=== PATIENT | female | born 1950 | race Caucasian/White ===

== ENCOUNTER → 2017-10-02 12:19 | Outpatient (CLI) | payer OTHER, SELFPAY ==
--- NOTE | 2017-10-02 | DI.RAD.S_ITS ---
PROCEDURE: XR LUMBAR SPINE MIN 4V INDICATIONS: RHEUMATOID ARTHRITIS TECHNIQUE: 5 views of the lumbar spine acquired. COMPARISON: None. FINDINGS: Bones: 5 nonrib-bearing vertebrae are present. There is slight levoconvex curvature with normal bony alignment. No vertebral body compression fractures. No suspicious bony lesions. Disc spaces appear maintained. Mild narrowing and sclerosis of the facet joints at L4-5 and L5-S1. Soft tissues: Overlying bowel gas pattern is normal. Vascular calcifications. Oblique views: No pars defects. IMPRESSION: Mild facet arthropathy L4-5 and L5-S1, otherwise normal lumbar spine Dictated by: Geoff Mnan M.D. on 10/02/2017 at 13:16 Approved by: Geoff Mann M.D. on 10/02/2017 at 13:18
--- NOTE | 2017-10-02 | DI.RAD.S_ITS ---
PROCEDURE: XR CERVICAL SPINE 4V OR 5V INDICATIONS: RHEUMATOID ARTHRITIS TECHNIQUE: 5 views of the cervical spine were acquired. COMPARISON: None. FINDINGS: Bones: No fractures or dislocations to the C7 level. No suspicious bony lesions. Anterolisthesis is present at the C4-5 level with approximately 3 mm of displacement. There is a mild degree of posterior disc narrowing and facet arthropathy C3-4 and C4-5. No cervical ribs. Oblique views show bony encroachment on the nerve root canals at C4-5, right greater than left. Soft tissues: Prevertebral soft tissues are normal in thickness. Minimal calcification in the left carotid artery. IMPRESSION: 1. Grade 1 anterolisthesis at C4-5, likely related to degenerative facet arthropathy. This could be further assessed by flexion and extension lateral views if clinically indicated. 2. No fracture deformities or suspicious bony lesions. Dictated by: Geoff Mann M.D. on 10/02/2017 at 13:12 Approved by: Geoff Mann M.D. on 10/02/2017 at 13:15
== END ==
PROVIDERS: Family Provider Family Medicine; PCP Nurse Practitioner Family; Visit Provider Internal Medicine Rheumatology
DX: M06.9 Rheumatoid arthritis, unspecified (principal); M43.12 Spondylolisthesis, cervical region; M43.16 Spondylolisthesis, lumbar region; M43.17 Spondylolisthesis, lumbosacral region
CPT/HCPCS: 72050; 72110

== ENCOUNTER 2017-12-12 13:14 | Emergency (ER) | payer OTHER, SELFPAY ==
[2017-12-12 13:19] VITALS: BP 126/78; PULSE 63; RESP 14; O2SAT 95; BMI 18.4
[2017-12-12 13:35] VITALS: BP 124/59; PULSE 84; RESP 13; TEMP 36.7; O2SAT 100
--- NOTE | 2017-12-12 13:40 | DI.RAD.S_ITS ---
PROCEDURE: XR CHEST 1V INDICATIONS: chest pain TECHNIQUE: One view of the chest was acquired. COMPARISON: None. FINDINGS: Surgical changes and devices: None. Lungs and pleura: No pleural effusions or pneumothorax. Lungs are clear. Mediastinum: Mediastinal contours appear normal. Heart size is normal. Bones and chest wall: No suspicious bony lesions. Overlying soft tissues appear unremarkable. IMPRESSION: No acute cardiopulmonary disease. Dictated by: Ben Seymour M.D. on 12/12/2017 at 14:09 Approved by: Ben Seymour M.D. on 12/12/2017 at 14:10
[2017-12-12 13:51] LABS: INR 1.1 (0.9-1.3); Prothrombin Time 12.4 SECONDS (10.1-12.7)
[2017-12-12 13:54] LABS: Add Manual Diff / Slide Review NO; Alanine Aminotransferase 23 IU/L (9-52); Albumin 4.7 g/dL (3.5-5.0); Albumin Globulin Ratio 1.3 (1.0-2.8); Alkaline Phosphatase 78 U/L (38-126); Aspartate Aminotransferase 33 IU/L (14-36); BUN Creatinine Ratio 8.9 (6-22); Basophils Percent Auto 0.6 % (0-2); Bilirubin Total 0.4 mg/dL (0.2-1.3); Blood Urea Nitrogen 16 mg/dL (7-17); Calcium 9.7 mg/dL (8.4-10.2); Carbon Dioxide 31 mmol/L (22-32); Chloride 95 mmol/L (98-107); Creatine Kinase 49 U/L (30-135); Eosinophils Percent Auto 0.2 % (2-4); Estimated Glomerular Filt Rate 28.2 mL/min (>60); Globulin 3.5 g/dL (1.7-4.1); Glucose 110 mg/dL (80-110); HEMOLYSIS < 15 (0-50); Hematocrit 35.2 % (36-46); Lipase 75 U/L (23-300); Lymphocytes Percent Auto 8.3 % (25-40); Mean Corpuscular HGB Conc 31.3 % (30-36); Mean Corpuscular Hemoglobin 21.7 PG (26-34); Mean Corpuscular Volume 69.3 fL (80-100); Monocytes Percent Auto 6.4 % (3-14); Neutrophils Absolute Auto 18200 /uL (3000-5900); Neutrophils Percent Auto 84.5 % (50-75); PTT Partial Thromboplastin Tim 26 SECONDS (26.4-36.2); Platelet Count 435 X10^3/uL (150-400); Potassium 3.4 mmol/L (3.4-5.1); Red Blood Cell Count 5.08 X10^6/uL (4.0-5.2); Red Cell Distribution Width 18.5 % (11.6-14.8); Sodium 139 mmol/L (137-145); Total Protein 8.2 g/dL (6.3-8.2); White Blood Cell Count 21.6 X10^3/uL (4.5-11.0)
[2017-12-12 14:07] VITALS: BP 119/60; PULSE 91; RESP 11; O2SAT 100
[2017-12-12 14:07] LABS: Troponin I < 0.012 ng/mL (0.01-0.034)
[2017-12-12 14:48] LABS: Microcytosis 1+
[2017-12-12 14:49] LABS: Platelet Estimate Increased on smear
[2017-12-12 14:53] VITALS: BP 119/61; PULSE 85; RESP 29; O2SAT 100
[2017-12-12 15:36] LABS: RBC Urine None Seen (0-5/HPF)
--- NOTE | 2017-12-12 15:36 | ED.CHESTPAIN ---
HPI - Chest Pain General Chief Complaint: Chest Pain Stated Complaint: CHEST PAIN Time Seen by Provider: 12/12/17 13:49 Source: patient Mode of arrival: ambulatory Limitations: no limitations History of Present Illness HPI narrative: Patient is a 67-year-old female who presents with chest discomfort. She says it started while at work today seems to be constant in nature on the left side nonradiating. It has now resolved since she has been in the ED. She has never had pain like this in the past. No shortness of breath cough or fever. She is currently on her 2nd or 3rd round of antibiotics for UTI that she says 1 go away. She complains of discomfort with urination. Currently on Augmentin. She denies any abdominal pain. MD complaint: chest pain Related Data Home Medications Medication Instructions Recorded Confirmed prednisone 5 mg PO QDAY #0 01/10/12 12/12/17 tramadol 50 mg PO 5XD #0 03/29/17 12/12/17 amoxicillin-pot clavulanate 1 tab PO BID 12/12/17 12/12/17 [Augmentin] estradiol 0.5 mg PO DAILY 12/12/17 12/12/17 flurbiprofen 100 mg PO BID 12/12/17 12/12/17 hydrochlorothiazide 25 mg PO DAILY 12/12/17 12/12/17 lisinopril 10 mg PO DAILY 12/12/17 12/12/17 medroxyprogesterone 2.5 mg PO DAILY 12/12/17 12/12/17 potassium chloride 20 meq PO DAILY 12/12/17 12/12/17 Allergies Allergy/AdvReac Type Severity Reaction Status Date / Time Sulfa (Sulfonamide AdvReac Severe VOMITING Verified 12/12/17 13:19 Antibiotics) AND FEVER [SULFA (SULFONAMIDE ANTIBIOTICS)] Review of Systems Review of Systems GENERAL: Denies chills, fatigue, malaise, fever, sweats, travel HEENT: Denies sinus pain, ear pain, sore throat, difficulty swallowing, neck pain RESPIRATORY: Denies dyspnea, cough, wheezing, hemoptysis, sputum. CARDIOVASCULAR: See HPI GASTROINTESTINAL: Denies nausea, vomiting, abdominal pain, diarrhea, constipation, melena. : UTI current MUSCULOSKELETAL: Denies weakness, joint pain, or bony pain SKIN: No rash, no erythema, no pruritus NEUROLOGIC: Denies weakness, dizziness, headache, numbness, change in speech, confusion PSYCHIATRIC: No concerning psychosocial issues. 12 point review of systems is negative except for those stated above and HPI [facility] Medical History Hyperlipidemia (Acute) Hypertension (Acute) Social History Smoking Status: Current every day smoker Exam Initial Vital Signs Initial Vital Signs: Vital Signs Pulse Rate 63 12/12/17 13:19 Respiratory Rate 14 12/12/17 13:19 Blood Pressure 126/78 12/12/17 13:19 Pulse Oximetry 95 12/12/17 13:19 GENERAL: alert female no acute distress HEENT: Head atraumatic,EOMI, pupils reactive, face symmetric, no JVD CARDIOVASCULAR: Regular rate and rhythm without murmurs, rubs or gallops. pain is not reproducible with palpation or movement RESPIRATORY: Breath sounds equal bilaterally, no wheezes rales or rhonchi. ABDOMEN: Soft, nontender. Normoactive bowel sounds all 4 quadrants. No guarding or rebound. : No CVA tenderness no suprapubic pain EXTREMITIES: Normal range of motion, no clubbing or edema. Neurovascularly intact NEUROLOGICAL: Alert and oriented x4.Normal gait and speech. Cranial nerves II through XII grossly intact. SKIN: Warm, dry, no laceration, no petechiae, no rashes or lesions. Course Orders Ordered: Discontinued Medications Ceftriaxone Sodium/Dextrose (Rocephin) 1 gm in 50 mls @ 100 mls/hr IV NOW ONE Stop: 12/12/17 17:06 Last Infusion: 12/12/17 17:38 Dose: 0 mls/hr Admin: 12/12/17 17:10 Dose: 100 mls/hr Vital Signs - 8 hr 12/12/17 13:19 12/12/17 13:35 12/12/17 14:07 Temperature 98.0 F Pulse Rate 63 84 91 H Respiratory Rate 14 13 11 L Blood Pressure 126/78 Blood Pressure [Left Arm] 124/59 L 119/60 Pulse Oximetry 95 100 100 12/12/17 14:53 Temperature Pulse Rate 85 Respiratory Rate 29 H Blood Pressure Blood Pressure [Left Arm] 119/61 Pulse Oximetry 100 MDM - Chest Pain Lab Data Attestation: I reviewed the patient's lab results. Result diagrams: 12/12/17 13:34 12/12/17 13:34 Lab Results 12/12/17 12/12/17 12/12/17 Range/Units 13:34 13:34 13:34 WBC 21.6 H (4.5-11.0) X10^3/uL RBC 5.08 (4.0-5.2) X10^6/uL Hgb 11.0 L (12.0-16.0) g/dL Hct 35.2 L (36-46) % MCV 69.3 L (80-100) fL MCH 21.7 L (26-34) PG MCHC 31.3 (30-36) % RDW 18.5 H (11.6-14.8) % Plt Count 435 H (150-400) X10^3/uL Neut % (Auto) 84.5 H (50-75) % Lymph % (Auto) 8.3 L (25-40) % Ulster % (Auto) 6.4 (3-14) % Eos % (Auto) 0.2 L (2-4) % Baso % (Auto) 0.6 (0-2) % Neut # (Auto) 20285 H (9446-1386) /uL Platelet Estimate Increased on smear RBC Morphology Not Reportable Microcytosis 1+ H PT 12.4 (10.1-12.7) SECONDS INR 1.1 (0.9-1.3) APTT 26 L (26.4-36.2) SECONDS Sodium 139 (137-145) mmol/L Potassium 3.4 (3.4-5.1) mmol/L Chloride 95 L (98-107) mmol/L Carbon Dioxide 31 (22-32) mmol/L BUN 16 (7-17) mg/dL Creatinine 1.80 H (0.52-1.04) mg/dL Estimated GFR 28.2 L (>60) mL/min BUN/Creatinine Ratio 8.9 (6-22) Glucose 110 (80-110) mg/dL Calcium 9.7 (8.4-10.2) mg/dL Total Bilirubin 0.4 (0.2-1.3) mg/dL AST 33 (14-36) IU/L ALT 23 (9-52) IU/L Alkaline Phosphatase 78 (38-126) U/L Total Creatine Kinase 49 (30-135) U/L Troponin I < 0.012 (0.01-0.034) ng/mL Total Protein 8.2 (6.3-8.2) g/dL Albumin 4.7 (3.5-5.0) g/dL Globulin 3.5 (1.7-4.1) g/dL Albumin/Globulin Ratio 1.3 (1.0-2.8) Lipase 75 (23-300) U/L Urine Color Urine Appearance Urine pH (4.5-8.0) Ur Specific Holland (1.000-1.035) Urine Protein (Negative) Urine Glucose (UA) (Normal) g/dL Urine Ketones (NEGATIVE) Urine Occult Blood (Negative) Urine Nitrate (Negative) Urine Bilirubin (NEGATIVE) Urine Ictotest (Negative) Urine Urobilinogen (0.2) E.U./dL Ur Leukocyte Esterase (NEGATIVE) Urine RBC (0-5/HPF) Urine WBC (0-5/HPF) Ur Squamous Epith Cells Amorphous Sediment Urine Bacteria (None) Urine Mucus (Negative) Ur Culture Indicated? Micro UA Comment 12/12/17 12/12/17 Range/Units 14:15 15:50 WBC (4.5-11.0) X10^3/uL RBC (4.0-5.2) X10^6/uL Hgb (12.0-16.0) g/dL Hct (36-46) % MCV (80-100) fL MCH (26-34) PG MCHC (30-36) % RDW (11.6-14.8) % Plt Count (150-400) X10^3/uL Neut % (Auto) (50-75) % Lymph % (Auto) (25-40) % Ulster % (Auto) (3-14) % Eos % (Auto) (2-4) % Baso % (Auto) (0-2) % Neut # (Auto) (7349-5134) /uL Platelet Estimate RBC Morphology Microcytosis PT (10.1-12.7) SECONDS INR (0.9-1.3) APTT (26.4-36.2) SECONDS Sodium (137-145) mmol/L Potassium (3.4-5.1) mmol/L Chloride (98-107) mmol/L Carbon Dioxide (22-32) mmol/L BUN (7-17) mg/dL Creatinine (0.52-1.04) mg/dL Estimated GFR (>60) mL/min BUN/Creatinine Ratio (6-22) Glucose (80-110) mg/dL Calcium (8.4-10.2) mg/dL Total Bilirubin (0.2-1.3) mg/dL AST (14-36) IU/L ALT (9-52) IU/L Alkaline Phosphatase (38-126) U/L Total Creatine Kinase (30-135) U/L Troponin I < 0.012 (0.01-0.034) ng/mL Total Protein (6.3-8.2) g/dL Albumin (3.5-5.0) g/dL Globulin (1.7-4.1) g/dL Albumin/Globulin Ratio (1.0-2.8) Lipase (23-300) U/L Urine Color Yellow Urine Appearance Slightly cloudy Urine pH 5.0 (4.5-8.0) Ur Specific Holland 1.015 (1.000-1.035) Urine Protein 2+ H (Negative) Urine Glucose (UA) Negative (Normal) g/dL Urine Ketones Trace H (NEGATIVE) Urine Occult Blood Negative (Negative) Urine Nitrate Negative (Negative) Urine Bilirubin 1+ H (NEGATIVE) Urine Ictotest Negative (Negative) Urine Urobilinogen 0.2 (0.2) E.U./dL Ur Leukocyte Esterase Trace H (NEGATIVE) Urine RBC None seen (0-5/HPF) Urine WBC 5-10/hpf H (0-5/HPF) Ur Squamous Epith Cells 1-5 /hpf Amorphous Sediment 1+ Urine Bacteria Moderate (10-30) H (None) Urine Mucus 1+ H (Negative) Ur Culture Indicated? Specimen cultured Micro UA Comment Not Reportable Imaging Data Chest x-ray: Radiologist's impression: PROCEDURE: XR CHEST 1V INDICATIONS: chest pain TECHNIQUE: One view of the chest was acquired. COMPARISON: None. FINDINGS: Surgical changes and devices: None. Lungs and pleura: No pleural effusions or pneumothorax. Lungs are clear. Mediastinum: Mediastinal contours appear normal. Heart size is normal. Bones and chest wall: No suspicious bony lesions. Overlying soft tissues appear unremarkable. IMPRESSION: No acute cardiopulmonary disease. Dictated by: Ben Seymour M.D. on 12/12/2017 at 14:09 ECG Data Attestation: I personally reviewed and interpreted this ECG as follows: Prior ECG tracings: not available for review Interpretation: normal sinus rhythm rate 90 no Q-waves no ST changes no T-wave inversions all p.r. rate 135 QRS ED for QTC 399 MDM Narrative Medical decision making narrative: Patient is requesting to go home. She has significant leukocytosis though she is on 5 mg of prednisone I think there is potential this is infectious. She has been treated on multiple antibiotics for UTI and is still symptomatic. She understands that she may likely need stress test and IV antibiotics. patient does not have signs or symptoms consistent with PE. No risk factors. It was considered. I have discussed case with Dr. Payton who will see her in the office tomorrow. Request that we give 1 dose of IV Rocephin in the ED. The patient is clinically sober, free from distracting injury, appears to have intact insight, judgment and reason. Does not meet criteria for involuntary hospitalization. Patient has the capacity to make decisions. Discharge Plan Departure Patient Disposition: Left Against Medical Advice Clinical Impression: Atypical chest pain, UTI (urinary tract infection) Discharge Date/Time: 12/12/17 17:56 Interventions: ED Discharge Assessment Last Done: 12/12/17 17:56 Instructions: DI for Urinary Tract Infection (UTI), DI for Atypical Chest Pain Activity Restrictions/Additional Instructions: It is recommended that you stay in the hospital for IV antibiotics and further cardiac workup Follow up of with primary care provider tomorrow for another dose of antibiotics Continue Augmentin as previously prescribed Return to the ER at any time if you should have any worsening chest pain fevers abdominal discomfort inability keep fluids down Prescriptions: No Action prednisone 5 MG tablet 5 mg PO QDAY Qty: 0 RF: 0 tramadol 50 MG tablet 50 mg PO 5XD Qty: 0 RF: 0 medroxyprogesterone 2.5 mg Tablet 2.5 mg PO DAILY RF: 0 flurbiprofen 100 mg Tablet 100 mg PO BID RF: 0 hydrochlorothiazide 25 mg Tablet 25 mg PO DAILY RF: 0 estradiol 0.5 mg Tablet 0.5 mg PO DAILY RF: 0 amoxicillin-pot clavulanate [Augmentin] 875-125 mg Tablet 1 tab PO BID RF: 0 potassium chloride 20 mEq Tablet Extended Release 20 meq PO DAILY RF: 0 lisinopril 10 mg Tablet 10 mg PO DAILY RF: 0 Referrals: Anson Marie MD [Family Provider] - Anuradha Villalobos ARNP [Primary Care Provider] - Stand Alone Forms: Against Medical Advice
[2017-12-12 15:41] LABS: Bilirubin Urine UA 1+ (NEGATIVE); Color Urine UA YELLOW; Glucose Urine UA NEGATIVE (Normal); Ketones Urine UA TRACE (NEGATIVE); Leukocyte Esterase Urine UA TRACE (NEGATIVE); Nitrite Urine UA Negative (Negative); Occult Blood Urine UA NEGATIVE (Negative); Protein Urine UA 2+ (Negative); Specific Gravity Urine UA 1.015 (1.000-1.035); Urobilinogen Urine UA 0.2 E.U./dL (0.2)
[2017-12-12 15:47] LABS: Appearance Urine UA Slightly Cloudy
[2017-12-12 15:54] LABS: Amorphous Sediment Urine 1+; Bacteria Urine Moderate (10-30); Culture Indicated Urine Specimen Cultured; Mucus Urine 1+ (Negative); Squamous Epithelial Cell Urine 1-5 /HPF; WBC Urine 5-10/HPF (0-5/HPF)
[2017-12-12 15:59] LABS: Ictotest Urine Negative (Negative)
[2017-12-12 16:20] LABS: Troponin I < 0.012 ng/mL (0.01-0.034)
[2017-12-12] MEDS: CEFTRIAXONE 1 GM/50 ML FROZ.PIGGY IV (17:10)
[2017-12-12 17:51] VITALS: BP 141/67; PULSE 80; TEMP 36.4; O2SAT 96
== END 2017-12-12 17:56 | disposition left against medical advice (07) ==
PROVIDERS: Emergency Provider Emergency Medicine; Family Provider Family Medicine; PCP Nurse Practitioner Family
DX: N39.0 Urinary tract infection, site not specified (principal); R07.89 Other chest pain
CPT/HCPCS: 36415; 36591; 71045; 80053; 81001; 82550; 82553; 83690; 84484; 85025; 85610; 85730; 87086; 93005; 93010; 96365; 99283; 99285

== ENCOUNTER → 2017-12-18 13:13 | Outpatient (CLI) | payer OTHER, SELFPAY ==
--- NOTE | 2017-12-18 13:50 | DI.CT.S_ITS ---
PROCEDURE: CT ABDOMEN WO CON INDICATIONS: ASYMPTOMATIC HEMATURIA TECHNIQUE: After the administration of oral contrast, 5 mm thick sections acquired from the diaphragms to the iliac crests. 5 mm coronal and sagittal reformats were then performed. For radiation dose reduction, the following was used: automated exposure control, adjustment of mA and/or kV according to patient size. COMPARISON: None. FINDINGS: Image quality: Excellent. Lung bases: Lung bases are clear. Heart size is normal. Solid organs: Liver is normal in size. Gallbladder is within normal limits. Pancreas is normal in contours. Spleen is normal in size. No adrenal nodules. Kidneys: There is no hydronephrosis. No perinephric fat stranding or fluid. Bilateral kidneys are normal in size. Numerous bilateral nonobstructing renal calculi are seen measures up to 4 mm in size in midpole of right kidney and up to 7 mm in size in mid to lower pole of left kidney. Lobulated 3.5 x 4.1 cm hypodense structure is seen in midpole of right kidney and measures 15 Hounsfield unit density consistent with simple cysts. Additional smaller cysts are also seen in upper pole of right kidney. Peritoneum and bowel: Bowel loops demonstrate normal wall thickness and caliber. No free fluid or air. Nodes and vessels: No retroperitoneal or mesenteric adenopathy by size criteria. Aorta and inferior vena cava are normal in size. Moderate amount of atherosclerotic ossifications throughout the aorta is seen. Bones: No suspicious bony lesions. No vertebral body compression fractures. Miscellaneous: No ventral hernias. IMPRESSION: 1. Bilateral nonobstructing subcentimeter renal calculi. Right renal cysts as above. No obstructing renal stone hydronephrosis. No perinephric fat stranding or fluid. 2. No acute inflammatory process within the abdomen. No free fluid or free air. Dictated by: Quintin Roper M.D. on 12/18/2017 at 14:10 Approved by: Quintin Roper M.D. on 12/18/2017 at 14:13
== END ==
PROVIDERS: Family Provider Family Medicine; PCP Nurse Practitioner Family; Visit Provider Family Medicine
DX: R31.9 Hematuria, unspecified (principal); N20.0 Calculus of kidney; N28.1 Cyst of kidney, acquired
CPT/HCPCS: 74150

== ENCOUNTER → 2018-01-29 13:56 | Outpatient (CLI) | payer OTHER, SELFPAY ==
[2018-01-29 14:09] LABS: Bacteria Urine None Seen
[2018-01-29 17:38] LABS: Appearance Urine UA CLEAR; Bilirubin Urine UA NEGATIVE (NEGATIVE); Color Urine UA YELLOW; Glucose Urine UA NEGATIVE (Normal); Ketones Urine UA NEGATIVE (NEGATIVE); Leukocyte Esterase Urine UA NEGATIVE (NEGATIVE); Nitrite Urine UA NEGATIVE (Negative); Occult Blood Urine UA TRACE-INTACT (Negative); Protein Urine UA NEGATIVE (Negative); Urobilinogen Urine UA 0.2 E.U./dL (0.2)
[2018-01-29 17:50] LABS: RBC Urine 0-1/HPF (0-5/HPF); Squamous Epithelial Cell Urine 0-1 /HPF; WBC Urine 0-1/HPF (0-5/HPF)
== END ==
PROVIDERS: Family Provider Family Medicine; PCP Family Medicine; Visit Provider Specialist
DX: R30.0 Dysuria (principal); R10.9 Unspecified abdominal pain
CPT/HCPCS: 81001; 87086

== ENCOUNTER → 2018-01-31 13:55 | Outpatient (CLI) | payer OTHER, SELFPAY ==
--- NOTE | 2018-01-31 | DI.RAD.S_ITS ---
PROCEDURE: XR KUB INDICATIONS: KIDNEY STONES/LAB TECHNIQUE: One view of the abdomen acquired. COMPARISON: [facility], CT, CT ABDOMEN WO CON, 12/18/2017, 13:41. FINDINGS: Surgical changes and devices: None. Bowel: Bowel gas pattern is normal. Soft tissues: No new suspicious abdominal calcifications. Punctate renal collecting system calculi greater on the left than the right are more easily visualized due to the lesser degree of stool covering the area of the kidney on the left. The larger of the calculi on the left is again noted to be unchanged from prior CT scan of 12/18/17 and to measure up to 7 mm in dimension Visualized solid organ contours appear normal in size. Bones: No suspicious bony lesions. IMPRESSION: Stable appearing calculi over the kidneys bilaterally better seen on the left than the right with the largest calculus on the left measuring up to 7 mm. Dictated by: Chito Kerr M.D. on 01/31/2018 at 14:40 Approved by: Chito Kerr M.D. on 01/31/2018 at 14:42
[2018-01-31 15:13] LABS: Uric Acid 6.3 mg/dL (2.5-6.2)
[2018-02-03 16:41] LABS: Parathyroid Hormone Int 91 pg/mL (14-64)
== END ==
PROVIDERS: PCP Family Medicine; Visit Provider Specialist
DX: N20.0 Calculus of kidney (principal)
CPT/HCPCS: 36415; 74018; 83970; 84550; 86304

== ENCOUNTER → 2018-02-10 12:26 | Outpatient (CLI) | payer OTHER, SELFPAY | PROVIDERS: Family Provider Family Medicine; PCP Family Medicine; Visit Provider Specialist | DX: N20.0 Calculus of kidney (principal) ==

== ENCOUNTER → 2018-02-13 13:15 | Outpatient (CLI) | payer OTHER, SELFPAY ==
[2018-02-13 14:40] LABS: Calcium 9.6 mg/dL (8.4-10.2)
== END ==
PROVIDERS: Family Provider Family Medicine; PCP Family Medicine; Visit Provider Specialist
DX: N20.0 Calculus of kidney (principal)
CPT/HCPCS: 36415; 82310

== ENCOUNTER → 2018-03-30 13:33 | Outpatient (CLI) | payer OTHER, SELFPAY ==
[2018-03-30 15:07] LABS: Hematocrit 30.6 % (36-46); Hemoglobin 9.8 g/dL (12.0-16.0); Mean Corpuscular Hemoglobin 26.2 PG (26-34); Mean Corpuscular Volume 81.8 fL (80-100); Platelet Count 460 X10^3/uL (150-400); Red Blood Cell Count 3.74 X10^6/uL (4.0-5.2); Red Cell Distribution Width 16.7 % (11.6-14.8); White Blood Cell Count 9.1 X10^3/uL (4.5-11.0)
[2018-03-30 15:40] LABS: Creatinine Urine Random 104.7 mg/dL
[2018-03-30 15:43] LABS: Blood Urea Nitrogen 12 mg/dL (7-17); Calcium 9.1 mg/dL (8.4-10.2); Carbon Dioxide 27 mmol/L (22-32); Chloride 99 mmol/L (98-107); Estimated Glomerular Filt Rate > 60.0 mL/min (>60); Glucose 125 mg/dL (80-110); HEMOLYSIS < 15 (0-50); Sodium 140 mmol/L (137-145)
[2018-03-30 15:46] LABS: Protein (Total) Urine Random < 5 mg/dL (0-12); Protein Creatinine Ratio Urine 0.04 GRAM/24H
== END ==
PROVIDERS: Family Provider Family Medicine; PCP Family Medicine; Visit Provider Student in an Organized Health Care Education/Training Program
DX: D70.9 Neutropenia, unspecified (principal); D63.1 Anemia in chronic kidney disease; N05.9 Unspecified nephritic syndrome with unspecified morphologic changes; R80.9 Proteinuria, unspecified
CPT/HCPCS: 36415; 80048; 82570; 84156; 85027

== ENCOUNTER → 2018-06-01 12:55 | Outpatient (CLI) | payer OTHER, SELFPAY ==
[2018-06-01 13:02] LABS: Bacteria Urine None Seen
[2018-06-01 13:34] LABS: Hematocrit 39.9 % (36-46); Hemoglobin 12.7 g/dL (12.0-16.0)
[2018-06-01 13:39] LABS: Blood Urea Nitrogen 8 mg/dL (7-17); Calcium 9.4 mg/dL (8.4-10.2); Carbon Dioxide 30 mmol/L (22-32); Chloride 96 mmol/L (98-107); Estimated Glomerular Filt Rate > 60.0 mL/min (>60); Glucose 162 mg/dL (80-110); HEMOLYSIS < 15 (0-50); Potassium 3.8 mmol/L (3.4-5.1); Sodium 137 mmol/L (137-145)
[2018-06-01 14:11] LABS: Ferritin 11.4 ng/mL (11.1-264)
[2018-06-01 14:15] LABS: Appearance Urine UA CLEAR; Bilirubin Urine UA NEGATIVE (NEGATIVE); Color Urine UA ORANGE; Glucose Urine UA NEGATIVE (Negative); Ketones Urine UA NEGATIVE (NEGATIVE); Leukocyte Esterase Urine UA TRACE (NEGATIVE); Nitrite Urine UA NEGATIVE (Negative); Occult Blood Urine UA 1+ (Negative); Protein Urine UA NEGATIVE (Negative); Urobilinogen Urine UA 0.2 E.U./dL (0.2); pH Urine UA 6.5 (4.5-8.0)
[2018-06-01 14:25] LABS: RBC Urine 5-10/HPF (0-5/HPF); WBC Urine 5-10/HPF (0-5/HPF)
[2018-06-01 14:26] LABS: Culture Indicated Urine Cult Not Indicated; Squamous Epithelial Cell Urine 5-10 /HPF
[2018-06-01 14:39] LABS: HEMOLYSIS < 15 (0-50); Iron 149 ug/dL (37-170)
[2018-06-01 14:50] LABS: Percent Iron Saturation 36 % (15-50); Total Iron Binding Capacity 411 ug/dL (265-497); Transferrin 322 mg/dL (206-381)
[2018-06-05 14:09] LABS: Parathyroid Hormone Int 85 pg/mL (14-64)
== END ==
PROVIDERS: PCP Family Medicine; Visit Provider Student in an Organized Health Care Education/Training Program
DX: N30.00 Acute cystitis without hematuria (principal); D50.0 Iron deficiency anemia secondary to blood loss (chronic); N05.9 Unspecified nephritic syndrome with unspecified morphologic changes; D64.9 Anemia, unspecified; N25.81 Secondary hyperparathyroidism of renal origin
CPT/HCPCS: 36415; 80048; 81001; 82728; 83540; 83550; 83970; 85014; 85018

== ENCOUNTER → 2018-06-30 11:15 | Outpatient (CLI) | payer OTHER, SELFPAY ==
[2018-06-30 12:23] LABS: Appearance Urine UA CLEAR; Bilirubin Urine UA NEGATIVE (NEGATIVE); Color Urine UA YELLOW; Glucose Urine UA NEGATIVE (Negative); Ketones Urine UA NEGATIVE (NEGATIVE); Leukocyte Esterase Urine UA NEGATIVE (NEGATIVE); Nitrite Urine UA NEGATIVE (Negative); Occult Blood Urine UA 2+ (Negative); Protein Urine UA NEGATIVE (Negative); Urobilinogen Urine UA 0.2 E.U./dL (0.2); pH Urine UA 5.5 (4.5-8.0)
[2018-06-30 12:53] LABS: Bacteria Urine None Seen
[2018-06-30 12:54] LABS: RBC Urine 1-5/HPF (0-5/HPF); Squamous Epithelial Cell Urine 0-1 /HPF; WBC Urine 0-1/HPF (0-5/HPF)
== END ==
PROVIDERS: PCP Family Medicine; Visit Provider Student in an Organized Health Care Education/Training Program
DX: N05.9 Unspecified nephritic syndrome with unspecified morphologic changes (principal); N30.00 Acute cystitis without hematuria; D50.0 Iron deficiency anemia secondary to blood loss (chronic); D64.9 Anemia, unspecified
CPT/HCPCS: 81003; 81015

== ENCOUNTER → 2018-09-09 11:09 | Outpatient (CLI) | payer OTHER, SELFPAY ==
[2018-09-09 11:37] LABS: Hematocrit 37.9 % (36-46); Hemoglobin 12.8 g/dL (12.0-16.0)
[2018-09-09 11:49] LABS: HEMOLYSIS < 15 (0-50)
[2018-09-09 11:55] LABS: Blood Urea Nitrogen 12 mg/dL (7-17); Calcium 9.5 mg/dL (8.4-10.2); Carbon Dioxide 32 mmol/L (22-32); Chloride 96 mmol/L (98-107); Estimated Glomerular Filt Rate > 60.0 mL/min (>60); Glucose 116 mg/dL (80-110); Potassium 3.6 mmol/L (3.4-5.1); Sodium 137 mmol/L (137-145)
[2018-09-09 12:06] LABS: HEMOLYSIS < 15 (0-50); Iron 52 ug/dL (37-170)
[2018-09-09 12:16] LABS: Percent Iron Saturation 13 % (15-50); Total Iron Binding Capacity 386 ug/dL (265-497); Transferrin 300 mg/dL (206-381)
[2018-09-09 12:31] LABS: Ferritin 15.1 ng/mL (11.1-264)
[2018-09-09 12:54] LABS: Appearance Urine UA CLEAR; Bilirubin Urine UA NEGATIVE (NEGATIVE); Color Urine UA YELLOW; Glucose Urine UA NEGATIVE (Negative); Ketones Urine UA NEGATIVE (NEGATIVE); Leukocyte Esterase Urine UA 1+ (NEGATIVE); Nitrite Urine UA NEGATIVE (Negative); Occult Blood Urine UA 1+ (Negative); Protein Urine UA NEGATIVE (Negative); Urobilinogen Urine UA 0.2 E.U./dL (0.2); pH Urine UA 6.5 (4.5-8.0)
[2018-09-09 12:59] LABS: Bacteria Urine Few (2-10); RBC Urine 1-5/HPF (0-5/HPF); Squamous Epithelial Cell Urine 1-5 /HPF (0-5/HPF); Transitional Epi Cells Urine 1-5/HPF (0-5/HPF); WBC Urine 10-30/HPF (0-5/HPF)
[2018-09-13 14:45] LABS: Parathyroid Hormone Int 43 pg/mL (14-64)
== END ==
PROVIDERS: Family Provider Student in an Organized Health Care Education/Training Program; PCP Family Medicine; Visit Provider Student in an Organized Health Care Education/Training Program
DX: N05.9 Unspecified nephritic syndrome with unspecified morphologic changes (principal); D50.0 Iron deficiency anemia secondary to blood loss (chronic); N25.81 Secondary hyperparathyroidism of renal origin; N30.00 Acute cystitis without hematuria; D64.9 Anemia, unspecified
CPT/HCPCS: 36415; 80048; 81001; 82728; 83540; 83550; 83970; 85014; 85018; 87077; 87086; 87186

== ENCOUNTER → 2018-10-03 19:03 | Outpatient (CLI) | payer OTHER, SELFPAY ==
--- NOTE | 2018-10-03 19:06 | DI.MRI.S_ITS ---
PROCEDURE: MR LUMBAR SPINE WO CON INDICATIONS: WEAKNES/MYALGIA/LUMBAR RADICULOPATHY TECHNIQUE: Noncontrast sagittal T1 spin echo and T2 fast echo, sagittal STIR, axial T1 and T2 fast spin echo through the lumbar spine. In cases with scoliosis, additional coronal T2 fast spin echo may be performed. COMPARISON: [facility], CR, XR LUMBAR SPINE MIN 4V, 10/02/2017, 12:38. FINDINGS: Image quality: Excellent. Alignment and Curvature: There is normal bony alignment. Bone Marrow: Marrow is of normal overall signal. No acute vertebral body compression fractures. Spinal Cord: Conus medullaris terminates at the L1-2 disc level. Visualized cord demonstrates normal signal and size. Paraspinous Soft Tissues: No paravertebral masses. Right renal cysts. L1-L2: Loss of disc signal and slight loss of disc height. Mild to moderate diffuse disc bulge. No central stenosis. No neural foraminal narrowing. No neural impingement. L2-L3: Loss of disc signal. Minimal, diffuse disc bulge. No central stenosis. No neural foraminal narrowing. No neural impingement. L3-L4: Loss of disc signal. Minimal, diffuse disc bulge. Mild bilateral facet hypertrophy. No central stenosis. No neural foraminal narrowing. No neural impingement. L4-L5: Loss of disc signal. Mild, diffuse disc bulge. Mild facet and severe ligamentum flavum hypertrophy. Moderate narrowing of the central canal. Moderate right and mild left neural foraminal narrowing. No neural impingement. Focal high intensity zone noted in the right foraminal annulus compatible with a fissure. L5-S1: Loss of disc signal. Minimal, diffuse disc bulge. Mild to moderate bilateral facet hypertrophy. No central stenosis. No neural foraminal narrowing. No neural impingement. IMPRESSION: 1. Multilevel degenerative disc disease. 2. Multilevel facet arthropathy. 3. Moderate L4-L5 central canal narrowing. 4. Moderate right and mild left L4-L5 neural foraminal narrowing. 5. No neural impingement. 6. L4-L5 disc annulus fissure. Dictated by: Jenelle Atkinson MD, PhD on 10/04/2018 at 13:41 Approved by: Jenelle Atkinson MD, PhD on 10/04/2018 at 13:46
== END ==
PROVIDERS: Family Provider Student in an Organized Health Care Education/Training Program; PCP Family Medicine; Visit Provider Family Medicine
DX: M51.16 Intervertebral disc disorders with radiculopathy, lumbar region (principal); M48.061 Spinal stenosis, lumbar region without neurogenic claudication; M47.26 Other spondylosis with radiculopathy, lumbar region; M79.10 Myalgia, unspecified site; R53.1 Weakness
CPT/HCPCS: 72148

== ENCOUNTER → 2018-10-08 13:24 | Outpatient (CLI) | payer OTHER, SELFPAY | PROVIDERS: Family Provider Student in an Organized Health Care Education/Training Program; PCP Family Medicine; Visit Provider Podiatrist Primary Podiatric Medicine | DX: L89.620 Pressure ulcer of left heel, unstageable (principal); S80.811D Abrasion, right lower leg, subsequent encounter; S80.812D Abrasion, left lower leg, subsequent encounter; S90.822D Blister (nonthermal), left foot, subsequent encounter; L90.9 Atrophic disorder of skin, unspecified | CPT/HCPCS: 99203; 99213 ==

== ENCOUNTER → 2018-10-15 13:22 | Outpatient (CLI) | payer OTHER, SELFPAY | PROVIDERS: Family Provider Student in an Organized Health Care Education/Training Program; PCP Family Medicine; Visit Provider Podiatrist Primary Podiatric Medicine | DX: S80.811D Abrasion, right lower leg, subsequent encounter (principal); S80.812D Abrasion, left lower leg, subsequent encounter | CPT/HCPCS: 87070; 87075; 87077; 87205; 99214 ==

== ENCOUNTER → 2018-10-22 10:16 | Outpatient (CLI) | payer OTHER, SELFPAY | PROVIDERS: Family Provider Student in an Organized Health Care Education/Training Program; PCP Family Medicine; Visit Provider Podiatrist Primary Podiatric Medicine | DX: S80.811A Abrasion, right lower leg, initial encounter (principal); S80.812A Abrasion, left lower leg, initial encounter | CPT/HCPCS: 97597; 99212 ==

== ENCOUNTER → 2018-10-29 10:01 | Outpatient (CLI) | payer OTHER, SELFPAY | PROVIDERS: Family Provider Student in an Organized Health Care Education/Training Program; Visit Provider Podiatrist Primary Podiatric Medicine | DX: S80.811A Abrasion, right lower leg, initial encounter (principal); S80.812A Abrasion, left lower leg, initial encounter; M79.661 Pain in right lower leg; M79.662 Pain in left lower leg | CPT/HCPCS: 17250; 99213 ==

== ENCOUNTER → 2018-11-05 09:58 | Outpatient (CLI) | payer OTHER, SELFPAY | PROVIDERS: Family Provider Student in an Organized Health Care Education/Training Program; Visit Provider Podiatrist Primary Podiatric Medicine | DX: S80.811A Abrasion, right lower leg, initial encounter (principal); S80.812A Abrasion, left lower leg, initial encounter; M79.604 Pain in right leg; M79.605 Pain in left leg | CPT/HCPCS: 17250; 99213 ==

== ENCOUNTER → 2018-11-08 16:18 | Outpatient (CLI) | payer OTHER, SELFPAY ==
--- NOTE | 2018-11-08 16:22 | DI.RAD.S_ITS ---
PROCEDURE: XR TIBIA FUBULA RT 2V INDICATIONS: infected wound, new tenderness, swelling TECHNIQUE: 2 views of the tibia and fibula were acquired. COMPARISON: None. FINDINGS: Bones: No fractures or dislocations. No suspicious bony lesions. Soft tissues: No suspicious soft tissue calcifications or masses. IMPRESSION: No osteomyelitis is found, no soft tissues is seen. There is a small amount of calcium or other high density material centered on the anterior cutaneous soft tissue margin of the mid calf. Sign report sign report Dictated by: Chito Kerr M.D. on 11/08/2018 at 17:21 Approved by: Chito Kerr M.D. on 11/08/2018 at 17:22
[2018-11-08 17:01] LABS: Add Manual Diff / Slide Review NO; Basophils Absolute Auto 100 /uL (0-100); Basophils Percent Auto 0.6 % (0-2); Eosinophils Absolute Auto 100 /uL (0-450); Eosinophils Percent Auto 1.3 % (2-4); Hematocrit 36.4 % (36-46); Hemoglobin 12.2 g/dL (12.0-16.0); Lymphocytes Absolute Auto 2000 /uL (1100-4500); Lymphocytes Percent Auto 22.7 % (25-40); Mean Corpuscular HGB Conc 33.5 % (30-36); Mean Corpuscular Hemoglobin 30.4 PG (26-34); Mean Corpuscular Volume 90.6 fL (80-100); Monocytes Absolute Auto 800 /uL (0-900); Neutrophils Absolute Auto 5800 /uL (1500-7000); Neutrophils Percent Auto 66.4 % (50-75); Platelet Count 322 X10^3/uL (150-400); Red Blood Cell Count 4.02 X10^6/uL (4.0-5.2); Red Cell Distribution Width 13.4 % (11.6-14.8); White Blood Cell Count 8.7 X10^3/uL (4.5-11.0)
== END ==
PROVIDERS: Family Provider Student in an Organized Health Care Education/Training Program; Visit Provider Nurse Practitioner Family
DX: L08.9 Local infection of the skin and subcutaneous tissue, unspecified (principal); L97.919 Non-pressure chronic ulcer of unspecified part of right lower leg with unspecified severity; T14.8XXA Other injury of unspecified body region, initial encounter
CPT/HCPCS: 36415; 73590; 85025

== ENCOUNTER → 2018-11-09 14:26 | Outpatient (CLI) | payer OTHER, SELFPAY | PROVIDERS: Family Provider Student in an Organized Health Care Education/Training Program; Visit Provider Student in an Organized Health Care Education/Training Program | DX: L98.499 Non-pressure chronic ulcer of skin of other sites with unspecified severity (principal) | CPT/HCPCS: 87070; 87075; 87205 ==

== ENCOUNTER → 2018-11-12 09:51 | Outpatient (CLI) | payer OTHER, SELFPAY | PROVIDERS: Family Provider Student in an Organized Health Care Education/Training Program; Visit Provider Family Medicine | DX: S80.811A Abrasion, right lower leg, initial encounter (principal); S80.812A Abrasion, left lower leg, initial encounter; I10 Essential (primary) hypertension; L90.8 Other atrophic disorders of skin; Z79.52 Long term (current) use of systemic steroids | CPT/HCPCS: 97597 ==

== ENCOUNTER → 2018-11-16 13:40 | Outpatient (CLI) | payer OTHER, SELFPAY ==
--- NOTE | 2018-11-16 13:43 | DI.US.S_ITS ---
PROCEDURE: US ARTERIAL DUPLEX LE RT INDICATIONS: NON HEALING ULCER TECHNIQUE: Color and pulse Doppler interrogation was performed of the right lower extremity arterial system, with image documentation. COMPARISON: CT right lower extremity 11/16/2018.. FINDINGS: Common femoral artery: 183 cm/sec, with triphasic flow. Deep femoral artery: 92 cm/sec, with triphasic flow. Proximal superficial femoral artery: 132 cm/sec, with triphasic flow. Mid superficial femoral artery: 130 cm/sec, with triphasic flow. Distal superficial femoral artery: 101 cm/sec, with triphasic flow. Popliteal artery: 79 cm/sec, with triphasic flow. Posterior tibial artery: 97 cm/sec, with triphasic flow. Anterior tibial artery/dorsalis pedis: 59 cm/sec, with triphasic flow. De La O-scale imaging description: Mild atherosclerotic plaque throughout the right lower extremity. IMPRESSION: 1. Elevated velocities in the common femoral artery and posterior tibial artery. Borderline elevated velocities in the popliteal artery. 2. Atherosclerotic plaque throughout the right lower extremity. Dictated by: Moreno Hilliard M.D. on 11/16/2018 at 23:17 Approved by: Moreno Hilliard M.D. on 11/16/2018 at 23:23
--- NOTE | 2018-11-16 13:56 | DI.CT.S_ITS ---
PROCEDURE: CT LE RT WO CON INDICATIONS: Non healing ulcer TECHNIQUE: Noncontrast 3 mm axial sections acquired of the right tibia/fibula, with coronal and sagittal reformats. COMPARISON: None. FINDINGS: Image quality: Excellent. Bones: No fracture or focal osseous destruction. Soft tissues: Midtibial anterior subcutaneous stranding and skin thickening, with ulcerated appearance. No underlying soft tissue gas is seen. No definite loculated fluid collection to suggest abscess. There is circumferential cellulitis and skin thickening. IMPRESSION: No focal osseous destruction to suggest advanced osteomyelitis. If there is persistent clinical concern, continued short interval radiographic followup or contrast enhanced MRI could be performed to assess for early infection. Circumferential subcutaneous edema/cellulitis. Dictated by: Bert Alberto M.D. on 11/16/2018 at 15:16 Approved by: Bert Alberto M.D. on 11/16/2018 at 15:19
== END ==
PROVIDERS: PCP Student in an Organized Health Care Education/Training Program; Visit Provider Student in an Organized Health Care Education/Training Program
DX: L98.499 Non-pressure chronic ulcer of skin of other sites with unspecified severity (principal); L03.115 Cellulitis of right lower limb; R60.9 Edema, unspecified
CPT/HCPCS: 73700; 93926

== ENCOUNTER → 2018-11-19 10:03 | Outpatient (CLI) | payer OTHER, SELFPAY | PROVIDERS: PCP Student in an Organized Health Care Education/Training Program; Visit Provider Podiatrist Primary Podiatric Medicine | DX: S80.811D Abrasion, right lower leg, subsequent encounter (principal); S80.812D Abrasion, left lower leg, subsequent encounter | CPT/HCPCS: 99213 ==

== ENCOUNTER → 2018-11-22 13:19 | Outpatient (CLI) | payer OTHER, SELFPAY | PROVIDERS: PCP Student in an Organized Health Care Education/Training Program; Visit Provider Family Medicine | DX: S80.811D Abrasion, right lower leg, subsequent encounter (principal); S80.812D Abrasion, left lower leg, subsequent encounter | CPT/HCPCS: 99214 ==

== ENCOUNTER → 2018-11-26 10:10 | Outpatient (CLI) | payer OTHER, SELFPAY | PROVIDERS: PCP Student in an Organized Health Care Education/Training Program; Visit Provider Podiatrist Primary Podiatric Medicine | DX: S80.812A Abrasion, left lower leg, initial encounter (principal); S80.811A Abrasion, right lower leg, initial encounter | CPT/HCPCS: 17250; 97597 ==

== ENCOUNTER → 2018-12-03 08:58 | Outpatient (CLI) | payer OTHER, SELFPAY | PROVIDERS: PCP Student in an Organized Health Care Education/Training Program; Visit Provider Podiatrist Primary Podiatric Medicine | DX: S80.812A Abrasion, left lower leg, initial encounter (principal); S80.811A Abrasion, right lower leg, initial encounter; L90.9 Atrophic disorder of skin, unspecified; R60.0 Localized edema | CPT/HCPCS: 97597 ==

== ENCOUNTER → 2018-12-17 10:01 | Outpatient (CLI) | payer OTHER, SELFPAY | PROVIDERS: PCP Student in an Organized Health Care Education/Training Program; Visit Provider Podiatrist Primary Podiatric Medicine | DX: S08 Avulsion and traumatic amputation of part of head (principal); S80.812D Abrasion, left lower leg, subsequent encounter | CPT/HCPCS: 99213 ==

== ENCOUNTER → 2018-12-24 10:35 | Outpatient (CLI) | payer OTHER, SELFPAY | PROVIDERS: PCP Student in an Organized Health Care Education/Training Program; Visit Provider Podiatrist Primary Podiatric Medicine | DX: I70.238 Atherosclerosis of native arteries of right leg with ulceration of other part of lower leg (principal); L90.9 Atrophic disorder of skin, unspecified; L97.811 Non-pressure chronic ulcer of other part of right lower leg limited to breakdown of skin | CPT/HCPCS: 97597 ==

== ENCOUNTER → 2018-12-31 08:57 | Outpatient (CLI) | payer OTHER, SELFPAY | PROVIDERS: PCP Student in an Organized Health Care Education/Training Program; Visit Provider Podiatrist Primary Podiatric Medicine | DX: I70.248 Atherosclerosis of native arteries of left leg with ulceration of other part of lower leg (principal); I70.238 Atherosclerosis of native arteries of right leg with ulceration of other part of lower leg; L90.9 Atrophic disorder of skin, unspecified; L97.811 Non-pressure chronic ulcer of other part of right lower leg limited to breakdown of skin; L97.821 Non-pressure chronic ulcer of other part of left lower leg limited to breakdown of skin | CPT/HCPCS: 17250; 99213 ==

== ENCOUNTER → 2019-01-07 09:12 | Outpatient (CLI) | payer OTHER, SELFPAY | PROVIDERS: PCP Student in an Organized Health Care Education/Training Program; Visit Provider Podiatrist Primary Podiatric Medicine | DX: S81.801A Unspecified open wound, right lower leg, initial encounter (principal); S81.802A Unspecified open wound, left lower leg, initial encounter; M06.80 Other specified rheumatoid arthritis, unspecified site; L90.9 Atrophic disorder of skin, unspecified | CPT/HCPCS: 97597 ==

== ENCOUNTER → 2019-01-14 09:10 | Outpatient (CLI) | payer OTHER, SELFPAY | PROVIDERS: PCP Student in an Organized Health Care Education/Training Program; Visit Provider Podiatrist Primary Podiatric Medicine | DX: I70.248 Atherosclerosis of native arteries of left leg with ulceration of other part of lower leg (principal); I70.238 Atherosclerosis of native arteries of right leg with ulceration of other part of lower leg; S81.801A Unspecified open wound, right lower leg, initial encounter; S81.802A Unspecified open wound, left lower leg, initial encounter; L90.9 Atrophic disorder of skin, unspecified; R60.0 Localized edema | CPT/HCPCS: 97597 ==

== ENCOUNTER → 2019-01-21 10:55 | Outpatient (CLI) | payer OTHER, SELFPAY | PROVIDERS: PCP Student in an Organized Health Care Education/Training Program; Visit Provider Podiatrist Primary Podiatric Medicine | DX: S81.801A Unspecified open wound, right lower leg, initial encounter (principal); S81.802A Unspecified open wound, left lower leg, initial encounter | CPT/HCPCS: 97597 ==

== ENCOUNTER → 2019-01-28 13:01 | Outpatient (CLI) | payer OTHER, SELFPAY | PROVIDERS: PCP Student in an Organized Health Care Education/Training Program; Visit Provider Podiatrist Primary Podiatric Medicine | DX: S81.801A Unspecified open wound, right lower leg, initial encounter (principal); R60.0 Localized edema; L90.9 Atrophic disorder of skin, unspecified; S81.802D Unspecified open wound, left lower leg, subsequent encounter | CPT/HCPCS: 97597 ==

== ENCOUNTER → 2019-02-18 10:07 | Outpatient (CLI) | payer OTHER, SELFPAY | PROVIDERS: PCP Student in an Organized Health Care Education/Training Program; Visit Provider Family Medicine | DX: I87.2 Venous insufficiency (chronic) (peripheral) (principal); S81.801A Unspecified open wound, right lower leg, initial encounter; S81.802D Unspecified open wound, left lower leg, subsequent encounter; M06.9 Rheumatoid arthritis, unspecified; L53.9 Erythematous condition, unspecified; R60.0 Localized edema | CPT/HCPCS: 87070; 87075; 87077; 87147; 87186; 87205; 97597; 99213 ==

== ENCOUNTER → 2019-02-25 10:22 | Outpatient (CLI) | payer OTHER, SELFPAY | PROVIDERS: PCP Student in an Organized Health Care Education/Training Program; Visit Provider Podiatrist Primary Podiatric Medicine | DX: I87.2 Venous insufficiency (chronic) (peripheral) (principal); S81.801A Unspecified open wound, right lower leg, initial encounter; M06.9 Rheumatoid arthritis, unspecified; L53.9 Erythematous condition, unspecified; Z72.0 Tobacco use | CPT/HCPCS: 97597 ==

== ENCOUNTER → 2019-03-04 14:49 | Outpatient (CLI) | payer OTHER, SELFPAY | PROVIDERS: PCP Student in an Organized Health Care Education/Training Program; Visit Provider Family Medicine | DX: I87.2 Venous insufficiency (chronic) (peripheral) (principal); S81.811A Laceration without foreign body, right lower leg, initial encounter | CPT/HCPCS: 97597; 99214 ==

== ENCOUNTER → 2019-03-06 11:18 | Outpatient (CLI) | payer OTHER, SELFPAY ==
--- NOTE | 2019-03-06 | DI.MG.S_ITS ---
BILATERAL DIGITAL SCREENING MAMMOGRAM 3D/2D WITH CAD: 03/06/2019 CLINICAL: Routine screening. Comparison is made to exams dated: 03/16/2017 mammogram, 12/03/2014 mammogram, and 11/24/2014 mammogram - [facility]. The tissue of both breasts is heterogeneously dense. This may lower the sensitivity of mammography. Current study was also evaluated with a Computer Aided Detection (CAD) system. There are benign calcifications in both breasts. No significant masses, calcifications, or other findings are seen in either breast. There has been no significant interval change. IMPRESSION: There is no mammographic evidence of malignancy. A 1 year screening mammogram is recommended. This exam was interpreted at Station ID: [id number]. NOTE: For mammograms, a report in lay terms will be sent to the patient. Approximately 15% of breast malignancies will not be visualized mammographically. In the management of a palpable breast mass, a negative mammogram must not discourage biopsy of a clinically suspicious lesion. Electronically Signed By: Ever raza/raymond:03/06/2019 12:33:15 copy to: LISANDRA ARROYO letter sent: Normal Exam ACR BI-RADS Category 2: Benign Finding(s) [id number]
== END ==
PROVIDERS: Family Provider Student in an Organized Health Care Education/Training Program; PCP Student in an Organized Health Care Education/Training Program; Visit Provider Student in an Organized Health Care Education/Training Program
DX: Z12.31 Encounter for screening mammogram for malignant neoplasm of breast (principal)
CPT/HCPCS: 77063; 77067

== ENCOUNTER → 2019-03-16 11:56 | Outpatient (CLI) | payer OTHER, SELFPAY ==
[2019-03-16 12:50] LABS: Hematocrit 37.2 % (36-46); Hemoglobin 12.5 g/dL (12.0-16.0)
[2019-03-16 13:04] LABS: Blood Urea Nitrogen 17 mg/dL (7-17); Calcium 9.2 mg/dL (8.4-10.2); Carbon Dioxide 23 mmol/L (22-32); Chloride 100 mmol/L (98-107); Estimated Glomerular Filt Rate 55.3 mL/min (>60); Glucose 118 mg/dL (80-110); HEMOLYSIS 32 (0-50); Potassium 3.8 mmol/L (3.4-5.1); Sodium 135 mmol/L (137-145)
[2019-03-16 14:00] LABS: Creatinine Urine Random 93.9 mg/dL; Protein (Total) Urine Random 11 mg/dL (0-12); Protein Creatinine Ratio Urine 0.11 GRAM/24H
[2019-03-19 14:15] LABS: Parathyroid Hormone Int 79 pg/mL (14-64)
== END ==
PROVIDERS: Family Provider Student in an Organized Health Care Education/Training Program; PCP Student in an Organized Health Care Education/Training Program; Visit Provider Student in an Organized Health Care Education/Training Program
DX: N05.9 Unspecified nephritic syndrome with unspecified morphologic changes (principal); D64.9 Anemia, unspecified; N25.81 Secondary hyperparathyroidism of renal origin; R80.9 Proteinuria, unspecified
CPT/HCPCS: 36415; 80048; 82570; 83970; 84156; 85014; 85018

== ENCOUNTER → 2019-03-18 09:55 | Outpatient (CLI) | payer OTHER, SELFPAY | PROVIDERS: Family Provider Student in an Organized Health Care Education/Training Program; PCP Student in an Organized Health Care Education/Training Program; Visit Provider Family Medicine | DX: I87.2 Venous insufficiency (chronic) (peripheral) (principal); L97.811 Non-pressure chronic ulcer of other part of right lower leg limited to breakdown of skin; L03.115 Cellulitis of right lower limb; R60.0 Localized edema | CPT/HCPCS: 29581; 97597; 99212 ==

== ENCOUNTER → 2019-03-20 14:17 | Outpatient (CLI) | payer OTHER, SELFPAY | PROVIDERS: Family Provider Student in an Organized Health Care Education/Training Program; PCP Student in an Organized Health Care Education/Training Program; Visit Provider Family Medicine | DX: S81.811A Laceration without foreign body, right lower leg, initial encounter (principal); R60.0 Localized edema | CPT/HCPCS: 29581 ==

== ENCOUNTER → 2019-03-27 09:02 | Outpatient (CLI) | payer OTHER, SELFPAY ==
[2019-03-27 10:24] LABS: BUN Creatinine Ratio 13.6 (6-22); Blood Urea Nitrogen 15 mg/dL (7-17); Calcium 9.1 mg/dL (8.4-10.2); Carbon Dioxide 30 mmol/L (22-32); Chloride 99 mmol/L (98-107); Estimated Glomerular Filt Rate 49.5 mL/min (>60); Glucose 98 mg/dL (80-110); HEMOLYSIS < 15 (0-50); Potassium 3.1 mmol/L (3.4-5.1); Sodium 139 mmol/L (137-145)
[2019-03-27 10:33] LABS: B Type Natriuretic Peptide < 100 (<100)
== END ==
PROVIDERS: PCP Student in an Organized Health Care Education/Training Program; Visit Provider Student in an Organized Health Care Education/Training Program
DX: N05.9 Unspecified nephritic syndrome with unspecified morphologic changes (principal); I50.32 Chronic diastolic (congestive) heart failure
CPT/HCPCS: 36415; 80048; 83880

== ENCOUNTER → 2019-03-27 10:50 | Outpatient (CLI) | payer OTHER, SELFPAY | PROVIDERS: PCP Student in an Organized Health Care Education/Training Program; Visit Provider Family Medicine | DX: I87.2 Venous insufficiency (chronic) (peripheral) (principal); L97.811 Non-pressure chronic ulcer of other part of right lower leg limited to breakdown of skin; M06.9 Rheumatoid arthritis, unspecified; Z72.0 Tobacco use; L03.115 Cellulitis of right lower limb; R60.0 Localized edema | CPT/HCPCS: 99212; 99213 ==

== ENCOUNTER → 2019-04-02 08:56 | Outpatient (CLI) | payer OTHER, SELFPAY | PROVIDERS: PCP Student in an Organized Health Care Education/Training Program; Visit Provider Family Medicine | DX: I87.2 Venous insufficiency (chronic) (peripheral) (principal); L97.811 Non-pressure chronic ulcer of other part of right lower leg limited to breakdown of skin; M06.9 Rheumatoid arthritis, unspecified | CPT/HCPCS: 11042 ==

== ENCOUNTER → 2019-04-05 14:26 | Outpatient (CLI) | payer OTHER, SELFPAY ==
[2019-04-05 15:15] LABS: HEMOLYSIS < 15 (0-50); Potassium 4.1 mmol/L (3.4-5.1)
== END ==
PROVIDERS: PCP Student in an Organized Health Care Education/Training Program; Visit Provider Student in an Organized Health Care Education/Training Program
DX: E87.5 Hyperkalemia (principal)
CPT/HCPCS: 36415; 84132

== ENCOUNTER → 2019-04-09 11:09 | Outpatient (CLI) | payer OTHER, SELFPAY | PROVIDERS: PCP Student in an Organized Health Care Education/Training Program; Visit Provider Family Medicine | DX: I87.2 Venous insufficiency (chronic) (peripheral) (principal); L97.811 Non-pressure chronic ulcer of other part of right lower leg limited to breakdown of skin; R60.0 Localized edema | CPT/HCPCS: 29581; 36415; 80048; 82570; 83970; 84156 ==

== ENCOUNTER → 2019-04-09 12:06 | Outpatient (CLI) | payer OTHER, SELFPAY ==
[2019-04-09 13:48] LABS: Blood Urea Nitrogen 13 mg/dL (7-17); Calcium 9.7 mg/dL (8.4-10.2); Carbon Dioxide 29 mmol/L (22-32); Chloride 102 mmol/L (98-107); Estimated Glomerular Filt Rate 55.3 mL/min (>60); Glucose 100 mg/dL (80-110); HEMOLYSIS < 15 (0-50); Potassium 4.4 mmol/L (3.4-5.1); Sodium 142 mmol/L (137-145)
[2019-04-09 15:14] LABS: Creatinine Urine Random 123.2 mg/dL; Protein (Total) Urine Random 10 mg/dL (0-12); Protein Creatinine Ratio Urine 0.08 GRAM/24H
[2019-04-11 16:23] LABS: Parathyroid Hormone Int 31 pg/mL (14-64)
== END ==
PROVIDERS: PCP Student in an Organized Health Care Education/Training Program; Visit Provider Student in an Organized Health Care Education/Training Program
DX: R80.9 Proteinuria, unspecified (principal); N05.9 Unspecified nephritic syndrome with unspecified morphologic changes; N25.81 Secondary hyperparathyroidism of renal origin
CPT/HCPCS: 36415; 80048; 82570; 83970; 84156

== ENCOUNTER → 2019-04-17 09:06 | Outpatient (CLI) | payer MEDICARE, SELFPAY | PROVIDERS: PCP Student in an Organized Health Care Education/Training Program; Visit Provider Family Medicine | DX: I87.2 Venous insufficiency (chronic) (peripheral) (principal); L97.811 Non-pressure chronic ulcer of other part of right lower leg limited to breakdown of skin; M06.9 Rheumatoid arthritis, unspecified; Z72.0 Tobacco use; R60.0 Localized edema | CPT/HCPCS: 97597; 99212 ==

== ENCOUNTER → 2019-04-19 10:19 | Outpatient (CLI) | payer MEDICARE, SELFPAY ==
--- NOTE | 2019-04-19 | DI.US.S_ITS ---
PROCEDURE: US RENAL COMPLETE INDICATIONS: Chronic kidney disease stage 3 TECHNIQUE: Real-time scanning was performed of the kidneys and bladder, with image documentation. COMPARISON: None. FINDINGS: Kidneys: Kidneys are normal in size. Right kidney measures 10.1 cm long; left kidney measures 11.3 cm long. Right renal cortical thickness is 1.0 cm; left renal cortical thickness is 1.4 cm. Renal cortical echotexture is normal. No hydronephrosis. Nonobstructing left renal calculi are seen measures up to 8 mm in lower pole and 7 mm in the upper pole of left kidney. Multiple cysts are noted in right kidney measures up to 5.3 x 3.8 x 3.2 cm in size the nipple of right kidney and 2 x 1.8 x 1.5 cm in size in the midpole right kidney. Bladder: Pre-void bladder volume is 13 mL. Post-void residual is 0 mL. Pre-void images demonstrate no intraluminal masses or stones. On pre-void images, bilateral ureteral jets are noted with color Doppler interrogation. (Of note, ureteral jets may not be detectable in up to 25% of cases due to insufficient differences in specific gravity between ureteral and bladder urine). Miscellaneous: No free pelvic fluid. IMPRESSION: 1. Nonobstructing left renal calculi as above. No hydronephrosis. No right-sided renal stone. 2. Right renal cysts as above. No gross solid appearing renal lesion. 3. No gross abnormality impressively distended urinary bladder. Dictated by: Quintin Roper M.D. on 04/19/2019 at 14:02 Approved by: Quintin Roper M.D. on 04/19/2019 at 14:08
== END ==
PROVIDERS: PCP Student in an Organized Health Care Education/Training Program; Visit Provider Student in an Organized Health Care Education/Training Program
DX: N18.3 Chronic kidney disease, stage 3 (moderate) (principal); N28.1 Cyst of kidney, acquired; N20.0 Calculus of kidney
CPT/HCPCS: 76770

== ENCOUNTER → 2019-04-26 10:42 | Outpatient (CLI) | payer MEDICARE, SELFPAY | PROVIDERS: PCP Student in an Organized Health Care Education/Training Program; Visit Provider Family Medicine | DX: I87.2 Venous insufficiency (chronic) (peripheral) (principal); L97.811 Non-pressure chronic ulcer of other part of right lower leg limited to breakdown of skin; M06.9 Rheumatoid arthritis, unspecified; R22.42 Localized swelling, mass and lump, left lower limb; L53.8 Other specified erythematous conditions; L03.116 Cellulitis of left lower limb | CPT/HCPCS: 11042; 87070; 87077; 87186; 87205; 99214 ==

== ENCOUNTER → 2019-04-26 12:07 | Outpatient (CLI) | payer MEDICARE, SELFPAY ==
[2019-04-26 12:44] LABS: Add Manual Diff / Slide Review NO; Basophils Absolute Auto 100 /uL (0-100); Basophils Percent Auto 1.1 % (0-2); Eosinophils Absolute Auto 500 /uL (0-450); Eosinophils Percent Auto 6.2 % (2-4); Hematocrit 35.4 % (36-46); Hemoglobin 11.7 g/dL (12.0-16.0); Lymphocytes Absolute Auto 1700 /uL (1100-4500); Lymphocytes Percent Auto 21.6 % (25-40); Mean Corpuscular Hemoglobin 29.2 PG (26-34); Mean Corpuscular Volume 88.4 fL (80-100); Monocytes Absolute Auto 900 /uL (0-900); Monocytes Percent Auto 10.9 % (3-14); Neutrophils Absolute Auto 4700 /uL (1500-7000); Neutrophils Percent Auto 60.2 % (50-75); Platelet Count 337 X10^3/uL (150-400); Red Cell Distribution Width 14.3 % (11.6-14.8); White Blood Cell Count 7.9 X10^3/uL (4.5-11.0)
[2019-04-26 12:58] LABS: D Dimer 2237 ng/mL (<230)
== END ==
PROVIDERS: PCP Student in an Organized Health Care Education/Training Program; Visit Provider Family Medicine
DX: M79.662 Pain in left lower leg (principal); R22.42 Localized swelling, mass and lump, left lower limb; L53.8 Other specified erythematous conditions; L03.116 Cellulitis of left lower limb
CPT/HCPCS: 36415; 85025; 85379

== ENCOUNTER → 2019-04-26 14:47 | Outpatient (CLI) | payer MEDICARE, SELFPAY ==
--- NOTE | 2019-04-26 | DI.US.S_ITS ---
PROCEDURE: US PERIPH VENOUS LOW EXTREM LT INDICATIONS: PAIN,BRUISING,SWELLING TECHNIQUE: Real-time imaging, as well as color and pulse Doppler interrogation, were performed of the lower extremity deep veins from the inguinal ligament to the popliteal fossa. COMPARISON: None. FINDINGS: The common femoral, femoral and popliteal veins are normally compressible, and free of intraluminal thrombus. Color and pulse Doppler demonstrate normal phasic intraluminal flow. There is normal augmentation response to distal compression maneuver. IMPRESSION: No deep vein thrombosis of the left lower extremity. Dictated by: Kristal Vanegas M.D. on 04/26/2019 at 17:15 Approved by: Kristal Vanegas M.D. on 04/26/2019 at 17:16
== END ==
PROVIDERS: PCP Student in an Organized Health Care Education/Training Program; Visit Provider Family Medicine
DX: M79.605 Pain in left leg (principal); S80.12XA Contusion of left lower leg, initial encounter; M79.89 Other specified soft tissue disorders; M79.662 Pain in left lower leg; R22.42 Localized swelling, mass and lump, left lower limb; L53.8 Other specified erythematous conditions; L03.116 Cellulitis of left lower limb; M06.9 Rheumatoid arthritis, unspecified; L97.811 Non-pressure chronic ulcer of other part of right lower leg limited to breakdown of skin; I87.2 Venous insufficiency (chronic) (peripheral)
CPT/HCPCS: 11042; 36415; 85025; 85379; 87070; 87077; 87186; 87205; 93971

== ENCOUNTER → 2019-05-03 09:46 | Outpatient (CLI) | payer MEDICARE, SELFPAY | PROVIDERS: PCP Student in an Organized Health Care Education/Training Program; Visit Provider Family Medicine | DX: I87.2 Venous insufficiency (chronic) (peripheral) (principal); L97.811 Non-pressure chronic ulcer of other part of right lower leg limited to breakdown of skin; L30.2 Cutaneous autosensitization; M06.9 Rheumatoid arthritis, unspecified | CPT/HCPCS: 29580; 99212; 99214 ==

== ENCOUNTER → 2019-05-06 13:58 | Outpatient (CLI) | payer MEDICARE, SELFPAY | PROVIDERS: PCP Student in an Organized Health Care Education/Training Program; Visit Provider Student in an Organized Health Care Education/Training Program | DX: Z13.820 Encounter for screening for osteoporosis (principal); M81.0 Age-related osteoporosis without current pathological fracture; Z78.0 Asymptomatic menopausal state; M06.9 Rheumatoid arthritis, unspecified; F17.200 Nicotine dependence, unspecified, uncomplicated; Z91.89 Other specified personal risk factors, not elsewhere classified; Z82.62 Family history of osteoporosis | CPT/HCPCS: 77080 ==

== ENCOUNTER → 2019-05-10 10:08 | Outpatient (CLI) | payer MEDICARE, SELFPAY | PROVIDERS: PCP Student in an Organized Health Care Education/Training Program; Visit Provider Family Medicine | DX: I87.2 Venous insufficiency (chronic) (peripheral) (principal); L97.811 Non-pressure chronic ulcer of other part of right lower leg limited to breakdown of skin; M06.9 Rheumatoid arthritis, unspecified; L30.2 Cutaneous autosensitization; R60.0 Localized edema | CPT/HCPCS: 97597 ==

== ENCOUNTER → 2019-05-17 09:59 | Outpatient (CLI) | payer MEDICARE, SELFPAY ==
[2019-05-17 11:23] LABS: Add Manual Diff / Slide Review NO; Basophils Absolute Auto 100 /uL (0-100); Basophils Percent Auto 1.1 % (0-2); Eosinophils Absolute Auto 200 /uL (0-450); Eosinophils Percent Auto 3.4 % (2-4); Hemoglobin 11.8 g/dL (12.0-16.0); Lymphocytes Absolute Auto 2300 /uL (1100-4500); Lymphocytes Percent Auto 35.9 % (25-40); Mean Corpuscular HGB Conc 33.8 % (30-36); Mean Corpuscular Hemoglobin 29.5 PG (26-34); Mean Corpuscular Volume 87.2 fL (80-100); Monocytes Absolute Auto 600 /uL (0-900); Monocytes Percent Auto 9.5 % (3-14); Neutrophils Absolute Auto 3200 /uL (1500-7000); Neutrophils Percent Auto 50.1 % (50-75); Platelet Count 300 X10^3/uL (150-400); Red Blood Cell Count 4.02 X10^6/uL (4.0-5.2); Red Cell Distribution Width 14.2 % (11.6-14.8); White Blood Cell Count 6.4 X10^3/uL (4.5-11.0)
[2019-05-17 12:01] LABS: Erythrocyte Sedimentation Rate 46 MM/HR (0-20)
[2019-05-17 12:06] LABS: Alanine Aminotransferase 13 IU/L (<35); Albumin 4.2 g/dL (3.5-5.0); Albumin Globulin Ratio 1.3 (1.0-2.8); Alkaline Phosphatase 75 U/L (38-126); Aspartate Aminotransferase 29 IU/L (14-36); BUN Creatinine Ratio 18.9 (6-22); Bilirubin Total 0.3 mg/dL (0.2-1.3); Blood Urea Nitrogen 17 mg/dL (7-17); C-Reactive Protein Quant 3.9 mg/dL (<1.0); Calcium 9.7 mg/dL (8.4-10.2); Carbon Dioxide 23 mmol/L (22-32); Chloride 97 mmol/L (98-107); Estimated Glomerular Filt Rate > 60.0 mL/min (>60); Globulin 3.3 g/dL (1.7-4.1); Glucose 111 mg/dL (80-110); HEMOLYSIS < 15 (0-50); Potassium 4.2 mmol/L (3.4-5.1); Sodium 136 mmol/L (137-145); Total Protein 7.5 g/dL (6.3-8.2)
[2019-05-17 12:07] LABS: Rheumatoid Factor 101.3 IU/mL (<12.0)
== END ==
PROVIDERS: PCP Student in an Organized Health Care Education/Training Program; Referring Provider Student in an Organized Health Care Education/Training Program; Visit Provider Internal Medicine Rheumatology
DX: M05.79 Rheumatoid arthritis with rheumatoid factor of multiple sites without organ or systems involvement (principal); N05.9 Unspecified nephritic syndrome with unspecified morphologic changes
CPT/HCPCS: 36415; 80053; 83516; 85025; 85651; 86140; 86200; 86430

== ENCOUNTER → 2019-05-17 13:02 | Outpatient (CLI) | payer MEDICARE, SELFPAY | PROVIDERS: PCP Student in an Organized Health Care Education/Training Program; Referring Provider Podiatrist; Visit Provider Family Medicine | DX: I87.2 Venous insufficiency (chronic) (peripheral) (principal); L97.811 Non-pressure chronic ulcer of other part of right lower leg limited to breakdown of skin | CPT/HCPCS: 29580 ==

== ENCOUNTER → 2019-05-23 12:03 | Outpatient (CLI) | payer MEDICARE, SELFPAY ==
--- NOTE | 2019-05-23 | DI.RAD.S_ITS ---
PROCEDURE: XR HAND RT MIN 3V INDICATIONS: BILATERAL HAND/FOOT PAIN TECHNIQUE: 3 views of the hand(s) acquired. COMPARISON: None. FINDINGS: Bones: There is marked subluxation and joint degeneration at the first MCP joint, with juxta-articular and marginal lucencies. Small focal lucency also present within the triquetral, suspicious for erosion. Diffuse DIP joint degeneration, with marginal lucencies although these are technically indeterminate the absence of prior studies. Narrowing and subluxed appearance of the second MCP joint space, possible small marginal lucencies present at the third and fifth metacarpal heads as depicted on the montage image. As Soft tissues: No suspicious soft tissue calcifications. IMPRESSION: Severe joint degeneration, most pronounced at the first MCP, and DIP joints of the fingers. Several juxta-articular lucencies in these locations as well as the third and fifth metacarpal heads, and triquetral which are worrisome for erosions. No comparisons available Dictated by: Bert Alberto M.D. on 05/23/2019 at 17:21 Approved by: Bert Alberto M.D. on 05/23/2019 at 17:27
--- NOTE | 2019-05-23 | DI.RAD.S_ITS ---
PROCEDURE: XR FOOT RT MIN 3V INDICATIONS: BILATERAL HAND/FOOT PAIN TECHNIQUE: 3 views of the foot were acquired. COMPARISON: [facility], CR, FOOT 3V RIGHT, 01/05/2017, 13:19. FINDINGS: Bones: No definite fracture seen. There is severe diffuse osteopenia. Subluxed appearance at the first, second, third MTP joints. There are numerous marginal and juxta-articular lucencies, present at the first, second, third MTP joints. Diffuse interphalangeal joint degeneration also noted. The interphalangeal joints of the lesser toes not well evaluated due to flexion. Marginal lucency along the medial aspect of the great toe interphalangeal joint, with no definite interval change. Soft tissues: No tibiotalar joint effusion. Achilles tendon appears normal. IMPRESSION: Diffuse osteopenia Severe forefoot joint degeneration as above, with subluxed appearance at the MTP joints, and numerous erosive changes described above. Overall, no interval change since 01/05/17. Dictated by: Bert Alberto M.D. on 05/23/2019 at 17:31 Approved by: Bert Alberto M.D. on 05/23/2019 at 17:35
--- NOTE | 2019-05-23 | DI.RAD.S_ITS ---
PROCEDURE: XR FOOT LT MIN 3V INDICATIONS: BILATERAL HAND/FOOT PAIN TECHNIQUE: 3 views of the foot were acquired. COMPARISON: [facility], , FOOT 3V LEFT, 01/05/2017, 13:19. [facility], , FOOT 3V RIGHT, 01/05/2017, 13:19. FINDINGS: Bones: No definite fracture identified. Amputation of the third toe at the level of the MTP joint. Severe first MTP, second MTP joint degeneration. Numerous marginal lucencies in keeping with erosions present at the first, second MTP joint and third metatarsal head. Diffuse lesser toe interphalangeal joint degeneration. Soft tissues: No tibiotalar joint effusion. Achilles tendon appears normal. IMPRESSION: Severe forefoot joint degeneration and status post amputation of the third toe at the level of the MTP joint. Erosive changes appear grossly stable since 09/04/16. Diffuse osteopenia. Dictated by: Bert Alberto M.D. on 05/23/2019 at 17:35 Approved by: Bert Alberto M.D. on 05/23/2019 at 17:38
--- NOTE | 2019-05-23 | DI.RAD.S_ITS ---
PROCEDURE: XR HAND LT MIN 3V INDICATIONS: BILATERAL HAND/FOOT PAIN TECHNIQUE: 3 views of the hand(s) acquired. COMPARISON: None. FINDINGS: Bones: No fractures or dislocations. Carpal bones are normally aligned. No suspicious bony lesions. Severe joint degeneration present at the first CMC, triscaphe and first MCP joint. There is also severe joint degeneration at the third and fifth MCP joints with joint space narrowing and subluxed appearance. Juxta-articular lucencies are present at the fifth MCP joint most suspicious for erosions. There is also marginal lucency present at the DIP joints of the middle and index finger as well as the first, second and third MCP joints. Soft tissues: Small nonspecific ossification projecting in the region of the triquetral IMPRESSION: Erosive changes most prominently at the fifth MCP joint, however several juxta-articular lucencies seen at the MCP and PIP joints as above and as depicted on the montage image. No comparisons available. Severe diffuse joint degeneration. Dictated by: Bert Alberto M.D. on 05/23/2019 at 17:27 Approved by: Bert Alberto M.D. on 05/23/2019 at 17:31
== END ==
PROVIDERS: PCP Student in an Organized Health Care Education/Training Program; Referring Provider Internal Medicine Rheumatology; Visit Provider Internal Medicine Rheumatology
DX: M05.79 Rheumatoid arthritis with rheumatoid factor of multiple sites without organ or systems involvement (principal); M79.642 Pain in left hand; M79.641 Pain in right hand; M79.672 Pain in left foot; M79.671 Pain in right foot; M18.12 Unilateral primary osteoarthritis of first carpometacarpal joint, left hand; M19.042 Primary osteoarthritis, left hand; M19.041 Primary osteoarthritis, right hand; M19.072 Primary osteoarthritis, left ankle and foot; M19.071 Primary osteoarthritis, right ankle and foot; M85.872 Other specified disorders of bone density and structure, left ankle and foot; M85.871 Other specified disorders of bone density and structure, right ankle and foot; Z89.422 Acquired absence of other left toe(s)
CPT/HCPCS: 73130; 73630

== ENCOUNTER → 2019-05-23 13:47 | Outpatient (CLI) | payer MEDICARE, SELFPAY | PROVIDERS: PCP Student in an Organized Health Care Education/Training Program; Referring Provider Podiatrist; Visit Provider Family Medicine | DX: I87.2 Venous insufficiency (chronic) (peripheral) (principal); M05.79 Rheumatoid arthritis with rheumatoid factor of multiple sites without organ or systems involvement; M79.642 Pain in left hand; M79.641 Pain in right hand; M79.672 Pain in left foot; M79.671 Pain in right foot; M85.872 Other specified disorders of bone density and structure, left ankle and foot; M85.871 Other specified disorders of bone density and structure, right ankle and foot; Z89.422 Acquired absence of other left toe(s); L97.811 Non-pressure chronic ulcer of other part of right lower leg limited to breakdown of skin; M06.9 Rheumatoid arthritis, unspecified; R60.0 Localized edema; M18.12 Unilateral primary osteoarthritis of first carpometacarpal joint, left hand; M19.042 Primary osteoarthritis, left hand; M19.041 Primary osteoarthritis, right hand; M19.072 Primary osteoarthritis, left ankle and foot; M19.071 Primary osteoarthritis, right ankle and foot | CPT/HCPCS: 73130; 73630; 97597 ==

== ENCOUNTER → 2019-05-29 08:36 | Outpatient (CLI) | payer MEDICARE, SELFPAY | PROVIDERS: PCP Student in an Organized Health Care Education/Training Program; Referring Provider Podiatrist; Visit Provider Family Medicine | DX: I87.2 Venous insufficiency (chronic) (peripheral) (principal); L97.811 Non-pressure chronic ulcer of other part of right lower leg limited to breakdown of skin; R60.0 Localized edema; L30.9 Dermatitis, unspecified; M06.9 Rheumatoid arthritis, unspecified | CPT/HCPCS: 29581; 99213 ==

== ENCOUNTER → 2019-06-05 10:37 | Outpatient (CLI) | payer MEDICARE, SELFPAY | PROVIDERS: PCP Student in an Organized Health Care Education/Training Program; Referring Provider Podiatrist; Visit Provider Family Medicine | DX: I87.2 Venous insufficiency (chronic) (peripheral) (principal); L97.811 Non-pressure chronic ulcer of other part of right lower leg limited to breakdown of skin; R60.0 Localized edema | CPT/HCPCS: 29581 ==

== ENCOUNTER → 2019-06-12 10:10 | Outpatient (CLI) | payer MEDICARE, SELFPAY | PROVIDERS: PCP Student in an Organized Health Care Education/Training Program; Referring Provider Podiatrist; Visit Provider Family Medicine | DX: I87.2 Venous insufficiency (chronic) (peripheral) (principal); L97.811 Non-pressure chronic ulcer of other part of right lower leg limited to breakdown of skin; M06.9 Rheumatoid arthritis, unspecified; L30.2 Cutaneous autosensitization; Z79.899 Other long term (current) drug therapy | CPT/HCPCS: 97597 ==

== ENCOUNTER → 2019-06-19 08:51 | Outpatient (CLI) | payer MEDICARE, SELFPAY | PROVIDERS: PCP Student in an Organized Health Care Education/Training Program; Referring Provider Podiatrist; Visit Provider Family Medicine | DX: I87.2 Venous insufficiency (chronic) (peripheral) (principal); L97.811 Non-pressure chronic ulcer of other part of right lower leg limited to breakdown of skin; M06.9 Rheumatoid arthritis, unspecified; R60.0 Localized edema | CPT/HCPCS: 99213 ==

== ENCOUNTER → 2019-06-19 09:57 | Outpatient (CLI) | payer MEDICARE, SELFPAY ==
[2019-06-21 12:15] LABS: QuantiFERON Mitogen Value 8.42 IU/mL (.); QuantiFERON Nil Value 0.21 IU/mL (.); QuantiFERON TB Gold Plus Negative (Negative); QuantiFERON TB1 Ag Value 0.22 IU/mL (.); QuantiFERON TB2 Ag Value 0.18 IU/mL (.)
== END ==
PROVIDERS: PCP Student in an Organized Health Care Education/Training Program; Referring Provider Internal Medicine Rheumatology; Visit Provider Internal Medicine Rheumatology
DX: M05.79 Rheumatoid arthritis with rheumatoid factor of multiple sites without organ or systems involvement (principal)
CPT/HCPCS: 36415; 86480; 86704; 86705; 86706; 86707; 86803; 87340

== ENCOUNTER → 2019-06-26 08:39 | Outpatient (CLI) | payer MEDICARE, SELFPAY | PROVIDERS: PCP Student in an Organized Health Care Education/Training Program; Referring Provider Student in an Organized Health Care Education/Training Program; Visit Provider Family Medicine | DX: I87.2 Venous insufficiency (chronic) (peripheral) (principal); L97.811 Non-pressure chronic ulcer of other part of right lower leg limited to breakdown of skin; M06.9 Rheumatoid arthritis, unspecified; Z72.0 Tobacco use | CPT/HCPCS: 97597 ==

== ENCOUNTER → 2019-10-07 14:21 | Outpatient (CLI) | payer MEDICARE, SELFPAY ==
--- NOTE | 2019-10-07 | DI.RAD.S_ITS ---
PROCEDURE: XR ABDOMEN 1V INDICATIONS: CALCULUS OF KIDNEY TECHNIQUE: One view of the abdomen acquired. COMPARISON: [facility], CR, XR KUB, 01/31/2018, 13:35. FINDINGS: Surgical changes and devices: None. Bowel: Bowel gas pattern is normal. Soft tissues: No suspicious abdominal calcifications. Visualized solid organ contours appear normal in size. 8mm calcification projected over the inferior pole of the left kidney. Multiple pelvic phleboliths. Bones: No suspicious bony lesions. IMPRESSION: No change in 8mm calcification projected over the left kidney. Dictated by: Michi Carolina RRRajani Interpreted: Luisa Braxton MD on 10/07/2019 at 17:17 Approved by: Luisa Braxton M.D. on 10/07/2019 at 17:44
== END ==
PROVIDERS: PCP Student in an Organized Health Care Education/Training Program; Referring Provider Physician Assistant; Visit Provider Physician Assistant
DX: N20.0 Calculus of kidney (principal)
CPT/HCPCS: 74018

== ENCOUNTER → 2020-04-23 13:39 | Outpatient (CLI) | payer MEDICARE, SELFPAY ==
[2020-04-23 13:46] LABS: RBC Urine None Seen (0-5/HPF)
[2020-04-23 14:04] LABS: Appearance Urine UA CLEAR; Bilirubin Urine UA NEGATIVE (NEGATIVE); Color Urine UA YELLOW; Glucose Urine UA NEGATIVE (Negative); Ketones Urine UA NEGATIVE (NEGATIVE); Leukocyte Esterase Urine UA TRACE (NEGATIVE); Nitrite Urine UA NEGATIVE (Negative); Occult Blood Urine UA TRACE-LYSED (Negative); Protein Urine UA NEGATIVE (Negative); Specific Gravity Urine UA 1.025 (1.000-1.035); Urobilinogen Urine UA 0.2 E.U./dL (0.2)
[2020-04-23 14:07] LABS: pH Urine UA 5.5 (4.5-8.0)
[2020-04-23 14:17] LABS: Bacteria Urine Few (2-10); Culture Indicated Urine Specimen Cultured; Squamous Epithelial Cell Urine 0-1 /HPF (0-5/HPF); WBC Urine 5-10/HPF (0-5/HPF)
== END ==
PROVIDERS: PCP Student in an Organized Health Care Education/Training Program; Referring Provider Student in an Organized Health Care Education/Training Program; Visit Provider Student in an Organized Health Care Education/Training Program
DX: R30.0 Dysuria (principal)
CPT/HCPCS: 81001; 87086

== ENCOUNTER → 2020-06-19 12:29 | Outpatient (CLI) | payer MEDICARE, SELFPAY ==
[2020-06-19] MEDS: COVID-19 VACC, Ad26(JANSSEN)/PF 0.5 ML IM (12:56)
== END ==
PROVIDERS: PCP Student in an Organized Health Care Education/Training Program; Visit Provider Internal Medicine
DX: Z23 Encounter for immunization (principal)
CPT/HCPCS: 0031A; 91303

== ENCOUNTER → 2020-07-02 14:50 | Outpatient (CLI) | payer MEDICARE, SELFPAY ==
[2020-07-02 15:34] LABS: Hematocrit 36.9 % (36-46); Hemoglobin 12.1 g/dL (12.0-16.0); Mean Corpuscular HGB Conc 32.8 % (30-36); Mean Corpuscular Hemoglobin 27.2 PG (26-34); Mean Corpuscular Volume 82.9 fL (80-100); Platelet Count 328 X10^3/uL (150-400); Red Blood Cell Count 4.46 X10^6/uL (4.0-5.2); Red Cell Distribution Width 15.2 % (11.6-14.8); White Blood Cell Count 10.8 X10^3/uL (4.5-11.0)
[2020-07-02 15:57] LABS: BUN Creatinine Ratio 18.1 (6-22); Blood Urea Nitrogen 19 mg/dL (7-17); Calcium 9.4 mg/dL (8.4-10.2); Carbon Dioxide 30 mmol/L (22-32); Chloride 96 mmol/L (98-107); Estimated Glomerular Filt Rate 52.1 mL/min (>60); Glucose 157 mg/dL (80-110); HEMOLYSIS < 15 (0-50); Potassium 4.1 mmol/L (3.4-5.1); Sodium 135 mmol/L (137-145)
[2020-07-02 16:40] LABS: Vitamin D 25 Hydroxy (D3) 93.9 ng/mL (30.0-100.0)
[2020-07-03 11:03] LABS: Hemoglobin A1C% w Est Avg Glu 5.6 % (4.0-6.0)
== END ==
PROVIDERS: PCP Student in an Organized Health Care Education/Training Program; Referring Provider Student in an Organized Health Care Education/Training Program; Visit Provider Student in an Organized Health Care Education/Training Program
DX: N18.9 Chronic kidney disease, unspecified (principal); Z79.899 Other long term (current) drug therapy; R73.9 Hyperglycemia, unspecified; T38.0X5A Adverse effect of glucocorticoids and synthetic analogues, initial encounter
CPT/HCPCS: 36415; 80048; 82306; 83036; 85027

== ENCOUNTER → 2020-08-04 13:31 | Outpatient (CLI) | payer MEDICARE, SELFPAY ==
[2020-08-04 13:58] LABS: Appearance Urine UA CLEAR; Bilirubin Urine UA NEGATIVE (NEGATIVE); Color Urine UA YELLOW; Glucose Urine UA NEGATIVE (Negative); Ketones Urine UA NEGATIVE (NEGATIVE); Leukocyte Esterase Urine UA 1+ (NEGATIVE); Nitrite Urine UA NEGATIVE (Negative); Occult Blood Urine UA 1+ (Negative); Protein Urine UA TRACE (Negative); Specific Gravity Urine UA >=1.030 (1.000-1.035); Urobilinogen Urine UA 0.2 E.U./dL (0.2)
[2020-08-04 14:33] LABS: RBC Urine 5-10/HPF (0-5/HPF); WBC Urine >100/HPF (0-5/HPF)
[2020-08-04 14:34] LABS: Bacteria Urine Many (>30); Squamous Epithelial Cell Urine 10-30 /HPF (0-5/HPF)
[2020-08-04 16:53] LABS: Culture Indicated Urine Specimen Cultured
== END ==
PROVIDERS: PCP Student in an Organized Health Care Education/Training Program; Referring Provider Student in an Organized Health Care Education/Training Program; Visit Provider Student in an Organized Health Care Education/Training Program
DX: R30.0 Dysuria (principal)
CPT/HCPCS: 81001; 87077; 87086; 87186

== ENCOUNTER → 2020-08-04 14:12 | Outpatient (CLI) | payer MEDICARE, SELFPAY | PROVIDERS: PCP Student in an Organized Health Care Education/Training Program; Referring Provider Student in an Organized Health Care Education/Training Program; Visit Provider Family Medicine | DX: I87.2 Venous insufficiency (chronic) (peripheral) (principal); L97.811 Non-pressure chronic ulcer of other part of right lower leg limited to breakdown of skin; L97.821 Non-pressure chronic ulcer of other part of left lower leg limited to breakdown of skin; R60.0 Localized edema; M06.9 Rheumatoid arthritis, unspecified; I10 Essential (primary) hypertension; Z72.0 Tobacco use; Z79.52 Long term (current) use of systemic steroids | CPT/HCPCS: 11042; 87070; 87075; 87205; 99213; 99214 ==

== ENCOUNTER → 2020-08-11 11:01 | Outpatient (CLI) | payer MEDICARE, SELFPAY | PROVIDERS: PCP Student in an Organized Health Care Education/Training Program; Referring Provider Student in an Organized Health Care Education/Training Program; Visit Provider Family Medicine | DX: I87.2 Venous insufficiency (chronic) (peripheral) (principal); L97.821 Non-pressure chronic ulcer of other part of left lower leg limited to breakdown of skin; L97.311 Non-pressure chronic ulcer of right ankle limited to breakdown of skin | CPT/HCPCS: 99212 ==

== ENCOUNTER → 2020-08-18 15:25 | Outpatient (CLI) | payer MEDICARE, SELFPAY | PROVIDERS: PCP Student in an Organized Health Care Education/Training Program; Referring Provider Student in an Organized Health Care Education/Training Program; Visit Provider Family Medicine | DX: I87.2 Venous insufficiency (chronic) (peripheral) (principal); L97.811 Non-pressure chronic ulcer of other part of right lower leg limited to breakdown of skin; L97.821 Non-pressure chronic ulcer of other part of left lower leg limited to breakdown of skin; L08.9 Local infection of the skin and subcutaneous tissue, unspecified; M06.9 Rheumatoid arthritis, unspecified; Z72.0 Tobacco use; Z79.52 Long term (current) use of systemic steroids | CPT/HCPCS: 97597; 99213 ==

== ENCOUNTER → 2020-08-25 15:40 | Outpatient (CLI) | payer MEDICARE, SELFPAY | PROVIDERS: PCP Student in an Organized Health Care Education/Training Program; Referring Provider Student in an Organized Health Care Education/Training Program; Visit Provider Family Medicine | DX: I87.2 Venous insufficiency (chronic) (peripheral) (principal); L97.821 Non-pressure chronic ulcer of other part of left lower leg limited to breakdown of skin; L97.311 Non-pressure chronic ulcer of right ankle limited to breakdown of skin; L08.9 Local infection of the skin and subcutaneous tissue, unspecified; R60.0 Localized edema; F17.200 Nicotine dependence, unspecified, uncomplicated; M06.9 Rheumatoid arthritis, unspecified | CPT/HCPCS: 87070; 87075; 87205; 97597; 99213 ==

== ENCOUNTER → 2020-09-01 13:52 | Outpatient (CLI) | payer MEDICARE, SELFPAY | PROVIDERS: PCP Student in an Organized Health Care Education/Training Program; Referring Provider Student in an Organized Health Care Education/Training Program; Visit Provider Family Medicine | DX: I87.2 Venous insufficiency (chronic) (peripheral) (principal); L97.811 Non-pressure chronic ulcer of other part of right lower leg limited to breakdown of skin; L97.821 Non-pressure chronic ulcer of other part of left lower leg limited to breakdown of skin; M06.9 Rheumatoid arthritis, unspecified; Z72.0 Tobacco use; Z79.52 Long term (current) use of systemic steroids | CPT/HCPCS: 97597 ==

== ENCOUNTER → 2020-09-08 15:29 | Outpatient (CLI) | payer MEDICARE, SELFPAY | PROVIDERS: PCP Student in an Organized Health Care Education/Training Program; Referring Provider Student in an Organized Health Care Education/Training Program; Visit Provider Family Medicine | DX: I87.2 Venous insufficiency (chronic) (peripheral) (principal); L97.811 Non-pressure chronic ulcer of other part of right lower leg limited to breakdown of skin; L97.821 Non-pressure chronic ulcer of other part of left lower leg limited to breakdown of skin; M06.9 Rheumatoid arthritis, unspecified; Z72.0 Tobacco use; Z79.52 Long term (current) use of systemic steroids | CPT/HCPCS: 97597 ==

== ENCOUNTER → 2020-09-10 11:49 | Outpatient (CLI) | payer MEDICARE, SELFPAY ==
[2020-09-10 13:11] LABS: BUN Creatinine Ratio 17.3 (6-22); Blood Urea Nitrogen 18 mg/dL (7-17); Estimated Glomerular Filt Rate 52.7 mL/min (>60)
--- NOTE | 2020-09-10 16:30 | DI.CT.S_ITS ---
PROCEDURE: CT ANGIO ABD AORTA RUNOFF INDICATIONS: Lower extremity edema with wounds (both legs) TECHNIQUE: After the administration of intravenous contrast, 2.5 mm sections acquired from T12 to the feet, with optional delayed image acquisition from the knees to the feet. 3-dimensional maximum intensity projection (MIP) coronal and sagittal reformats, and/or 3-dimensional volume rendering reformatting was then performed. For radiation dose reduction, the following was used: automated exposure control. COMPARISON: None. FINDINGS: Image quality: Excellent. Extravascular tissues: Lung bases are clear. Heart size is normal. Liver is normal in size and enhancement. Gallbladder is grossly unremarkable . Biliary system is non dilated. Pancreas enhances normally. Spleen is normal in size and enhancement. No adrenal nodules. Kidneys are normal in size . Bilateral renal cysts are present. Nonobstructing bilateral renal calcifications are present, largest of which is in the inferior pole left kidney measuring 6 mm diameter. There is mild thickening versus suboptimal distension of multiple small bowel loops within the abdomen. Normal appendix. No free fluid or air. No retroperitoneal or mesenteric adenopathy. No ventral hernias. Urinary bladder is decompressed. No inguinal hernias or adenopathy. No suspicious bony lesions. No vertebral body compression fractures. Abdominal aorta: Moderate diffuse calcific plaque of the abdominal aorta causing mild diffuse stenosis. No dissection or aneurysm. Right lower extremity: Moderate calcific plaque within the common iliac artery origin, causing mild stenosis. Internal and external iliac arteries patent. Mild calcific plaque causing mild stenosis within the common femoral artery. Profunda and superficial femoral arteries patent. Above knee popliteal artery patent. Below-knee popliteal artery demonstrates a moderate calcific stenosis distally. Anterior tibial artery demonstrates a high-grade origin stenosis, and is otherwise patent. Tibioperoneal trunk is mildly diffusely stenotic. Peroneal artery is patent to mid calf. Posterior tibial artery is patent to its normal terminus. Left lower extremity: Mild calcific plaque causes mild stenosis of the common iliac artery origin which is otherwise patent. Internal and external iliac arteries patent. Common femoral artery demonstrates mild diffuse calcific stenosis. Profunda femoral artery is patent. Mild calcific stenosis of the superficial femoral artery origin. Above and below knee popliteal artery patent. Anterior tibial artery demonstrates a moderate origin stenosis and is otherwise patent. Tibioperoneal trunk is patent. Peroneal and posterior tibial arteries are patent to their normal termini. 3rd digit has been amputated. IMPRESSION: 1. No significant inflow or outflow stenosis. 2. At least single-vessel bilateral lower extremity runoff. 3. Nonobstructing bilateral renal calculi. 4. Thickening versus suboptimal distention of multiple small bowel loops, which could indicate infection, inflammation, or ischemia. Clinical correlation recommended. Dictated by: Lisa Hernandez M.D. on 09/10/2020 at 17:38 Approved by: Lisa Hernandez M.D. on 09/10/2020 at 17:43
== END ==
PROVIDERS: PCP Student in an Organized Health Care Education/Training Program; Referring Provider Student in an Organized Health Care Education/Training Program; Visit Provider Student in an Organized Health Care Education/Training Program
DX: R60.9 Edema, unspecified (principal); L98.499 Non-pressure chronic ulcer of skin of other sites with unspecified severity; N14.1 Nephropathy induced by other drugs, medicaments and biological substances; T50.8X5A Adverse effect of diagnostic agents, initial encounter
CPT/HCPCS: 36415; 75635; 82565; 84520; Q9967

== ENCOUNTER → 2020-09-15 14:12 | Outpatient (CLI) | payer MEDICARE, SELFPAY | PROVIDERS: PCP Student in an Organized Health Care Education/Training Program; Referring Provider Student in an Organized Health Care Education/Training Program; Visit Provider Family Medicine | DX: I87.2 Venous insufficiency (chronic) (peripheral) (principal); L97.821 Non-pressure chronic ulcer of other part of left lower leg limited to breakdown of skin; L97.311 Non-pressure chronic ulcer of right ankle limited to breakdown of skin; M06.9 Rheumatoid arthritis, unspecified; Z79.52 Long term (current) use of systemic steroids; F17.200 Nicotine dependence, unspecified, uncomplicated | CPT/HCPCS: 99212; 99213 ==

== ENCOUNTER → 2020-09-18 12:52 | Outpatient (CLI) | payer MEDICARE, SELFPAY ==
[2020-09-18 14:32] LABS: Appearance Urine UA SL CLOUDY; Bilirubin Urine UA NEGATIVE (NEGATIVE); Color Urine UA YELLOW; Glucose Urine UA NEGATIVE (Negative); Ketones Urine UA NEGATIVE (NEGATIVE); Leukocyte Esterase Urine UA 1+ (NEGATIVE); Nitrite Urine UA NEGATIVE (Negative); Occult Blood Urine UA 1+ (Negative); Protein Urine UA NEGATIVE (Negative); Specific Gravity Urine UA 1.025 (1.000-1.035); Urobilinogen Urine UA 0.2 E.U./dL (0.2)
[2020-09-18 14:39] LABS: Amorphous Sediment Urine 1+; Bacteria Urine Moderate (10-30); Culture Indicated Urine Cult Not Indicated; RBC Urine 5-10/HPF (0-5/HPF); Squamous Epithelial Cell Urine 5-10 /HPF (0-5/HPF); WBC Urine 30-100/HPF (0-5/HPF)
== END ==
PROVIDERS: PCP Student in an Organized Health Care Education/Training Program; Referring Provider Student in an Organized Health Care Education/Training Program; Visit Provider Student in an Organized Health Care Education/Training Program
DX: R30.0 Dysuria (principal)
CPT/HCPCS: 81001

== ENCOUNTER → 2020-09-22 15:30 | Outpatient (CLI) | payer MEDICARE, SELFPAY | PROVIDERS: PCP Student in an Organized Health Care Education/Training Program; Referring Provider Student in an Organized Health Care Education/Training Program; Visit Provider Family Medicine | DX: I87.2 Venous insufficiency (chronic) (peripheral) (principal); L97.822 Non-pressure chronic ulcer of other part of left lower leg with fat layer exposed; L97.312 Non-pressure chronic ulcer of right ankle with fat layer exposed; L08.9 Local infection of the skin and subcutaneous tissue, unspecified; M06.9 Rheumatoid arthritis, unspecified; Z79.52 Long term (current) use of systemic steroids; F17.200 Nicotine dependence, unspecified, uncomplicated | CPT/HCPCS: 87070; 87075; 87077; 87186; 87205; 97597; 99214 ==

== ENCOUNTER → 2020-10-07 12:52 | Outpatient (CLI) | payer MEDICARE, SELFPAY ==
[2020-10-07 13:57] LABS: Add Manual Diff / Slide Review NO; Basophils Absolute Auto 100 /uL (0-100); Basophils Percent Auto 0.7 % (0-2); Eosinophils Absolute Auto 100 /uL (0-450); Eosinophils Percent Auto 0.9 % (2-4); Hematocrit 34.7 % (36-46); Hemoglobin 10.9 g/dL (12.0-16.0); Lymphocytes Absolute Auto 1000 /uL (1100-4500); Lymphocytes Percent Auto 10.2 % (25-40); Mean Corpuscular HGB Conc 31.4 % (30-36); Mean Corpuscular Hemoglobin 25.3 PG (26-34); Mean Corpuscular Volume 80.6 fL (80-100); Monocytes Absolute Auto 500 /uL (0-900); Monocytes Percent Auto 5.2 % (3-14); Neutrophils Absolute Auto 8000 /uL (1500-7000); Platelet Count 358 X10^3/uL (150-400); Red Blood Cell Count 4.31 X10^6/uL (4.0-5.2); Red Cell Distribution Width 15.2 % (11.6-14.8); White Blood Cell Count 9.6 X10^3/uL (4.5-11.0)
[2020-10-07 14:16] LABS: Erythrocyte Sedimentation Rate 60 MM/HR (0-20)
[2020-10-07 14:31] LABS: Alanine Aminotransferase 14 IU/L (<35); Albumin Globulin Ratio 1.1 (1.0-2.8); Alkaline Phosphatase 71 U/L (38-126); Aspartate Aminotransferase 34 IU/L (14-36); BUN Creatinine Ratio 21.9 (6-22); Bilirubin Total 0.3 mg/dL (0.2-1.3); Blood Urea Nitrogen 28 mg/dL (7-17); C-Reactive Protein Quant < 0.5 mg/dL (<1.0); Calcium 9.7 mg/dL (8.4-10.2); Carbon Dioxide 25 mmol/L (22-32); Chloride 99 mmol/L (98-107); Estimated Glomerular Filt Rate 41.5 mL/min (>60); Globulin 3.5 g/dL (1.7-4.1); Glucose 124 mg/dL (80-110); HEMOLYSIS < 15 (0-50); Potassium 3.4 mmol/L (3.4-5.1); Sodium 134 mmol/L (137-145); Total Protein 7.5 g/dL (6.3-8.2)
[2020-10-09 21:28] LABS: CCP Antibodies IgG/IgA >250 units (0-19)
== END ==
PROVIDERS: PCP Student in an Organized Health Care Education/Training Program; Referring Provider Internal Medicine Rheumatology; Visit Provider Internal Medicine Rheumatology
DX: M05.79 Rheumatoid arthritis with rheumatoid factor of multiple sites without organ or systems involvement (principal); I10 Essential (primary) hypertension
CPT/HCPCS: 36415; 80053; 83520; 85025; 85651; 86140; 86200; 86430

== ENCOUNTER → 2020-10-07 14:26 | Outpatient (CLI) | payer MEDICARE, SELFPAY | PROVIDERS: PCP Student in an Organized Health Care Education/Training Program; Referring Provider Student in an Organized Health Care Education/Training Program; Visit Provider Family Medicine | DX: I87.2 Venous insufficiency (chronic) (peripheral) (principal); L97.822 Non-pressure chronic ulcer of other part of left lower leg with fat layer exposed; R60.0 Localized edema; L08.9 Local infection of the skin and subcutaneous tissue, unspecified; M06.9 Rheumatoid arthritis, unspecified; Z79.52 Long term (current) use of systemic steroids; F17.200 Nicotine dependence, unspecified, uncomplicated | CPT/HCPCS: 99213; 99214 ==

== ENCOUNTER → 2020-10-15 14:19 | Outpatient (CLI) | payer MEDICARE, SELFPAY | PROVIDERS: PCP Student in an Organized Health Care Education/Training Program; Referring Provider Student in an Organized Health Care Education/Training Program; Visit Provider Family Medicine | DX: I87.2 Venous insufficiency (chronic) (peripheral) (principal); L97.822 Non-pressure chronic ulcer of other part of left lower leg with fat layer exposed; M06.9 Rheumatoid arthritis, unspecified; Z72.0 Tobacco use; Z79.52 Long term (current) use of systemic steroids | CPT/HCPCS: 99213; 99214 ==

== ENCOUNTER → 2020-10-26 15:47 | Outpatient (CLI) | payer MEDICARE, SELFPAY | PROVIDERS: PCP Student in an Organized Health Care Education/Training Program; Referring Provider Student in an Organized Health Care Education/Training Program; Visit Provider Family Medicine | DX: I87.2 Venous insufficiency (chronic) (peripheral) (principal); L97.812 Non-pressure chronic ulcer of other part of right lower leg with fat layer exposed; L97.822 Non-pressure chronic ulcer of other part of left lower leg with fat layer exposed; M06.9 Rheumatoid arthritis, unspecified; F17.200 Nicotine dependence, unspecified, uncomplicated; Z79.52 Long term (current) use of systemic steroids; R12 Heartburn; R13.19 Other dysphagia | CPT/HCPCS: 99213; 99214 ==

== ENCOUNTER → 2020-11-10 14:47 | Outpatient (CLI) | payer MEDICARE, SELFPAY | PROVIDERS: PCP Student in an Organized Health Care Education/Training Program; Referring Provider Student in an Organized Health Care Education/Training Program; Visit Provider Family Medicine | DX: I87.2 Venous insufficiency (chronic) (peripheral) (principal); L97.812 Non-pressure chronic ulcer of other part of right lower leg with fat layer exposed; L97.822 Non-pressure chronic ulcer of other part of left lower leg with fat layer exposed; R60.0 Localized edema; M06.9 Rheumatoid arthritis, unspecified; Z79.52 Long term (current) use of systemic steroids; F17.200 Nicotine dependence, unspecified, uncomplicated | CPT/HCPCS: 87070; 87075; 87077; 87147; 87186; 87205; 97597 ==

== ENCOUNTER → 2020-11-12 13:02 | Outpatient (CLI) | payer MEDICARE, SELFPAY ==
--- NOTE | 2020-11-12 13:03 | DI.RAD.S_ITS ---
PROCEDURE: FL BARIUM SWALLOW W SPEECH INDICATIONS: Swallow hesitancy COMPARISON: None. TECHNIQUE: Examination was conducted in conjunction with speech pathology per standard protocol. In the lateral projection, filming was performed of the patient swallowing. AP projection filming may also be performed with patient swallowing. COMPARISON: FINDINGS: Function: The oral preparatory phase appears normal, with proper containment. The subsequent oral propulsive phase, pharyngeal phase, and esophageal phase of swallowing also appear normal with all proffered substances. There was silent laryngeal penetration. No definite tracheal aspiration mild to moderate residue was noted. Morphology: No cricopharyngeal bar is identified. No cervical esophageal webs. No Zenker's diverticulum. No strictures. There is prolonged transit of a barium tablet through the esophagus. IMPRESSION: Occasional silent laryngeal penetration. Dictated by: Bert Alberto M.D. on 11/12/2020 at 14:46 Approved by: Bert Alberto M.D. on 11/12/2020 at 14:47
--- NOTE | 2020-11-12 16:26 | ST.SWALLOW ---
Visit Care Team Role Provider Type Power Hughes MD Attending Provider Physician Primary Care Provider Referring Provider Specialty: Internal Medicine Address: [address] [place] [address], [address] [place] [address], [id number] Email: [email or web address] Modified Barium Swallow Study [employer]DD [employer] Modified Barium Swallow Study Start: 11/12/20 15:20 Freq: Status: Active Protocol: Document 11/12/20 15:26 LNK (Rec: 11/12/20 15:38 LNK [id number]) Modified Barium Swallow Study Total Time Visit Start Time 13:30 Visit Stop Time 14:00 Total Visit Minutes [address] Hughes Reason for Referral pain with swallowing Patient Information Patient History Pt was seen for a Modified Barium Swallow Study at the referral of Dr. Hughes. According to records reviewed and discussion with the pt, she is reporting swallowing problems and acid reflux. She described hesitancy in initiating a swallow, trouble completing a swallow of large boluses, epigastric burning, mild nausea, and anorexia. Symptoms are relatively new over the last week or two. She denies aspiration, odynophagia, vomiting, lower GI symptoms. When describing her swallowing difficulty she reported pain in the mid-chest area and near the base of her neck near the sternal notch. Subjective Observations pt was seated in the fluoroscopy chair. Instructions and procedure were described. Pt indicated she understood and agreed to proceed. Patient Positioning Position View Lat-A/P Imaging Lateral View Textures Administered Trials Presented Thin Liquid via Spoon,Thin Liquid via Cup,Pudding Thick Liquid via Spoon,Regular Textures,Barium Tablet Oral Phase Source: MBSIMP (TM) (C) Bolus Specific Scoring Grid Lip Closure No Impairment (WNL) Tongue Control During Bolus Hold No Impairment (WNL) Bolus Prep/Mastication No Impairment (WNL) Bolus Transport/Lingual Motion No Impairment (WNL) A/P Lingual Propulsion Delay No Oral Residue No Impairment (WNL) Nasal Regurgitation No Additional Oral Phase Observations Oral phase of pt's swallow was WNL Pharyngeal Phase Source: MBSIMP (TM) (C) Bolus Specific Scoring Grid Delayed Initiation of Pharyngeal Swallow Yes Soft Palate Elevation No Impairment (WNL) Tongue Base Strength/Range of Motion Minimal Impairment Residue Along the Tongue Base Yes: trace to minimal Clearance of Residue Along Tongue Base Minimal Impairment Laryngeal Elevation No Impairment (WNL) Anterior Hyoid Movement No Impairment (WNL) Epiglottic Range of Motion No Impairment (WNL) Vallecular Residue No Laryngeal Vestibular Closure No Impairment (WNL) Pharyngeal Stripping Wave Minimal Impairment Posterior Pharyngeal Wall Residue No Upper Esophageal Sphincter Opening No Impairment (WNL) Residue in the Pyriform Sinuses No Esophageal Clearance Upright Position Mild Impairment Pharyngoesophageal Backflow Observed No Additional Pharyngeal Phase Observations Hyolaryngeal elevation and forward movement, epiglottic ROM, laryngeal seal were observed to be WNL. There was a slight reduction in laryngopharyngeal contact, indicating a slight reduction of the posterior pharyngeal wall stripping. However, it did not result in valecullar pooling. Minimal pooling across all trials was observed . Following the single cup sip and the consecutive swallow trials, the pt began to c/o pain in her chest. A/P View Textures Administered Trials Presented Barium Tablet A/P View Observations Esophageal Function Slowed Clearing,Poor Motility, Stasis Esophageal Clearance Upright Position Severe Impairment Additional Observations An 11mm barium tablet was swallowed. The tablet stopped mid-chest and remained in that position for > 1 minute, at which time the MBSS recording was stopped with the tablet still in that position. The pt c/o significant pain in her chest. A still picture of the tablet was shown to the pt with note that the contrast had passed as it was not seen with the tablet. Recommend GI consult. Clinical Impressions Dysphagia Type No oropharyngeal dysphagia; possible esophageal dysphagia Patient Appropriate for Therapy No Recommendations Diet Comments continue current diet Treatment Plan Recommended Referrals GI Consult Compensatory Strategies Recommendations Reclined Position,Small Bites and Sips,Alternate Liquids/ Solids Additional Recommendations/Comments Recommend GI consult
== END ==
PROVIDERS: PCP Student in an Organized Health Care Education/Training Program; Referring Provider Student in an Organized Health Care Education/Training Program; Visit Provider Student in an Organized Health Care Education/Training Program
DX: R13.10 Dysphagia, unspecified (principal)
CPT/HCPCS: 74230; 92611

== ENCOUNTER → 2020-11-25 15:53 | Outpatient (CLI) | payer MEDICARE, SELFPAY | PROVIDERS: PCP Student in an Organized Health Care Education/Training Program; Referring Provider Student in an Organized Health Care Education/Training Program; Visit Provider Family Medicine | DX: I87.2 Venous insufficiency (chronic) (peripheral) (principal); L97.812 Non-pressure chronic ulcer of other part of right lower leg with fat layer exposed; L97.822 Non-pressure chronic ulcer of other part of left lower leg with fat layer exposed; M06.9 Rheumatoid arthritis, unspecified; Z79.52 Long term (current) use of systemic steroids; B95.7 Other staphylococcus as the cause of diseases classified elsewhere; R60.0 Localized edema; F17.200 Nicotine dependence, unspecified, uncomplicated | CPT/HCPCS: 97597; 99213 ==

== ENCOUNTER → 2020-12-09 15:01 | Outpatient (CLI) | payer MEDICARE, SELFPAY | PROVIDERS: PCP Student in an Organized Health Care Education/Training Program; Referring Provider Student in an Organized Health Care Education/Training Program; Visit Provider Family Medicine | DX: I87.2 Venous insufficiency (chronic) (peripheral) (principal); L97.812 Non-pressure chronic ulcer of other part of right lower leg with fat layer exposed; L97.822 Non-pressure chronic ulcer of other part of left lower leg with fat layer exposed; M06.9 Rheumatoid arthritis, unspecified; Z72.0 Tobacco use; Z79.52 Long term (current) use of systemic steroids; T79.2XXA Traumatic secondary and recurrent hemorrhage and seroma, initial encounter; S81.802A Unspecified open wound, left lower leg, initial encounter | CPT/HCPCS: 11042; 11045; 99213; 99214 ==

== ENCOUNTER → 2020-12-11 09:50 | Outpatient (CLI) | payer MEDICARE, SELFPAY | PROVIDERS: PCP Student in an Organized Health Care Education/Training Program; Referring Provider Student in an Organized Health Care Education/Training Program; Visit Provider Family Medicine | DX: S80.12XA Contusion of left lower leg, initial encounter (principal) | CPT/HCPCS: 99214 ==

== ENCOUNTER → 2020-12-16 10:58 | Outpatient (CLI) | payer MEDICARE, SELFPAY | PROVIDERS: PCP Student in an Organized Health Care Education/Training Program; Referring Provider Student in an Organized Health Care Education/Training Program; Visit Provider Family Medicine | DX: I87.2 Venous insufficiency (chronic) (peripheral) (principal); L97.822 Non-pressure chronic ulcer of other part of left lower leg with fat layer exposed; L97.312 Non-pressure chronic ulcer of right ankle with fat layer exposed; S81.802A Unspecified open wound, left lower leg, initial encounter | CPT/HCPCS: 11042; 11045 ==

== ENCOUNTER → 2020-12-18 09:27 | Outpatient (CLI) | payer MEDICARE, SELFPAY | PROVIDERS: PCP Student in an Organized Health Care Education/Training Program; Referring Provider Student in an Organized Health Care Education/Training Program; Visit Provider Nurse Practitioner Family | DX: I87.2 Venous insufficiency (chronic) (peripheral) (principal); L97.822 Non-pressure chronic ulcer of other part of left lower leg with fat layer exposed; L97.312 Non-pressure chronic ulcer of right ankle with fat layer exposed; S80.12XA Contusion of left lower leg, initial encounter; R52 Pain, unspecified | CPT/HCPCS: 99213 ==

== ENCOUNTER → 2020-12-23 13:20 | Outpatient (CLI) | payer MEDICARE, SELFPAY | PROVIDERS: PCP Student in an Organized Health Care Education/Training Program; Referring Provider Student in an Organized Health Care Education/Training Program; Visit Provider Family Medicine | DX: I87.2 Venous insufficiency (chronic) (peripheral) (principal); L97.822 Non-pressure chronic ulcer of other part of left lower leg with fat layer exposed; S81.802A Unspecified open wound, left lower leg, initial encounter; L97.312 Non-pressure chronic ulcer of right ankle with fat layer exposed; M06.9 Rheumatoid arthritis, unspecified; T79.2XXA Traumatic secondary and recurrent hemorrhage and seroma, initial encounter; Z72.0 Tobacco use | CPT/HCPCS: 11042; 11045 ==

== ENCOUNTER → 2020-12-25 14:59 | Outpatient (CLI) | payer MEDICARE, SELFPAY | PROVIDERS: PCP Student in an Organized Health Care Education/Training Program; Referring Provider Student in an Organized Health Care Education/Training Program; Visit Provider Family Medicine | DX: I87.2 Venous insufficiency (chronic) (peripheral) (principal); L97.822 Non-pressure chronic ulcer of other part of left lower leg with fat layer exposed; L97.312 Non-pressure chronic ulcer of right ankle with fat layer exposed; S80.12XA Contusion of left lower leg, initial encounter | CPT/HCPCS: 99214 ==

== ENCOUNTER → 2020-12-28 11:18 | Outpatient (CLI) | payer MEDICARE, SELFPAY | PROVIDERS: PCP Student in an Organized Health Care Education/Training Program; Referring Provider Student in an Organized Health Care Education/Training Program; Visit Provider Family Medicine | DX: I87.2 Venous insufficiency (chronic) (peripheral) (principal); L97.822 Non-pressure chronic ulcer of other part of left lower leg with fat layer exposed; L97.312 Non-pressure chronic ulcer of right ankle with fat layer exposed | CPT/HCPCS: 99213 ==

== ENCOUNTER → 2020-12-31 11:11 | Outpatient (CLI) | payer MEDICARE, SELFPAY | PROVIDERS: PCP Student in an Organized Health Care Education/Training Program; Referring Provider Student in an Organized Health Care Education/Training Program; Visit Provider Family Medicine | DX: I87.2 Venous insufficiency (chronic) (peripheral) (principal); L97.812 Non-pressure chronic ulcer of other part of right lower leg with fat layer exposed; L97.822 Non-pressure chronic ulcer of other part of left lower leg with fat layer exposed; M06.9 Rheumatoid arthritis, unspecified; Z72.0 Tobacco use; Z79.52 Long term (current) use of systemic steroids | CPT/HCPCS: 99212; 99214 ==

== ENCOUNTER → 2021-01-13 13:00 | Outpatient (CLI) | payer MEDICARE, SELFPAY ==
--- NOTE | 2021-01-13 13:01 | DI.MRI.S_ITS ---
PROCEDURE: MR HEAD/BRAIN WO/W CON INDICATIONS: Tremor, ALOC, head injury TECHNIQUE: Noncontrast axial T1 spin echo, axial T2 fast spin echo, sagittal and axial FLAIR, coronal T2 fast spin echo, axial gradient echo, axial diffusion and ADC through the brain. After the administration of contrast, axial and coronal T1 spin echo with fat saturation through the brain. COMPARISON: None. FINDINGS: Image quality: Excellent. CSF spaces: Basal cisterns are patent. No extra-axial fluid collections. Ventricles are normal in size and shape. Brain: No midline shift. No intracranial bleeds or masses. No abnormal intracranial enhancement. There is cerebral volume loss for age. There is periventricular white matter chronic small vessel ischemic change. The brainstem appears normal. Diffusion-weighted images demonstrate no acute ischemic insults. No chronic ischemic insults. Normal intravascular flow voids are present. Skull and face: Calvarial marrow is normal in signal. Orbits appear normal. Sinuses: Sinuses and mastoids appear clear. IMPRESSION: 1. Volume loss and small vessel ischemic disease. 2. No acute process. No recent infarct. Dictated by: Lisa Hernandez M.D. on 01/13/2021 at 14:28 Approved by: Lisa Hernandez M.D. on 01/13/2021 at 14:30
[2021-01-13 15:06] LABS: Add Manual Diff / Slide Review NO; Basophils Absolute Auto 100 /uL (0-100); Basophils Percent Auto 0.8 % (0-2); Eosinophils Absolute Auto 100 /uL (0-450); Eosinophils Percent Auto 0.8 % (2-4); Hematocrit 31.2 % (36-46); Hemoglobin 9.7 g/dL (12.0-16.0); Lymphocytes Absolute Auto 1200 /uL (1100-4500); Lymphocytes Percent Auto 12.1 % (25-40); Mean Corpuscular HGB Conc 31.2 % (30-36); Mean Corpuscular Hemoglobin 22.8 PG (26-34); Monocytes Absolute Auto 700 /uL (0-900); Monocytes Percent Auto 7.2 % (3-14); Neutrophils Absolute Auto 7700 /uL (1500-7000); Neutrophils Percent Auto 79.1 % (50-75); Platelet Count 456 X10^3/uL (150-400); Red Blood Cell Count 4.28 X10^6/uL (4.0-5.2); White Blood Cell Count 9.7 X10^3/uL (4.5-11.0)
[2021-01-13 15:36] LABS: BUN Creatinine Ratio 29.8 (6-22); Blood Urea Nitrogen 37 mg/dL (7-17)
== END ==
PROVIDERS: PCP Student in an Organized Health Care Education/Training Program; Referring Provider Student in an Organized Health Care Education/Training Program; Visit Provider Student in an Organized Health Care Education/Training Program
DX: R25.1 Tremor, unspecified (principal); S09.90XA Unspecified injury of head, initial encounter; N14.1 Nephropathy induced by other drugs, medicaments and biological substances; T50.8X5A Adverse effect of diagnostic agents, initial encounter; M06.9 Rheumatoid arthritis, unspecified; I67.82 Cerebral ischemia; E86.9 Volume depletion, unspecified
CPT/HCPCS: 36415; 70553; 82565; 84520; 85025; A9579

== ENCOUNTER 2021-02-06 12:15 | Emergency (ER) | payer MEDICARE, SELFPAY ==
[2021-02-06 12:20] VITALS: BP 152/83; PULSE 105; RESP 18; TEMP 36.6; O2SAT 100; BMI 18.0
--- NOTE | 2021-02-06 12:30 | ED.WOUNDLAC ---
HPI - Wound/Laceration General Chief Complaint: Wound/Laceration Stated Complaint: left leg is swollen Time Seen by Provider: 02/06/21 12:24 Source: patient Mode of arrival: Ambulatory Limitations: no limitations History of Present Illness HPI narrative: The patient has rheumatoid arthritis. She takes steroids daily. She recently suffered injuries to her lower extremities, resulting in ulcers, left anterior tibia and right medial tibia. She is under wound care for her ulcers. The wound nurse was worried about edema in her left calf. The edema has decreased at this time and she is erythema in her toes and feet, with chronic edema. She is dark skin changes to her skin in her hands as well as her legs. She has chronic pain in both lower extremities. She has no numbness. She is not anticoagulated. She has no history of DVT or PE. She denies chest pain. She has no dyspnea, cough or hemoptysis. Regarding the erythema in her toes and her lower extremity ulcers, she denies fever or chills. Related Data Home Medications Medication Instructions Recorded Confirmed minocycline 100 mg capsule 100 mg PO BID 01/11/21 01/11/21 Previous Rx's Medication Instructions Recorded Disabled Parking Permit #1 ea 11/19/19 spironolactone 50 mg tablet 50 mg PO DAILY #90 tab 07/24/20 gabapentin 300 mg capsule 300 mg PO QID #360 cap 10/02/20 estradiol 0.5 mg tablet 0.5 mg PO DAILY #90 tab 10/19/20 hydrochlorothiazide 25 mg tablet 25 mg PO DAILY #90 tab 11/23/20 tramadol 50 mg tablet 50 mg PO 5XD #150 tab 11/27/20 prednisone 1 mg tablet 1 mg PO DAILY #60 tab 12/28/20 Allergies Allergy/AdvReac Type Severity Reaction Status Date / Time Sulfa (Sulfonamide AdvReac Severe VOMITING Verified 02/06/21 12:24 Antibiotics) AND FEVER [SULFA (SULFONAMIDE ANTIBIOTICS)] Review of Systems Constitutional Constitutional: Reports as per HPI, Reports body ache(s), Denies chills, Reports fatigue, Denies fever(s) and Denies weakness ENT Ears, Nose, Mouth, and Throat: Denies dizziness Musculoskeletal Musculoskeletal: Reports as per HPI and Denies numbness Integumentary/Breasts Skin/Breast: Reports as per HPI Neurologic Neurologic: Denies confusion, Denies dizziness, Denies numbness and Denies weakness Psychiatric Psychiatric: Denies confusion Endocrine Endocrine: Reports fatigue Patient History Medical History Chronic steroid use Hyperlipidemia Hypertension Lumbosacral spondylosis with radiculopathy Rheumatoid arthritis Social History Smoking Status: Current every day smoker Tobacco: How many years used: 53 quit status: not considering quitting (declines smoking cessation) second hand exposure: No alcohol intake: never substance use type: does not use Smoking Status: Current every day smoker alcohol intake frequency: holidays/special occasions only Substance Use Type: does not use Exam Initial Vital Signs Initial Vital Signs: Vital Signs Temperature 97.8 F 02/06/21 12:20 Pulse Rate 105 H 02/06/21 12:20 Respiratory Rate 18 02/06/21 12:20 Blood Pressure 152/83 H 02/06/21 12:20 Pulse Oximetry 100 02/06/21 12:20 Const General: cooperative, No in distress and frail appearing [facility] [place] Head: normocephalic and atraumatic Resp Auscultation: clear to auscultation bilaterally Percussion: percussion normal Cardio Rate: regular rate Rhythm: regular rhythm Heart Sounds: S1 normal and S2 normal Skin Other: Stasis dermatitis changes on both lower extremities. Ulcer on the left, lateral distal tibia area and a 2nd ulcer on the right medial tibia area, both her covered both her packed. No exudate. No cellulitis. Neuro General: patient alert, patient awake and other (Lower extremity motor and sensory exam is normal) Extrem Other: Silvino sign is negative on both legs. No significant lower extremity edema to the calves. Slight edema to her feet, and erythema amongst her in MTP joints and toes. Psych Mental Status: mental status grossly normal Course Orders Ordered: ED Orders 02/06/21 12:31 US periph venous low extrem bi Stat Vital Signs Vital signs: Vital Signs - 8 hr 02/06/21 12:20 Temperature 97.8 F Pulse Rate 105 H Respiratory Rate 18 Blood Pressure 152/83 H Pulse Oximetry 100 MDM - Wound/Laceration Imaging Data US - DVT: Radiologist's Impression: Bilateral lower extremity ultrasound reveals no evidence of DVT Discharge Plan Departure Patient Disposition: Home Clinical Impression: Chronic stasis dermatitis, Rheumatoid arthritis, Bilateral leg ulcer Instructions: DI for Diabetic Foot Ulcer Activity Restrictions/Additional Instructions: Continue with your current wound care treatment. Return here as necessary. Prescriptions: No Action (DME) Disabled Parking Permit Qty: 1 RF: 0 spironolactone 50 mg tablet 50 mg PO DAILY Qty: 90 RF: 3 gabapentin 300 mg capsule 300 mg PO QID Qty: 360 RF: 3 estradiol 0.5 mg tablet 0.5 mg PO DAILY Qty: 90 RF: 3 hydrochlorothiazide 25 mg tablet 25 mg PO DAILY Qty: 90 RF: 2 tramadol 50 mg tablet 50 mg PO 5XD Qty: 150 RF: 4 prednisone 1 mg tablet 1 mg PO DAILY Qty: 60 RF: 0 minocycline 100 mg capsule 100 mg PO BID RF: 0 Referrals: Power Hughes MD [Primary Care Provider] -
--- NOTE | 2021-02-06 12:31 | DI.US.S_ITS ---
PROCEDURE: US PERIPH VENOUS LOW EXTREM BI INDICATIONS: PAIN AND EDEMA TECHNIQUE: Real-time imaging, as well as color and pulse Doppler interrogation, were performed of the deep veins of both legs from the inguinal ligament to the popliteal fossa. COMPARISON: None. FINDINGS: Right: The common femoral, femoral and popliteal veins are normally compressible, and free of intraluminal thrombus. Color and pulse Doppler demonstrate normal phasic intravascular flow. There is normal augmentation response to distal compression maneuver. Left: The common femoral, femoral and popliteal veins are normally compressible, and free of intraluminal thrombus. Color and pulse Doppler demonstrate normal phasic intravascular flow. There is normal augmentation response to distal compression maneuver. IMPRESSION: No evidence of deep venous thrombosis in either lower extremity. Dictated by: Tyler Sotomayor D.O. on 02/06/2021 at 13:30 Approved by: Tyler Sotomayor D.O. on 02/06/2021 at 13:31
--- NOTE | 2021-02-06 12:44 | PC.NURSE ---
pt with multiple wounds at various stage of healing and discoloration on all extremities. DSD with zeroform dressing intact. has home wound care was advised by wound nurse to come to the ER for possible DVT swelling to LLE yesterday. since resolved. pulses palpable and wound pain at baseline. dry flaking skin. at bedside to assess and US paged.
[2021-02-06 14:00] VITALS: BP 135/70; PULSE 85; RESP 18; TEMP 36.8; O2SAT 100
== END 2021-02-06 14:02 | disposition home or self-care (01) ==
PROVIDERS: Emergency Provider Emergency Medicine; PCP Student in an Organized Health Care Education/Training Program
DX: I87.2 Venous insufficiency (chronic) (peripheral) (principal); M06.9 Rheumatoid arthritis, unspecified; L97.919 Non-pressure chronic ulcer of unspecified part of right lower leg with unspecified severity
CPT/HCPCS: 93970; 99283

== ENCOUNTER 2021-02-09 13:41 | Emergency (ER) | payer MEDICARE, SELFPAY ==
[2021-02-09 13:42] VITALS: BP 173/83; PULSE 106; RESP 18; TEMP 36.9; O2SAT 99; BMI 17.8
--- NOTE | 2021-02-09 13:43 | ED_ITS ---
HPI - Fall General Chief Complaint: Head Injury Stated Complaint: Fell and hit head 3 days ago- headache. Time Seen by Provider: 02/09/21 13:42 History of Present Illness HPI Narrative: 70-year-old female smoker with a history of prior head injuries, tremor, soft a deal dysphagia presents with a chief complaint of a fall a few days ago in which she tripped and fell backwards striking her head. She had no loss of consciousness and has had no vomiting though she has been nauseated. Sh ciara is had some ongoing headache and some repetitive questioning but otherwise is at her neurologic baseline. She denies any numbness, tingling or weakness. She has no midline neck pain. She has full recall of the event. She takes no blood thinners. Related Data Home Medications Medication Instructions Recorded Confirmed minocycline 100 mg capsule 100 mg PO BID 01/11/21 01/11/21 Previous Rx's Medication Instructions Recorded Disabled Parking Permit #1 ea 11/19/19 spironolactone 50 mg tablet 50 mg PO DAILY #90 tab 07/24/20 gabapentin 300 mg capsule 300 mg PO QID #360 cap 10/02/20 estradiol 0.5 mg tablet 0.5 mg PO DAILY #90 tab 10/19/20 hydrochlorothiazide 25 mg tablet 25 mg PO DAILY #90 tab 11/23/20 tramadol 50 mg tablet 50 mg PO 5XD #150 tab 11/27/20 prednisone 1 mg tablet 1 mg PO DAILY #60 tab 12/28/20 ondansetron 4 mg disintegrating 4 mg PO TID-QID PRN #10 tab 02/09/21 tablet Allergies Allergy/AdvReac Type Severity Reaction Status Date / Time Sulfa (Sulfonamide AdvReac Severe VOMITING Verified 02/09/21 13:48 Antibiotics) AND FEVER [SULFA (SULFONAMIDE ANTIBIOTICS)] Review of Systems Review of Systems Narrative: GENERAL: Denies chills, fatigue, malaise, fever, sweats. HEENT: Denies sinus pain, ear pain, sore throat, difficulty swallowing, dizziness. RESPIRATORY: Denies dyspnea, cough, wheezing, hemoptysis, sputum. CARDIOVASCULAR: Denies chest pain, palpitations, orthopnea, edema, GASTROINTESTINAL: Denies nausea, vomiting, abdominal pain, diarrhea, constipation, melena. : Denies dysuria, frequency, incontinence, hematuria, urinary retention. MUSCULOSKELETAL: denies weakness, joint pain, or bony pain SKIN: Denies rash, skin lesions, or other NEUROLOGIC: See HPI PSYCHIATRIC: No concerning psychosocial issues. 12 point review of systems is negative except for those stated above Patient History Medical History Chronic steroid use Hyperlipidemia Hypertension Lumbosacral spondylosis with radiculopathy Rheumatoid arthritis Social History Smoking Status: Current every day smoker Tobacco: How many years used: 53 quit status: not considering quitting (declines smoking cessation) second hand exposure: No alcohol intake: never substance use type: does not use Smoking Status: Current every day smoker alcohol intake frequency: holidays/special occasions only Substance Use Type: does not use Exam Narrative Exam Narrative: GEN: AOx3 and in mild distress, GCS 15 HEAD: No contusion, abrasion or evidence of depressed skull fracture EYES: Pupils are equal, round, and reactive to light and accommodation. No hyphema, no nasal septal hematomaExtraoccular muscles are intact bilaterally. There is no subconjunctival hemorrhage or exudate. CHEST: Lungs are clear to auscultation bilaterally and free of wheezes, rales, or rhonchi. Heart rate is regular rhythm, there are no murmurs, clicks, rubs, or gallops. There is no chest wall tenderness. ABD: Abdomen is soft and nontender. There is no guarding or rebound. Bowel sounds are normal in all 4 quadrants. There is no mass or organomegaly. EXT: Full painless ROM of all extremities with no loss of sensation or strength. SKIN: Warm, pink, and dry. No erythema or rash Initial Vital Signs Initial Vital Signs: Vital Signs Temperature 98.4 F 02/09/21 13:42 Pulse Rate 106 H 02/09/21 13:42 Respiratory Rate 18 02/09/21 13:42 Blood Pressure 173/83 H 02/09/21 13:42 Pulse Oximetry 99 02/09/21 13:42 Course Orders Ordered: ED Orders 02/09/21 13:49 CT head/brain wo con Stat Vital Signs Vital signs: Vital Signs - 8 hr 02/09/21 13:42 Temperature 98.4 F Pulse Rate 106 H Respiratory Rate 18 Blood Pressure 173/83 H Pulse Oximetry 99 MDM - Fall Imaging Data CT scan - head: Radiologist's Impression: [address] [address] [address] Scan Report Signed Patient: Mamta Shell MR#: [id number] : 1950 Acct:[id number] Age/Sex: 70 / F Date of Service: 02/09/21 Loc: ED Accession Number: [id number] ?? Procedure: CT head/brain wo con Ordering Provider: Benigno Han D.O. PROCEDURE:? CT HEAD/BRAIN WO CON ? INDICATIONS:? fall, head injury, confusion ? TECHNIQUE:? Noncontrast 4.5 mm thick angled axial sections acquired from the foramen magnum to the vertex, with coronal and sagittal reformats.? For radiation dose reduction, the following was used:? automated exposure control, adjustment of mA and/or kV according to patient size.? ? COMPARISON:? None. ? FINDINGS:? Image quality:? Excellent.? ? CSF spaces:? Basal cisterns are patent.? No extra-axial fluid collections.? The ventricles are symmetric in size and shape.? ? Brain:? No intracranial bleeds or masses.? There is cerebral volume loss for age, with resultant ventricular and sulcal prominence.? There are periventricular and deep white matter chronic small vessel ischemic changes.? There is intracranial internal carotid artery atherosclerosis.? ? Skull and face:? Calvarium and visualized facial bones appear intact, without suspicious lesions.? ? Sinuses:? Visualized sinuses and mastoids are clear.? ? IMPRESSION:? No acute intracranial disease process. ? ? Dictated by: Jenelle Atkinson MD, PhD on 02/09/2021 at 13:05 ? ? Approved by: Jenelle Atkinson MD, PhD on 02/09/2021 at 13:08 ? Discharge Plan Departure Patient Disposition: Home Clinical Impression: Concussion Qualifiers: Encounter type: initial encounter Loss of consciousness presence/duration: with LOC of 30 min or less Qualified Code(s): S06.0X1A - Concussion with loss of consciousness of 30 minutes or less, initial encounter Instructions: Concussion Activity Restrictions/Additional Instructions: *You have been diagnosed with [concussion. Your head CT shows no evidence of bleeding or fracture ] *What to do: *Please continue to take your regular medications as directed. [x ] New medication prescriptions sent to your pharmacy: [[facility] ] [ ] New medication written as a paper prescription [ ] No new medications given *Please follow up with your primary care provider in 2-3 days, call for an appointment. Let them know you were seen in the Emergency Department and that we ask that you be seen in follow up. We will electronically transmit a record of today's note if your PCP is in our system *If you do not have a primary care provider please contact the [facility] Resource line at [phone]. They will ask some questions about your medical history and help get you set up with a doctor in the community. * You have a slight concussion and will likely have a mild headache and some nausea for a few days. Avoiding highly stimulating activities and even TV or computers may be helpful in minimizing your symptoms. Avoid activities that will put you at risk for another head injury for at least a week. You can take tylenol or motrin for headache or the prescription provided for nausea/vomiting. Return for worsening or persistent symptoms] Prescriptions: New ondansetron 4 mg tablet,disintegrating 4 mg PO TID-QID PRN (Reason: nausea and vomiting) Qty: 10 RF: 0 No Action (DME) Disabled Parking Permit Qty: 1 RF: 0 spironolactone 50 mg tablet 50 mg PO DAILY Qty: 90 RF: 3 gabapentin 300 mg capsule 300 mg PO QID Qty: 360 RF: 3 estradiol 0.5 mg tablet 0.5 mg PO DAILY Qty: 90 RF: 3 hydrochlorothiazide 25 mg tablet 25 mg PO DAILY Qty: 90 RF: 2 tramadol 50 mg tablet 50 mg PO 5XD Qty: 150 RF: 4 prednisone 1 mg tablet 1 mg PO DAILY Qty: 60 RF: 0 minocycline 100 mg capsule 100 mg PO BID RF: 0 Referrals: Power Hughes MD [Primary Care Provider] -
--- NOTE | 2021-02-09 13:49 | DI.CT.S_ITS ---
PROCEDURE: CT HEAD/BRAIN WO CON INDICATIONS: fall, head injury, confusion TECHNIQUE: Noncontrast 4.5 mm thick angled axial sections acquired from the foramen magnum to the vertex, with coronal and sagittal reformats. For radiation dose reduction, the following was used: automated exposure control, adjustment of mA and/or kV according to patient size. COMPARISON: None. FINDINGS: Image quality: Excellent. CSF spaces: Basal cisterns are patent. No extra-axial fluid collections. The ventricles are symmetric in size and shape. Brain: No intracranial bleeds or masses. There is cerebral volume loss for age, with resultant ventricular and sulcal prominence. There are periventricular and deep white matter chronic small vessel ischemic changes. There is intracranial internal carotid artery atherosclerosis. Skull and face: Calvarium and visualized facial bones appear intact, without suspicious lesions. Sinuses: Visualized sinuses and mastoids are clear. IMPRESSION: No acute intracranial disease process. Dictated by: Jenelle Atkinson MD, PhD on 02/09/2021 at 13:05 Approved by: Jenelle Atkinson MD, PhD on 02/09/2021 at 13:08
== END 2021-02-09 14:32 | disposition home or self-care (01) ==
PROVIDERS: Emergency Provider Emergency Medicine; PCP Student in an Organized Health Care Education/Training Program
DX: S06.0X1A Concussion with loss of consciousness of 30 minutes or less, initial encounter (principal); R11.0 Nausea; R51.9 Headache, unspecified; W19.XXXA Unspecified fall, initial encounter
CPT/HCPCS: 70450; 99281; 99284

== ENCOUNTER → 2021-02-24 10:47 | Outpatient (CLI) | payer MEDICARE, SELFPAY ==
[2021-02-24 11:15] LABS: Hematocrit 35.1 % (36-46); Hemoglobin 11.3 g/dL (12.0-16.0); Mean Corpuscular HGB Conc 32.2 % (30-36); Mean Corpuscular Hemoglobin 25.5 PG (26-34); Mean Corpuscular Volume 79.1 fL (80-100); Platelet Count 400 X10^3/uL (150-400); Red Blood Cell Count 4.44 X10^6/uL (4.0-5.2); Red Cell Distribution Width 25.9 % (11.6-14.8); White Blood Cell Count 8.6 X10^3/uL (4.5-11.0)
[2021-02-24 11:16] LABS: Reticulocyte Count, Percent 1.6 % (1.06-2.63)
[2021-02-24 11:25] LABS: HEMOLYSIS < 15 (0-50); Iron 34 ug/dL (37-170)
[2021-02-24 11:26] LABS: Blood Urea Nitrogen 26 mg/dL (7-17); Estimated Glomerular Filt Rate 47.7 mL/min (>60); Lactate Dehydrogenase 563 U/L (313-618)
[2021-02-24 11:36] LABS: Percent Iron Saturation 9 % (15-50); Total Iron Binding Capacity 365 ug/dL (265-497); Transferrin 279 mg/dL (206-381)
[2021-02-24 11:56] LABS: TSH w/ Reflex to FT4 3.58 uIU/mL (0.47-4.68)
[2021-02-24 12:01] LABS: Ferritin 15 ng/mL (11-264)
[2021-02-24 12:33] LABS: Folate 14.3 ng/mL (2.76-20.0); Vitamin B12 714 pg/mL (239-931)
== END ==
PROVIDERS: PCP Student in an Organized Health Care Education/Training Program; Referring Provider Student in an Organized Health Care Education/Training Program; Visit Provider Student in an Organized Health Care Education/Training Program
DX: D64.9 Anemia, unspecified (principal); R25.1 Tremor, unspecified; N18.9 Chronic kidney disease, unspecified
CPT/HCPCS: 36415; 82565; 82607; 82728; 82746; 83540; 83550; 83615; 84443; 84520; 85027; 85045; 86880

== ENCOUNTER 2021-03-13 12:51 | Emergency (ER) | payer MEDICARE, SELFPAY ==
[2021-03-13] VITALS (11 sets, daily range): BP systolic 155–182; BP diastolic 74–86; PULSE 80–94; RESP 13–38; TEMP 36.9; O2SAT 99–100
--- NOTE | 2021-03-13 13:12 | DI.RAD.S_ITS ---
PROCEDURE: XR CHEST 1V INDICATIONS: chest pain TECHNIQUE: One view of the chest was acquired. COMPARISON: [facility], CR, XR CHEST 1V, 12/12/2017, 13:47. FINDINGS: Surgical changes and devices: None. Lungs and pleura: There is hyperinflation of the lungs with flattening of the hemidiaphragms compatible with COPD. Lungs are clear. No pleural effusions or pneumothorax. Mediastinum: Mediastinal contours appear normal. Heart size is normal. Bones and chest wall: No suspicious bony lesions. Overlying soft tissues appear unremarkable. IMPRESSION: 1. No acute cardiopulmonary disease. 2. Findings compatible with COPD redemonstrated. Dictated by: Eduin Ortega M.D. on 03/13/2021 at 13:20 Approved by: Eduin Ortega M.D. on 03/13/2021 at 13:21
--- NOTE | 2021-03-13 14:07 | DI.CT.S_ITS ---
PROCEDURE: CT HEAD/BRAIN WO CON INDICATIONS: syncope TECHNIQUE: Noncontrast 4.5 mm thick angled axial sections acquired from the foramen magnum to the vertex, with coronal and sagittal reformats. For radiation dose reduction, the following was used: automated exposure control, adjustment of mA and/or kV according to patient size. COMPARISON: [facility], CT, CT HEAD/BRAIN WO CON, 02/09/2021, 13:55. FINDINGS: Image quality: Excellent. CSF spaces: Basal cisterns are patent. No extra-axial fluid collections. There is mild cerebral volume loss, with resultant ventricular and sulcal prominence. Brain: No intracranial hemorrhage, mass, or mass effect. There are subcortical, periventricular and deep white matter hypodensities consistent with moderate chronic small vessel ischemic changes. The porter-white matter junction appears preserved. A small region of mild hyperattenuation in the medial left basal ganglia appears similar to the prior study. There is intracranial internal carotid artery atherosclerosis. Skull and face: Calvarium and visualized facial bones appear intact, without suspicious lesions. Sinuses: Visualized sinuses and mastoids are clear. IMPRESSION: 1. No acute intracranial abnormality. 2. Moderate chronic white matter small vessel ischemic changes and mild cerebral volume loss. Dictated by: Eduin Ortega M.D. on 03/13/2021 at 13:30 Approved by: Eduin Ortega M.D. on 03/13/2021 at 13:32
[2021-03-13 14:15] LABS: Add Manual Diff / Slide Review SLIDE REVIEW; Basophils Absolute Auto 100 /uL (0-100); Basophils Percent Auto 0.6 % (0-2); Eosinophils Absolute Auto 100 /uL (0-450); Eosinophils Percent Auto 0.8 % (2-4); Hematocrit 32.4 % (36-46); Hemoglobin 10.8 g/dL (12.0-16.0); Lymphocytes Absolute Auto 900 /uL (1100-4500); Mean Corpuscular HGB Conc 33.3 % (30-36); Mean Corpuscular Hemoglobin 26.5 PG (26-34); Mean Corpuscular Volume 79.7 fL (80-100); Monocytes Absolute Auto 700 /uL (0-900); Monocytes Percent Auto 6.7 % (3-14); Neutrophils Absolute Auto 9100 /uL (1500-7000); Neutrophils Percent Auto 83.9 % (50-75); Platelet Count 371 X10^3/uL (150-400); Red Blood Cell Count 4.06 X10^6/uL (4.0-5.2); White Blood Cell Count 10.9 X10^3/uL (4.5-11.0)
[2021-03-13 14:51] LABS: INR 1.2 (0.9-1.3); Prothrombin Time 13.1 SECONDS (10.1-12.7)
[2021-03-13 14:54] LABS: PTT Partial Thromboplastin Tim 32 SECONDS (26.4-36.2)
--- NOTE | 2021-03-13 14:54 | ED_ITS ---
HPI - Dizziness General Chief Complaint: Syncope Stated Complaint: falling down, left hip bothering her Time Seen by Provider: 03/13/21 14:39 Source: patient Mode of arrival: Ambulatory Limitations: no limitations History of Present Illness HPI Narrative: patient is a 71-year-old female with hypertension hyperlipidemia, rheumatoid arthritis, chronic steroid use presenting today with increased falls. She says that she has had 5 falls in the last 1 week. She is complaining of some left hip pain. She seems to be leaning towards the right. She can not explain how or why she falls. She does walk with a walker she should however she says she does not always but ever since she started falling she has been using it more frequently. She denies any fever chills or weakness. She does have chronic leg wounds which remain unchanged and followed by wound care. She denies any chest pain or palpitations. Related Data Home Medications Medication Instructions Recorded Confirmed minocycline 100 mg capsule 100 mg PO BID 01/11/21 02/25/21 Previous Rx's Medication Instructions Recorded Disabled Parking Permit #1 ea 11/19/19 spironolactone 50 mg tablet 50 mg PO DAILY #90 tab 07/24/20 gabapentin 300 mg capsule 300 mg PO QID #360 cap 10/02/20 estradiol 0.5 mg tablet 0.5 mg PO DAILY #90 tab 10/19/20 hydrochlorothiazide 25 mg tablet 25 mg PO DAILY #90 tab 11/23/20 tramadol 50 mg tablet 50 mg PO 5XD #150 tab 11/27/20 prednisone 1 mg tablet 1 mg PO DAILY #60 tab 02/22/21 Allergies Allergy/AdvReac Type Severity Reaction Status Date / Time Sulfa (Sulfonamide AdvReac Severe VOMITING Verified 03/13/21 13:11 Antibiotics) AND FEVER [SULFA (SULFONAMIDE ANTIBIOTICS)] Review of Systems Review of Systems Narrative: GENERAL: Denies chills, fatigue, malaise, fever, sweats, travel HEENT: Denies sinus pain, ear pain, sore throat, difficulty swallowing, neck pain RESPIRATORY: Denies dyspnea, cough, wheezing, hemoptysis, sputum. CARDIOVASCULAR: Denies chest pain, palpitations, orthopnea, edema GASTROINTESTINAL: Denies nausea, vomiting, abdominal pain, diarrhea, constipation, melena. : Denies dysuria, frequency, incontinence, hematuria, urinary retention, flank pain. MUSCULOSKELETAL: Denies weakness, joint pain, or bony pain SKIN: No rash, no erythema, no pruritus NEUROLOGIC: See HPI PSYCHIATRIC: No concerning psychosocial issues. 12 point review of systems is negative except for those stated above and HPI Patient History Medical History Chronic steroid use Hyperlipidemia Hypertension Lumbosacral spondylosis with radiculopathy Rheumatoid arthritis Social History Smoking Status: Current every day smoker Tobacco: How many years used: 53 quit status: not considering quitting (declines smoking cessation) second hand exposure: No alcohol intake: never substance use type: does not use Smoking Status: Current every day smoker alcohol intake frequency: holidays/special occasions only Substance Use Type: does not use Exam Initial Vital Signs Initial Vital Signs: Vital Signs Temperature 98.5 F 03/13/21 13:01 Pulse Rate 94 H 03/13/21 13:01 Respiratory Rate 14 03/13/21 13:01 Blood Pressure 182/81 H 03/13/21 13:01 Pulse Oximetry 100 03/13/21 13:01 GENERAL: Alert thin 71-year-old female no acute distress HEENT: Head atraumatic,EOMI, pupils reactive, face symmetric, moist mucous membranes CARDIOVASCULAR: Regular rate and rhythm without murmurs, rubs or gallops. RESPIRATORY: Breath sounds equal bilaterally, no wheezes rales or rhonchi. ABDOMEN: Soft, nontender. Normoactive bowel sounds all 4 quadrants. No guarding or rebound. EXTREMITIES: Normal range of motion, no clubbing or edema. Neurovascularly intact NEUROLOGICAL: Alert and oriented x4.Normal gait and speech. Difficulty with ri ght arm finger to nose slightly weaker than left. Sensation intact. Leaning toward the right as well SKIN: Chronic leg dressing applied Course Orders Ordered: ED Orders 03/13/21 13:12 XR chest 1V Stat EKG-12 Lead Stat 03/13/21 14:00 Complete Blood Count AUTO DIFF Stat Comprehensive Metabolic Panel Stat Lipase Stat Magnesium Stat Troponin & CK Cardiac Panel Stat 03/13/21 14:07 CT head/brain wo con Stat 03/13/21 14:35 Partial Thromboplastin Time Stat Prothrombin Time INR Stat 03/13/21 14:59 CT angio head and neck Stat XR hip w pel if done LT 2V Stat Discontinued Medications Hydromorphone HCl (Hydromorphone 0.5 Mg Inj) 0.5 mg IV NOW ONE Stop: 03/13/21 16:35 Last Admin: 03/13/21 16:36 Dose: Not Given Documented by: TAMARA Vital Signs Vital signs: Vital Signs - 8 hr 03/13/21 13:01 03/13/21 13:51 03/13/21 14:00 Temperature 98.5 F Pulse Rate 94 H 85 Respiratory Rate 14 17 Blood Pressure 182/81 H Pulse Oximetry 100 100 100 03/13/21 14:04 03/13/21 14:30 03/13/21 14:31 Temperature Pulse Rate 84 82 80 Respiratory Rate 19 14 25 H Blood Pressure 169/79 H 162/76 H Pulse Oximetry 100 100 100 03/13/21 15:00 03/13/21 15:46 03/13/21 16:00 Temperature Pulse Rate 82 82 88 Respiratory Rate 13 21 22 Blood Pressure 162/74 H Pulse Oximetry 100 100 100 03/13/21 16:30 03/13/21 17:10 Temperature Pulse Rate 82 Respiratory Rate 38 H Blood Pressure 155/86 H Pulse Oximetry 99 MDM - Dizziness Lab Data Result diagrams: 03/13/21 14:00 03/13/21 14:00 Labs: Lab Results 03/13/21 03/13/21 03/13/21 Range/Units 14:00 14:00 14:35 WBC 10.9 (4.5-11.0) X10^3/uL RBC 4.06 (4.0-5.2) X10^6/uL Hgb 10.8 L (12.0-16.0) g/dL Hct 32.4 L (36-46) % MCV 79.7 L (80-100) fL MCH 26.5 (26-34) PG MCHC 33.3 (30-36) % RDW 24.0 H (11.6-14.8) % Plt Count 371 (150-400) X10^3/uL Neut % (Auto) 83.9 H (50-75) % Lymph % (Auto) 8.0 L (25-40) % [place] % (Auto) 6.7 (3-14) % Eos % (Auto) 0.8 L (2-4) % Baso % (Auto) 0.6 (0-2) % Neut # (Auto) 9100 H (5311-1766) /uL Lymph # (Auto) 900 L (0803-9946) /uL [place] # (Auto) 700 (0-900) /uL Eos # (Auto) 100 (0-450) /uL Baso # (Auto) 100 (0-100) /uL RBC Morphology See below Hypochromasia 1+ H Microcytosis 2+ H PT 13.1 H (10.1-12.7) SECONDS INR 1.2 (0.9-1.3) APTT 32 D (26.4-36.2) SECONDS Sodium 136 L (137-145) mmol/L Potassium 4.0 (3.4-5.1) mmol/L Chloride 99 (98-107) mmol/L Carbon Dioxide 28 (22-32) mmol/L BUN 27 H (7-17) mg/dL Creatinine 1.12 H (0.52-1.04) mg/dL Estimated GFR 48.2 L (>60) mL/min BUN/Creatinine Ratio 24.1 H (6-22) Glucose 90 (80-110) mg/dL Calcium 9.5 (8.4-10.2) mg/dL Magnesium 1.9 (1.6-2.3) mg/dL Total Bilirubin 0.4 (0.2-1.3) mg/dL AST 36 (14-36) IU/L ALT 19 (<35) IU/L Alkaline Phosphatase 71 (38-126) U/L Total Creatine Kinase 85 (30-135) U/L CK-MB (CK-2) TNP CK-MB (CK-2) Rel Index TNP Troponin I < 0.012 (0.01-0.034) ng/mL Total Protein 7.3 (6.3-8.2) g/dL Albumin 3.8 (3.5-5.0) g/dL Globulin 3.5 (1.7-4.1) g/dL Albumin/Globulin Ratio 1.1 (1.0-2.8) Lipase 56 (23-300) U/L Imaging Data CT scan - head: Radiologist's Impression: PROCEDURE:? CT HEAD/BRAIN WO CON ? INDICATIONS:? syncope ? TECHNIQUE:? Noncontrast 4.5 mm thick angled axial sections acquired from the foramen magnum to the vertex, with coronal and sagittal reformats.? For radiation dose reduction, the following was used:? automated exposure control, adjustment of mA and/or kV according to patient size.? ? COMPARISON:? [facility], CT, CT HEAD/BRAIN WO CON, 02/09/2021, 13:55. ? FINDINGS:? Image quality:? Excellent.? ? CSF spaces:? Basal cisterns are patent.? No extra-axial fluid collections.? There is mild cerebral volume loss, with resultant ventricular and sulcal prominence.? ? Brain:? No intracranial hemorrhage, mass, or mass effect.? There are subcortical, periventricular and deep white matter hypodensities consistent with moderate chronic small vessel ischemic changes.? The porter-white matter junction appears preserved.? A small region of mild hyperattenuation in the medial left basal ganglia appears similar to the prior study.? There is intracranial internal carotid artery atherosclerosis.? ? Skull and face:? Calvarium and visualized facial bones appear intact, without suspicious lesions.? ? Sinuses:? Visualized sinuses and mastoids are clear.? ? IMPRESSION:? ? 1. No acute intracranial abnormality. ? 2. Moderate chronic white matter small vessel ischemic changes and mild cerebral volume loss. ? ? Dictated by: Eduin Ortega M.D. on 03/13/2021 at 13:30 ? ? CTA - brain/neck: Radiologist's Impression: PROCEDURE:? CT ANGIO HEAD AND NECK ? INDICATIONS:? frequent falls, leaning right right weakness ? TECHNIQUE:? After the administration of intravenous contrast, 1 mm thick sections acquired from the aortic arch through the [place] of [place].? Post-contrast 4.5 mm thick sections then re-acquired from the foramen magnum to the vertex.? 3-dimensional kbkjbpp-hessuwjey-tvnofmcyve (MIP) and/or volume rendering reformats were acquired of the central intracranial vasculature and neck separately. ? COMPARISON:? [facility], CT, CT HEAD/BRAIN WO CON, 02/09/2021, 13:55.? [facility], CT, CT HEAD/BRAIN WO CON, 03/13/2021, 14:20. ? FINDINGS:? Image quality:? Excellent.? ? BRAIN:? CSF spaces:? Basal cisterns are patent.? No extra-axial fluid collections.? The ventricles are symmetric in size and shape.? There is moderate cerebral volume loss, with resultant ventricular and sulcal prominence.? ? Brain:? No intracranial hematoma collections, mass, or mass effect.? There are subcortical, periventricular and deep white matter hypodensities consistent with moderate chronic small vessel ischemic changes.? The porter-white matter junction appears preserved. ?No abnormal intracranial enhancement. ? Skull and face:? Calvarium and facial bones appear intact, without suspicious lesions.? Orbits appear normal.? ? Sinuses:? Sinuses and mastoids are clear.? ? HEAD CT ANGIOGRAPHY:? Anterior circulation:? Intracranial internal carotid arteries are normal in size and appear patent bilaterally.? There is mild atherosclerotic calcification along the cavernous segments of the internal carotid arteries.? The paired anterior cerebral arteries appear patent bilaterally.? The anterior communicating artery also appears patent. The middle cerebral arteries appear patent bilaterally.? No high-grade stenosis, occlusion, or filling defects.? No cerebral aneurysms identified. ? Posterior circulation:? Visualized portions of the vertebral arteries demonstrate normal caliber, and join to form a patent basilar artery.? The posterior cerebral arteries appears patent bilaterally.? No high-grade stenosis, occlusion, or filling defects.? No cerebral aneurysms identified. ? NECK CT ANGIOGRAPHY:? Carotid system:? The great vessels demonstrate a conventional anatomy as they arise from the aortic arch.? The origins of the common carotid arteries appear patent.? The common carotid arteries demonstrate normal caliber and courses.? There is partially calcified plaque at the left carotid bifurcation with mild narrowing of less than 50% in the left carotid bulb.? The right carotid bulb is widely patent.? The internal carotid arteries demonstrate normal calibers and courses.? ? Posterior circulation:? The origins of the vertebral arteries both appear patent.? The more superior extracranial portions of both vertebral arteries also demonstrate normal courses and calibers.? They join to form a patent basilar artery.? ? Soft tissues:? Visualized neck soft tissues demonstrates moderate centrilobular emphysematous changes within the visualized lungs.? There is a left thyroid nodule measuring up to 1.0 cm. ? Bones:? No suspicious bony lesions.? Visualized cervical spine demonstrates minimal anterolisthesis at C4-C5 and minimal retrolisthesis at C5-C6.? Mild multilevel degenerative disc disease demonstrated throughout the cervical spine as well as moderate facet arthropathy in the mid cervical spine. ? ? IMPRESSION:? ? 1. No high-grade stenosis or occlusion of the central intracranial arteries. ? 2. No high-grade stenosis or occlusion of the head and neck arteries.? There is mild narrowing of less than 50% in the left carotid bulb. ? 3. Moderate chronic white matter small vessel ischemic changes and cerebral volume loss.? ? ? Any quantitative measurements of stenosis were performed using NASCET criteria.? ? ? Dictated by: Eduin Ortega M.D. on 03/13/2021 at 14:58 ? ? Extremity x-ray #1: Radiologist's Impression: PROCEDURE:? XR HIP W PEL IF DONE LT 2V ? INDICATIONS:? fall pain ? TECHNIQUE:? AP pelvis with lateral view of the left hip. ? COMPARISON:? None. ? FINDINGS:? ? Bones:? No displaced fractures or dislocations.? Pelvic ring appears intact.? Visualized osseous structures appear osteopenic.? No suspicious bony lesions.? ? Soft tissues:? The visualized bowel gas pattern is normal.? There are small linear calcifications adjacent to the left greater trochanter which may reflect calcific tendinitis or sequelae of prior avulsion injuries.? There is contrast within the bladder from recent CT study.? ? IMPRESSION:? ? 1. No displaced fracture or dislocation. ? If clinical concern persists, further evaluation may be obtained with CT.? ? ? Dictated by: Eduin Ortega M.D. on 03/13/2021 at 15:04 ? ? ECG Data Interpretation: Normal sinus rhythm rate 87 [place] interval 122 QRS [address] changes or T- wave inversions MDM Narrative Medical decision making narrative: At this time patient has had full workup including blood work head CT and CT angio no abnormality is found. A little bit more overall reassuring. She has chronic wounds. She has a very nice walker, I think she isof the time but maybe noncompliance. This time there is no criteria for admission. She is followed closely with her PCP and can be followed up outpatient. Discharge Plan Departure Patient Disposition: Home Clinical Impression: Fall Instructions: How to Prevent Falls Activity Restrictions/Additional Instructions: *You have been diagnosed with falls *What to do: At this time blood work and imaging and do not show any abnormality. Please use your walker and follow-up with wound care *Continue to take medications as directed *Follow up with your primary care provider in 2-3 days *Return to ER if you should have increasing falls, weakness, dizziness, or any new, worsening or concerning symptoms Prescriptions: No Action (DME) Disabled Parking Permit Qty: 1 0RF Rx Instructions: Patient qualifies for disabled parking as per the attached form. spironolactone 50 mg tablet 50 mg PO DAILY Qty: 90 3RF gabapentin 300 mg capsule 300 mg PO QID Qty: 360 3RF estradiol 0.5 mg tablet 0.5 mg PO DAILY Qty: 90 3RF hydrochlorothiazide 25 mg tablet 25 mg PO DAILY Qty: 90 2RF tramadol 50 mg tablet 50 mg PO 5XD Qty: 150 4RF Rx Instructions: Exempt prednisone 1 mg tablet 1 mg PO DAILY Qty: 60 0RF minocycline 100 mg capsule 100 mg PO BID 0RF Referrals: Power Hughes MD [Primary Care Provider] -
--- NOTE | 2021-03-13 14:59 | DI.RAD.S_ITS ---
PROCEDURE: XR HIP W PEL IF DONE LT 2V INDICATIONS: fall pain TECHNIQUE: AP pelvis with lateral view of the left hip. COMPARISON: None. FINDINGS: Bones: No displaced fractures or dislocations. Pelvic ring appears intact. Visualized osseous structures appear osteopenic. No suspicious bony lesions. Soft tissues: The visualized bowel gas pattern is normal. There are small linear calcifications adjacent to the left greater trochanter which may reflect calcific tendinitis or sequelae of prior avulsion injuries. There is contrast within the bladder from recent CT study. IMPRESSION: 1. No displaced fracture or dislocation. If clinical concern persists, further evaluation may be obtained with CT. Dictated by: Eduin Ortega M.D. on 03/13/2021 at 15:04 Approved by: Eduin Ortega M.D. on 03/13/2021 at 15:05
--- NOTE | 2021-03-13 14:59 | DI.CT.S_ITS ---
PROCEDURE: CT ANGIO HEAD AND NECK INDICATIONS: frequent falls, leaning right right weakness TECHNIQUE: After the administration of intravenous contrast, 1 mm thick sections acquired from the aortic arch through the [place] of [place]. Post-contrast 4.5 mm thick sections then re-acquired from the foramen magnum to the vertex. 3-dimensional yyxlypx-fceiicabe-nfnycnvjuv (MIP) and/or volume rendering reformats were acquired of the central intracranial vasculature and neck separately. COMPARISON: [facility], CT, CT HEAD/BRAIN WO CON, 02/09/2021, 13:55. [facility], CT, CT HEAD/BRAIN WO CON, 03/13/2021, 14:20. FINDINGS: Image quality: Excellent. BRAIN: CSF spaces: Basal cisterns are patent. No extra-axial fluid collections. The ventricles are symmetric in size and shape. There is moderate cerebral volume loss, with resultant ventricular and sulcal prominence. Brain: No intracranial hematoma collections, mass, or mass effect. There are subcortical, periventricular and deep white matter hypodensities consistent with moderate chronic small vessel ischemic changes. The porter-white matter junction appears preserved. No abnormal intracranial enhancement. Skull and face: Calvarium and facial bones appear intact, without suspicious lesions. Orbits appear normal. Sinuses: Sinuses and mastoids are clear. HEAD CT ANGIOGRAPHY: Anterior circulation: Intracranial internal carotid arteries are normal in size and appear patent bilaterally. There is mild atherosclerotic calcification along the cavernous segments of the internal carotid arteries. The paired anterior cerebral arteries appear patent bilaterally. The anterior communicating artery also appears patent. The middle cerebral arteries appear patent bilaterally. No high-grade stenosis, occlusion, or filling defects. No cerebral aneurysms identified. Posterior circulation: Visualized portions of the vertebral arteries demonstrate normal caliber, and join to form a patent basilar artery. The posterior cerebral arteries appears patent bilaterally. No high-grade stenosis, occlusion, or filling defects. No cerebral aneurysms identified. NECK CT ANGIOGRAPHY: Carotid system: The great vessels demonstrate a conventional anatomy as they arise from the aortic arch. The origins of the common carotid arteries appear patent. The common carotid arteries demonstrate normal caliber and courses. There is partially calcified plaque at the left carotid bifurcation with mild narrowing of less than 50% in the left carotid bulb. The right carotid bulb is widely patent. The internal carotid arteries demonstrate normal calibers and courses. Posterior circulation: The origins of the vertebral arteries both appear patent. The more superior extracranial portions of both vertebral arteries also demonstrate normal courses and calibers. They join to form a patent basilar artery. Soft tissues: Visualized neck soft tissues demonstrates moderate centrilobular emphysematous changes within the visualized lungs. There is a left thyroid nodule measuring up to 1.0 cm. Bones: No suspicious bony lesions. Visualized cervical spine demonstrates minimal anterolisthesis at C4-C5 and minimal retrolisthesis at C5-C6. Mild multilevel degenerative disc disease demonstrated throughout the cervical spine as well as moderate facet arthropathy in the mid cervical spine. IMPRESSION: 1. No high-grade stenosis or occlusion of the central intracranial arteries. 2. No high-grade stenosis or occlusion of the head and neck arteries. There is mild narrowing of less than 50% in the left carotid bulb. 3. Moderate chronic white matter small vessel ischemic changes and cerebral volume loss. Any quantitative measurements of stenosis were performed using NASCET criteria. Dictated by: Eduin Ortega M.D. on 03/13/2021 at 14:58 Approved by: Eduin Ortega M.D. on 03/13/2021 at 15:03
[2021-03-13 15:03] LABS: Hypochromasia 1+; Microcytosis 2+
[2021-03-13 15:23] LABS: Alanine Aminotransferase 19 IU/L (<35); Albumin 3.8 g/dL (3.5-5.0); Albumin Globulin Ratio 1.1 (1.0-2.8); Alkaline Phosphatase 71 U/L (38-126); Aspartate Aminotransferase 36 IU/L (14-36); BUN Creatinine Ratio 24.1 (6-22); Bilirubin Total 0.4 mg/dL (0.2-1.3); Blood Urea Nitrogen 27 mg/dL (7-17); Calcium 9.5 mg/dL (8.4-10.2); Carbon Dioxide 28 mmol/L (22-32); Chloride 99 mmol/L (98-107); Creatine Kinase 85 U/L (30-135); Estimated Glomerular Filt Rate 48.2 mL/min (>60); Globulin 3.5 g/dL (1.7-4.1); Glucose 90 mg/dL (80-110); HEMOLYSIS < 15 (0-50); Lipase 56 U/L (23-300); Magnesium 1.9 mg/dL (1.6-2.3); Sodium 136 mmol/L (137-145); Total Protein 7.3 g/dL (6.3-8.2)
[2021-03-13 15:34] LABS: Troponin I < 0.012 ng/mL (0.01-0.034)
== END 2021-03-13 17:10 | disposition home or self-care (01) ==
PROVIDERS: Emergency Provider Emergency Medicine; PCP Student in an Organized Health Care Education/Training Program
DX: M25.552 Pain in left hip (principal); R07.9 Chest pain, unspecified; R55 Syncope and collapse; R29.6 Repeated falls; W18.30XA Fall on same level, unspecified, initial encounter; Z91.81 History of falling
CPT/HCPCS: 36415; 70450; 70496; 70498; 71045; 73502; 80053; 82550; 83690; 83735; 84484; 85025; 85610; 85730; 93005; 93010; 99284; Q9967

== ENCOUNTER 2021-03-20 15:24 | Emergency (ER) | payer MEDICARE, SELFPAY ==
[2021-03-20 15:32] VITALS: BP 122/62; PULSE 96; RESP 18; TEMP 36.8; O2SAT 100; BMI 18.1
--- NOTE | 2021-03-20 17:09 | PC.NURSE ---
pt states was told to come in for evaluation of continued falls. Pt was here on 03/13 with complaints of falling and injuring L hip and back of head- CT and Xray were completed. today pt states injury to R hip. both hips have brusing and swelling. pt denies changes at home uses walker and continues to have falls. pt denies pain at this time. able to ambulate using walker with steadygait into room and to the restroom. in addition pt has many wounds that have dsd intact and is seen by woundcare and multiple brusing and discoloration to bilateral UE including hands at baseline
--- NOTE | 2021-03-20 18:16 | ED.FALL ---
HPI - Fall <Pearl Diaz [facility] - Last Filed: 03/20/21 20:24> General Chief Complaint: Fall Stated Complaint: numerous falls, Swollen L hand. Time Seen by Provider: 03/20/21 17:50 Source: patient Mode of arrival: Ambulatory History of Present Illness HPI Narrative: 71-year-old female who is a smoker and has a history of rheumatoid arthritis presents to the emergency department today for frequent falls. She was recently seen in the emergency department on 03/13/2021 for the same, although she had her head again that time. Patient has a history prior head injuries, a tremor at baseline, with mild dysphagia, who presented at the end of January to for injuries to her lower extremities which resulted in ulcers which she is still receiving wound care for. She has chronic erythema and edema of her skin, fragile skin with multiple areas of bruising, various stages of bruising. She has chronic pain in both of her lower extremities, she also has dark skin changes to her hands and legs that appear irritated, dry, and she is constantly scratching. She denies any weakness of her lower extremity or any extremities, denies any dizziness, mentation changes, numbness or tingling, no prior history of DVT or PE, she does not take blood thinners. She denies any chest pain, dyspnea, cough, hemoptysis, or other. She has a history of a concussion, she denies hitting her head since her last head CT he is. She cannot explain how or why she falls, she does use a walker 100% of the time, she has chronic leg wounds which remain unchanged and is followed by wound care. She was previously complaining of some left hip pain, today she is complaining of some right hip pain with chronic left hip pain. She denies wanting any pain medication, she would like something for itching, she takes 1 mg of prednisone daily for her RA. Related Data Home Medications Medication Instructions Recorded Confirmed minocycline 100 mg capsule 100 mg PO BID 01/11/21 02/25/21 Previous Rx's Medication Instructions Recorded Disabled Parking Permit #1 ea 11/19/19 spironolactone 50 mg tablet 50 mg PO DAILY #90 tab 07/24/20 gabapentin 300 mg capsule 300 mg PO QID #360 cap 10/02/20 estradiol 0.5 mg tablet 0.5 mg PO DAILY #90 tab 10/19/20 hydrochlorothiazide 25 mg tablet 25 mg PO DAILY #90 tab 11/23/20 tramadol 50 mg tablet 50 mg PO 5XD #150 tab 11/27/20 prednisone 1 mg tablet 1 mg PO DAILY #60 tab 02/22/21 hydroxyzine HCl 10 mg tablet 10 mg PO BID PRN #14 tab 03/20/21 Allergies Allergy/AdvReac Type Severity Reaction Status Date / Time Sulfa (Sulfonamide AdvReac Severe VOMITING Verified 03/20/21 15:38 Antibiotics) AND FEVER [SULFA (SULFONAMIDE ANTIBIOTICS)] Patient History <BRUCE Davis - Last Filed: 03/20/21 20:24> Medical History Chronic steroid use Hyperlipidemia Hypertension Lumbosacral spondylosis with radiculopathy Rheumatoid arthritis Social History Smoking Status: Current every day smoker Tobacco: How many years used: 53 quit status: not considering quitting (declines smoking cessation) second hand exposure: No alcohol intake: never substance use type: does not use Smoking Status: Current every day smoker alcohol intake frequency: holidays/special occasions only Substance Use Type: does not use Exam <BRUCE Davis - Last Filed: 03/20/21 20:24> Narrative Exam Narrative: Independently reviewed vitals signs and nursing notes. General: Chronically ill appearing older female, Awake, alert, nontoxic, no cardiorespiratory distress Head/Neck: Atraumatic, neck full range of motion, face is symmetrical, no visible injuries on her head or neck Eyes: EOMI, conjunctiva normal Nose: nares patent, no rhinorrhea Mouth/Throat: moist mucus membranes, posterior pharynx normal, no oral lesions Cardio: Regular rate and rhythm, no peripheral edema Respiratory: respirations unlabored without wheezing, stridor, or rales. No retractions. GI: Abdomen soft, nontender MSK: Moves all extremities, neurovascularly intact, when assessing patient's strength, no focal deficits were observed, her right leg strength is appropriate into her left leg strength, without any sensation abnormalities. Skin: Normal capillary refill, no rash, patient is covered in bruises of various healing stages, her skin is very fragile, she has chronic bilateral lower extremity wounds which are covered in dressings for which she sees Wound Care for. Patient is scratching her arms frequently, which is creating erythema and mild edema under her thin skin, her skin appears dry, there are no tears. Her cap refill is less than 2 seconds, her pulses are palpable in bilateral wrists. She does not have any weeping wounds her upper body, her lower extremity chronic wounds are covered in clean dressing material. Neuro: Normal speech and cognition, normal gait, cranial nerves 2-12 are grossly intact, Initial Vital Signs Initial Vital Signs: Vital Signs Temperature 98.2 F 03/20/21 15:32 Pulse Rate 96 H 03/20/21 15:32 Respiratory Rate 18 03/20/21 15:32 Blood Pressure 122/62 03/20/21 15:32 Pulse Oximetry 100 03/20/21 15:32 Course <BRUCE Davis - Last Filed: 03/20/21 20:24> Orders Ordered: Discontinued Medications Hydroxyzine Pamoate (Hydroxyzine Pamoate 25 Mg Capsule) 25 mg PO NOW ONE Stop: 03/20/21 18:32 Last Admin: 03/20/21 18:55 Dose: 25 mg Documented by: JOSSIE Vital Signs Vital signs: Vital Signs - 8 hr 03/20/21 15:32 03/20/21 19:16 Temperature 98.2 F 98 F Pulse Rate 96 H 70 Respiratory Rate 18 18 Blood Pressure 122/62 120/60 Pulse Oximetry 100 96 MDM - Fall <BRUCE Davis - Last Filed: 03/20/21 20:24> Lab Data Labs: Urine Dip Bedside Urine Glucose Negative Bedside Urine Bilirubin - Negative Bedside Urine Ketone - Negative Urine Specific [place] 1.025 Bedside Urine Occult Blood - Negative Bedside Urine pH 6 Bedside Urine Protein - Negative Bedside Urine Urobilinogen - Negative Bedside Urine Nitrite - Negative Bedside Urine Leukocytes - Negative Esterase [facility] Narrative Medical decision making narrative: Patient is a 71-year-old chronically ill appearing female who presents to the emergency department days after a full workup for multiple falls at home without any known cause. Patient does not have any neuropathy, dizziness, weakness, she recently had a non-con CT and CTA of her head without any abnormalities. Patient has not had any recent falls hitting her head. Patient reports that she only came to the emergency department because Dr. Hughes said she lives to be seen by the ER, she did not have any new injuries to be evaluated for. Patient is neurologically intact without any gross deficits that I can assess. She ambulates steadily with equal strength using her walker. This time there is no criteria for admission, she is followed closely by her PCP and she reports she will be following up with Dr. Hughes on Monday. I encouraged her to also follow up with her concrete float maker Dr. celeste who has been caring for patient has rheumatoid arthritis for some time, she is currently on daily prednisone dosing which may be contributing to some of her skin problems. She is not on any new medications, she does not have any complaint of pain today, her only complaint while in the emergency department is the itching of her skin. For this I gave her some hydroxyzine which she reports helped a little bit. I encouraged her to use a thick emollient lotion on some of these areas of dryness. Patient did not wish to have a full workup again in the emergency department today because she does not have any complaint that is new. My differential includes multiple sclerosis, progression of autoimmune disease, TIA, CVA, spinal cord lesion, Guillain-Stirling, corticosteroid use. She may also benefit from a consult with neurology if this continues. Patient is appropriate and amenable to discharge home. Vital signs are stable on repeat examination is unremarkable. Patient has been informed of results. Patient has been given strict return to ER precautions for any new or worsening symptoms. Patient understands to follow up closely with outpatient providers as instructed. Patient understands plan and agrees to discharge home. All questions and concerns answered at this time. Discharge Plan Departure Patient Disposition: Home Clinical Impression: Frequent falls, Rheumatoid arthritis, Chronic steroid use, Contusion, Peripheral edema Instructions: How to Prevent Falls Activity Restrictions/Additional Instructions: *You have been diagnosed with frequent falls, without any identifiable causes. Because he just had a full workup a few days ago without any new falls or new symptoms, there is no indication to repeat CT scans and complete a full workup if you have already had this done. For your itching, I prescribed hydroxyzine which you can take every 8 hours as needed for itching, it may make you slightly tired. Please see Dr. Hughes as soon as possible, please call his office in the morning and request follow-up from your emergency department visit. I suggest wearing a helmet at home if you are falling as much as you are. Please discuss with Dr. Hughes whether you should see rheumatology, or neurology. I recommend discussing whether physical therapy would also be helpful to help prevent these falls in the future. I am reassured that you do not have any neurological abnormalities on my exam today. I a.m. concerned about her frequent falls and imbalance. This is very dangerous to continue having at home. I suspect that the swelling on your hands is related to the blood underneath the skin causing an irritation. Please be careful. It was very nice to meet you, please return to the emergency department if you have any worsening of your symptoms or if you have any numbness, weakness, speech changes, facial weakness, chest pain, difficulty breathing, or any other concerns. *What to do: *Please continue to take your regular medications as directed. [x ] New medication prescriptions sent to your pharmacy: [ Hydroxyzine [facility]] [ ] New medication written as a paper prescription [ ] No new medications given *Please follow up with your primary care provider in 2-3 days, call for an appointment. Let them know you were seen in the Emergency Department and that we ask that you be seen in follow up. We will electronically transmit a record of today's note if your PCP is in our system *If you do not have a primary care provider please contact the [facility] Resource line at [phone]. They will ask some questions about your medical history and help get you set up with a doctor in the community. *Return to Emergency Department if you should have any new, worsening or concerning symptoms, such as [fever greater than 101F, chills, worsening pain, persistent vomiting or other bothersome symptoms] Prescriptions: New hydroxyzine HCl 10 mg tablet 10 mg PO BID PRN (Reason: itching) Qty: 14 0RF No Action (DME) Disabled Parking Permit Qty: 1 0RF Rx Instructions: Patient qualifies for disabled parking as per the attached form. spironolactone 50 mg tablet 50 mg PO DAILY Qty: 90 3RF gabapentin 300 mg capsule 300 mg PO QID Qty: 360 3RF estradiol 0.5 mg tablet 0.5 mg PO DAILY Qty: 90 3RF hydrochlorothiazide 25 mg tablet 25 mg PO DAILY Qty: 90 2RF tramadol 50 mg tablet 50 mg PO 5XD Qty: 150 4RF Rx Instructions: Exempt prednisone 1 mg tablet 1 mg PO DAILY Qty: 60 0RF minocycline 100 mg capsule 100 mg PO BID 0RF Referrals: Power Hughes MD [Primary Care Provider] - As soon as possible Alvaro Corona MD [Non-Staff] - 3-5 days
[2021-03-20] MEDS: hydrOXYzine pamoate 25 MG CAPSULE PO (18:55)
[2021-03-20 19:16] VITALS: BP 120/60; PULSE 70; RESP 18; TEMP 36.6; O2SAT 96
== END 2021-03-20 19:18 | disposition home or self-care (01) ==
PROVIDERS: Emergency Provider Nurse Practitioner Critical Care Medicine; PCP Student in an Organized Health Care Education/Training Program
DX: R29.6 Repeated falls (principal); M06.9 Rheumatoid arthritis, unspecified; Z79.52 Long term (current) use of systemic steroids; R60.9 Edema, unspecified; T14.8XXA Other injury of unspecified body region, initial encounter; Z88.2 Allergy status to sulfonamides; F17.200 Nicotine dependence, unspecified, uncomplicated; W19.XXXA Unspecified fall, initial encounter
CPT/HCPCS: 81003; 99283

== ENCOUNTER 2021-04-16 15:13 | Emergency (ER) | payer MEDICARE, SELFPAY ==
[2021-04-16 15:18] VITALS: BP 156/92; PULSE 104; RESP 18; TEMP 36.7; O2SAT 99; BMI 17.7
--- NOTE | 2021-04-16 15:35 | DI.RAD.S_ITS ---
PROCEDURE: XR HIP W PEL IF DONE RT 2V INDICATIONS: fall TECHNIQUE: AP pelvis with lateral view(s) of the right hip(s). COMPARISON: [facility], CR, XR HIP W PEL IF DONE LT 2V, 03/13/2021, 15:24. FINDINGS: Bones: Right hip joint osteoarthritic changes are seen. No gross acute right hip fracture or dislocation. No evidence of avascular necrosis of femoral head. Pelvic ring appears intact. No suspicious bony lesions. Soft tissues: The visualized bowel gas pattern is normal. No suspicious soft tissue calcifications. IMPRESSION: No gross acute right hip fracture or dislocation. Right hip joint osteoarthritis. No evidence of avascular necrosis. Dictated by: Quintin Roper M.D. on 04/16/2021 at 16:19 Approved by: Quintin Roper M.D. on 04/16/2021 at 16:20
--- NOTE | 2021-04-16 15:35 | DI.RAD.S_ITS ---
PROCEDURE: XR CHEST 2V INDICATIONS: fall TECHNIQUE: 2 views of the chest were acquired. COMPARISON: [facility], CR, XR CHEST 1V, 03/13/2021, 13:43. FINDINGS: Surgical changes and devices: None. Lungs and pleura: Lungs are clear. No pleural effusions or pneumothorax. Mediastinum: Mediastinal contours are normal. Heart size is normal. Bones and chest wall: No suspicious bony abnormalities. There is diffuse osteopenia. Moderate kyphosis is seen. Degenerative disc disease throughout thoracic spine is seen. Soft tissues appear unremarkable. IMPRESSION: No acute cardiopulmonary pathology. Diffuse osteopenia and moderate kyphosis as above. Dictated by: Quintin Roper M.D. on 04/16/2021 at 16:07 Approved by: Quintin Roper M.D. on 04/16/2021 at 16:08
--- NOTE | 2021-04-16 16:04 | DI.CT.S_ITS ---
PROCEDURE: CT HEAD/BRAIN WO CON INDICATIONS: fall, hit head TECHNIQUE: Noncontrast 4.5 mm thick angled axial sections acquired from the foramen magnum to the vertex, with coronal and sagittal reformats. For radiation dose reduction, the following was used: automated exposure control, adjustment of mA and/or kV according to patient size. COMPARISON: [facility], MR, MR HEAD/BRAIN WO/W CON, 01/13/2021, 13:46. [facility], CT, CT HEAD/BRAIN WO CON, 02/09/2021, 13:55. [facility], CR, XR CHEST 2V, 04/16/2021, 15:41. [facility], CR, XR HIP W PEL IF DONE RT 2V, 04/16/2021, 15:41. [facility], CT, CT HEAD/BRAIN WO CON, 03/13/2021, 14:20. FINDINGS: Image quality: Excellent. CSF spaces: Basal cisterns are patent. No extra-axial fluid collections. The ventricles are symmetric in size and shape. Brain: No intracranial bleeds or masses. There is cerebral volume loss for age, with resultant ventricular and sulcal prominence. There are periventricular and deep white matter chronic small vessel ischemic changes. There is intracranial internal carotid artery atherosclerosis. Skull and face: Calvarium and visualized facial bones appear intact, without suspicious lesions. Sinuses: Visualized sinuses and mastoids are clear. IMPRESSION: No acute intracranial hemorrhage is seen. No acute intracranial process is seen. Dictated by: Da Redmond M.D. on 04/16/2021 at 15:35 Approved by: Da Redmond M.D. on 04/16/2021 at 15:36
--- NOTE | 2021-04-16 19:03 | ED.FALL ---
HPI - Fall General Chief Complaint: Fall Stated Complaint: syncope Source: patient Mode of arrival: Ambulatory Related Data Home Medications Medication Instructions Recorded Confirmed minocycline 100 mg capsule 100 mg PO BID 01/11/21 03/25/21 Previous Rx's Medication Instructions Recorded Disabled Parking Permit #1 ea 11/19/19 spironolactone 50 mg tablet 50 mg PO DAILY #90 tab 07/24/20 gabapentin 300 mg capsule 300 mg PO QID #360 cap 10/02/20 estradiol 0.5 mg tablet 0.5 mg PO DAILY #90 tab 10/19/20 hydrochlorothiazide 25 mg tablet 25 mg PO DAILY #90 tab 11/23/20 tramadol 50 mg tablet 50 mg PO 5XD #150 tab 11/27/20 prednisone 1 mg tablet 1 mg PO DAILY #60 tab 02/22/21 hydroxyzine HCl 10 mg tablet 10 mg PO BID PRN #14 tab 03/20/21 Allergies Allergy/AdvReac Type Severity Reaction Status Date / Time Sulfa (Sulfonamide AdvReac Severe VOMITING Verified 04/16/21 15:42 Antibiotics) AND FEVER [SULFA (SULFONAMIDE ANTIBIOTICS)] Patient History Medical History Chronic steroid use Hyperlipidemia Hypertension Lumbosacral spondylosis with radiculopathy Rheumatoid arthritis Social History Smoking Status: Current every day smoker Tobacco: How many years used: 53 quit status: not considering quitting (declines smoking cessation) second hand exposure: No alcohol intake: never substance use type: does not use Smoking Status: Current every day smoker alcohol intake frequency: holidays/special occasions only Substance Use Type: does not use Exam Initial Vital Signs Initial Vital Signs: Vital Signs Temperature 98.1 F 04/16/21 15:18 Pulse Rate 104 H 04/16/21 15:18 Respiratory Rate 18 04/16/21 15:18 Blood Pressure 156/92 H 04/16/21 15:18 Pulse Oximetry 99 04/16/21 15:18 Course Orders Ordered: ED Orders 04/16/21 15:35 XR chest 2V Stat XR hip w pel if done RT 2V Stat 04/16/21 16:04 CT head/brain wo con Stat Vital Signs Vital signs: Vital Signs - 8 hr 01/07/22 15:18 Temperature 98.1 F Pulse Rate 104 H Respiratory Rate 18 Blood Pressure 156/92 H Pulse Oximetry 99 Discharge Plan Departure Patient Disposition: Left Without Being Seen Clinical Impression: Patient left without being seen
--- NOTE | 2021-04-17 11:04 | ED_ITS ---
HPI - Fall General Chief Complaint: Fall Stated Complaint: syncope Source: patient and old records reviewed Mode of arrival: EMS Limitations: no limitations History of Present Illness HPI Narrative: This is a 71-year-old female comes emergency department with complaint of ground level fall. Patient states she fell she hit the side of her head on some tile close to their stove. She also had a skin tear on her right hand. She recently was here a fall. She had imaging but was not seen by the provider. She states she has been sort of leaning over to the right side for the past 4 days which is new sometimes she has some difficulty with liquids from the right side of her face. She has not appreciated new significant changes to her strength on her right side but states her extremities are sometimes weak. Patient has been here for multiple falls she states she has tremor, she has had discussion about potential causes for her symptoms and has a referral in to Neurology but has not seen them. She states she has been confused but is able to give an appropriate history and give me her tetanus status. She states she is not normally confused but staff notes that she typically is in the same states she is in today with her frequent visits. Medics state they have seen her multiple times in the past. She lives with her . She is on prednisone daily for steroids, she took a tramadol prior to arrival and defers anything for pain. She had some nausea defers any antinausea medication and is requesting to return home. She states she was seen and evaluated from leaning to the right side and was told that there was concern for stroke but not ?clear markers? and that she return home. Her main complaints today are the skin tear on her hand, that she hit her head and some right hip pain although she has good movement. Related Data Home Medications Medication Instructions Recorded Confirmed minocycline 100 mg capsule 100 mg PO BID 01/11/21 03/25/21 Previous Rx's Medication Instructions Recorded Disabled Parking Permit #1 ea 11/19/19 spironolactone 50 mg tablet 50 mg PO DAILY #90 tab 07/24/20 gabapentin 300 mg capsule 300 mg PO QID #360 cap 10/02/20 estradiol 0.5 mg tablet 0.5 mg PO DAILY #90 tab 10/19/20 hydrochlorothiazide 25 mg tablet 25 mg PO DAILY #90 tab 11/23/20 tramadol 50 mg tablet 50 mg PO 5XD #150 tab 11/27/20 prednisone 1 mg tablet 1 mg PO DAILY #60 tab 02/22/21 hydroxyzine HCl 10 mg tablet 10 mg PO BID PRN #14 tab 03/20/21 Allergies Allergy/AdvReac Type Severity Reaction Status Date / Time Sulfa (Sulfonamide AdvReac Severe VOMITING Verified 04/17/21 11:04 Antibiotics) AND FEVER [SULFA (SULFONAMIDE ANTIBIOTICS)] Review of Systems Review of Systems ROS Unobtainable: All systems reviewed & are unremarkable except as noted in HPI and below Patient History Medical History Chronic steroid use Hyperlipidemia Hypertension Lumbosacral spondylosis with radiculopathy Rheumatoid arthritis Social History Smoking Status: Current every day smoker Tobacco: How many years used: 53 quit status: not considering quitting (declines smoking cessation) second hand exposure: No alcohol intake: never substance use type: does not use Smoking Status: Current every day smoker alcohol intake frequency: holidays/special occasions only Substance Use Type: does not use Exam Narrative Exam Narrative: GEN: Patient appears in mild distress. Patient leans still right with her neck but is able to self-correct during my evaluation. HEAD: Small hematoma right scalp no raccoon/Parry sign. NECK: Nontender, painless range of motion, trachea midline Negative Nexus criteria, there is no midline line tenderness, distracting injury, altered mental status, neuro deficit, recent EtOH. EYES: PERRLA, EOMI ENT: External inspection normal, trachea is midline, TM's are normal no hemotypanum, Nares are clear, no septal hematoma, no dental or oral injury, airway is normal and with normal occlusion, No bony tenderness RESP: Chest is nontender and has symmetric movement, no ecchymosis, breath sounds are normal no crackles, wheezes or rales CVS: Heart sounds are normal, no murmur noted, No JVD. ABG/GI: Nontender, soft, normal bowel sounds, no distention, no organomegaly, pelvic rock is negative NEURO: Oriented AOx3, neuro is grossly intact, sensation and motor is normal all 4 extremities moving, cranial nerves II through XII are intact, GCS is 15 PSYCH: Normal mood and affect SKIN: Patient has a large skin tear of her right hand which is stellate and exposes about a 3 cm area. It is super tissue that I can see the fascia underneath overlying the hand and is intact. Patient skin is extremely thin and unable to be repaired. She has multiple small abrasions and many areas of ecchymosis consistent with chronic steroid use and falls on her upper e xtremities. Warm and dry, no crepitus and without decubitus. BACK: No CVA tenderness, no vertebral tenderness, no step-off's, no crepitus EXT: Atraumatic, hips are nontender, no pedal edema, normal color and temperature, normal range of motion of extremities. Patient has equal muscle strength bilateral upper and lower extremities. Initial Vital Signs Initial Vital Signs: Vital Signs Temperature 98.1 F 04/16/21 15:18 Pulse Rate 104 H 04/16/21 15:18 Respiratory Rate 18 04/16/21 15:18 Blood Pressure 156/92 H 04/16/21 15:18 Pulse Oximetry 99 04/16/21 15:18 Course Orders Ordered: ED Orders 04/17/21 11:12 Consult to [employer] LOCATION MANAGER - Mortgage Servicing Specialist Stat Reevaluation(s) Reevaluation #1: Patient states her headache has worsened. She does request something for pain she aspirin other dose of tramadol she typically takes 100 mg. Reviewed her findings today. Social Work did evaluate and patient has PT coming as well as wound care regularly. They are open to having an outpatient social media community manager involved. Patient does have follow-up with Neurology which I think is very appropriate. Patient is requesting to return home. Her son is at bedside he is concerned that she may fall and we discussed that she certainly at risk for this. Patient does not have any acute neurologic focal findings that would warrant admission at this time. And patient does not wish to be admitted. We did discuss that her BUN was elevated affecting her renal function slightly and that she should continue to hydrate a regularly home. MDM - Fall Imaging Data CT scan - head: Radiologist's Impression: Mamta Shell??71??F??1950 ? Allergy/Adv: Sulfa (Sulfonamide Antibiotics) (More??) Close Hip X-Ray (Signed) Sotomayor,Tyler - 04/17/[address] (Signed) Sotomayor,04/17/[address] (Signed) Da Redmond - 04/16/21 Hip X-Ray (Signed) Quintin Roper - 04/16/21 Chest X-Ray (Signed) Quintin Roper - 04/16/21 Hip X-Ray (Signed) OrtegaEduin - 03/13/21 Head/Neck CTA (Signed) Ortega,Eduin - 03/13/[address] (Signed) Ortega,Eduin - 03/13/21 Chest X-Ray (Signed) Ortega,Eduin - 03/13/[address] (Signed) Jenelle Atkinson - 02/09/21 Vascular Ultrasound (Signed) Tyler Sotomayor - 02/06/21 Brain MRI (Signed) Lisa Hernandez - 01/13/21 Modified Barium Swallow (Signed) Bert Alberto - 11/12/20 Aorta w/Runoff CTA (Signed) Lisa Hernandez - 09/10/20 Abdomen X-Ray (Signed) Luisa Braxton - 10/07/19 Hand X-Ray (Signed) Bert Alberto - 05/23/19 Hand X-Ray (Signed) Bert Alberto - 05/23/19 Foot X-Ray (Signed) Bert Alberto - 05/23/19 Foot X-Ray (Signed) Bert Alberto - 05/23/19 Bone Densitometry 05/06/19 DEXA Result 05/06/19 Vascular Ultrasound (Signed) Kristal Vanegas - 04/26/19 Renal Ultrasound (Signed) Quintin Roper - 04/19/19 Mammogram Screening (Signed) Ever Miranda - 03/06/[address] (Signed) Bert Alberto - 11/16/18 Duplex Scan Lower Extremity Artery (Signed) Moreno Hilliard - 11/16/18 Tibia/Fibula X-Ray (Signed) Chito Kerr - 11/08/18 Lumbar Spine MRI (Signed) Jenelle Atkinson - 10/03/18 KUB X-Ray (Signed) Chito Kerr - 01/31/[address] (Signed) Quintin Roper - 12/18/[address] [address] [address] Scan Report Signed Patient: Mamta Shell MR#: [id number] : 1950 Acct:[id number] Age/Sex: 71 / F Date of Service: 04/17/21 Loc: ED Accession Number: [id number] ?? Procedure: CT head/brain wo con Ordering Provider: Sandhya Burden D.O. PROCEDURE:? CT HEAD/BRAIN WO CON ? INDICATIONS:? fall, hip pain, hit head ? TECHNIQUE:? Noncontrast 4.5 mm thick angled axial sections acquired from the foramen magnum to the vertex, with coronal and sagittal reformats.? For radiation dose reduction, the following was used:? automated exposure control, adjustment of mA and/or kV according to patient size.? ? COMPARISON:? [facility], CT, CT HEAD/BRAIN WO CON, 03/13/2021, 14:20.? [facility], CT, CT HEAD/BRAIN WO CON, 04/16/2021, 16:26. ? FINDINGS:? Image quality:? Excellent.? ? CSF spaces:? Basal cisterns are patent.? No extra-axial fluid collections.? The ventricles are symmetric in size and shape.? ? Brain:? No intracranial bleeds or masses.? There is cerebral volume loss for age, with resultant ventricular and sulcal prominence.? There are periventricular and deep white matter chronic small vessel ischemic changes.? There is intracranial internal carotid artery atherosclerosis.? ? Skull and face:? Calvarium and visualized facial bones appear intact, without suspicious lesions.? ? Sinuses:? Visualized sinuses and mastoids are clear.? ? IMPRESSION:? ? Stable head CT with findings most consistent with microvascular ischemic changes in cerebral volume loss.? No evidence of acute intracranial hemorrhage or displaced skull fracture. ? ? Dictated by: Tyler Sotomayor D.O. on 04/17/2021 at 10:39 ? ? Approved by: Tyler Sotomayor D.O. on 04/17/2021 at 10:41? Extremity x-ray #1: Radiologist's Impression: Close Hip X-Ray (Signed) Tyler Sotomayor - 04/17/[address] (Signed) Светлана,04/17/[address] (Signed) Da Redmond - 04/16/21 Hip X-Ray (Signed) Quintin Roper - 04/16/21 Chest X-Ray (Signed) Quintin Roper - 04/16/21 Hip X-Ray (Signed) Ortega,Eduin - 03/13/21 Head/Neck CTA (Signed) Ortega,Eduin - 03/13/[address] (Signed) Ortega,Eduin - 03/13/21 Chest X-Ray (Signed) Ortega,Eduin - 03/13/[address] (Signed) Jenelle Atkinson - 02/09/21 Vascular Ultrasound (Signed) Tyler Sotomayor - 02/06/21 Brain MRI (Signed) Lisa Hernandez - 01/13/21 Modified Barium Swallow (Signed) Bert Alberto - 11/12/20 Aorta w/Runoff CTA (Signed) Lisa Hernandez - 09/10/20 Abdomen X-Ray (Signed) Luisa Braxton - 10/07/19 Hand X-Ray (Signed) Bert Alberto - 05/23/19 Hand X-Ray (Signed) Bert Alberto - 05/23/19 Foot X-Ray (Signed) Bert Alberto - 05/23/19 Foot X-Ray (Signed) Bert Alberto - 05/23/19 Bone Densitometry 05/06/19 DEXA Result 05/06/19 Vascular Ultrasound (Signed) Kristal Vanegas - 04/26/19 Renal Ultrasound (Signed) Quintin Roper - 04/19/19 Mammogram Screening (Signed) Ever Miranda - 03/06/[address] (Signed) Bert Alberto - 11/16/18 Duplex Scan Lower Extremity Artery (Signed) Moreno Hilliard - 11/16/18 Tibia/Fibula X-Ray (Signed) Chito Kerr - 11/08/18 Lumbar Spine MRI (Signed) Jenelle Atkinson - 10/03/18 KUB X-Ray (Signed) Chito Kerr - 01/31/[address] (Signed) Quintin Roper - 12/18/17 Launch?[address] [address] XRay Report Signed Patient: Mamta Shell MR#: [id number] : 1950 Acct:[id number] Age/Sex: 71 / F Date of Service: 04/17/21 Loc: ED Accession Number: [id number] ?? Procedure: XR hip w pel if done RT 2V Ordering Provider: Sandhya Burden D.O. PROCEDURE:? XR HIP W PEL IF DONE RT 2V ? INDICATIONS:? fall, hip pain, hit head ? TECHNIQUE:? AP pelvis with lateral view(s) of the right hip(s).? ? COMPARISON:? [facility], CR, XR HIP W PEL IF DONE RT 2V, 04/16/2021, 15:41. ? FINDINGS:? ? Bones:? No fractures or dislocations.? Pelvic ring appears intact.? No evidence of a vascular necrosis.? Pelvic ring appears intact.? Mild degenerative changes.? No suspicious bony lesions.? ? Soft tissues:? The visualized bowel gas pattern is normal.? Marked stool burden within the visualized soft tissues of the abdomen/pelvis.? Stable benign appearing soft tissue calcifications as well as enthesophyte formation of the greater trochanters. ? ? IMPRESSION:? ? No acute osseous abnormality. ? Dictated by: Tyler Sotomayor D.O. on 04/17/2021 at 10:57 ? ? Approved by: Tyler Sotomayor D.O. on 04/17/2021 at 10:59? [facility] Narrative Medical decision making narrative: A 71-year-old female who states she had a trip and fall. She states she was using her walker lost her balance and fell hitting her head on tile floor. Patient has a small hematoma. She does not have any other obvious facial injuries. Head CT is negative. She is not anticoagulated but based on her age felt appropriate to CT. She does have a large skin tear over her hand which is not amenable to repair. She is already seeing Wound Care for bilateral lower extremities secondary to chronic skin issues from persistent chronic steroid use. She had dressing placed that was nonstick and we discussed wound care directions until seen by her wound care nurse. Patient's head CT, x-ray do not show any acute changes she does note on re-evaluation that she has a large hemat malorie. We discussed trying an James bandage for some compression to the location. Her labs show a CBC with a stable hemoglobin although she is anemic. Her BUN is elevated to 40 almost double her past visit and her creatinine is very slightly changed. Discussed increasing her fluid hydration. Urine today is negative. Patient taken dose of tramadol prior to arrival in deferred anything initially b ut did ask for a 2nd dose of oral medication during her stay in the department. She was requesting to return home before her workup had been completed but did stay. Our social media community manager saw her and met with family as well and plan to help had a outpatient social media community manager. Patient states she is confused she seems to give appropriate history but notes that she has been leaning to the right of her head for 4 days, son states it might be weak the tells social media community manager it might be a month. She does not have any other acute focal changes on her examination, a negative head CT and is in process of being set up with Neurology for follow-up. Discharge Plan Departure Patient Disposition: Home Clinical Impression: Fall, Dehydration Activity Restrictions/Additional Instructions: Discharge Plan Departure Patient Disposition: Home Clinical Impression: ?Dehydration, Fall, Skin tear Activity Restrictions/Additional Instructions: Follow up with your physician.? I do think it would be beneficial for you to follow-up with neurology. Your labs today do show that you appear dehydrated and I would increase your fluid intake.? Make sure you are drinking at least 8 total 8 oz glasses of water or fluids daily. You have a large skin tear on your right hand which will require follow-up with your wound care providers home.? Continue with nonstick dressing and topical triple antibiotic ointment to the affected area for now.? Change your dressing daily or sooner if it becomes saturated. Prescriptions: No Action (DME) Disabled Parking Permit Qty: 1 0RF Rx Instructions: Patient qualifies for disabled parking as per the attached form. spironolactone 50 mg tablet 50 mg PO DAILY Qty: 90 3RF gabapentin 300 mg capsule 300 mg PO QID Qty: 360 3RF estradiol 0.5 mg tablet 0.5 mg PO DAILY Qty: 90 3RF hydrochlorothiazide 25 mg tablet 25 mg PO DAILY Qty: 90 2RF tramadol 50 mg tablet 50 mg PO 5XD Qty: 150 4RF Hold Instructions: Taper off by MidJan Rx Instructions: Exempt prednisone 1 mg tablet 1 mg PO DAILY Qty: 60 0RF minocycline 100 mg capsule 100 mg PO BID 0RF hydroxyzine HCl 10 mg tablet 10 mg PO BID PRN (Reason: itching) Qty: 14 0RF
== END 2021-04-16 17:23 | disposition left against medical advice (07) ==
PROVIDERS: Emergency Provider Emergency Medicine; PCP Student in an Organized Health Care Education/Training Program
DX: R55 Syncope and collapse (principal)
CPT/HCPCS: 70450; 71046; 73502; 99281

== ENCOUNTER 2021-04-17 10:50 | Emergency (ER) | payer MEDICARE, SELFPAY ==
[2021-04-17 10:58] VITALS: BP 195/89; PULSE 89; RESP 14; TEMP 36.6; O2SAT 99; BMI 18.1
--- NOTE | 2021-04-17 11:04 | ED_ITS ---
HPI - Fall General Chief Complaint: Fall Stated Complaint: GLF,hit head,no blood thinners Time Seen by Provider: 04/17/21 11:03 Source: patient and old records reviewed Mode of arrival: EMS Limitations: no limitations History of Present Illness HPI Narrative: This is a 71-year-old female comes emergency department with complaint of ground level fall. Patient states she fell she hit the side of her head on some tile close to their stove. She also had a skin tear on her right hand. She recently was here a fall. She had imaging but was not seen by the provider. She states she has been sort of leaning over to the right side for the past 4 days which is new sometimes she has some difficulty with liquids from the right side of her face. She has not appreciated new significant changes to her strength on her right side but states her extremities are sometimes weak. Patient has been here for multiple falls she states she has tremor, she has had discussion about potential causes for her symptoms and has a referral in to Neurology but has not seen them. She states she has been confused but is able to give an appropriate history and give me her tetanus status. She states she is not normally confused but staff notes that she typically is in the same states she is in today with her frequent visits. Medics state they have seen her multiple times in the past. She lives with her . She is on prednisone daily for steroids, she took a tramadol prior to arrival and defers anything for pain. She had some nausea defers any antinausea medication and is requesting to return home. She states she was seen and evaluated from leaning to the right side and was told that there was concern for stroke but not ?clear markers? and that she return home. Her main complaints today are the skin tear on her hand, that she hit her head and some right hip pain although she has good movement. Related Data Home Medications Medication Instructions Recorded Confirmed minocycline 100 mg capsule 100 mg PO BID 01/11/21 03/25/21 Previous Rx's Medication Instructions Recorded Disabled Parking Permit #1 ea 11/19/19 gabapentin 300 mg capsule 300 mg PO QID #360 cap 10/02/20 estradiol 0.5 mg tablet 0.5 mg PO DAILY #90 tab 10/19/20 hydrochlorothiazide 25 mg tablet 25 mg PO DAILY #90 tab 11/23/20 tramadol 50 mg tablet 50 mg PO 5XD #150 tab 11/27/20 hydroxyzine HCl 10 mg tablet 10 mg PO BID PRN #14 tab 03/20/21 prednisone 1 mg tablet See Rx Instructions .ROUTE 04/20/21 .COMPLEX #60 tab spironolactone 50 mg tablet 50 mg PO DAILY #90 tab 04/20/21 Allergies Allergy/AdvReac Type Severity Reaction Status Date / Time Sulfa (Sulfonamide AdvReac Severe VOMITING Verified 04/17/21 11:04 Antibiotics) AND FEVER [SULFA (SULFONAMIDE ANTIBIOTICS)] Review of Systems Review of Systems ROS Unobtainable: All systems reviewed & are unremarkable except as noted in HPI and below Patient History Medical History Chronic steroid use Hyperlipidemia Hypertension Lumbosacral spondylosis with radiculopathy Rheumatoid arthritis Social History Smoking Status: Current every day smoker Tobacco: How many years used: 53 quit status: not considering quitting (declines smoking cessation) second hand exposure: No alcohol intake: never substance use type: does not use Smoking Status: Current every day smoker alcohol intake frequency: holidays/special occasions only Substance Use Type: does not use Exam Narrative Exam Narrative: GEN: Patient appears in mild distress. Patient leans still right with her neck but is able to self-correct during my evaluation. HEAD: Small hematoma right scalp no raccoon/Parry sign. NECK: Nontender, painless range of motion, trachea midline Negative Nexus criteria, there is no midline line tenderness, distracting injury, altered mental status, neuro deficit, recent EtOH. EYES: PERRLA, EOMI ENT: External inspection normal, trachea is midline, TM's are normal no hemotypanum, Nares are clear, no septal hematoma, no dental or oral injury, airway is normal and with normal occlusion, No bony tenderness RESP: Chest is nontender and has symmetric movement, no ecchymosis, breath sounds are normal no crackles, wheezes or rales CVS: Heart sounds are normal, no murmur noted, No JVD. ABG/GI: Nontender, soft, normal bowel sounds, no distention, no organomegaly, pelvic rock is negative NEURO: Oriented AOx3, neuro is grossly intact, sensation and motor is normal all 4 extremities moving, cranial nerves II through XII are intact, GCS is 15 PSYCH: Normal mood and affect SKIN: Patient has a large skin tear of her right hand which is stellate and exposes about a 3 cm area. It is super tissue that I can see the fascia underneath overlying the hand and is intact. Patient skin is extremely thin and unable to be repaired. She has multiple small abrasions and many areas of ecchymosis consistent with chronic steroid use and falls on her upper extremities. Warm and dry, no crepitus and without decubitus. BACK: No CVA tenderness, no vertebral tenderness, no step-off's, no crepitus EXT: Atraumatic, hips are nontender, no pedal edema, normal color and t emperature, normal range of motion of extremities. Patient has equal muscle strength bilateral upper and lower extremities. Initial Vital Signs Initial Vital Signs: Vital Signs Temperature 97.8 F 04/17/21 10:58 Pulse Rate 89 04/17/21 10:58 Respiratory Rate 14 04/17/21 10:58 Blood Pressure 195/89 H 04/17/21 10:58 Pulse Oximetry 99 04/17/21 10:58 Course Orders Ordered: Discontinued Medications Lidocaine/Prilocaine (Lidocaine/Prilocaine 5 Gm) 1 gm TOP NOW ONE Stop: 04/17/21 11:03 Last Admin: 04/17/21 11:13 Dose: 1 gm Documented by: OSCAR Tramadol HCl (Tramadol 50 Mg Tablet) 100 mg PO NOW ONE Stop: 04/17/21 13:13 Last Admin: 04/17/21 13:27 Dose: 100 mg Documented by: OSCAR Reevaluation(s) Reevaluation #1: Patient states her headache has worsened. She does request something for pain she aspirin other dose of tramadol she typically takes 100 mg. Reviewed her findings today. Social Work did evaluate and patient has PT coming as well as wound care regularly. They are open to having an outpatient oncology social worker involved. Patient does have follow-up with Neurology which I think is very appropriate. Patient is requesting to return home. Her son is at bedside he is concerned that she may fall and we discussed that she certainly at risk for this. Patient does not have any acute neurologic focal findings that would warrant admission at this time. And patient does not wish to be admitted. We did discuss that her BUN was elevated affecting her renal function slightly and that she should continue to hydrate a regularly home. - Fall Lab Data Result diagrams: 04/17/21 12:20 04/17/21 12:20 Labs: Lab Results 04/17/21 04/17/21 Range/Units 12:20 12:20 WBC 8.6 (4.5-11.0) X10^3/uL RBC 3.75 L (4.0-5.2) X10^6/uL Hgb 10.0 L (12.0-16.0) g/dL Hct 29.9 L (36-46) % MCV 79.6 L (80-100) fL MCH 26.6 (26-34) PG MCHC 33.4 (30-36) % RDW 18.7 H (11.6-14.8) % Plt Count 334 (150-400) X10^3/uL Neut % (Auto) 84.8 H (50-75) % Lymph % (Auto) 7.5 L (25-40) % Mayes % (Auto) 6.4 (3-14) % Eos % (Auto) 0.4 L (2-4) % Baso % (Auto) 0.9 (0-2) % Neut # (Auto) 7300 H (5709-6361) /uL Lymph # (Auto) 600 L (1493-8696) /uL Mayes # (Auto) 600 (0-900) /uL Eos # (Auto) 0 (0-450) /uL Baso # (Auto) 100 (0-100) /uL RBC Morphology Normal morphology Anisocytosis 1+ H Sodium 134 L (137-145) mmol/L Potassium 4.0 (3.4-5.1) mmol/L Chloride 99 (98-107) mmol/L Carbon Dioxide 30 (22-32) mmol/L BUN 43 H (7-17) mg/dL Creatinine 1.18 H (0.52-1.04) mg/dL Estimated GFR 45.4 L (>60) mL/min BUN/Creatinine Ratio 36.4 H (6-22) Glucose 109 (80-110) mg/dL Calcium 9.3 (8.4-10.2) mg/dL Urine Dip Bedside Urine Glucose Negative Bedside Urine Bilirubin - Negative Bedside Urine Ketone - Negative Urine Specific Martin 1.015 Bedside Urine Occult Blood - Negative Bedside Urine pH 6.0 Bedside Urine Protein - Negative Bedside Urine Urobilinogen - Negative Bedside Urine Nitrite - Negative Bedside Urine Leukocytes - Negative Esterase Imaging Data CT scan - head: Radiologist's Impression: Mamta Shell??71??F??1950 ? Allergy/Adv: Sulfa (Sulfonamide Antibiotics) (More??) Close Hip X-Ray (Signed) Sotomayor,Tyler - 04/17/[address] (Signed) Sotomayor,Tyler - 04/17/[address] (Signed) Da Redmond - 04/16/21 Hip X-Ray (Signed) Quintin Roper - 04/16/21 Chest X-Ray (Signed) Quintin Roper - 04/16/21 Hip X-Ray (Signed) OrtegaEduin carolina - 03/13/21 Head/Neck CTA (Signed) Ortega,Eduin - 03/13/[address] (Signed) OrtegaEduin carolina - 03/13/21 Chest X-Ray (Signed) OrtegaEduin carolina - 03/13/[address] (Signed) Jenelle Atkinson - 02/09/21 Vascular Ultrasound (Signed) SotomayorTyler - 02/06/21 Brain MRI (Signed) Lisa Hernandez - 01/13/21 Modified Barium Swallow (Signed) eBrt Alberto - 11/12/20 Aorta w/Runoff CTA (Signed) Lisa Hernandez - 09/10/20 Abdomen X-Ray (Signed) Luisa Braxton - 10/07/19 Hand X-Ray (Signed) Bert Alberto - 05/23/19 Hand X-Ray (Signed) Bert Alberto - 05/23/19 Foot X-Ray (Signed) Bert Alberto - 05/23/19 Foot X-Ray (Signed) Bert Alberto - 05/23/19 Bone Densitometry 05/06/19 DEXA Result 05/06/19 Vascular Ultrasound (Signed) Kristal Vanegas - 04/26/19 Renal Ultrasound (Signed) Quintin Roper - 04/19/19 Mammogram Screening (Signed) Ever Miranda - 03/06/[address] (Signed) Bert Alberto - 11/16/18 Duplex Scan Lower Extremity Artery (Signed) Moreno Hilliard - 11/16/18 Tibia/Fibula X-Ray (Signed) Chito Kerr - 11/08/18 Lumbar Spine MRI (Signed) Jenelle Atkinson - 10/03/18 KUB X-Ray (Signed) Chito Kerr - 01/31/[address] (Signed) Tita Roperng - 12/18/17 Launch?[place] [address] CT Scan Report Signed Patient: Mamta Shell MR#: [id number] : 1950 Acct:[id number] Age/Sex: 71 / F Date of Service: 04/17/21 Loc: ED Accession Number: [id number] ?? Procedure: CT head/brain wo con Ordering Provider: Sandhya Burden D.O. PROCEDURE:? CT HEAD/BRAIN WO CON ? INDICATIONS:? fall, hip pain, hit head ? TECHNIQUE:? Noncontrast 4.5 mm thick angled axial sections acquired from the foramen magnum to the vertex, with coronal and sagittal reformats.? For radiation dose reduction, the following was used:? automated exposure control, adjustment of mA and/or kV according to patient size.? ? COMPARISON:? [facility], CT, CT HEAD/BRAIN WO CON, 03/13/2021, 14:20.? [facility], CT, CT HEAD/BRAIN WO CON, 04/16/2021, 16:26. ? FINDINGS:? Image quality:? Excellent.? ? CSF spaces:? Basal cisterns are patent.? No extra-axial fluid collections.? The ventricles are symmetric in size and shape.? ? Brain:? No intracranial bleeds or masses.? There is cerebral volume loss for age, with resultant ventricular and sulcal prominence.? There are periventricular and deep white matter chronic small vessel ischemic changes.? There is intracranial internal carotid artery atherosclerosis.? ? Skull and face:? Calvarium and visualized facial bones appear intact, without suspicious lesions.? ? Sinuses:? Visualized sinuses and mastoids are clear.? ? IMPRESSION:? ? Stable head CT with findings most consistent with microvascular ischemic changes in cerebral volume loss.? No evidence of acute intracranial hemorrhage or displaced skull fracture. ? ? Dictated by: Tyler Sotomayor D.O. on 04/17/2021 at 10:39 ? ? Approved by: Tyler Sotomayor D.O. on 04/17/2021 at 10:41? Extremity x-ray #1: Radiologist's Impression: Close Hip X-Ray (Signed) Sotomayor,Tyler - 04/17/[address] (Signed) Sotomayor,Tyler - 04/17/[address] (Signed) Da Redmond - 04/16/21 Hip X-Ray (Signed) Quintin Roper - 04/16/21 Chest X-Ray (Signed) Quintin Roper - 04/16/21 Hip X-Ray (Signed) OrtegaEduin - 03/13/21 Head/Neck CTA (Signed) Ortega,Eduin - 03/13/[address] (Signed) Ortega,Eduin - 03/13/21 Chest X-Ray (Signed) Ortega,Eduin - 03/13/[address] (Signed) Jenelle Atkinson - 02/09/21 Vascular Ultrasound (Signed) Sotomayor,Tyler - 02/06/21 Brain MRI (Signed) Lisa Hernandez - 01/13/21 Modified Barium Swallow (Signed) Bert Alberto - 11/12/20 Aorta w/Runoff CTA (Signed) Lisa Hernandez - 09/10/20 Abdomen X-Ray (Signed) Luisa Braxton - 10/07/19 Hand X-Ray (Signed) Bert Alberto - 05/23/19 Hand X-Ray (Signed) Bert Alberto - 05/23/19 Foot X-Ray (Signed) Bert Alberto - 05/23/19 Foot X-Ray (Signed) Bert Alberto - 05/23/19 Bone Densitometry 05/06/19 DEXA Result 05/06/19 Vascular Ultrasound (Signed) Kristal Vanegas - 04/26/19 Renal Ultrasound (Signed) Quintin Roper - 04/19/19 Mammogram Screening (Signed) Ever Miranda - 03/06/[address] (Signed) Bert Alberto - 11/16/18 Duplex Scan Lower Extremity Artery (Signed) Moreno Hilliard - 11/16/18 Tibia/Fibula X-Ray (Signed) Chito Kerr - 11/08/18 Lumbar Spine MRI (Signed) Jenelle Atkinson - 06/26/19 KUB X-Ray (Signed) Chito Kerr - 01/31/[address] (Signed) Tita Roperng - 12/18/17 Launch?Image [address] [address] XRay Report Signed Patient: Mamta Shell MR#: [id number] : 1950 Acct:[id number] Age/Sex: 71 / F Date of Service: 04/17/21 Loc: ED Accession Number: [id number] ?? Procedure: XR hip w pel if done RT 2V Ordering Provider: Sandhya Burden D.O. PROCEDURE:? XR HIP W PEL IF DONE RT 2V ? INDICATIONS:? fall, hip pain, hit head ? TECHNIQUE:? AP pelvis with lateral view(s) of the right hip(s).? ? COMPARISON:? [facility], CR, XR HIP W PEL IF DONE RT 2V, 04/16/2021, 15:41. ? FINDINGS:? ? Bones:? No fractures or dislocations.? Pelvic ring appears intact.? No evidence of a vascular necrosis.? Pelvic ring appears intact.? Mild degenerative changes.? No suspicious bony lesions.? ? Soft tissues:? The visualized bowel gas pattern is normal.? Marked stool burden within the visualized soft tissues of the abdomen/pelvis.? Stable benign appearing soft tissue calcifications as well as enthesophyte formation of the greater trochanters. ? ? IMPRESSION:? ? No acute osseous abnormality. ? Dictated by: Tyler Sotomayor D.O. on 04/17/2021 at 10:57 ? ? Approved by: Tyler Sotomayor D.O. on 04/17/2021 at 10:59? MDM Narrative Medical decision making narrative: A 71-year-old female who states she had a trip and fall. She states she was using her walker lost her balance and fell hitting her head on tile floor. Patient has a small hematoma. She does not have any other obvious facial injuries. Head CT is negative. She is not anticoagulated but based on her age felt appropriate to CT. She does have a large skin tear over her hand which is not amenable to repair. She is already seeing Wound Care for bilateral lower extremities secondary to chronic skin issues from persistent chronic steroid use. She had dressing placed that was nonstick and we discussed wound care directions until seen by her wound care nurse. Patient's head CT, x-ray do not show any acute changes she does note on re-evaluation that she has a large hematoma. We discussed trying an James bandage for some compression to the location. Her labs show a CBC with a stable hemoglobin although she is anemic. Her BUN is elevated to 40 almost double her past visit and her creatinine is very slightly changed. Discussed increasing her fluid hydration. Urine today is negative. Patient taken dose of tramadol prior to arrival in deferred anything initially but did ask for a 2nd dose of oral medication during her stay in the department. She was requesting to return home before her workup had been completed but did stay. Our oncology social worker saw her and met with family as well and plan to help had a outpatient oncology social worker. Patient states she is confused she seems to give appropriate history but notes that she has been leaning to the right of her head for 4 days, son states it might be weak the tells oncology social worker it might be a month. She does not have any other acute focal changes on her examination, a negative head CT and is in process of being set up with Neurology for follow-up. Discharge Plan Departure Patient Disposition: Home Clinical Impression: Dehydration, Fall, Skin tear Activity Restrictions/Additional Instructions: Follow up with your physician. I do think it would be beneficial for you to follow-up with neurology. Your labs today do show that you appear dehydrated and I would increase your fluid intake. Make sure you are drinking at least 8 total 8 oz glasses of water or fluids daily. You have a large skin tear on your right hand which will require follow-up with your wound care providers home. Continue with nonstick dressing and topical triple antibiotic ointment to the affected area for now. Change your dressing daily or sooner if it becomes saturated. Prescriptions: No Action (DME) Disabled Parking Permit Qty: 1 0RF Rx Instructions: Patient qualifies for disabled parking as per the attached form. gabapentin 300 mg capsule 300 mg PO QID Qty: 360 3RF estradiol 0.5 mg tablet 0.5 mg PO DAILY Qty: 90 3RF hydrochlorothiazide 25 mg tablet 25 mg PO DAILY Qty: 90 2RF tramadol 50 mg tablet 50 mg PO 5XD Qty: 150 4RF Hold Instructions: Taper off by MidJan Rx Instructions: Exempt spironolactone 50 mg tablet 50 mg PO DAILY Qty: 90 3RF prednisone 1 mg tablet See Rx Instructions .ROUTE .COMPLEX Qty: 60 0RF Dose Instruction: TAKE ONE TABLET BY MOUTH ONE TIME DAILY Rx Instructions: TAKE ONE TABLET BY MOUTH ONE TIME DAILY minocycline 100 mg capsule 100 mg PO BID 0RF hydroxyzine HCl 10 mg tablet 10 mg PO BID PRN (Reason: itching) Qty: 14 0RF Referrals: Power Hughes MD [Primary Care Provider] -
[2021-04-17] MEDS: LIDOCAINE/PRILOCAINE 5 GM 1 GM TOP (11:13)
--- NOTE | 2021-04-17 11:16 | ED_ITS ---
HPI - Fall General Chief Complaint: Fall Stated Complaint: GLF,hit head,no blood thinners Time Seen by Provider: 04/17/21 11:03 Source: patient Mode of arrival: EMS History of Present Illness HPI Narrative: This is a 71-year-old female comes emergency department with complaint of ground level fall.? Patient states she fell she hit the side of her head on some tile close to their stove.? She also had a skin tear on her right hand.? She recently was here a fall.? She had imaging but was not seen by the provider.? She states she has been sort of leaning over to the right side for the past 4 days which is new sometimes she has some difficulty with liquids from the right side of her face.? She has not appreciated new significant changes to her strength on her right side but states her extremities are sometimes weak.? Patient has been here for multiple falls she states she has tremor, she has had discussion about potential causes for her symptoms and has a referral in to Neurology but has not seen them.? She states she has been confused but is able to give an appropriate history and give me her tetanus status.? She states she is not normally confused but staff notes that she typically is in the same states she is in today with her frequent visits.? Medics state they have seen her multiple times in the past.? She lives with her .? She is on prednisone daily for steroids, she took a tramadol prior to arrival and defers anything for pain.? She had some nausea defers any antinausea medication and is requesting to return home.? She states she was seen and evaluated from leaning to the right side and was told that there was concern for stroke but not ?clear markers? and that she return home.? Her main complaints today are the skin tear on her hand, that she hit her head and some right hip pain although she has good movement. Related Data Home Medications Medication Instructions Recorded Confirmed minocycline 100 mg capsule 100 mg PO BID 01/11/21 03/25/21 Previous Rx's Medication Instructions Recorded Disabled Parking Permit #1 ea 11/19/19 spironolactone 50 mg tablet 50 mg PO DAILY #90 tab 07/24/20 gabapentin 300 mg capsule 300 mg PO QID #360 cap 10/02/20 estradiol 0.5 mg tablet 0.5 mg PO DAILY #90 tab 10/19/20 hydrochlorothiazide 25 mg tablet 25 mg PO DAILY #90 tab 11/23/20 tramadol 50 mg tablet 50 mg PO 5XD #150 tab 11/27/20 prednisone 1 mg tablet 1 mg PO DAILY #60 tab 02/22/21 hydroxyzine HCl 10 mg tablet 10 mg PO BID PRN #14 tab 03/20/21 Allergies Allergy/AdvReac Type Severity Reaction Status Date / Time Sulfa (Sulfonamide AdvReac Severe VOMITING Verified 04/17/21 11:04 Antibiotics) AND FEVER [SULFA (SULFONAMIDE ANTIBIOTICS)] Review of Systems Review of Systems ROS Unobtainable: All systems reviewed & are unremarkable except as noted in HPI and below Patient History Medical History Chronic steroid use Hyperlipidemia Hypertension Lumbosacral spondylosis with radiculopathy Rheumatoid arthritis Social History Smoking Status: Current every day smoker Tobacco: How many years used: 53 quit status: not considering quitting (declines smoking cessation) second hand exposure: No alcohol intake: never substance use type: does not use Smoking Status: Current every day smoker alcohol intake frequency: holidays/special occasions only Substance Use Type: does not use Exam Narrative Exam Narrative: Exam Narrative: GEN: Patient appears in mild distress.? Patient leans still right with her neck but is able to self-correct during my evaluation. HEAD: Small hematoma right scalp no raccoon/Parry sign. NECK: Nontender, painless range of motion, trachea midline Negative Nexus criteria, there is no midline line tenderness, distracting injury, altered mental status, neuro deficit, recent EtOH. EYES: PERRLA, EOMI ENT: External inspection normal, trachea is midline, TM's are normal no hemotypanum, Nares are clear, no septal hematoma, no dental or oral injury, airway is normal and with normal occlusion, No bony tenderness RESP: Chest is nontender and has symmetric movement, no ecchymosis, breath sounds are normal no crackles, wheezes or rales CVS: Heart sounds are normal, no murmur noted, No JVD. ABG/GI: Nontender, soft, normal bowel sounds, no distention, no organomegaly, pelvic rock is negative NEURO: Oriented AOx3, neuro is grossly intact, sensation and motor is normal all 4 extremities moving, cranial nerves II through XII are intact, GCS is 15 PSYCH: Normal mood and affect SKIN:? Patient has a large skin tear of her right hand which is stellate and exposes about a 3 cm area.? It is super tissue that I can see the fascia underneath overlying the hand and is intact.? Patient skin is extremely thin and unable to be repaired.? She has multiple small abrasions and many areas of ecchymosis consistent with chronic steroid use and falls on her upper e xtremities.? Warm and dry, no crepitus and without decubitus.? BACK: No CVA tenderness, no vertebral tenderness, no step-off's, no crepitus EXT: Atraumatic, hips are nontender, no pedal edema, normal color and temperature, normal range of motion of extremities.? Patient has equal muscle strength bilateral upper and lower extremities. Initial Vital Signs Initial Vital Signs: Vital Signs Temperature 97.8 F 04/17/21 10:58 Pulse Rate 89 04/17/21 10:58 Respiratory Rate 14 04/17/21 10:58 Blood Pressure 195/89 H 04/17/21 10:58 Pulse Oximetry 99 04/17/21 10:58 Course Orders Ordered: ED Orders 04/17/21 11:17 Consult to MACHINE HEEL SEAT FITTER - Stock Unloader Stat CT head/brain wo con Stat XR hip w pel if done RT 2V Stat 04/17/21 12:20 BMP [Basic Metabolic Panel] Stat CBC Auto Diff [Complete Blood Count AUTO DIFF] Stat Discontinued Medications Lidocaine/Prilocaine (Lidocaine/Prilocaine 5 Gm) 1 gm TOP NOW ONE Stop: 04/17/21 11:03 Last Admin: 04/17/21 11:13 Dose: 1 gm Documented by: OSCAR Vital Signs Vital signs: Vital Signs - 8 hr 04/17/21 10:58 04/17/21 12:02 04/17/21 12:03 Temperature 97.8 F Pulse Rate 89 92 H 91 H Respiratory Rate 14 18 18 Blood Pressure 195/89 H 169/79 H Pulse Oximetry 99 100 100 MDM - Fall Lab Data Result diagrams: 04/17/21 12:20 04/17/21 12:20 Labs: Lab Results 04/17/21 04/17/21 Range/Units 12:20 12:20 WBC 8.6 (4.5-11.0) X10^3/uL RBC 3.75 L (4.0-5.2) X10^6/uL Hgb 10.0 L (12.0-16.0) g/dL Hct 29.9 L (36-46) % MCV 79.6 L (80-100) fL MCH 26.6 (26-34) PG MCHC 33.4 (30-36) % RDW 18.7 H (11.6-14.8) % Plt Count 334 (150-400) X10^3/uL Neut % (Auto) 84.8 H (50-75) % Lymph % (Auto) 7.5 L (25-40) % [place] % (Auto) 6.4 (3-14) % Eos % (Auto) 0.4 L (2-4) % Baso % (Auto) 0.9 (0-2) % Neut # (Auto) 7300 H (0540-3927) /uL Lymph # (Auto) 600 L (8563-0667) /uL [place] # (Auto) 600 (0-900) /uL Eos # (Auto) 0 (0-450) /uL Baso # (Auto) 100 (0-100) /uL RBC Morphology Normal morphology Anisocytosis 1+ H Sodium 134 L (137-145) mmol/L Potassium 4.0 (3.4-5.1) mmol/L Chloride 99 (98-107) mmol/L Carbon Dioxide 30 (22-32) mmol/L BUN 43 H (7-17) mg/dL Creatinine 1.18 H (0.52-1.04) mg/dL Estimated GFR 45.4 L (>60) mL/min BUN/Creatinine Ratio 36.4 H (6-22) Glucose 109 (80-110) mg/dL Calcium 9.3 (8.4-10.2) mg/dL Urine Dip Bedside Urine Glucose Negative Bedside Urine Bilirubin - Negative Bedside Urine Ketone - Negative Urine Specific [place] 1.015 Bedside Urine Occult Blood - Negative Bedside Urine pH 6.0 Bedside Urine Protein - Negative Bedside Urine Urobilinogen - Negative Bedside Urine Nitrite - Negative Bedside Urine Leukocytes - Negative Esterase Discharge Plan Departure Patient Disposition: Home Clinical Impression: Dehydration, Fall, Skin tear Activity Restrictions/Additional Instructions: Follow up with your physician. I do think it would be beneficial for you to follow-up with neurology. Your labs today do show that you appear dehydrated and I would increase your fluid intake. Make sure you are drinking at least 8 total 8 oz glasses of water or fluids daily. You have a large skin tear on your right hand which will require follow-up with your wound care providers home. Continue with nonstick dressing and topical triple antibiotic ointment to the affected area for now. Change your dressing daily or sooner if it becomes saturated. Prescriptions: No Action (DME) Disabled Parking Permit Qty: 1 0RF Rx Instructions: Patient qualifies for disabled parking as per the attached form. spironolactone 50 mg tablet 50 mg PO DAILY Qty: 90 3RF gabapentin 300 mg capsule 300 mg PO QID Qty: 360 3RF estradiol 0.5 mg tablet 0.5 mg PO DAILY Qty: 90 3RF hydrochlorothiazide 25 mg tablet 25 mg PO DAILY Qty: 90 2RF tramadol 50 mg tablet 50 mg PO 5XD Qty: 150 4RF Hold Instructions: Taper off by MidJan Rx Instructions: Exempt prednisone 1 mg tablet 1 mg PO DAILY Qty: 60 0RF minocycline 100 mg capsule 100 mg PO BID 0RF hydroxyzine HCl 10 mg tablet 10 mg PO BID PRN (Reason: itching) Qty: 14 0RF Referrals: Power Hughes MD [Primary Care Provider] -
--- NOTE | 2021-04-17 11:17 | DI.CT.S_ITS ---
PROCEDURE: CT HEAD/BRAIN WO CON INDICATIONS: fall, hip pain, hit head TECHNIQUE: Noncontrast 4.5 mm thick angled axial sections acquired from the foramen magnum to the vertex, with coronal and sagittal reformats. For radiation dose reduction, the following was used: automated exposure control, adjustment of mA and/or kV according to patient size. COMPARISON: [facility], CT, CT HEAD/BRAIN WO CON, 03/13/2021, 14:20. [facility], CT, CT HEAD/BRAIN WO CON, 04/16/2021, 16:26. FINDINGS: Image quality: Excellent. CSF spaces: Basal cisterns are patent. No extra-axial fluid collections. The ventricles are symmetric in size and shape. Brain: No intracranial bleeds or masses. There is cerebral volume loss for age, with resultant ventricular and sulcal prominence. There are periventricular and deep white matter chronic small vessel ischemic changes. There is intracranial internal carotid artery atherosclerosis. Skull and face: Calvarium and visualized facial bones appear intact, without suspicious lesions. Sinuses: Visualized sinuses and mastoids are clear. IMPRESSION: Stable head CT with findings most consistent with microvascular ischemic changes in cerebral volume loss. No evidence of acute intracranial hemorrhage or displaced skull fracture. Dictated by: Tyler Sotomayor D.O. on 04/17/2021 at 10:39 Approved by: Tyler Sotomayor D.O. on 04/17/2021 at 10:41
--- NOTE | 2021-04-17 11:17 | DI.RAD.S_ITS ---
PROCEDURE: XR HIP W PEL IF DONE RT 2V INDICATIONS: fall, hip pain, hit head TECHNIQUE: AP pelvis with lateral view(s) of the right hip(s). COMPARISON: [facility], , XR HIP W PEL IF DONE RT 2V, 04/16/2021, 15:41. FINDINGS: Bones: No fractures or dislocations. Pelvic ring appears intact. No evidence of a vascular necrosis. Pelvic ring appears intact. Mild degenerative changes. No suspicious bony lesions. Soft tissues: The visualized bowel gas pattern is normal. Marked stool burden within the visualized soft tissues of the abdomen/pelvis. Stable benign appearing soft tissue calcifications as well as enthesophyte formation of the greater trochanters. IMPRESSION: No acute osseous abnormality. Dictated by: Tyler Sotomayor D.O. on 04/17/2021 at 10:57 Approved by: Tyler Sotomayor D.O. on 04/17/2021 at 10:59
[2021-04-17 12:02] VITALS: PULSE 92; RESP 18; O2SAT 100
[2021-04-17 12:03] VITALS: BP 169/79; PULSE 91; RESP 18; O2SAT 100
[2021-04-17 12:30] VITALS: BP 169/81; PULSE 88; O2SAT 100
[2021-04-17 12:36] LABS: Basophils Absolute Auto 100 /uL (0-100); Basophils Percent Auto 0.9 % (0-2); Eosinophils Absolute Auto 0 /uL (0-450); Eosinophils Percent Auto 0.4 % (2-4); Hematocrit 29.9 % (36-46); Lymphocytes Absolute Auto 600 /uL (1100-4500); Lymphocytes Percent Auto 7.5 % (25-40); Mean Corpuscular HGB Conc 33.4 % (30-36); Mean Corpuscular Hemoglobin 26.6 PG (26-34); Mean Corpuscular Volume 79.6 fL (80-100); Monocytes Absolute Auto 600 /uL (0-900); Monocytes Percent Auto 6.4 % (3-14); Neutrophils Absolute Auto 7300 /uL (1500-7000); Neutrophils Percent Auto 84.8 % (50-75); Platelet Count 334 X10^3/uL (150-400); Red Blood Cell Count 3.75 X10^6/uL (4.0-5.2); Red Cell Distribution Width 18.7 % (11.6-14.8); White Blood Cell Count 8.6 X10^3/uL (4.5-11.0)
[2021-04-17 12:37] LABS: Add Manual Diff / Slide Review SLIDE REVIEW
[2021-04-17 12:48] LABS: BUN Creatinine Ratio 36.4 (6-22); Blood Urea Nitrogen 43 mg/dL (7-17); Calcium 9.3 mg/dL (8.4-10.2); Carbon Dioxide 30 mmol/L (22-32); Chloride 99 mmol/L (98-107); Estimated Glomerular Filt Rate 45.4 mL/min (>60); Glucose 109 mg/dL (80-110); HEMOLYSIS < 15 (0-50); Sodium 134 mmol/L (137-145)
[2021-04-17 13:00] VITALS: BP 161/69; PULSE 92; O2SAT 98
--- NOTE | 2021-04-17 13:03 | CM.SWNOTE ---
Patient is 71yo female with increasingly frequent visits to ED for falls and fall related injuries. sample worker consult placed by attending physician to check in with patient and family members about resources needed or already in place. ASSISTANT GROCERY met with patient's spouse Gus in [facility]. Bill reported patient has been leaning to the right, having double vision, and falling with skin tears more frequently for the past month since she was seen in ED for fall and diagnosed with concussion. Bill reported patient has recently had vision exam and needs new glasses and is working on getting a new PCP due to not satisfied with current service provision with current PCP. Bill reported he feels he needs to watch patient at home all the time now to ensure falls and injuries are not occurring or too serious when they do occur. Gus informed that patient has nursing visits at the home for wound care and PT. Bill reported patient has attempted to get into Neuro for follow up but the appts are quite some time out like 4 months. ASSISTANT GROCERY met with patient at bedside, patient's son Ze present as well. Patient reported [facility] is working with her at home MW for wound care and that PT is in process of getting set up. Patient reported she initially didn't want a walker but now it is my new best friend. Patient reported her vision is not a contributor to the falls and that she is not experiencing dizziness prior to the falls. Patient reported it just happens, I don't see it coming. EMR review indicates PCP has concerns for possible seizures. ASSISTANT GROCERY inquired if patient felt further HH services might be needed. Patient reported she is currently taking care of her hygiene needs independently but it is difficult to participate in other ADLs. Patient agreeable to medical SW being added to [facility] services to assess for further needs as well as discussion around possible higher levels of care available or necessary for patient safety. Patient's son reported he felt like a facility might be necessary for patient to avoid any serious injuries. Patient adamant that she wants to remain at home at this time. ASSISTANT GROCERY explained if patient is decisional, patient is able to decline placement and encouraged further family discussion about safety needs for patient ongoing. ASSISTANT GROCERY had F2F signed by attending and faxed to Lisa as well as phone call to Lisa CHAU informing that adding esthetician and manager medical spa and continuing with wound care and PT is requested at this time. Donta Diaz [facility]
[2021-04-17 13:11] LABS: Anisocytosis 1+; RBC Morphology Normal Morphology
[2021-04-17] MEDS: TRAMADOL 50 MG TABLET 100 MG PO (13:27)
== END 2021-04-17 13:41 | disposition home or self-care (01) ==
PROVIDERS: Emergency Provider Emergency Medicine; PCP Student in an Organized Health Care Education/Training Program
DX: S00.03XA Contusion of scalp, initial encounter (principal); E86.0 Dehydration; M25.551 Pain in right hip; S61.411A Laceration without foreign body of right hand, initial encounter; R51.9 Headache, unspecified; W18.30XA Fall on same level, unspecified, initial encounter; Z91.81 History of falling
CPT/HCPCS: 36415; 70450; 73502; 80048; 81003; 85025; 99284

== ENCOUNTER 2021-04-28 20:09 | Emergency (ER) | payer MEDICARE, SELFPAY ==
[2021-04-28 20:12] VITALS: BP 140/70; PULSE 89; RESP 20; TEMP 36.7; O2SAT 100
--- NOTE | 2021-04-28 22:09 | ED.FALL ---
HPI - Fall General Chief Complaint: Fall Stated Complaint: GLF Time Seen by Provider: 04/28/21 21:51 Source: patient and EMS Mode of arrival: EMS History of Present Illness HPI Narrative: patient is a 71-year-old female of emergency department complaint of ground level fall. She has frequent fall she has been to the emergency department numerous times for the same. Today she says she was using her walker went into the kitchen to take some pills when her legs gave out and she fell. She has chronic wound on her legs for which she has wound care and home health to help with some. However she did cut the back of her right leg in his bleed. He also has wound on her right hand. She denies head injury or loss of consciousness. The any anti-platelet or anticoagulation medication. She has a referral in to Neurology but has not yet seen them. Related Data Home Medications Medication Instructions Recorded Confirmed minocycline 100 mg capsule 100 mg PO BID 01/11/21 03/25/21 Previous Rx's Medication Instructions Recorded Disabled Parking Permit #1 ea 11/19/19 gabapentin 300 mg capsule 300 mg PO QID #360 cap 10/02/20 estradiol 0.5 mg tablet 0.5 mg PO DAILY #90 tab 10/19/20 hydrochlorothiazide 25 mg tablet 25 mg PO DAILY #90 tab 11/23/20 tramadol 50 mg tablet 50 mg PO 5XD #150 tab 11/27/20 hydroxyzine HCl 10 mg tablet 10 mg PO BID PRN #14 tab 03/20/21 prednisone 1 mg tablet See Rx Instructions .ROUTE 04/20/21 .COMPLEX #60 tab spironolactone 50 mg tablet 50 mg PO DAILY #90 tab 04/20/21 Allergies Allergy/AdvReac Type Severity Reaction Status Date / Time Sulfa (Sulfonamide AdvReac Severe VOMITING Verified 04/17/21 11:04 Antibiotics) AND FEVER [SULFA (SULFONAMIDE ANTIBIOTICS)] Review of Systems Review of Systems Narrative: GENERAL: Denies chills, fatigue, malaise, fever, sweats, travel HEENT: Denies sinus pain, ear pain, sore throat, difficulty swallowing, neck pain RESPIRATORY: Denies dyspnea, cough, wheezing, hemoptysis, sputum. CARDIOVASCULAR: Denies chest pain, palpitations, orthopnea, edema GASTROINTESTINAL: Denies nausea, vomiting, abdominal pain, diarrhea, constipation, melena. : Denies dysuria, frequency, incontinence, hematuria, urinary retention, flank pain. MUSCULOSKELETAL: Denies weakness, joint pain, or bony pain SKIN: Chronic leg wounds, new laceration, see HPI NEUROLOGIC: Increased falls, see HPI PSYCHIATRIC: No concerning psychosocial issues. 12 point review of systems is negative except for those stated above and HPI Patient History Medical History Chronic steroid use Hyperlipidemia Hypertension Lumbosacral spondylosis with radiculopathy Rheumatoid arthritis Social History Smoking Status: Current every day smoker Tobacco: How many years used: 53 quit status: not considering quitting (declines smoking cessation) second hand exposure: No alcohol intake: never substance use type: does not use Smoking Status: Current every day smoker alcohol intake frequency: holidays/special occasions only Substance Use Type: does not use Exam Initial Vital Signs Initial Vital Signs: Vital Signs Temperature 98.0 F 04/28/21 20:12 Pulse Rate 89 04/28/21 20:12 Respiratory Rate 20 04/28/21 20:12 Blood Pressure 140/70 04/28/21 20:12 Pulse Oximetry 100 04/28/21 20:12 GENERAL: Alert weak 71-year-old female CARDIOVASCULAR: peripheral pulses in tact, cap refill <2 sec RESPIRATORY: No respiratory distress, speaks in full sentences without difficulty EXTREMITIES: Normal range of motion, no clubbing or edema. Neurovascularly intact NEUROLOGICAL: Cranial nerves II through XII grossly intact. Normal gait and speech. SKIN: Right leg laceration 8 cm posterior knee just inferior with 1 mm gap adipose tissue exposed no deep structures exposed Right hand fingers 3,4, and 5 at PIP small flap-like laceration good skin approximation Skin Legs Front+Back: 1. 8cm with 1cm gap. No good skin approximation. Course Vital Signs Vital signs: Vital Signs - 8 hr 04/28/21 23:36 Pulse Rate 88 Respiratory Rate 21 Blood Pressure 138/70 Pulse Oximetry 100 MDM - Fall MDM Narrative Medical decision making narrative: Unable to so laceration posterior knee. A nice bandage has been placed. She has multiple skin tears in different stages of healing on all extremities. She has home health care new wounds have had dressing replaced. Have encouraged her to use her wheelchair as opposed to walker. She has swelling quite of bit. Blood work on April 17 which was at baseline. Discharge Plan Departure Patient Disposition: Home Clinical Impression: Laceration of right lower leg, Laceration of finger of right hand Instructions: How to Prevent Falls Activity Restrictions/Additional Instructions: *You have been diagnosed with right leg laceration right hand laceration *What to do: He may keep bandage on the right leg for about 1 week. However please call home health and request for evaluation in the next 1-2 days. Not sure this wound will heal well. It will need to be monitored closely. I also strongly recommend that you use a wheelchair to help prevent you from falling. *Continue to take medications as directed *Follow up with your primary care provider in 2-3 days or call [phone] *Return to ER if you should have redness pain drainage fever confusion or any new, worsening or concerning symptoms Prescriptions: No Action (DME) Disabled Parking Permit Qty: 1 0RF Rx Instructions: Patient qualifies for disabled parking as per the attached form. gabapentin 300 mg capsule 300 mg PO QID Qty: 360 3RF estradiol 0.5 mg tablet 0.5 mg PO DAILY Qty: 90 3RF hydrochlorothiazide 25 mg tablet 25 mg PO DAILY Qty: 90 2RF tramadol 50 mg tablet 50 mg PO 5XD Qty: 150 4RF Hold Instructions: Taper off by MidJan Rx Instructions: Exempt spironolactone 50 mg tablet 50 mg PO DAILY Qty: 90 3RF prednisone 1 mg tablet See Rx Instructions .ROUTE .COMPLEX Qty: 60 0RF Dose Instruction: TAKE ONE TABLET BY MOUTH ONE TIME DAILY Rx Instructions: TAKE ONE TABLET BY MOUTH ONE TIME DAILY minocycline 100 mg capsule 100 mg PO BID 0RF hydroxyzine HCl 10 mg tablet 10 mg PO BID PRN (Reason: itching) Qty: 14 0RF Referrals: Power Hughes MD [Primary Care Provider] -
[2021-04-28 23:36] VITALS: BP 138/70; PULSE 88; RESP 21; O2SAT 100
== END 2021-04-28 23:37 | disposition home or self-care (01) ==
PROVIDERS: Emergency Provider Emergency Medicine; Family Provider Student in an Organized Health Care Education/Training Program; PCP Student in an Organized Health Care Education/Training Program
DX: S81.811A Laceration without foreign body, right lower leg, initial encounter (principal); S61.212A Laceration without foreign body of right middle finger without damage to nail, initial encounter; S61.214A Laceration without foreign body of right ring finger without damage to nail, initial encounter; S61.216A Laceration without foreign body of right little finger without damage to nail, initial encounter; F17.200 Nicotine dependence, unspecified, uncomplicated; W18.30XA Fall on same level, unspecified, initial encounter; Y93.89 Activity, other specified
CPT/HCPCS: 99281

== ENCOUNTER → 2021-06-09 13:15 | Outpatient (CLI) | payer MEDICARE, SELFPAY ==
--- NOTE | 2021-06-09 13:16 | DI.CT.S_ITS ---
PROCEDURE: CT PEL WO CON INDICATIONS: Hematoma on right hip TECHNIQUE: Noncontrast 3 mm axial sections acquired through the bony pelvis, with coronal and sagittal reformatting. COMPARISON: [facility], CR, XR HIP W PEL IF DONE RT 2V, 04/17/2021, 11:07. FINDINGS: Image quality: Excellent. Bones: No fractures or dislocation. No suspicious osseous lesions. The visualized lower lumbar spine demonstrates mild degenerative disc disease and mild facet arthropathy. There is mild degeneration of the pubic symphysis. Soft tissues: There is a loculated subcutaneous collection lateral to the right hip measuring approximately 6.3 x 4.7 x 14.5 cm. This demonstrates internal heterogeneity with attenuation values higher than expected for simple fluid. The findings are compatible with patient's reported history of a hematoma. The visualized musculature demonstrates preserved bulk. Visualized pelvis demonstrates no intraperitoneal free fluid. Visualized bowel loops are normal in caliber. Bladder demonstrates normal wall thickness. IMPRESSION: 1. Loculated subcutaneous fluid collection lateral to the right hip consistent with patient's reported history of a hematoma. Recommend clinical follow-up to demonstrate resolution. 2. No fractures identified. Dictated by: Eduin Ortega M.D. on 06/09/2021 at 17:39 Approved by: Eduin Ortega M.D. on 06/09/2021 at 17:42
== END ==
PROVIDERS: Family Provider Student in an Organized Health Care Education/Training Program; PCP Student in an Organized Health Care Education/Training Program; Referring Provider Student in an Organized Health Care Education/Training Program; Visit Provider Student in an Organized Health Care Education/Training Program
DX: S70.01XA Contusion of right hip, initial encounter (principal); M25.559 Pain in unspecified hip; X58.XXXA Exposure to other specified factors, initial encounter
CPT/HCPCS: 72192

== ENCOUNTER 2021-06-11 13:16 | Emergency (ER) | payer MEDICARE, SELFPAY ==
[2021-06-11 13:20] VITALS: BP 125/63; PULSE 88; RESP 15; TEMP 36.2; O2SAT 99; BMI 17.3
[2021-06-11 14:55] VITALS: BP 144/65; PULSE 67; RESP 18; O2SAT 99
--- NOTE | 2021-06-11 14:55 | PC.NURSE ---
scattered bruises noted especially bilateral hands.
--- NOTE | 2021-06-11 15:08 | ED.HEATRA ---
HPI - Head Injury <Pearl Diaz [facility] - Last Filed: 06/11/21 20:18> General Chief complaint: Head Injury Stated complaint: fall/hit head/left pupil no dilating Time Seen by Provider: 06/11/21 15:08 Source: patient Mode of arrival: Wheelchair History of Present Illness HPI Narrative: 71-year-old female presents to the emergency department after her wound care appointment because the wound care nurse told patient that her pupils were unequal in to go to the emergency department. Patient has had multiple falls which she has related to tripping on things and her rheumatoid arthritis pain but denies any dizziness, balance issues, medication grogginess, or other. Patient states that she had a neurologist appointment for an EEG today but this was canceled because she came to the emergency department out of precaution for her unequal pupils prior to arrival. In triage, triage nurse noted that patient's pupils are equal and reactive, patient is alert and oriented, clear speech, denies any new weakness, denies any dizziness, fever, recent illness, or fall within the last few days. Patient states that her primary care provider Dr. Hughes, discontinued her tramadol medication, she states that she has been on this medication for over 10 years and she is having increased pain from her rheumatoid arthritis. She states that he canceled this out of concern for her falls, but she states that his not the reason that she has fallen, she endorses that she is not in good health and she wishes to be comfortable instead of in pain. Related Data Home Medications Medication Instructions Recorded Confirmed minocycline 100 mg capsule 100 mg PO BID 01/11/21 03/25/21 Previous Rx's Medication Instructions Recorded Disabled Parking Permit #1 ea 11/19/19 gabapentin 300 mg capsule 300 mg PO QID #360 cap 10/02/20 estradiol 0.5 mg tablet 0.5 mg PO DAILY #90 tab 10/19/20 hydrochlorothiazide 25 mg tablet 25 mg PO DAILY #90 tab 11/23/20 hydroxyzine HCl 10 mg tablet 10 mg PO BID PRN #14 tab 03/20/21 prednisone 1 mg tablet See Rx Instructions .ROUTE 04/20/21 .COMPLEX #60 tab spironolactone 50 mg tablet 50 mg PO DAILY #90 tab 04/20/21 tramadol 50 mg tablet 50 mg PO BID PRN #20 tab 06/11/21 tramadol 50 mg tablet 50 mg PO BID PRN #30 tab 06/11/21 Allergies Allergy/AdvReac Type Severity Reaction Status Date / Time Sulfa (Sulfonamide AdvReac Severe VOMITING Verified 06/11/21 13:20 Antibiotics) AND FEVER [SULFA (SULFONAMIDE ANTIBIOTICS)] Review of Systems <BRUCE Davis - Last Filed: 06/11/21 20:18> Review of Systems Narrative: General: denies fever, chills, malaise, sweats, fatigue Head/Neck: denies headache, neck pain, dizziness Eyes: denies visual changes, eye pain Cardio: denies chest pain, palpitations, edema Respiratory: denies dyspnea, cough, orthopnea GI: denies abdominal pain, nausea, vomiting, or diarrhea : denies dysuria, hematuria, urinary retention, frequency or incontinence MSK: denies joint pain, muscle weakness Skin: denies rash, itching, skin lesions or other Neuro: denies numbness, tingling Patient History <BRUCE Davis - Last Filed: 06/11/21 20:18> Medical History Chronic steroid use Hyperlipidemia Hypertension Lumbosacral spondylosis with radiculopathy Rheumatoid arthritis Social History Smoking Status: Current every day smoker Tobacco: How many years used: 53 quit status: not considering quitting (declines smoking cessation) second hand exposure: No alcohol intake: never substance use type: does not use Smoking Status: Current every day smoker alcohol intake frequency: holidays/special occasions only Substance Use Type: does not use Exam <BRUCE Davis - Last Filed: 06/11/21 20:18> Narrative Exam Narrative: Independently reviewed vitals signs and nursing notes. General: Awake, alert, nontoxic, no cardiorespiratory distress, frail, appears older than stated age, multiple areas of bruising hands and upper extremities Head/Neck: Atraumatic, neck full range of motion Eyes: EOMI, conjunctiva normal Nose: nares patent, no rhinorrhea Mouth/Throat: moist mucus membranes, posterior pharynx normal, no oral lesions Cardio: Regular rate and rhythm, no peripheral edema Respiratory: respirations unlabored without wheezing, stridor, or rales. No retractions. GI: Abdomen soft, nontender MSK: Moves all extremities, neurovascularly intact Skin: Normal capillary refill, no rash Neuro: Normal speech and cognition, normal gait Initial Vital Signs Initial Vital Signs: Vital Signs Temperature 97.1 F L 06/11/21 13:20 Pulse Rate 88 06/11/21 13:20 Respiratory Rate 15 06/11/21 13:20 Blood Pressure 125/63 06/11/21 13:20 Pulse Oximetry 99 06/11/21 13:20 <Sandhya Burden DO - Last Filed: 06/12/21 09:27> Initial Vital Signs Initial Vital Signs: Vital Signs Temperature 97.1 F L 06/11/21 13:20 Pulse Rate 88 06/11/21 13:20 Respiratory Rate 15 06/11/21 13:20 Blood Pressure 125/63 06/11/21 13:20 Pulse Oximetry 99 06/11/21 13:20 Course <BRUCE Davis - Last Filed: 06/11/21 20:18> Vital Signs Vital signs: Vital Signs - 8 hr 06/11/21 13:20 06/11/21 14:55 Temperature 97.1 F L Pulse Rate 88 67 Respiratory Rate 15 18 Blood Pressure 125/63 144/65 H Pulse Oximetry 99 99 <Sandhya Burden DO - Last Filed: 06/12/21 09:27> Vital Signs Vital signs: Vital Signs - 8 hr 06/11/21 13:20 06/11/21 14:55 Temperature 97.1 F L Pulse Rate 88 67 Respiratory Rate 15 18 Blood Pressure 125/63 144/65 H Pulse Oximetry 99 99 MDM - Head Injury <BRUCE Davis - Last Filed: 06/11/21 20:18> MDM Narrative Medical decision making narrative: 71-year-old chronically ill-appearing female with history of CKD, rheumatoid arthritis, hypertension, and multiple falls presents to the emergency department After her wound care appointment because her wound care nurse told her that her pupils were unequal and she needed to go to the emergency department. This caused patient to miss her Neurology appointment with scheduled EEG. Patient Did not have unequal pupils on exam, she is alert, oriented, a good historian, without any focal neuro deficits. Patient reports that she is more concerned that Dr. Hughes took her off of her tramadol for her chronic arthritis pain because he was concerned that this was contributing to her falls. Patient states that she now has been in worse pain since coming off of these medications than ever before. She denies any new weakness, denies any recent fall other than the ones she is healing from still. Recommend patient reschedule her neurology/EEG appointment as soon as possible, she was given a referral for chronic pain management nearby but recommend she return to Dr. Hughes and discuss her rheumatoid arthritis and her ongoing pain since coming off of this medication. She was given a Prescription of tramadol until she can get follow-up. Patient denies any other complaint at this time. Patient is appropriate and amenable to discharge home. Vital signs are stable on repeat examination is unremarkable. Patient has been informed of results. Patient has been given strict return to ER precautions for any new or worsening symptoms. Patient understands to follow up closely with outpatient providers as instructed. Patient understands plan and agrees to discharge home. All questions and concerns answered at this time. Discharge Plan Departure Patient Disposition: Home Clinical Impression: Rheumatoid arthritis Qualifiers: Rheumatoid arthritis location: unspecified site Rheumatoid factor presence: unspecified presence Qualified Code(s): M06.9 - Rheumatoid arthritis, unspecified Instructions: Rheumatoid Arthritis Activity Restrictions/Additional Instructions: *You have been diagnosed with pain from your rheumatoid arthritis, recent falls which do not sound related to your Tramadol use. Please follow-up with Dr. Hughes, let him know that your in a pain crisis because you have not been able to take her Tramadol which prompted emergency department visit. Your pupils are equal and reactive, I am not concerned about the difference in your pupil size at this time. Please call your neurologist and reschedule your EEG, I am very sorry that you miss this. My recommendation is to go back to Dr. Hughes and see if he is willing to prescribe your Tramadol again. Since you been on it for so long, it is likely not the reason why you are having falls recently. Do your best to not fall anymore, try and stay hydrated, eat nutritious food, and continue to rest when you need to. I hope you feel better soon, I called Tramadol in to [facility], return to the emergency department for any new or worsening symptoms. *What to do: *Please continue to take your regular medications as directed. [x ] New medication prescriptions sent to your pharmacy: [ [facility]] [ ] New medication written as a paper prescription [ ] No new medications given *Please follow up with your primary care provider in 2-3 days, call for an appointment. Let them know you were seen in the Emergency Department and that we ask that you be seen in follow up. We will electronically transmit a record of today's note if your PCP is in our system *If you do not have a primary care provider please contact the [facility] Resource line at [phone]. They will ask some questions about your medical history and help get you set up with a doctor in the community. *Return to Emergency Department if you should have any new, worsening or concerning symptoms, such as [fever greater than 101F, chills, worsening pain, persistent vomiting or other bothersome symptoms] Prescriptions: New tramadol 50 mg tablet 50 mg PO BID PRN (Reason: pain) Qty: 20 0RF tramadol 50 mg tablet 50 mg PO BID PRN (Reason: pain) Qty: 30 0RF No Action (DME) Disabled Parking Permit Qty: 1 0RF Rx Instructions: Patient qualifies for disabled parking as per the attached form. gabapentin 300 mg capsule 300 mg PO QID Qty: 360 3RF estradiol 0.5 mg tablet 0.5 mg PO DAILY Qty: 90 3RF hydrochlorothiazide 25 mg tablet 25 mg PO DAILY Qty: 90 2RF spironolactone 50 mg tablet 50 mg PO DAILY Qty: 90 3RF prednisone 1 mg tablet See Rx Instructions .ROUTE .COMPLEX Qty: 60 0RF Dose Instruction: TAKE ONE TABLET BY MOUTH ONE TIME DAILY Rx Instructions: TAKE ONE TABLET BY MOUTH ONE TIME DAILY minocycline 100 mg capsule 100 mg PO BID 0RF hydroxyzine HCl 10 mg tablet 10 mg PO BID PRN (Reason: itching) Qty: 14 0RF Referrals: Power Hughes MD [Primary Care Provider] - Sheela Dixon ARNP [Non-Staff] - 3-5 days (for complicated pain management) Yaquelin Kelly PA-C [Non-Staff] - 3-5 days <Sandhya Burden DO - Last Filed: 06/12/21 09:27> Cosign ED Attending Cosaltheaature Attestation: I was immediately available in the department for consultation. Documentation has been reviewed.
== END 2021-06-11 15:48 | disposition home or self-care (01) ==
PROVIDERS: Emergency Provider Nurse Practitioner Critical Care Medicine; Family Provider Student in an Organized Health Care Education/Training Program; PCP Student in an Organized Health Care Education/Training Program
DX: M06.9 Rheumatoid arthritis, unspecified (principal); F17.200 Nicotine dependence, unspecified, uncomplicated
CPT/HCPCS: 99281

== ENCOUNTER → 2021-06-29 12:47 | Outpatient (CLI) | payer MEDICARE, SELFPAY ==
--- NOTE | 2021-06-29 12:50 | DI.RAD.S_ITS ---
PROCEDURE: XR ANKLE RT MIN 3V INDICATIONS: NON HEALING ULCER ON RT ANKLE TECHNIQUE: 3 views of the ankle were acquired. COMPARISON: None. FINDINGS: Bones: No fractures or dislocations. Ankle mortise is normally aligned. No suspicious bony lesions. No osseous erosions. No periosteal reaction. Soft tissues: No tibiotalar joint effusion. Achilles tendon appears normal. No soft tissue gas. IMPRESSION: No patel evidence of osteomyelitis. Plain film radiographs can be insensitive to osteomyelitis during the initial 15 days of the disease process. If there is clinical concern for osteomyelitis, then three-phase nuclear medicine bone scan or MRI should be considered for further evaluation. Dictated by: Jenelle Atkinson MD, PhD on 06/29/2021 at 13:42 Approved by: Jenelle Atkinson MD, PhD on 06/29/2021 at 13:43
== END ==
PROVIDERS: Family Provider Student in an Organized Health Care Education/Training Program; PCP Student in an Organized Health Care Education/Training Program; Referring Provider Podiatrist; Visit Provider Podiatrist
DX: L97.319 Non-pressure chronic ulcer of right ankle with unspecified severity (principal)
CPT/HCPCS: 73610

== ENCOUNTER 2021-07-20 21:30 | Emergency (ER) | payer MEDICARE, SELFPAY ==
[2021-07-20 21:38] VITALS: BP 141/80; PULSE 95; RESP 22; TEMP 36.4; O2SAT 100
--- NOTE | 2021-07-20 23:53 | ED.GENADULT ---
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 She notes that she frequently has episodes of superficial bruising and has had 2-3 episodes of epistaxis. Today's event was unprovoked lasted approximately 30 minutes and was unable to be controlled at home. Seem to be coming from her right Nare. She is not currently on anticoagulants. Significant positive review of systems regarding neurologic findings related to her multi-system atrophy. She has difficulty eating, drinking, chronic nausea, chronic pain and difficulty with sleeping. Related Data Home Medications Medication Instructions Recorded Confirmed minocycline 100 mg capsule 100 mg PO BID 01/11/21 03/25/21 Previous Rx's Medication Instructions Recorded gabapentin 300 mg capsule 300 mg PO QID #360 cap 10/02/20 estradiol 0.5 mg tablet 0.5 mg PO DAILY #90 tab 10/19/20 hydrochlorothiazide 25 mg tablet 25 mg PO DAILY #90 tab 11/23/20 spironolactone 50 mg tablet 50 mg PO DAILY #90 tab 04/20/21 prednisone 5 mg tablet 5 mg PO DAILY #30 tab 07/01/21 tramadol 50 mg tablet 50 mg PO 5XD PRN #150 tab 07/15/21 Allergies Allergy/AdvReac Type Severity Reaction Status Date / Time Sulfa (Sulfonamide AdvReac Severe VOMITING Verified 06/11/21 13:20 Antibiotics) AND FEVER [SULFA (SULFONAMIDE ANTIBIOTICS)] Review of Systems Review of Systems Narrative: Remainder of complete review of systems is otherwise unremarkable except for that included in the HPI. Patient History Medical History Chronic steroid use Hyperlipidemia Hypertension Lumbosacral spondylosis with radiculopathy Rheumatoid arthritis Social History Smoking Status: Current every day smoker Tobacco: How many years used: 53 quit status: not considering quitting (declines smoking cessation) second hand exposure: No alcohol intake: never substance use type: does not use Smoking Status: Current every day smoker alcohol intake frequency: holidays/special occasions only Substance Use Type: does not use Exam Initial Vital Signs Initial Vital Signs: Vital Signs Temperature 97.5 F L 07/20/21 21:38 Pulse Rate 95 H 07/20/21 21:38 Respiratory Rate 22 07/20/21 21:38 Blood Pressure 141/80 H 07/20/21 21:38 Pulse Oximetry 100 07/20/21 21:38 General: Frail, chronically ill-appearing but in no acute distress. Able to give a complete and coherent history. HEENT: Moist mucous membranes, normal sclera with reactive pupils, dried blood over her face with small clot in the right nare with no obvious bleeding source or vascular abnormality appreciated on clinical exam Respiratory: Lungs are clear to auscultation, no wheezing no rales no rhonchi. Full and symmetrical air movement Cardiac: Regular rate and rhythm no murmurs no bruits Abdomen: Soft, nontender, good bowel tones, no flank pain Skin: Frail with multiple chronic bruising over any exposed surface of skin to the point where the dorsum of both her hands are essentially black from chronic hemosiderin deposition Psych: Fatigued but Cooperative, appropriate insight and affect Course Vital Signs Vital signs: Vital Signs - 8 hr 07/20/21 21:38 07/21/21 00:01 Temperature 97.5 F L Pulse Rate 95 H 84 Respiratory Rate 22 16 Blood Pressure 141/80 H 138/71 Pulse Oximetry 100 99 Medical Decision Making MDM Narrative Medical decision making narrative: 71-year-old woman with multiple significant medical issues presents with an episode of epistaxis. This is treated with 45 minutes of nasal clamping and resolved spontaneously with no obvious areas of bleeding to cauterize or otherwise intervened upon. She did not require any nasal packing. We talked about using topical Afrin as well as nasal clamping with future episodes to see if she might be able to avoid returning to the emergency department for any future nosebleeds. Questions were answered and she is safe for home discharge Discharge Plan Departure Patient Disposition: Home Clinical Impression: Epistaxis Instructions: DI for Nosebleed Activity Restrictions/Additional Instructions: Thank you for coming in today Your nose bleed has stopped. On clinical exam I do not see any evidence for a bleeding blood vessel that I am able to cauterize or coagulate. It is safe for you to go home. I would recommend that you get some Afrin nasal spray the next time your the grocery store. If you have another nosebleed soak some Q-tips in the Afrin and with the Q-tips in your nose and use the nose clamp that wheezed in the emergency department. The Afrin helps the blood vessels shrink down and the clamp helps encourage clotting. If you are still having bleeding after that please return to the ER I wish you the best Prescriptions: No Action gabapentin 300 mg capsule 300 mg PO QID Qty: 360 3RF estradiol 0.5 mg tablet 0.5 mg PO DAILY Qty: 90 3RF hydrochlorothiazide 25 mg tablet 25 mg PO DAILY Qty: 90 2RF spironolactone 50 mg tablet 50 mg PO DAILY Qty: 90 3RF tramadol 50 mg tablet 50 mg PO 5XD PRN (Reason: pain) Qty: 150 5RF Hold Instructions: Resume 4x/day minocycline 100 mg capsule 100 mg PO BID 0RF prednisone 5 mg tablet 5 mg PO DAILY Qty: 30 1RF Referrals: Power Hughes MD [Primary Care Provider] -
[2021-07-21 00:01] VITALS: BP 138/71; PULSE 84; RESP 16; O2SAT 99
== END 2021-07-21 00:02 | disposition home or self-care (01) ==
PROVIDERS: Emergency Provider Emergency Medicine; Family Provider Student in an Organized Health Care Education/Training Program; PCP Student in an Organized Health Care Education/Training Program
DX: R04.0 Epistaxis (principal); F17.200 Nicotine dependence, unspecified, uncomplicated
CPT/HCPCS: 99281

== ENCOUNTER 2021-07-24 00:41 | Emergency (ER) | payer MEDICARE, SELFPAY ==
[2021-07-24 01:00] VITALS: BP 138/65; PULSE 81; RESP 18; TEMP 36.6; O2SAT 95; BMI 18.1
--- NOTE | 2021-07-24 01:06 | ED_ITS ---
HPI - Epistaxis General Chief complaint: Nasal Problem Stated complaint: bloody nose, not on blood thinners, wont stop Time Seen by Provider: 07/24/21 00:45 Source: patient and family Mode of arrival: Wheelchair History of Present Illness HPI Narrative: 71F daily smoker with a history of multiple system atrophy (cerebellar type) returns for evaluation of a spontaneous right-sided nosebleed. She takes no blood thinners and denies any recent trauma or injury. She had a spontaneous nosebleed a few days ago at with skin evaluated here but had spontaneous resolution after prolonged clamping. There is no source of bleeding that was amenable to cauterization or other therapy. She was given appropriate return precautions and returns for evaluation. She states that the bleeding started out of her right Garcia again a few hours prior to her arrival. She denies dizziness, weakness or lightheadedness Related Data Home Medications Medication Instructions Recorded Confirmed minocycline 100 mg capsule 100 mg PO BID 01/11/21 03/25/21 carbidopa 25 mg-levodopa 100 mg 1 tab PO TID 07/21/21 tablet Previous Rx's Medication Instructions Recorded gabapentin 300 mg capsule 300 mg PO QID #360 cap 10/02/20 estradiol 0.5 mg tablet 0.5 mg PO DAILY #90 tab 10/19/20 hydrochlorothiazide 25 mg tablet 25 mg PO DAILY #90 tab 11/23/20 spironolactone 50 mg tablet 50 mg PO DAILY #90 tab 04/20/21 prednisone 5 mg tablet 5 mg PO DAILY #30 tab 07/01/21 tramadol 50 mg tablet 50 mg PO 5XD PRN #150 tab 07/15/21 Allergies Allergy/AdvReac Type Severity Reaction Status Date / Time Sulfa (Sulfonamide AdvReac Severe VOMITING Verified 07/24/21 01:03 Antibiotics) AND FEVER [SULFA (SULFONAMIDE ANTIBIOTICS)] Review of Systems Review of Systems Narrative: GENERAL: Denies chills, fatigue, malaise, fever, sweats. HEENT: See HPI RESPIRATORY: Denies dyspnea, cough, wheezing, hemoptysis, sputum. CARDIOVASCULAR: Denies chest pain, palpitations, orthopnea, edema, GASTROINTESTINAL: Denies nausea, vomiting, abdominal pain, diarrhea, constipation, melena. : Denies dysuria, frequency, incontinence, hematuria, urinary retention. MUSCULOSKELETAL: denies weakness, joint pain, or bony pain SKIN: Denies rash, skin lesions, or other NEUROLOGIC: Denies weakness, headache, numbness, change in speech, confusion, seizures, incoordination. PSYCHIATRIC: No concerning psychosocial issues. 12 point review of systems is negative except for those stated above Patient History Medical History Chronic steroid use Hyperlipidemia Hypertension Lumbosacral spondylosis with radiculopathy Rheumatoid arthritis Social History Smoking Status: Current every day smoker Tobacco: How many years used: 53 quit status: not considering quitting (declines smoking cessation) second hand exposure: No alcohol intake: never substance use type: does not use Smoking Status: Current every day smoker alcohol intake frequency: holidays/special occasions only Substance Use Type: does not use Exam Narrative Exam Narrative: GEN: AOx3 and in mild distress, thin, no evidence of ongoing bleeding EYES: Pupils are equal, round, and reactive to light and accommodation. Extraoccular muscles are intact bilaterally. There is no subconjunctival hemorrhage or exudate. ENT: Fresh clots in right naris, source of bleeding appears to be in the mid to posterior superior septum of right nare CHEST: Lungs are clear to auscultation bilaterally and free of wheezes, rales, or rhonchi. Heart rate is regular rhythm, there are no murmurs, clicks, rubs, or gallops. There is no chest wall tenderness. ABD: Abdomen is soft and nontender. There is no guarding or rebound. Bowel sounds are normal in all 4 quadrants. There is no mass or organomegaly. EXT: Full painless ROM of all extremities with no loss of sensation or strength. SKIN: Warm, pink, and dry. No erythema or rash Initial Vital Signs Initial Vital Signs: Vital Signs Temperature 97.9 F 07/24/21 01:00 Pulse Rate 81 07/24/21 01:00 Respiratory Rate 18 07/24/21 01:00 Blood Pressure 138/65 07/24/21 01:00 Pulse Oximetry 95 07/24/21 01:00 Procedures Epistaxis Control Nostril: right Nose Prepped With: oxymetazoline Direct Inspection: yes Clots Removed by: blowing nose and suction Cautery Used: silver nitrate Course Orders Ordered: Discontinued Medications Oxymetazoline HCl (Oxymetazoline Nasal [place] 15 Ml) 2 sprays NASAL NOW ONE Stop: 07/24/21 03:23 Last Admin: 07/24/21 03:43 Dose: 2 sprays Documented by: SAM Silver Nitrate/Potassium Nitrate (Silver Nitrate Stick) 1 each TOP NOW ONE Stop: 07/24/21 03:23 Last Admin: 07/24/21 03:43 Dose: 1 each Documented by: SAM Vital Signs Vital signs: Vital Signs - 8 hr 07/24/21 01:00 Temperature 97.9 F Pulse Rate 81 Respiratory Rate 18 Blood Pressure 138/65 Pulse Oximetry 95 MDM - Epistaxis MDM Narrative Medical decision making narrative: Patient returns for evaluation of atraumatic right-sided epistaxis. Her bleeding is minimal, source is identified and bleeding controlled with cautery. She is observed for another 30 minutes and there is no recurrence of bleeding. She has reassuring vital signs, has been given return precautions and questions answered to her apparent satisfaction Discharge Plan Departure Patient Disposition: Home Clinical Impression: Epistaxis Instructions: DI for Nosebleed Activity Restrictions/Additional Instructions: *You have been diagnosed with [ acute anterior epistaxis ] *What to do: * do not blow your nose, stick your finger in her nose, or disturb nose for the next 24 hr. If you must sneeze please sneeze out your mouth like we talked about *Follow up with your primary care provider or ENT doctor in 2-3 days, call for an appointment. Let them know you were seen in the Emergency Department and that we ask that you be seen in follow up *Return to ER if you should have any new, worsening or concerning symptoms * if you are bleeding starts again at home please place a portion of a cotton ball in your nostril and squirt some of the Afrin you were given in your nose. Apply the nose clamp and uses a watch or o'clock to time yourself for 15 min. At the end 15 min recheck for bleeding, if you continue to bleed please repeat the process for another 15 min. If at the end of 30 min you still have b leeding you should return to the emergency department Prescriptions: No Action gabapentin 300 mg capsule 300 mg PO QID Qty: 360 3RF estradiol 0.5 mg tablet 0.5 mg PO DAILY Qty: 90 3RF hydrochlorothiazide 25 mg tablet 25 mg PO DAILY Qty: 90 2RF spironolactone 50 mg tablet 50 mg PO DAILY Qty: 90 3RF tramadol 50 mg tablet 50 mg PO 5XD PRN (Reason: pain) Qty: 150 5RF Hold Instructions: Resume 4x/day carbidopa-levodopa 25-100 mg tablet 1 tab PO TID 0RF minocycline 100 mg capsule 100 mg PO BID 0RF prednisone 5 mg tablet 5 mg PO DAILY Qty: 30 1RF Referrals: Power Hughes MD [Primary Care Provider] - Alvaro Orellana MD [Physician] -
[2021-07-24] MEDS: SILVER NITRATE STICK 1 EACH TOP (03:43)
[2021-07-24] MEDS: OXYMETAZOLINE NASAL SPRAY 15 ML 2 SPRAYS NASAL (03:43)
[2021-07-24 04:31] VITALS: BP 126/67; PULSE 93; RESP 24; O2SAT 96
== END 2021-07-24 04:32 | disposition home or self-care (01) ==
PROVIDERS: Emergency Provider Emergency Medicine; Family Provider Student in an Organized Health Care Education/Training Program; PCP Student in an Organized Health Care Education/Training Program
DX: R04.0 Epistaxis (principal)
CPT/HCPCS: 30905; 99282; A9270

== ENCOUNTER → 2021-07-30 15:41 | Outpatient (ROUT) | payer MEDICARE, SELFPAY ==
[2021-07-30 16:00] LABS: Appearance Urine UA CLEAR; Bilirubin Urine UA NEGATIVE (NEGATIVE); Color Urine UA YELLOW; Glucose Urine UA TRACE g/dL (Negative); Ketones Urine UA NEGATIVE (NEGATIVE); Leukocyte Esterase Urine UA TRACE (NEGATIVE); Nitrite Urine UA NEGATIVE (Negative); Occult Blood Urine UA NEGATIVE (Negative); Protein Urine UA TRACE (Negative); Urobilinogen Urine UA 0.2 E.U./dL (0.2)
[2021-07-30 16:08] LABS: Bacteria Urine Occasional (0-1); Culture Indicated Urine Specimen Cultured; RBC Urine None Seen (0-5/HPF); WBC Urine 5-10/HPF (0-5/HPF)
== END ==
PROVIDERS: Family Provider Student in an Organized Health Care Education/Training Program; PCP Student in an Organized Health Care Education/Training Program; Visit Provider Student in an Organized Health Care Education/Training Program
DX: N39.0 Urinary tract infection, site not specified (principal)
CPT/HCPCS: 81001; 87086

== ENCOUNTER 2021-08-20 12:58 | Emergency (ER) | payer MEDICARE, SELFPAY ==
[2021-08-20 13:15] VITALS: BP 142/75; PULSE 76; RESP 16; TEMP 36.8; O2SAT 100; BMI 17.2
--- NOTE | 2021-08-20 13:46 | PC.NURSE ---
Addendum entered by Niecy Sheppard R.N. 08/20/21 14:31: Cleaned right forearm with normal saline and dressed with bacitracin, xeroform, abd pad, and kerlix. Original Note: Patient reports that starting possibly around Monday developed vaginal bleeding that she has been using tampons for. Is on estradiol hormonal replacement therapy that she has not been taking due to possible refill related or memory related reasons, patient was unclear about it. Patient reports this is not typical for her.
[2021-08-20] MEDS: TRAMADOL 50 MG TABLET PO (14:16)
[2021-08-20] MEDS: BACITRACIN OINT 0.9 GM PCKT 3 APPLIC TOP (14:34)
--- NOTE | 2021-08-20 15:02 | ED.FALL ---
HPI - Fall <Pearl Diaz [facility] - Last Filed: 08/20/21 15:13> General Chief Complaint: Vaginal Bleeding Stated Complaint: Multiple falls yesterday,now hallucinating. Time Seen by Provider: 08/20/21 14:00 Source: patient Mode of arrival: Ambulatory History of Present Illness HPI Narrative: This is a 71-year-old female presents to the emergency department complaining of another fall which happened last night, and she sustained a right forearm skin tear. Patient's is at the bedside and requesting admission to the hospital because she ?cannot be watched for 24 hours a day.Patient is alert oriented, responding to questions appropriately, states that she has a long history of falls, has multiple skin tears and is receiving home health for her poor skin condition. She denies any recent fever, vomiting, emesis, hitting her head, any head injury. She endorses a history of vaginal bleeding, she states she has not been taking her estradiol and this is normal for her. Patient states that she does not have any new mental status changes, weakness, sensation changes, or pain in any bone or joint. She states that she is out of her normally prescribed tramadol for her chronic pain. Patient's primary care provider is Dr. Hughes. Patient and her state that they have not followed up about long-term care option for patient with their primary care provider. Any nausea, vomiting, new weakness, dysuria, or other complaint. She is requesting wound care to her new skin tear on her right forearm and states that she does not have any other complaints. Related Data Home Medications Medication Instructions Recorded Confirmed minocycline 100 mg capsule 100 mg PO BID 01/11/21 08/20/21 medroxyprogesterone 2.5 mg tablet 2.5 mg PO DAILY 08/20/21 08/20/21 potassium chloride 20 mEq 20 meq PO DAILY 08/20/21 08/20/21 tablet,extended release prednisone 5 mg tablet 1 mg PO DAILY 08/20/21 08/20/21 Previous Rx's Medication Instructions Recorded gabapentin 300 mg capsule 300 mg PO QID #360 cap 10/02/20 estradiol 0.5 mg tablet 0.5 mg PO DAILY #90 tab 10/19/20 hydrochlorothiazide 25 mg tablet 25 mg PO DAILY #90 tab 11/23/20 spironolactone 50 mg tablet 50 mg PO DAILY #90 tab 04/20/21 tramadol 50 mg tablet 50 mg PO 5XD PRN #150 tab 07/15/21 tramadol 50 mg tablet 50 mg PO BID PRN #30 tab 08/20/21 Allergies Allergy/AdvReac Type Severity Reaction Status Date / Time Sulfa (Sulfonamide AdvReac Severe VOMITING Verified 08/20/21 13:15 Antibiotics) AND FEVER [SULFA (SULFONAMIDE ANTIBIOTICS)] Review of Systems <BRUCE Davis - Last Filed: 08/20/21 15:13> Review of Systems Narrative: General: denies fever, chills, malaise, sweats, fatigue Head/Neck: denies headache, neck pain, dizziness Eyes: denies visual changes, eye pain Cardio: denies chest pain, palpitations, edema Respiratory: denies dyspnea, cough, orthopnea GI: denies abdominal pain, nausea, vomiting, or diarrhea : denies dysuria, hematuria, urinary retention, frequency or incontinence MSK: denies joint pain, muscle weakness Skin: denies rash, itching, endorses multiple skin tears that are in various stages of healing, new skin tear on right forearm Neuro: denies numbness, tingling Patient History <BRUCE Davis - Last Filed: 08/20/21 15:13> Medical History Chronic steroid use Hyperlipidemia Hypertension Lumbosacral spondylosis with radiculopathy Rheumatoid arthritis Social History Smoking Status: Current every day smoker Tobacco: How many years used: 53 quit status: not considering quitting (declines smoking cessation) second hand exposure: No alcohol intake: never substance use type: does not use Smoking Status: Current every day smoker alcohol intake frequency: holidays/special occasions only Substance Use Type: does not use Exam <BRUCE Davis - Last Filed: 08/20/21 15:13> Narrative Exam Narrative: Independently reviewed vitals signs and nursing notes. General: cooperative, comfortable, in no acute distress, chronically ill-appearing and frail Head: atraumatic, symmetrical facial expressions Neck: supple, atraumatic, without lymphadenopathy. Eyes: pupils equal round and reactive, EOMI, conjunctiva normal Nose: nares patent, no rhinorrhea Mouth/Throat: uvula midline, moist mucus membranes Cardiovascular: regular rate and rhythm, no peripheral edema, warm extremities Respiratory: normal effort, able to speak in complete sentences, no audible wheezing, stridor, or rales. No retractions or tachypnea. GI: abdomen soft, nontender to palpation, nondistended, no masses, no exquisite tenderness with exam, without guarding or rebound. MSK: moves all extremities, ambulatory w/steady gait, neurovascularly intact, no weakness Skin: brisk capillary refill, dorsum of bilateral hands are black and purple from old injuries, base is mildly erythematous, right forearm skin tear is new, not fully through the dermis, superficial layer only, her skin is very fragile, this skin tear extends from the dorsum of her right wrist to the mid forearm, this was cleaned gently with normal saline, covered with bacitracin and Xeroform Neuro: normal speech and cognition, A&O x3, normal tone Psych: mental status is grossly normal, congruent mood, normal affect, pleasant and cooperative Initial Vital Signs Initial Vital Signs: Vital Signs Temperature 98.2 F 08/20/21 13:15 Pulse Rate 76 08/20/21 13:15 Respiratory Rate 16 08/20/21 13:15 Blood Pressure 142/75 H 08/20/21 13:15 Pulse Oximetry 100 08/20/21 13:15 <Jose Eduardo Syed DO - Last Filed: 08/20/21 17:49> Initial Vital Signs Initial Vital Signs: Vital Signs Temperature 98.2 F 08/20/21 13:15 Pulse Rate 76 08/20/21 13:15 Respiratory Rate 16 08/20/21 13:15 Blood Pressure 142/75 H 08/20/21 13:15 Pulse Oximetry 100 08/20/21 13:15 Course <OLGA DavisP - Last Filed: 08/20/21 15:13> Orders Ordered: Discontinued Medications Bacitracin (Bacitracin Oint 0.9 Gm Pckt) 3 applic TOP NOW ONE Stop: 08/20/21 14:13 Last Admin: 08/20/21 14:34 Dose: 1 applic Documented by: TAMARA Tramadol HCl (Tramadol 50 Mg Tablet) 50 mg PO NOW ONE Stop: 08/20/21 14:13 Last Admin: 08/20/21 14:16 Dose: 50 mg Documented by: TAMARA Vital Signs Vital signs: Vital Signs - 8 hr 08/20/21 13:15 08/20/21 15:27 Temperature 98.2 F Pulse Rate 76 70 Respiratory Rate 16 18 Blood Pressure 142/75 H 106/53 L Pulse Oximetry 100 94 <Jose Eduardo Syed DO - Last Filed: 08/20/21 17:49> Orders Ordered: Discontinued Medications Bacitracin (Bacitracin Oint 0.9 Gm Pckt) 3 applic TOP NOW ONE Stop: 08/20/21 14:13 Last Admin: 08/20/21 14:34 Dose: 1 applic Documented by: TAMARA Tramadol HCl (Tramadol 50 Mg Tablet) 50 mg PO NOW ONE Stop: 08/20/21 14:13 Last Admin: 08/20/21 14:16 Dose: 50 mg Documented by: TAMARA Vital Signs Vital signs: Vital Signs - 8 hr 08/20/21 13:15 08/20/21 15:27 Temperature 98.2 F Pulse Rate 76 70 Respiratory Rate 16 18 Blood Pressure 142/75 H 106/53 L Pulse Oximetry 100 94 MDM - Fall <BRUCE Davis - Last Filed: 08/20/21 15:13> [facility] Narrative Medical decision making narrative: This is a chronically ill and frail 71-year-old female who has a history of chronic steroid use, RA, CKD, frequent falls, and multiple skin tears requiring home health wound care returns to the emergency department with a new skin tear on her right forearm which occurred last night when she fell forward. Patient did not have her walker with her, she states that she forgot it and started walking and slipped and fell down due to her weakness. She denies any new changes, she denies any her head or having any other new wounds. She denies any joint pain which is new, or any bone pain or limited range of motion in any extremity. There was no loss of consciousness, emesis or nausea. Patient and her were fighting in the room during my assessment, her wanted to admit her to the hospital because he states he cannot watch her all the time and she wanders off he also states that she needs a higher level of care than he is able to provide at home although they do have home health for her wounds. On exam, patient did not have any neuro deficits, any new weakness, her speech is clear, she did not have any audiovisual hallucinations. Wound care was completed to write for, she does have a new skin tear from the dorsum of her right wrist which extends to the mid forearm closer to her elbow. Patient and her were encouraged to follow-up with Dr. Holloway if her care needs are beyond with their home health order is 4. There is no emergent or significant finding on exam today, a dressing was applied to her right skin tear with bacitracin, Xeroform, nonstick Telfa and gauze. This was wrapped gently, patient has a walker at home, she was given strict return precautions, encouraged to have a walker with her at all times, and to not try and get up without it. Patient states that she would like to go home she did not have any serious injury. Appropriate and amenable to discharge home. Vital signs are stable on repeat examination is unremarkable. Patient has been informed of results. Patient has been given strict return to ER precautions for any new or worsening symptoms. Patient understands to follow up closely with outpatient providers as instructed. Patient understands plan and agrees to discharge home. All questions and concerns answered at this time. Discharge Plan Departure Patient Disposition: Home Clinical Impression: Fall, Pain Skin tear of right forearm without complication Qualifiers: Encounter type: initial encounter Qualified Code(s): S51.811A - Laceration without foreign body of right forearm, initial encounter Instructions: How to Prevent Falls Activity Restrictions/Additional Instructions: *You have been diagnosed with a falls, and a large skin tear on your right forearm. Please schedule an appointment with Dr. Hughes to discuss your declining health and mobility and increasing needs at home. We were able to help get you home health from your last emergency department visit but we were unable to help get you placement into a long-term care facility or 24 hour coverage at home. Please follow-up with Dr. Hughes to help get you the care that you need moving forward. He will also be the prescriber for your pain medication. I am sorry for your situation, it is very complicated yes. Please continue to have home health change her dressings, please call teeth they will be able to do your lower leg dressing today as well. Please continue to be more careful than usual. Your skin continues to be in poor condition and does not heal as quickly as it used to. Please call and schedule a follow-up appointment with Dr. Hughes, and if your wounds are worsening, please call Dr. Piedra and schedule another appointment with him. *What to do: *Please continue to take your regular medications as directed. [ x] New medication prescriptions sent to your pharmacy: [ [facility]] [ ] New medication written as a paper prescription [ ] No new medications given *Please follow up with your primary care provider in 2-3 days, call for an appointment. Let them know you were seen in the Emergency Department and that we asked that you be seen for follow-up. We will electronically transmit a record of today's note if your PCP is in our system *If you do not have a primary care provider please contact [phone] to establish care with one of the [facility] primary care providers. *Return to Emergency Department if you should have any new, worsening or concerning symptoms, such as [fever greater than 101F, chills, worsening pain, persistent vomiting or other bothersome symptoms] Prescriptions: New tramadol 50 mg tablet 50 mg PO BID PRN (Reason: pain) Qty: 30 0RF No Action gabapentin 300 mg capsule 300 mg PO QID Qty: 360 3RF estradiol 0.5 mg tablet 0.5 mg PO DAILY Qty: 90 3RF hydrochlorothiazide 25 mg tablet 25 mg PO DAILY Qty: 90 2RF spironolactone 50 mg tablet 50 mg PO DAILY Qty: 90 3RF tramadol 50 mg tablet 50 mg PO 5XD PRN (Reason: pain) Qty: 150 5RF Hold Instructions: Resume 4x/day minocycline 100 mg capsule 100 mg PO BID 0RF medroxyprogesterone 2.5 mg Tablet 2.5 mg PO DAILY 0RF potassium chloride 20 mEq Tablet Extended Release 20 meq PO DAILY 0RF prednisone 5 mg tablet 1 mg PO DAILY 0RF Referrals: Power Hughes MD [Primary Care Provider] - Sancho Piedra MD [Physician] - 5-7 days <Jose Eduardo Syed DO - Last Filed: 08/20/21 17:49> [facility] Dr Syed Co-Sign Statement: I was available for consultation during this patient's emergency department visit. This chart is signed by myself for administrative purposes only. I did not have direct contact with this patient during this visit. They were seen independently by the APC.
--- NOTE | 2021-08-20 15:17 | PC.NURSE ---
Patient requested right shoulder dressing change, dressing assessed and silicone foam in place, clean and dry. Right lower arm silicone foam dressing clean and dry, right lower arm wrapped in keflex. states dressings were placed yesterday. Educated pt on silicone dressings and change not indicated at this time, [employer] aware, also per discharge instructions pt to be see wound care and they can make the change if indicated then. Pt requests to be assisted to the bathroom to remove tampon, informed pt ER does not have tampons in stock but can use a pad, pt states she prefers to go home and change tampon, declines need for bathroom.
[2021-08-20 15:27] VITALS: BP 106/53; PULSE 70; RESP 18; O2SAT 94
== END 2021-08-20 15:17 | disposition home or self-care (01) ==
PROVIDERS: Emergency Provider Nurse Practitioner Critical Care Medicine; Family Provider Student in an Organized Health Care Education/Training Program; PCP Student in an Organized Health Care Education/Training Program
DX: S51.811A Laceration without foreign body of right forearm, initial encounter (principal); W19.XXXA Unspecified fall, initial encounter
CPT/HCPCS: 99283

== ENCOUNTER → 2021-09-08 14:57 | Outpatient (CLI) | payer MEDICARE, SELFPAY ==
--- NOTE | 2021-09-08 15:00 | DI.RAD.S_ITS ---
PROCEDURE: XR FOOT LT MIN 3V INDICATIONS: ULCER 4TH TOE TECHNIQUE: 3 views of the foot were acquired. COMPARISON: [facility], CR, XR FOOT LT MIN 3V, 05/23/2019, 12:09. FINDINGS: Bones: No fractures or dislocations. 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 Severe 1st MTP, 2nd MTP joint degeneration. Juxta-articular lucencies again noted at the 1st, 2nd MTP joint and 3rd metatarsal head. Diffuse interphalangeal joint space narrowing. Multiple hammertoe deformities. Bones are osteopenic. Soft tissues: No tibiotalar joint effusion. Achilles tendon appears normal. IMPRESSION: 1. Although no definite new bony erosions are identified, plain film radiography is relatively insensitive in the acute phases of osteomyelitis and may not demonstrate radiographic changes for 15 days. If acute osteomyelitis is of clinical concern, nuclear medicine regional bone scan or MRI is recommended. 2. Joint degeneration and bony erosions appearing similar prior examination dated 05/23/2022. Dictated by: Michi Carolina Rajani Interpreted: Moreno Hilliard MD on 09/08/2021 at 15:35 Transcribed by: JETT on 09/08/2021 at 15:44 Approved by: Moreno Hilliard M.D. on 09/08/2021 at 17:17
== END ==
PROVIDERS: Family Provider Student in an Organized Health Care Education/Training Program; PCP Student in an Organized Health Care Education/Training Program; Referring Provider Podiatrist; Visit Provider Podiatrist
DX: L97.522 Non-pressure chronic ulcer of other part of left foot with fat layer exposed (principal)
CPT/HCPCS: 73630

== ENCOUNTER 2021-09-08 15:59 | Inpatient (IN) | payer MEDICARE, SELFPAY ==
--- NOTE | 2021-09-08 16:05 | DI.RAD.S_ITS ---
PROCEDURE: XR HIP W PEL IF DONE LT 2V INDICATIONS: fall with hip pain TECHNIQUE: AP pelvis with lateral view(s) of the left hip(s). COMPARISON: [facility], [place], XR HIP W PEL IF DONE RT 2V, 04/17/2021, 11:07. FINDINGS: Bones: There is a mildly displaced left femoral neck fracture. No dislocation at the hip joint. Degenerative changes are noted within the right hip. Soft tissues: The visualized bowel gas pattern is normal. No suspicious soft tissue calcifications. IMPRESSION: Mildly displaced left femoral neck fracture. Dictated by: Luisa Braxton M.D. on 09/08/2021 at 17:03 Approved by: Luisa Braxton M.D. on 09/08/2021 at 17:04
[2021-09-08 16:08] VITALS: BP 169/80; PULSE 93; RESP 15; TEMP 35.9; O2SAT 100; BMI 17.6
--- NOTE | 2021-09-08 16:35 | DI.RAD.S_ITS ---
PROCEDURE: XR CHEST 1V INDICATIONS: LEFT HIP PAIN AFTER FALL TECHNIQUE: One view of the chest was acquired. COMPARISON: [facility], CR, XR CHEST 2V, 04/16/2021, 15:41. FINDINGS: Surgical changes and devices: None. Lungs and pleura: Chronic emphysematous changes are seen. No focal infiltrate No pleural effusions or pneumothorax. Mediastinum: Mediastinal contours appear normal. Heart size is normal. Bones and chest wall: Age indeterminate fracture involving left posterior lateral 8th and 9th ribs are seen. No suspicious bony lesions. Overlying soft tissues appear unremarkable. IMPRESSION: Age indeterminate minimally displaced fractures involving left posterior lateral 8th and 9th ribs. No acute cardiopulmonary pathology. Dictated by: Quintin Roper M.D. on 09/08/2021 at 16:49 Approved by: Quintin Roper M.D. on 09/08/2021 at 16:50
--- NOTE | 2021-09-08 16:52 | ED.FALL ---
HPI - Fall <BRUCE Davis - Last Filed: 09/08/21 19:20> General Chief Complaint: Fall Stated Complaint: Fall Time Seen by Provider: 09/08/21 16:38 Source: patient and EMS Mode of arrival: EMS History of Present Illness HPI Narrative: This is a 71-year-old female who presents to the emergency department after a mechanical ground level fall in the lobby just prior to checking into the emergency department. Patient has a history of balance issues, weakness, and frequent falls. She has three large wounds that she is seeing Wound Care for on her left anterior leg, right heel, and right anterior forearm. These are all large skin tears that has been healing over time. Patient states that she should have not been walking alone, she was using a walker, she slipped and fell down landing on her left side and felt immediate pain in her left hip. She has good sensation and movement in her toes on her left side, is not able to flex her hip or move her hip at all right now, states her pain is 8/10 while lying still. She states that she is a smoker and need a nicotine patch. Related Data Home Medications Medication Instructions Recorded Confirmed minocycline 100 mg capsule 100 mg PO BID 01/11/21 09/08/21 potassium chloride 20 mEq 20 meq PO DAILY 08/20/21 09/08/21 tablet,extended release prednisone 5 mg tablet 1 mg PO DAILY 08/20/21 09/08/21 Previous Rx's Medication Instructions Recorded gabapentin 300 mg capsule 300 mg PO QID #360 cap 10/02/20 estradiol 0.5 mg tablet 0.5 mg PO DAILY #90 tab 10/19/20 hydrochlorothiazide 25 mg tablet 25 mg PO DAILY #90 tab 11/23/20 tramadol 50 mg tablet 50 mg PO BID PRN #30 tab 08/20/21 medroxyprogesterone 2.5 mg tablet 2.5 mg PO DAILY #90 tab 08/28/21 Allergies Allergy/AdvReac Type Severity Reaction Status Date / Time Sulfa (Sulfonamide AdvReac Severe VOMITING Verified 09/08/21 16:08 Antibiotics) AND FEVER [SULFA (SULFONAMIDE ANTIBIOTICS)] Review of Systems <BRUCE Davis - Last Filed: 09/08/21 19:20> Review of Systems Narrative: General: denies fever, chills Head/Neck: denies headache, neck pain Eyes: denies visual changes, eye pain Cardio: denies chest pain, palpitations Respiratory: denies shortness of breath, cough GI: denies abdominal pain, nausea, vomiting, or diarrhea : denies dysuria, hematuria or flank pain MSK: Endorses left hip pain currently /10, denies muscle weakness or swelling Skin: denies rash, itching, endorses a left anterior lower leg wound from a fall, skin tear approximately 10 cm x 4 cm, is healing as expected with chronic wound care, right calcaneal pressure ulcer, also dressed by Wound Care, patient states that is healing without any worsening, and the right anterior forearm skin tear from a fall on 08/20/2021, that is approximately 6 cm x 2 cm and healing without infection also being treated by wound care. Neuro: denies numbness, tingling, dizziness Patient History <BRUCE Davis - Last Filed: 09/08/21 19:20> Medical History Chronic steroid use Hyperlipidemia Hypertension Lumbosacral spondylosis with radiculopathy Rheumatoid arthritis Family History (Updated 09/08/21 @ 20:04 by Vivek Jo MD) Other Coronary artery disease Hypertension Social History details: lives at home with household members: spouse Smoking Status: Current every day smoker Tobacco: How many years used: 53 quit status: not considering quitting (declines smoking cessation) second hand exposure: No alcohol intake: never substance use type: does not use Smoking Status: Current every day smoker alcohol intake frequency: holidays/special occasions only Substance Use Type: does not use Exam <BRUCE Davis - Last Filed: 09/08/21 19:20> Narrative Exam Narrative: Independently reviewed vitals signs and nursing notes. General: Awake, alert, nontoxic, no cardiorespiratory distress Head/Neck: Atraumatic, neck supple Eyes: EOMI, conjunctiva normal Nose: nares patent, no rhinorrhea Mouth/Throat: moist mucus membranes, posterior pharynx without erythema or lesion Cardio: Regular rate and rhythm, no peripheral edema Respiratory: respirations unlabored without wheezing, stridor, or rales. No retractions, hypoxia or tachypnea GI: Abdomen soft, nontender to palpation x4 quadrants, no guarding or rebound tenderness MSK: Deformity to left pelvis, left foot with intact pulses although faint at baseline, cap refill is less than 2 seconds in bilateral lower extremities, she is able to wiggle her toes, denies any sensation deficit in her left leg. Skin: Normal capillary refill, multiple skin tears in various stages of healing which have been over the last few months. Patient has been seen wound care. Left anterior lower leg has a 10 cm x 4 cm healing skin tear from a fall approximately one month ago, no signs of infection currently. Right calcaneus with a pressure ulcer, this has a absorbent dressing, and wrap around it, no signs of infection, patient states has been healing slowly but has not gotten any worse. Right anterior forearm skin tear which occurred on 08/20/2021, this has a dressing around it as well, healing without infection. Patient denies any mobility deficit other than her left hip, complains of pain currently 11/17, no open wound around her hip her pelvis Neuro: Normal speech and cognition, normal gait Initial Vital Signs Initial Vital Signs: Vital Signs Temperature 96.7 F L 09/08/21 16:08 Pulse Rate 93 H 09/08/21 16:08 Respiratory Rate 15 09/08/21 16:08 Blood Pressure 169/80 H 09/08/21 16:08 Pulse Oximetry 100 09/08/21 16:08 <Sandhya Burden DO - Last Filed: 09/09/21 20:14> Initial Vital Signs Initial Vital Signs: Vital Signs Temperature 96.7 F L 09/08/21 16:08 Pulse Rate 93 H 09/08/21 16:08 Respiratory Rate 15 09/08/21 16:08 Blood Pressure 169/80 H 09/08/21 16:08 Pulse Oximetry 100 09/08/21 16:08 Course <BRUCE Davis - Last Filed: 09/08/21 19:20> Orders Ordered: Acetaminophen (Acetaminophen 325 Mg Tablet) 650 mg PO Q6HR PRN PRN Reason: Fever/Mild Pain (1-3) Hydrocodone Bitart/Acetaminophen (Hydrocodone/Acet 5/325 Tablet) 1 tab PO Q4HR PRN PRN Reason: Pain, Moderate (4-6) Last Admin: 09/09/21 18:46 Dose: 1 tab Documented by: Admin: 09/09/21 15:00 Dose: 1 tab Documented by: Admin: 09/09/21 11:06 Dose: 1 tab Documented by: Admin: 09/09/21 06:57 Dose: 1 tab Documented by: Admin: 09/09/21 03:05 Dose: 1 tab Documented by: Admin: 09/08/21 23:08 Dose: 1 tab Documented by: DANA Enoxaparin Sodium (Enoxaparin 30 Mg/0.3 Ml Syringe) 30 mg SUBCUT DAILY [facility] Last Admin: 09/09/21 09:32 Dose: 30 mg Documented by: ANNA Gabapentin (Gabapentin 300 Mg Capsule) 300 mg PO QID [facility] Last Admin: 09/09/21 16:01 Dose: 300 mg Documented by: Admin: 09/09/21 12:19 Dose: 300 mg Documented by: Admin: 09/09/21 09:28 Dose: Not Given Documented by: ANNA Hydromorphone HCl (Hydromorphone 0.5 Mg Inj) 0.5 mg IV Q1H PRN PRN Reason: pain Last Admin: 09/09/21 09:32 Dose: 0.5 mg Documented by: Admin: 09/09/21 05:44 Dose: 0.5 mg Documented by: Admin: 09/09/21 04:39 Dose: 0.5 mg Documented by: Admin: 09/09/21 02:16 Dose: 0.5 mg Documented by: Admin: 09/09/21 00:41 Dose: 0.5 mg Documented by: Admin: 09/08/21 18:46 Dose: 0.5 mg Documented by: Admin: 09/08/21 17:38 Dose: 0.5 mg Documented by: OSCAR Labetalol HCl (Labetalol 20 Mg/4 Ml Syringe) 10 mg IV Q4HR PRN PRN Reason: Blood Pressure - High > 160 Lidocaine (Lidocaine Patch 1 Each Adh..Patch) 1 each TOP DAILY [facility] Last Admin: 09/09/21 09:32 Dose: 1 each Documented by: ANNA Naloxone HCl (Naloxone 0.4 Mg/Ml Vial) 0.2 mg IV Q2MIN PRN PRN Reason: Opiate Reversal Nicotine (Nicotine 21 Mg Patch) 21 mg TOP DAILY [facility] Last Admin: 09/09/21 07:12 Dose: Not Given Documented by: Admin: 09/09/21 04:05 Dose: 21 mg Documented by: DANA Ondansetron HCl (Ondansetron 4 Mg/2 Ml Inj) 4 mg IV Q8HR PRN PRN Reason: Nausea And Vomiting Last Admin: 09/09/21 11:07 Dose: 4 mg Documented by: ANNA Pantoprazole Sodium (Pantoprazole Dr 40 Mg Tablet) 40 mg PO 0700 [facility] Last Admin: 09/09/21 06:09 Dose: 40 mg Documented by: DANA Prednisone (Prednisone 5 Mg Tablet) 5 mg PO DAILY [facility] Last Admin: 09/09/21 10:42 Dose: Not Given Documented by: Admin: 09/09/21 09:31 Dose: 5 mg Documented by: ANNA Discontinued Medications Acetaminophen (Acetaminophen 325 Mg Tablet) 650 mg PO NOW ONE Stop: 09/09/21 12:04 Last Admin: 09/09/21 13:02 Dose: Not Given Documented by: ANNA Gabapentin (Gabapentin 300 Mg Capsule) 300 mg PO NOW ONE Stop: 09/09/21 12:04 Last Admin: 09/09/21 13:03 Dose: Not Given Documented by: ANNA Hydrocortisone (Hydrocortisone 100 Mg/2 Ml Vial) 50 mg IV NOW ONE Stop: 09/09/21 12:04 Last Admin: 09/09/21 13:03 Dose: Not Given Documented by: ANNA Sodium Chloride (Normal Saline 0.9%) 1,000 mls @ 100 mls/hr IV CONT [facility] Last Admin: 09/09/21 08:22 Dose: Not Given Documented by: ANNA Lactated Ringer's (Lactated Ringers) 1,000 mls @ 42 mls/hr IV CONT [facility] Last Admin: 09/09/21 13:03 Dose: Not Given Documented by: ANNA Nicotine (Nicotine 14 Patch) 14 mg TOP NOW ONE Stop: 09/08/21 17:04 Last Admin: 09/08/21 18:45 Dose: 14 mg Documented by: ANNA Vital Signs Vital signs: Vital Signs - 8 hr 09/08/21 16:08 Temperature 96.7 F L Pulse Rate 93 H Respiratory Rate 15 Blood Pressure 169/80 H Pulse Oximetry 100 <Sandhya Burden DO - Last Filed: 09/09/21 20:14> Orders Ordered: Acetaminophen (Acetaminophen 325 Mg Tablet) 650 mg PO Q6HR PRN PRN Reason: Fever/Mild Pain (1-3) Hydrocodone Bitart/Acetaminophen (Hydrocodone/Acet 5/325 Tablet) 1 tab PO Q4HR PRN PRN Reason: Pain, Moderate (4-6) Last Admin: 09/09/21 18:46 Dose: 1 tab Documented by: Admin: 09/09/21 15:00 Dose: 1 tab Documented by: Admin: 09/09/21 11:06 Dose: 1 tab Documented by: Admin: 09/09/21 06:57 Dose: 1 tab Documented by: Admin: 09/09/21 03:05 Dose: 1 tab Documented by: Admin: 09/08/21 23:08 Dose: 1 tab Documented by: DANA Enoxaparin Sodium (Enoxaparin 30 Mg/0.3 Ml Syringe) 30 mg SUBCUT DAILY [facility] Last Admin: 09/09/21 09:32 Dose: 30 mg Documented by: ANNA Gabapentin (Gabapentin 300 Mg Capsule) 300 mg PO QID [facility] Last Admin: 09/09/21 16:01 Dose: 300 mg Documented by: Admin: 09/09/21 12:19 Dose: 300 mg Documented by: Admin: 09/09/21 09:28 Dose: Not Given Documented by: ANNA Hydromorphone HCl (Hydromorphone 0.5 Mg Inj) 0.5 mg IV Q1H PRN PRN Reason: pain Last Admin: 09/09/21 09:32 Dose: 0.5 mg Documented by: Admin: 09/09/21 05:44 Dose: 0.5 mg Documented by: Admin: 09/09/21 04:39 Dose: 0.5 mg Documented by: Admin: 09/09/21 02:16 Dose: 0.5 mg Documented by: Admin: 09/09/21 00:41 Dose: 0.5 mg Documented by: Admin: 09/08/21 18:46 Dose: 0.5 mg Documented by: Admin: 09/08/21 17:38 Dose: 0.5 mg Documented by: OSCAR Labetalol HCl (Labetalol 20 Mg/4 Ml Syringe) 10 mg IV Q4HR PRN PRN Reason: Blood Pressure - High > 160 Lidocaine (Lidocaine Patch 1 Each Adh..Patch) 1 each TOP DAILY [facility] Last Admin: 09/09/21 09:32 Dose: 1 each Documented by: ANNA Naloxone HCl (Naloxone 0.4 Mg/Ml Vial) 0.2 mg IV Q2MIN PRN PRN Reason: Opiate Reversal Nicotine (Nicotine 21 Mg Patch) 21 mg TOP DAILY [facility] Last Admin: 09/09/21 07:12 Dose: Not Given Documented by: Admin: 09/09/21 04:05 Dose: 21 mg Documented by: DANA Ondansetron HCl (Ondansetron 4 Mg/2 Ml Inj) 4 mg IV Q8HR PRN PRN Reason: Nausea And Vomiting Last Admin: 09/09/21 11:07 Dose: 4 mg Documented by: ANNA Pantoprazole Sodium (Pantoprazole Dr 40 Mg Tablet) 40 mg PO 0700 [facility] Last Admin: 09/09/21 06:09 Dose: 40 mg Documented by: DANA Prednisone (Prednisone 5 Mg Tablet) 5 mg PO DAILY [facility] Last Admin: 09/09/21 10:42 Dose: Not Given Documented by: Admin: 09/09/21 09:31 Dose: 5 mg Documented by: ANNA Discontinued Medications Acetaminophen (Acetaminophen 325 Mg Tablet) 650 mg PO NOW ONE Stop: 09/09/21 12:04 Last Admin: 09/09/21 13:02 Dose: Not Given Documented by: ANNA Gabapentin (Gabapentin 300 Mg Capsule) 300 mg PO NOW ONE Stop: 09/09/21 12:04 Last Admin: 09/09/21 13:03 Dose: Not Given Documented by: ANNA Hydrocortisone (Hydrocortisone 100 Mg/2 Ml Vial) 50 mg IV NOW ONE Stop: 09/09/21 12:04 Last Admin: 09/09/21 13:03 Dose: Not Given Documented by: ANNA Sodium Chloride (Normal Saline 0.9%) 1,000 mls @ 100 mls/hr IV CONT [facility] Last Admin: 09/09/21 08:22 Dose: Not Given Documented by: ANNA Lactated Ringer's (Lactated Ringers) 1,000 mls @ 42 mls/hr IV CONT [facility] Last Admin: 09/09/21 13:03 Dose: Not Given Documented by: Nicotine (Nicotine 14 Patch) 14 mg TOP NOW ONE Stop: 09/08/21 17:04 Last Admin: 09/08/21 18:45 Dose: 14 mg Documented by: Y Vital Signs Vital signs: Vital Signs - 8 hr 09/08/21 16:08 Temperature 96.7 F L Pulse Rate 93 H Respiratory Rate 15 Blood Pressure 169/80 H Pulse Oximetry 100 MDM - Fall <Pearl Albin Diaz, [facility] - Last Filed: 09/08/21 19:20> Lab Data Result diagrams: 09/08/21 18:30 09/08/21 18:30 Labs: Urine Dip Bedside Urine Glucose Negative Bedside Urine Bilirubin - Negative Bedside Urine Ketone - Negative Urine Specific [place] 1.010 Bedside Urine Occult Blood - Negative Bedside Urine pH 6.0 Bedside Urine Protein - Negative Bedside Urine Urobilinogen 0.2 Bedside Urine Nitrite - Negative Bedside Urine Leukocytes - Negative Esterase Imaging Data Chest x-ray: Radiologist's Impression: PROCEDURE:? XR CHEST 1V ? INDICATIONS:? LEFT HIP PAIN AFTER FALL ? TECHNIQUE:? One view of the chest was acquired.? ? COMPARISON:? [facility], , XR CHEST 2V, 04/16/2021, 15:41. ? FINDINGS:? ? Surgical changes and devices:? None.? ? Lungs and pleura:? Chronic emphysematous changes are seen.? No focal infiltrate? No pleural effusions or pneumothorax.? ? Mediastinum:? Mediastinal contours appear normal.? Heart size is normal.? ? Bones and chest wall:? Age indeterminate fracture involving left posterior lateral 8th and 9th ribs are seen.? No suspicious bony lesions.? Overlying soft tissues appear unremarkable.? ? IMPRESSION:? Age indeterminate minimally displaced fractures involving left posterior lateral 8th and 9th ribs.? No acute cardiopulmonary pathology. ? ? Dictated by: Quintin Roper M.D. on 09/08/2021 at 16:49 ? ? Approved by: Quintin Roper M.D. on 09/08/2021 at 16:50 ? Extremity x-ray #1: Radiologist's Impression: PROCEDURE:? XR HIP W PEL IF DONE LT 2V ? INDICATIONS:? fall with hip pain ? TECHNIQUE:? AP pelvis with lateral view(s) of the left hip(s).? ? COMPARISON:? [facility], CR, XR HIP W PEL IF DONE RT 2V, 04/17/2021, 11:07. ? FINDINGS:? ? Bones:? There is a mildly displaced left femoral neck fracture.? No dislocation at the hip joint.? Degenerative changes are noted within the right hip. ? Soft tissues:? The visualized bowel gas pattern is normal.? No suspicious soft tissue calcifications.? ? ? IMPRESSION:? Mildly displaced left femoral neck fracture. ? Dictated by: Luisa Braxton M.D. on 09/08/2021 at 17:03 ? ? Approved by: Luisa Braxton M.D. on 09/08/2021 at 17:04 ? Extremity x-ray #2: Radiologist's Impression: PROCEDURE:? XR FOOT LT MIN 3V ? INDICATIONS:? ULCER 4TH TOE ? TECHNIQUE:? 3 views of the foot were acquired.? ? COMPARISON:? [facility], CR, XR FOOT LT MIN 3V, 05/23/2019, 12:09. ? FINDINGS:? ? Bones:? No fractures or dislocations.? 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 Severe 1st MTP, 2nd MTP joint degeneration.? Juxta-articular lucencies again noted at the 1st, 2nd MTP joint and 3rd metatarsal head.? Diffuse interphalangeal joint space narrowing.? Multiple hammertoe deformities.? Bones are osteopenic. ? Soft tissues:? No tibiotalar joint effusion.? Achilles tendon appears normal.? ? ? IMPRESSION:? ? 1. Although no definite new bony erosions are identified, plain film radiography is relatively insensitive in the acute phases of osteomyelitis and may not demonstrate radiographic changes for 15 days.? If acute osteomyelitis is of clinical concern, nuclear medicine regional bone scan or MRI is recommended.? ? 2. Joint degeneration and bony erosions appearing similar prior examination dated 05/23/2022. ? ? Dictated by: Michi Carolina [facility] Interpreted: Moreno Hilliard MD on 09/08/2021 at 15:35 ? Transcribed by: JETT on 09/08/2021 at 15:44? ? Approved by: Moreno Hilliard M.D. on 09/08/2021 at 17:17 ? MDM Narrative Medical decision making narrative: This is a 71-year-old female with history of rheumatoid arthritis, frequent falls, weakness and chronic steroid use, CKD, and multiple will repeat who was ambulating with her walker on campus today where she states she slipped and fell down because she was walking alone. She states that she has pain in her left hip since this happened, x-ray of her hip with pelvis shows a mildly displaced left femoral neck fracture without open wound, patient is neurovascularly intact, chest x-ray does not show any acute cardiopulmonary finding, patient's pain was treated with Dilaudid 0.5 mg, and patient was given a nicotine patch as she is a daily smoker. She denies pain anywhere else, lightheadedness, or mental status changes. X-ray of her left foot was obtained for a wound on her 4th toe, x-ray report shows no new bony erosions, joint degeneration and bony erosions are. Similar to prior exam on 05/23/2021. Lab work, COVID PCR are all pending. Consultation with Dr. Tucker who is on-call for Orthopedics regarding patient's left femoral neck fracture with displacement and patient accepts patient for consult and management but requests medicine admission. Dr. Felipe hospitalist, accepts patient for admission for left femoral neck fracture with displacement. Patient's wound is closed, she is neurovascularly intact, she multiple skin wounds and her arms and legs have chronic ecchymosis in various stages of healing due to her frequent falls. A wound care consult was placed, consultation for Dr. Tucker for orthopedic surgery was also placed. <Sandhya Burden DO - Last Filed: 09/09/21 20:14> Lab Data Labs: Urine Dip Bedside Urine Glucose Negative Bedside Urine Bilirubin - Negative Bedside Urine Ketone - Negative Urine Specific [place] 1.010 Bedside Urine Occult Blood - Negative Bedside Urine pH 6.0 Bedside Urine Protein - Negative Bedside Urine Urobilinogen 0.2 Bedside Urine Nitrite - Negative Bedside Urine Leukocytes - Negative Esterase Discharge Plan Departure Patient Disposition: Admitted As Inpatient Clinical Impression: Femoral neck fracture Qualifiers: Encounter type: initial encounter Fracture type: closed Laterality: left Qualified Code(s): S72.002A - Fracture of unspecified part of neck of left femur, initial encounter for closed fracture Admit Date/Time: 09/08/21 17:03 Admit Provider: Beatriz Lopez <Sandhya Burden, - Last Filed: 09/09/21 20:14> Cosign ED Attending Cosignature Attestation: I was immediately available in the department for consultation. Documentation has been reviewed. Imaging was reviewed. Agree with current plan.
[2021-09-08 17:17] VITALS: TEMP 36
[2021-09-08 17:21] VITALS: BP 179/83; PULSE 92; TEMP 36.1; O2SAT 100
[2021-09-08 17:31] VITALS: BMI 17.6
[2021-09-08] MEDS: HYDROMORPHONE 0.5 MG INJ IV ×2 (17:38→18:46)
--- NOTE | 2021-09-08 17:55 | PC.NURSE ---
Day shift: Pt on unit from Ed at approx 1755. Slider board will be used to transfer Pt. BP elevated. No c/o headache. Multiple bruises BUEs. BLE wrapped and she is seen by wound care 3 days a week. RA 97%. Oriented to room and call light. Be alarm is on. Agrees to not get OOB w/o help from staff. High fall risk at this time.
[2021-09-08 18:38] LABS: Appearance Urine UA CLEAR; Bilirubin Urine UA NEGATIVE (NEGATIVE); Color Urine UA YELLOW; Glucose Urine UA NEGATIVE (Negative); Ketones Urine UA NEGATIVE (NEGATIVE); Leukocyte Esterase Urine UA NEGATIVE (NEGATIVE); Nitrite Urine UA NEGATIVE (Negative); Occult Blood Urine UA NEGATIVE (Negative); Protein Urine UA NEGATIVE (Negative); Urobilinogen Urine UA 0.2 E.U./dL (0.2)
[2021-09-08 18:40] LABS: Add Manual Diff / Slide Review NO; Basophils Absolute Auto 100 /uL (0-100); Basophils Percent Auto 1.1 % (0-2); Eosinophils Absolute Auto 100 /uL (0-450); Hematocrit 31.7 % (36-46); Hemoglobin 10.5 g/dL (12.0-16.0); Lymphocytes Absolute Auto 1100 /uL (1100-4500); Lymphocytes Percent Auto 12.2 % (25-40); Mean Corpuscular HGB Conc 33.2 % (30-36); Mean Corpuscular Hemoglobin 26.9 PG (26-34); Mean Corpuscular Volume 81.2 fL (80-100); Monocytes Absolute Auto 800 /uL (0-900); Monocytes Percent Auto 8.1 % (3-14); Neutrophils Absolute Auto 7300 /uL (1500-7000); Neutrophils Percent Auto 77.6 % (50-75); Platelet Count 327 X10^3/uL (150-400); Red Cell Distribution Width 18.7 % (11.6-14.8); White Blood Cell Count 9.4 X10^3/uL (4.5-11.0)
[2021-09-08] MEDS: NICOTINE 14 PATCH 14 MG TOP (18:45)
[2021-09-08 18:46] LABS: COVID19 -Nasal RAPID Negative (Negative)
[2021-09-08 18:51] LABS: Bacteria Urine None Seen; RBC Urine None Seen (0-5/HPF); Squamous Epithelial Cell Urine None Seen (0-5/HPF); WBC Urine 1-5/HPF (0-5/HPF)
[2021-09-08 18:52] LABS: Culture Indicated Urine Cult Not Indicated
[2021-09-08 19:05] LABS: Alanine Aminotransferase 21 IU/L (<35); Albumin 3.8 g/dL (3.5-5.0); Albumin Globulin Ratio 1.1 (1.0-2.8); Alkaline Phosphatase 106 U/L (38-126); Aspartate Aminotransferase 45 IU/L (14-36); BUN Creatinine Ratio 30.5 (6-22); Bilirubin Total 0.4 mg/dL (0.2-1.3); Blood Urea Nitrogen 32 mg/dL (7-17); Calcium 9.1 mg/dL (8.4-10.2); Carbon Dioxide 30 mmol/L (22-32); Chloride 100 mmol/L (98-107); Estimated Glomerular Filt Rate 58 mL/min (>60); Globulin 3.4 g/dL (1.7-4.1); Glucose 92 mg/dL (80-110); HEMOLYSIS < 15 (0-50); Potassium 4.3 mmol/L (3.4-5.1); Sodium 137 mmol/L (137-145); Total Protein 7.2 g/dL (6.3-8.2)
[2021-09-08 19:39] VITALS: BP 137/67; PULSE 89; RESP 16; TEMP 36.7; O2SAT 100
--- NOTE | 2021-09-08 19:47 | DI.ECHO.S_ITS ---
[facility]---------+ [facility] +---------+ : : [address] [place] : : : : [id number] : : : : Phone: [phone] Echocardiogram Report + :Name: ÓSCAR CARLSON Study Date: 09/09/2021 Height: 63 in : :[facility] ReadingLocation: Weight: 100 lb : : Gender: Female BSA: 1.4 m2 : :: 1950 Age: 71 yrs BP: 137/67 mmHg: :Reason For Study: HX of rheumatic fever : :Ordering Physician: Sandro, : :Vivek Performed By: Pan Adorno : :Referring: Vivek Jo : + Interpretation Summary The left ventricular cavity is small. The ejection fraction is estimated to be 65-70%. There is no echo evidence for significant left ventricular outflow tract obstruction. The right ventricle is normal in size and function. Tip of the anterior mitral leaflet and attached chordae mildly calcified. No typical hockey-stick appearance. No mitral stenosis or mitral regurgitation. Overall no significant valvular pathology seen. The IVC is of normal diameter and collapses greater than 50% with a sniff. This suggests a low right atrial pressure of 3 mm Hg. Procedure: A two-dimensional transthoracic echocardiogram with color flow and Doppler was performed. The study quality was technically adequate. There is no prior echocardiogram noted for this patient. The patient was in normal sinus rhythm during the exam. Left Ventricle: The left ventricular cavity is small. There is normal left ventricular wall thickness. There is no echo evidence for significant left ventricular outflow tract obstruction. There is no thrombus. Left ventricular systolic function is normal. The ejection fraction is estimated to be 65-70%. There are no focal wall motion abnormalities. Diastolic parameters suggest a relaxation abnormality of the left ventricle, consistent with probable normal filling pressures. Right Ventricle: The right ventricle is normal in size and function. Atria: Both atria are normal in size. The interatrial septum grossly appears intact with no obvious evidence for an atrial septal defect. Mitral Valve: The mitral valve leaflets appear mildly thickened, but open well. Tip of the anterior mitral leaflet and attached chordae mildly calcified. No typical hockey-stick appearance. No mitral stenosis or mitral regurgitation. There is no mitral regurgitation noted. Aortic Valve: The aortic valve is not well visualized. The aortic valve opens well. There is no aortic valve stenosis. No aortic regurgitation is present. Tricuspid Valve: The tricuspid valve is normal. Pulmonary artery pressures cannot be estimated because of the lack of a measurable TR jet velocity. There is trace tricuspid regurgitation. Pulmonic Valve: The pulmonic valve is not well visualized. There is no pulmonic valvular regurgitation. Great Vessels: The aortic root is not well visualized. The ascending aorta could not be visualized. The IVC is of normal diameter and collapses greater than 50% with a sniff. This suggests a low right atrial pressure of 3 mm Hg. Pericardium/ Pleura There is no pericardial effusion. There is no pleural effusion. MMode/2D Measurements & Calculations LVIDd: 3.7 cm LVOT diam: 1.8 cm LVIDs: 2.4 cm FS: 35.1 % IVSd: 0.90 cm LVPWd: 0.80 cm LV lawson. diameter/BSA (cm/m^2): 2.6 LV sys. diameter/BSA (cm/m^2): 1.7 LA dimension: 1.9 cm RA long axis: 3.4 cm LA A2 area: 11.1 cm2 LA A4 area: 9.3 cm2 LA length (vol): 3.8 cm LA vol: 23.4 ml LA vol index: 16.2 ml/m2 TAPSE_phl: 1.8 cm Doppler Measurements & Calculations Ao V2 max: 103.0 cm/sec LVOT Max Prince: 88.1 cm/sec Ao V2 mean: 77.9 cm/sec LV V1 max P.1 mmHg Ao max P.0 mmHg LV V1 VTI: 16.1 cm Ao mean P.0 mmHg ROBERTA(I,D): 2.1 cm2 Ao V2 VTI: 19.6 cm ROBERTA(V,D): 2.2 cm2 sev ratio: 0.82 ROBERTA indexed to BSA (cm^2/m^2): 1.5 MV E max prince: 58.5 cm/sec SV(LVOT): 41.0 ml MV A max prince: 93.4 cm/sec MV E/A: 0.63 Med Peak E' Prince: 6.1 cm/sec E/E' med: 9.6 Lat Peak E' Prince: 8.0 cm/sec E/E' lat: 7.3 E/e' average: 8.4 MV dec time: 0.36 sec AV VR_phl: 0.86 MV P1/2t-pr_phl: 105.0 msec ROBERTA(VTI)/BSA_phl: 1.4 Reading Physician:11:44 AM
--- NOTE | 2021-09-08 19:49 | DI.CT.S_ITS ---
PROCEDURE: CT HEAD/BRAIN WO CON INDICATIONS: Fall and headache TECHNIQUE: Noncontrast 4.5 mm thick angled axial sections acquired from the foramen magnum to the vertex, with coronal and sagittal reformats. For radiation dose reduction, the following was used: automated exposure control, adjustment of mA and/or kV according to patient size. COMPARISON: [facility], CT, CT HEAD/BRAIN WO CON, 04/17/2021, 11:27. FINDINGS: Image quality: Excellent. CSF spaces: Basal cisterns are patent. No extra-axial fluid collections. There is mild to moderate cerebral volume loss, with resultant ventricular and sulcal prominence. Brain: No intracranial hemorrhage, mass, or mass effect. There are subcortical, periventricular and deep white matter hypodensities consistent with moderate chronic small vessel ischemic changes. The porter-white matter junction appears preserved. There is intracranial internal carotid artery atherosclerosis. Skull and face: Calvarium and visualized facial bones are intact, without suspicious lesions. Sinuses: Visualized sinuses and mastoids are clear. IMPRESSION: 1. No acute intracranial abnormality. 2. Moderate chronic white matter small vessel ischemic changes and mild to moderate cerebral volume loss. Dictated by: Eduin Ortega M.D. on 09/08/2021 at 20:33 Approved by: Eduin Ortega M.D. on 09/08/2021 at 20:35
--- NOTE | 2021-09-08 19:56 | PM.HP.1 ---
History of Present Illness History of Present Illness Date Patient Seen: 09/08/21 Date of Onset of Symptoms: 09/08/21 Chief complaint: Fall Narrative: Mrs. Shell is a 71-year-old female with a significant Hx of rheumatoid arthritis on chronic steroids low dose, cachectic, chronic smoker, with significant bilateral lower extremity wounds, nonhealing,who presents to the emergency department after a mechanical ground level fall in the lobby just prior to checking into the emergency department. Patient has a history of balance issues, weakness, and frequent falls. She has three large wounds that she is seeing Wound Care for on her left anterior leg, right heel, and right anterior forearm. These are all large skin tears that has been healing over time. Patient states that she should have not been walking alone, she was using a walker, she slipped and fell down landing on her left side and felt immediate pain in her left hip. She has good sensation and movement in her toes on her left side, is not able to flex her hip or move her hip at all right now, states her pain is 3/10. her pain is appropriately controlled after the pain medication given in the ER. Her Gus is at bedside, able to confirm most of the history. Patient also stated that she had rheumatic fever and received multiple doses of insulin when she was a child. She denies any other heart problems. Her overall activity level seems to be reasonable but difficulty in walking because of the rheumatoid arthritis and chronic lower extremity ulcers. At this time patient denies any chest pain, breathing difficulties. patient mentioned that during her fall she might have hit the head, unwitnessed fall, her thinks that she probably looked confused at some point after the fall. Initially patient was not sure what the fall details, during the conversation she did seem to be appropriate, able to make a reasonable conversation. Patient History Medical History Chronic steroid use Hyperlipidemia Hypertension Lumbosacral spondylosis with radiculopathy Rheumatoid arthritis Family & Social History Family History (Updated 09/08/21 @ 20:04 by Vivek Jo MD) Other Coronary artery disease Hypertension Social History: Patient is . Lives with her Gus. She has 1 son who also lives in [place]. She is a chronic smoker. Smokes half pack a day been smoking since she was 16. Not really motivated to quit at this time. No alcohol. No drugs. Active at baseline. Been having mobility issues because of the worsening of rheumatoid arthritis. Safety & Behavioral: Feels Safe in Current Yes Environment Been Physically Hurt or No Threatened By a Person Tobacco & Substance use: Smoking Status Current every day smoker alcohol intake never alcohol intake frequency holiday/special occasion Substance Use Type does not use Meds Home Medications and Allergies Home Medications Medication Instructions Recorded Confirmed Type gabapentin 300 mg capsule 300 mg PO QID #360 cap 10/02/20 09/08/21 Rx estradiol 0.5 mg tablet 0.5 mg PO DAILY #90 tab 10/19/20 09/08/21 Rx hydrochlorothiazide 25 mg tablet 25 mg PO DAILY #90 tab 11/23/20 09/08/21 Rx minocycline 100 mg capsule 100 mg PO BID 01/11/21 09/08/21 History potassium chloride 20 mEq 20 meq PO DAILY 08/20/21 09/08/21 History tablet,extended release prednisone 5 mg tablet 1 mg PO DAILY 08/20/21 09/08/21 History tramadol 50 mg tablet 50 mg PO BID PRN #30 tab 08/20/21 09/08/21 Rx medroxyprogesterone 2.5 mg tablet 2.5 mg PO DAILY #90 tab 08/28/21 09/08/21 Rx Allergies Allergy/AdvReac Type Severity Reaction Status Date / Time Sulfa (Sulfonamide AdvReac Severe VOMITING Verified 09/08/21 16:08 Antibiotics) AND FEVER [SULFA (SULFONAMIDE ANTIBIOTICS)] Review of Systems Review of Systems Narrative: Constitutional, eyes, ENT, cardiovascular, respiratory, gastrointestinal, genitourinary, musculoskeletal, skin, neurological, psychiatric, endocrine, hematologic review of systems done. Positive for headache, difficulty vision which is chronic, significant joint pains related to rheumatoid arthritis secondary, chronic, significant nonhealing wounds as mentioned in HPI related to potential peripheral artery disease, multiple bruises. Appetite is good. No acute loss of weight recently. Patient is generally thin built. All other systems has been reviewed, negative. Exam Vital Signs (past 8 hours): - 09/08/21 16:08 09/08/21 17:17 09/08/21 17:21 Temperature 96.7 F L 96.8 F L 97.0 F L Pulse Rate 93 H 92 H Respiratory Rate 15 Blood Pressure 169/80 H 179/83 H Pulse Oximetry 100 100 Oxygen Delivery Method Room Air Narrative Exam Narrative: Patient is alert oriented and able to make his local physician. General appearance cachectic, thin built. Does not seem to be in distress. Constitutional, eyes, ENT, cardiovascular, respiratory, GI, musculoskeletal, skin, neurologic, psychiatric examination done. Positive pertinent findings, thin built, cachectic, multiple bruises, purpuric lesions, hyperpigmentation, ulcerations of lower extremities noted, refer to nursing notes for full details of the wound, decreased peripheral pulses but felt in both lower extremities, heart sounds seems to be within normal limits a potential cardiac murmur in aortic area probably very low-grade, pain noted related to movement of lower extremity. I did not see any apparent visual deficit. No abdominal tenderness. All other examination done, positive findings noted, as mentioned above. Objective Labs Result Diagrams: 09/08/21 18:30 09/08/21 18:30 Labs: Laboratory Results - last 24 hr 09/08/21 09/08/21 09/08/21 17:20 17:28 18:30 WBC 9.4 RBC 3.90 L Hgb 10.5 L Hct 31.7 L MCV 81.2 MCH 26.9 MCHC 33.2 RDW 18.7 H Plt Count 327 Neut % (Auto) 77.6 H Lymph % (Auto) 12.2 L [place] % (Auto) 8.1 Eos % (Auto) 1.0 L Baso % (Auto) 1.1 Neut # (Auto) 7300 H Lymph # (Auto) 1100 [place] # (Auto) 800 Eos # (Auto) 100 Baso # (Auto) 100 Sodium Potassium Chloride Carbon Dioxide BUN Creatinine Estimated GFR BUN/Creatinine Ratio Glucose Calcium Total Bilirubin AST ALT Alkaline Phosphatase Total Protein Albumin Globulin Albumin/Globulin Ratio Urine Color Yellow Urine Appearance Clear Urine pH 7.0 Ur Specific [place] 1.010 Urine Protein Negative Urine Glucose (UA) Negative Urine Ketones Negative Urine Occult Blood Negative Urine Nitrate Negative Urine Bilirubin Negative Urine Urobilinogen 0.2 Ur Leukocyte Esterase Negative Urine RBC None seen Urine WBC 1-5/hpf Ur Squamous Epith Cells None seen Urine Bacteria None seen Ur Culture Indicated? Cult not indicated SARS-CoV-2 (PCR) Negative 09/08/21 18:30 WBC RBC Hgb Hct MCV MCH MCHC RDW Plt Count Neut % (Auto) Lymph % (Auto) [place] % (Auto) Eos % (Auto) Baso % (Auto) Neut # (Auto) Lymph # (Auto) [place] # (Auto) Eos # (Auto) Baso # (Auto) Sodium 137 Potassium 4.3 Chloride 100 Carbon Dioxide 30 BUN 32 H Creatinine 1.05 H Estimated GFR 58 L BUN/Creatinine Ratio 30.5 H Glucose 92 Calcium 9.1 Total Bilirubin 0.4 AST 45 H ALT 21 Alkaline Phosphatase 106 Total Protein 7.2 Albumin 3.8 Globulin 3.4 Albumin/Globulin Ratio 1.1 Urine Color Urine Appearance Urine pH Ur Specific [place] Urine Protein Urine Glucose (UA) Urine Ketones Urine Occult Blood Urine Nitrate Urine Bilirubin Urine Urobilinogen Ur Leukocyte Esterase Urine RBC Urine WBC Ur Squamous Epith Cells Urine Bacteria Ur Culture Indicated? SARS-CoV-2 (PCR) Assessment & Plan Assessment and plan (1) Femoral neck fracture: Qualifiers: Encounter type: initial encounter Fracture type: closed Laterality: left Qualified Code(s): S72.002A - Fracture of unspecified part of neck of left femur, initial encounter for closed fracture Status: Acute (2) Hypertension: Status: Acute (3) CKD (chronic kidney disease): Status: Acute (4) Lumbosacral spondylosis with radiculopathy: Status: Acute (5) Chronic steroid use: Status: Acute (6) Rheumatoid arthritis: Qualifiers: Rheumatoid arthritis location: multiple sites Rheumatoid factor presence: unspecified presence Qualified Code(s): M06.9 - Rheumatoid arthritis, unspecified Status: Acute (7) Non-healing ulcer: Qualifiers: Non-pressure ulcer stage: unspecified non-pressure ulcer stage Qualified Code(s): L98.499 - Non-pressure chronic ulcer of skin of other sites with unspecified severity Status: Chronic (8) Anemia: Qualifiers: Anemia type: due to chronic kidney disease Chronic kidney disease stage: stage 3 (moderate) Chronic kidney disease stage 3 subtype: stage 3a (GFR 45-59) Qualified Code(s): N18.31 - Chronic kidney disease, stage 3a; D63.1 - Anemia in chronic kidney disease Status: Acute Plan Patient admitted as an inpatient status with an expected length of stay greater than 2 midnights potentially up to 4 days Telemetry monitoring, fall precautions Discussed with Ortho, surgery potentially tomorrow evening or Monday morning. Agree with the Lovenox as a prophylaxis. Unable to use SCDs because of the lower extremity ulcers NPO from morning. IV labetalol as needed q.4 hours for blood pressure greater than 160 SBP Will continue steroid dosing of 5 mg given ongoing stress Hold off on his HCTZ given pending surgery EKG for further evaluation, echocardiogram given history of rheumatic fever Nicotine patch, extensive counseling done, patient is not motivated to quit, puts her at high risk with a chronic smoking history Patient activity levels seems to be reasonable, perioperative risk is moderate given significant smoking history, potential severe peripheral artery disease Will review EKG and echocardiogram for further recommendations if needed, but I believe no further cardiac intervention needed to proceed with the surgery Patient and family understands the high risk nature and overall prognosis. Adequate pain control, bedrest at this time. Lovenox for DVT prophylaxis 30 mg given low body weight and borderline kidney functions. SCDs cannot be applied because of the lower extremity ulcers. Protonix for GI prophylaxis. Patient is full code. Overall care plan extensively discussed with the patient and her at bedside Answered all the questions. Time Spent With Patient Critical Care time: I spent a total of [] minutes of critical care time on this patient's care today; this time is exclusive of procedural time.
[2021-09-08] MEDS: HYDROCODONE/ACET 5/325 TABLET 1 TAB PO (23:08)
[2021-09-08 23:39] VITALS: BP 142/68; PULSE 88; RESP 16; TEMP 36.2; O2SAT 99
[2021-09-09] MEDS: HYDROMORPHONE 0.5 MG INJ IV ×5 (00:41→09:32)
[2021-09-09 02:59] VITALS: BP 140/66; PULSE 96; RESP 16; TEMP 36.6; O2SAT 98
[2021-09-09] MEDS: HYDROCODONE/ACET 5/325 TABLET 1 TAB PO ×5 (03:05→18:46)
[2021-09-09] MEDS: NICOTINE 21 MG PATCH TOP (04:05)
[2021-09-09] MEDS: PANTOPRAZOLE DR 40 MG TABLET PO (06:09)
--- NOTE | 2021-09-09 07:15 | P.CONS_ITS ---
History of Present Illness Consult details Date Patient Seen: 09/08/21 Time Patient Seen: 19:30 Chief complaint: Fall Reason for consult: left femoral neck fracture Requesting provider: Pearl Diaz Narrative: 71 yo F hx RA, chronic steriods, multiple falls present for fall in hosptial lobby while here to get foot xrays. usually uses a walker, tripped, no LOC. corporate sales trainer is Dr. Corona. also multiple ER visits this year. sees wound care at [facility] for skin tears/ulcers. bandages from on bilateral feet/legs. c/o L hip pain. and some headache. no sob/cp/f/n/v Meds Home Medications and Allergies Home Medications Medication Instructions Recorded Confirmed Type gabapentin 300 mg capsule 300 mg PO QID #360 cap 10/02/20 09/08/21 Rx estradiol 0.5 mg tablet 0.5 mg PO DAILY #90 tab 10/19/20 09/08/21 Rx hydrochlorothiazide 25 mg tablet 25 mg PO DAILY #90 tab 11/23/20 09/08/21 Rx minocycline 100 mg capsule 100 mg PO BID 01/11/21 09/08/21 History potassium chloride 20 mEq 20 meq PO DAILY 08/20/21 09/08/21 History tablet,extended release prednisone 5 mg tablet 1 mg PO DAILY 08/20/21 09/08/21 History tramadol 50 mg tablet 50 mg PO BID PRN #30 tab 08/20/21 09/08/21 Rx medroxyprogesterone 2.5 mg tablet 2.5 mg PO DAILY #90 tab 08/28/21 09/08/21 Rx Allergies Allergy/AdvReac Type Severity Reaction Status Date / Time Sulfa (Sulfonamide AdvReac Severe VOMITING Verified 09/08/21 16:08 Antibiotics) AND FEVER [SULFA (SULFONAMIDE ANTIBIOTICS)] Review of Systems Review of Systems Narrative: denies sob, n/v/f/c/visual changes endorses fibromyalgia, wounds/ skin pigmentation changes/ thin skin/joint pain/imbalance Exam Vital Signs (past 8 hours): - 09/08/21 23:39 09/09/21 02:59 Temperature 97.2 F L 97.9 F Pulse Rate 88 96 H Respiratory Rate 16 16 Blood Pressure 142/68 H 140/66 Pulse Oximetry 99 98 Oxygen Delivery Method Room Air Oxygen Flow Rate 0 Narrative Exam Narrative: a&O x3 lying in bed. resp unlabored on RA, LCTAB heart RRR ab soft : buchanan in place UE: moves bilateral-- large patches skin pigmentation/old bruising. moves bilateral w/o limitation. no ttp RLE: no ttp. foot bandages in place, HT. also large areas of superfical old appearing bruisiing with chronic darkened skin pigmentation. LE: ER, shortened. demonstrates DF/PF, HT, LE bandages in place, small new appear skin tear anterior proximal tibia. knee w/o effusion. ttp at L hip, additional motor exam deferred-- known hip fx SILT, brisk cap refill Objective Imaging ap pelvis l lat hip: My impression: displaced left femoral neck fracture Labs Result Diagrams: 09/08/21 18:30 09/08/21 18:30 Labs: Laboratory Results - last 24 hr 09/08/21 09/08/21 09/08/21 17:20 17:28 18:30 WBC 9.4 RBC 3.90 L Hgb 10.5 L Hct 31.7 L MCV 81.2 MCH 26.9 MCHC 33.2 RDW 18.7 H Plt Count 327 Neut % (Auto) 77.6 H Lymph % (Auto) 12.2 L [place] % (Auto) 8.1 Eos % (Auto) 1.0 L Baso % (Auto) 1.1 Neut # (Auto) 7300 H Lymph # (Auto) 1100 [place] # (Auto) 800 Eos # (Auto) 100 Baso # (Auto) 100 Sodium Potassium Chloride Carbon Dioxide BUN Creatinine Estimated GFR BUN/Creatinine Ratio Glucose Calcium Total Bilirubin AST ALT Alkaline Phosphatase Total Protein Albumin Globulin Albumin/Globulin Ratio Urine Color Yellow Urine Appearance Clear Urine pH 7.0 Ur Specific [place] 1.010 Urine Protein Negative Urine Glucose (UA) Negative Urine Ketones Negative Urine Occult Blood Negative Urine Nitrate Negative Urine Bilirubin Negative Urine Urobilinogen 0.2 Ur Leukocyte Esterase Negative Urine RBC None seen Urine WBC 1-5/hpf Ur Squamous Epith Cells None seen Urine Bacteria None seen Ur Culture Indicated? Cult not indicated SARS-CoV-2 (PCR) Negative 09/08/21 18:30 WBC RBC Hgb Hct MCV MCH MCHC RDW Plt Count Neut % (Auto) Lymph % (Auto) [place] % (Auto) Eos % (Auto) Baso % (Auto) Neut # (Auto) Lymph # (Auto) [place] # (Auto) Eos # (Auto) Baso # (Auto) Sodium 137 Potassium 4.3 Chloride 100 Carbon Dioxide 30 BUN 32 H Creatinine 1.05 H Estimated GFR 58 L BUN/Creatinine Ratio 30.5 H Glucose 92 Calcium 9.1 Total Bilirubin 0.4 AST 45 H ALT 21 Alkaline Phosphatase 106 Total Protein 7.2 Albumin 3.8 Globulin 3.4 Albumin/Globulin Ratio 1.1 Urine Color Urine Appearance Urine pH Ur Specific [place] Urine Protein Urine Glucose (UA) Urine Ketones Urine Occult Blood Urine Nitrate Urine Bilirubin Urine Urobilinogen Ur Leukocyte Esterase Urine RBC Urine WBC Ur Squamous Epith Cells Urine Bacteria Ur Culture Indicated? SARS-CoV-2 (PCR) [facility] Medical History Chronic steroid use Hyperlipidemia Hypertension Lumbosacral spondylosis with radiculopathy Rheumatoid arthritis Family History (Updated 09/08/21 @ 20:04 by Vivek Jo MD) Other Coronary artery disease Hypertension Social History details: lives at home with Tobacco & Substance Use Smoking Status: Current every day smoker Tobacco: How many years used: 53 quit status: not considering quitting (declines smoking cessation) second hand exposure: No alcohol intake: never substance use type: does not use Assessment & Plan Assessment and plan (1) Femoral neck fracture: Qualifiers: Encounter type: initial encounter Fracture type: closed Laterality: left Qualified Code(s): S72.002A - Fracture of unspecified part of neck of left femur, initial encounter for closed fracture Status: Acute (2) Osteoporotic hip fracture: Status: Acute (3) Rheumatoid arthritis: Status: Acute Assessment & Plan narrative: 1. left displaced femoral neck fx: requires surgical tx to promote early mobilization and reduce morbidity of fracture. plan for cemented hemiarthropl asty or monday. (confirmed with OR plan for monday OR-- so NPO and MN , hold monday AM lovenox) 2. pt with fragility fx L hip also long time steriods for RA-- rec cemented hip for immediate WB and stability --check Vit D-- strat vit D 1000 units/day and calc 600 BID- follow up with pcp or endo outpt for additional consideration dexa and or additional metabolic bone treatment 3. RA--chronic steroid use-- contribute to osteoporsis and concerning for bone/soft tissue healing. rec cemented julius and consider incisional vac. risks , benefits, alteratives to surgery were discussed and consent was signed COVID-19 COVID-19 status: Negative Time Spent With Patient Time with patient: less than 30 minutes Critical Care time: I spent a total of [] minutes of critical care time on this patient's care today; this time is exclusive of procedural time.
[2021-09-09 07:45] VITALS: BP 138/70; PULSE 97; RESP 18; TEMP 36.8; O2SAT 99
[2021-09-09] MEDS: predniSONE 5 MG TABLET PO (09:31)
[2021-09-09] MEDS: ENOXAPARIN 30 MG/0.3 ML SYRINGE SUBCUT (09:32)
[2021-09-09] MEDS: LIDOCAINE PATCH 1 EACH ADH..PATCH TOP (09:32)
--- NOTE | 2021-09-09 11:00 | PC.RNWOUND ---
Patient resting in bed, has been seen at [facility] wound clinic in [facility] for bilateral lower extremity wounds. Patient has bilateral knee wounds, Right knee abrasion measures 2.2 x 1.5 x 0.1cm, slough and granular wound base with well-defined edges. Left knee skin tear measures 2.2 x 0.7 x 0.1cm, red granular wound base. Right medial malleolus has a 1.2 x 2.5 x 0.1cm wound, 50% slough and 50% granular with irregular edges. Left lower extremity has a 10.2 x 3.8 x 0.2cm ulcer, which patient says has gone down in size which is 90% slough/fibrin and 10% granular. This wound may have been treated with skin substitute at wound clinic, which sent most recent visit records. These wound are gently cleansed with saline and dressed with xeroform and bordered foam for protection, kerlix over skin, which is thin, fragile, has large ecchymotic areas from recent falls. Dorsalis pedis pulses are palpable, posterior tibial are faintly palpable. Capillary refill less than 3 seconds to bilateral Great toes. Patient tolerates cares well. Bordered foam placed to bilateral heels for protection.
[2021-09-09] MEDS: ONDANSETRON 4 MG/2 ML INJ IV (11:07)
[2021-09-09 11:40] VITALS: BP 153/73; PULSE 94; RESP 18; TEMP 36.7; O2SAT 100
[2021-09-09] MEDS: GABAPENTIN 300 MG CAPSULE PO ×3 (12:19→20:15)
--- NOTE | 2021-09-09 12:55 | CM.DANOTE ---
DCP: Payor: [employer] PCP: Power Hughes MD Pt admitted for due to a fall in the hospital lobby while trying to get her foot x-ray. Pt usually uses a walker. Pt sees wound care at [facility] for skin tears/ulcers. Pt complains of L hip pain and headaches. Pt to have surgery to promote early mobilization and reduce fracture on Monday. Pt is to be NPO by midnight tonight. DCP met with pt bedside this afternoon. Pt in bed reading book. Pt complains of a headache and is reading to take her mind off of it. Pt states that she has not driven since all of her health issues started and relies on her spouse and others to drive her. Pt states that she currently is under the care of Lisa CHAU that comes to her house and visits with her 3 times/ week. Pt states that if she is to go to a SNF, she would prefer to stay in town. Pt states that she usually gets around with a walker at baseline. P: Pt to have surgery tomorrow afternoon on her L femoral neck fracture. DCP to assess for needs following surgery and provide resources as needed for a safe discharge. DCP to continue to follow. Coty Sellers RN/LULY Discharge Planning/Care Management CM Discharge Assessment Start: 09/09/21 12:53 Freq: Status: Active Protocol: Document 09/09/21 12:53 LEORA (Rec: 09/09/21 12:54 LEORA [id number]) Discharge Planning Assessment Assigned Foreign Exchange Position Clerk Coty Sellers RN/LULY Advance Directives? No History Provided By Patient Prior Living Arrangements House Household Members spouse Type of transporation used prior to Relies on Others admit Comment POV via spouse Independent with ADL's Yes Is patient alert and oriented? Yes Comment Pt states she has Lisa [facility]AU currently Patient/Family Preference Residential Facility,Home with Home Health Barriers to Discharge Yes Comment Limited Mobility Referrals Initiated None needed Additional Comment At this time Whiteboard Updated in Patient Room with Yes name and ext. # of Foreign Exchange Position Clerk Comment Instructed to call if any other questions arise Review Status In Process Please Provide Date Initial DC 09/09/21 Assessment Was Performed Next Review Type Continued Stay Review
--- NOTE | 2021-09-09 16:34 | PM.PN.1 ---
Subjective Subjective Interval history: Daily hospitalists visit. Patient is Mrs. Shell who is a 71-year-old female with a significant Hx of? rheumatoid arthritis on chronic steroids? low dose, cachectic, chronic smoker, with significant bilateral lower extremity wounds, nonhealing,who presents to the emergency department after a mechanical ground level fall in the lobby just prior to checking into the emergency department.? Patient has a history of balance issues, weakness, and frequent falls.? She has three large wounds that she is seeing Wound Care for on her left anterior leg, right heel, and right anterior forearm.? These are all large skin tears that has been healing over time. When she fell when going to the emergency room, yesterday at the hospital she sustained sustained a left femoral neck fracture mildly displaced. Ortho has been consulted. Hospice Service following medical concerns. No new complaints. Exam Vital Signs (past 8 hours): - 09/09/21 11:40 Temperature 98.0 F Pulse Rate 94 H Respiratory Rate 18 Blood Pressure 153/73 H Pulse Oximetry 100 Oxygen Delivery Method Room Air Oxygen Flow Rate 0 Narrative Exam Narrative: Patient alert. Very cachectic. HEENT: Patient wears glasses. Pupils equal reactive light extraocular movements normal. Neck is supple. Cardiovascular: Heart sounds S1 and S2 with no extra sounds or murmurs. Respiratory: Reasonable air entry throughout the lung vang. No wheezes or crackles. Poor chest expansion. Gastrointestinal: Abdomen is soft. Nontender. Musculoskeletal: Poor muscle development on arms and legs. Able to move all extremities volitionally but elects not to move the left lower extremity due to pain of the left hip. Skin: Multiple skin lesions as noted above. Wound care nurses attending to these wounds. Poor skin quality. Objective ECG Impression: e. Labs Result Diagrams: 09/08/21 18:30 09/08/21 18:30 Labs: Laboratory Results - last 24 hr 09/08/21 09/08/21 09/08/21 17:20 17:28 18:30 WBC 9.4 RBC 3.90 L Hgb 10.5 L Hct 31.7 L MCV 81.2 MCH 26.9 MCHC 33.2 RDW 18.7 H Plt Count 327 Neut % (Auto) 77.6 H Lymph % (Auto) 12.2 L Placer % (Auto) 8.1 Eos % (Auto) 1.0 L Baso % (Auto) 1.1 Neut # (Auto) 7300 H Lymph # (Auto) 1100 Placer # (Auto) 800 Eos # (Auto) 100 Baso # (Auto) 100 Sodium Potassium Chloride Carbon Dioxide BUN Creatinine Estimated GFR BUN/Creatinine Ratio Glucose Calcium Total Bilirubin AST ALT Alkaline Phosphatase Total Protein Albumin Globulin Albumin/Globulin Ratio Urine Color Yellow Urine Appearance Clear Urine pH 7.0 Ur Specific Achille 1.010 Urine Protein Negative Urine Glucose (UA) Negative Urine Ketones Negative Urine Occult Blood Negative Urine Nitrate Negative Urine Bilirubin Negative Urine Urobilinogen 0.2 Ur Leukocyte Esterase Negative Urine RBC None seen Urine WBC 1-5/hpf Ur Squamous Epith Cells None seen Urine Bacteria None seen Ur Culture Indicated? Cult not indicated SARS-CoV-2 (PCR) Negative 09/08/21 18:30 WBC RBC Hgb Hct MCV MCH MCHC RDW Plt Count Neut % (Auto) Lymph % (Auto) Placer % (Auto) Eos % (Auto) Baso % (Auto) Neut # (Auto) Lymph # (Auto) Placer # (Auto) Eos # (Auto) Baso # (Auto) Sodium 137 Potassium 4.3 Chloride 100 Carbon Dioxide 30 BUN 32 H Creatinine 1.05 H Estimated GFR 58 L BUN/Creatinine Ratio 30.5 H Glucose 92 Calcium 9.1 Total Bilirubin 0.4 AST 45 H ALT 21 Alkaline Phosphatase 106 Total Protein 7.2 Albumin 3.8 Globulin 3.4 Albumin/Globulin Ratio 1.1 Urine Color Urine Appearance Urine pH Ur Specific Achille Urine Protein Urine Glucose (UA) Urine Ketones Urine Occult Blood Urine Nitrate Urine Bilirubin Urine Urobilinogen Ur Leukocyte Esterase Urine RBC Urine WBC Ur Squamous Epith Cells Urine Bacteria Ur Culture Indicated? SARS-CoV-2 (PCR) [facility] Medical History Chronic steroid use Hyperlipidemia Hypertension Lumbosacral spondylosis with radiculopathy Rheumatoid arthritis Family History (Updated 09/08/21 @ 20:04 by Vivek Jo MD) Other Coronary artery disease Hypertension Social History details: lives at home with household members: spouse Smoking Status: Current every day smoker Tobacco: How many years used: 53 quit status: not considering quitting (declines smoking cessation) second hand exposure: No alcohol intake: never substance use type: does not use Assessment & Plan Assessment & Plan narrative: Plan Patient admitted as an inpatient status with an expected length of stay greater than 2 midnights potentially up to 4 days Fall precautions while awaiting surgery. Discussed with Ortho, surgery will be tomorrow morning. Lovenox as a prophylaxis.? NPO from midnight tonight. IV labetalol as needed q.4 hours for blood pressure greater than 160 SBP Will continue steroid dosing of 5 mg given ongoing stress Hold off on his HCTZ given pending surgery EKG for further evaluation, echocardiogram given history of rheumatic fever. Echocardiogram shows small left ventricle and normal size right ventricle. Normal ejection fraction. No cyanosis noted. Nicotine patch, extensive counseling done, patient is not motivated to quit, puts her at high risk with a chronic smoking history Patient activity levels seems to be reasonable, perioperative risk is moderate given significant smoking history, potential severe peripheral artery disease Will review EKG and echocardiogram for further recommendations if needed, but I believe no further cardiac intervention needed to proceed with the surgery Patient and family understands the high risk nature and overall prognosis. Adequate pain control, bedrest at this time. Lovenox for DVT prophylaxis 30 mg given low body weight and borderline kidney functions.? SCDs cannot be applied because of the lower extremity ulcers. Protonix for GI prophylaxis. Follow clinically and labs. Time Spent With Patient Critical Care time: I spent a total of [] minutes of critical care time on this patient's care today; this time is exclusive of procedural time.
[2021-09-09 23:50] VITALS: BP 125/74; PULSE 101; RESP 18; TEMP 36.6; O2SAT 98
[2021-09-10] VITALS (15 sets, daily range): BP systolic 142–184; BP diastolic 72–100; PULSE 89–112; RESP 16–22; TEMP 35.8–36.9; O2SAT 98–100; BMI 17.6
--- NOTE | 2021-09-10 | DI.RAD.S_ITS ---
PROCEDURE: XR PELVIS 1-2V INDICATIONS: POST OP TECHNIQUE: 1 view of the lower pelvis acquired. COMPARISON: [facility], , XR PELVIS 1-2V, 09/10/2021, 15:28. FINDINGS: Bones: Patient is status post left hip hemiarthroplasty, with hardware components in expected positions. The hip joint appears congruent. The visualized bony structures appear intact. Soft tissues: Overlying postoperative changes are noted. No suspicious soft tissue densities. Sellers catheter is noted. IMPRESSION: Status post left hip hemiarthroplasty with expected postoperative findings. Dictated by: Evaristo Hensley M.D. on 09/10/2021 at 18:08 Approved by: Evaristo Hensley M.D. on 09/10/2021 at 18:09
--- NOTE | 2021-09-10 | DI.RAD.S_ITS ---
PROCEDURE: XR PELVIS 1-2V INDICATIONS: INTER OP TECHNIQUE: Intra-operative view of the pelvis and hip acquired. COMPARISON: [facility], CR, XR HIP W PEL IF DONE LT 2V, 09/08/2021, 16:12. FINDINGS: Bones: Left hip arthroplasty. Intraoperative devices prior to placement of arthroplasty prostheses are in expected positions. No fractures or suspicious bony lesions. Soft tissues: Overlying surgical retractors are present, along with other intraoperative changes. IMPRESSION: Intraoperative guidance provided for left hip arthroplasty planning. Dictated by: Moreno Hilliard M.D. on 09/10/2021 at 16:52 Approved by: Moreno Hilliard M.D. on 09/10/2021 at 16:53
[2021-09-10] MEDS: SODIUM CHLORIDE 0.9% 1,000 ML 84 ML IV ×2 (00:06→18:25)
[2021-09-10] MEDS: ACETAMINOPHEN 325 MG TABLET 650 MG PO ×2 (04:44→22:29)
--- NOTE | 2021-09-10 04:50 | PC.NURSE ---
Patient woke up at 0430 confused, calling out for . I entered the room, patient repeatedly asked who I was and why I was in her room. Was able to mostly reorient patient after roughly 15 minutes. Able to state place, situation, full name, and date of . Patient stated they do not remember time spent in the hospital up until this point.
--- NOTE | 2021-09-10 06:41 | PC.NURSE ---
Patient stated they were having difficulty taking a full breath, pain on full inspiration. O2 96% on RA. No signs of distress. Contacted RT and requested eval, told they would be up as soon as they could.
[2021-09-10] MEDS: PANTOPRAZOLE DR 40 MG TABLET PO (06:49)
[2021-09-10] MEDS: OXYCODONE IR 10 MG TABLET PO ×3 (09:45→23:36)
[2021-09-10] MEDS: LIDOCAINE PATCH 1 EACH ADH..PATCH TOP (09:45)
[2021-09-10] MEDS: predniSONE 5 MG TABLET PO (09:46)
[2021-09-10] MEDS: GABAPENTIN 300 MG CAPSULE PO ×3 (09:46→21:00)
[2021-09-10] MEDS: NICOTINE 21 MG PATCH TOP (09:46)
--- NOTE | 2021-09-10 12:04 | PC.NURSE ---
Day shift: Pre-op meds and orders in system. Will leave for pre-op staff. Per ADMITTING OFFICERpretzel twisting machine operator will be later than the 1245 start time planned.
--- NOTE | 2021-09-10 12:57 | PC.NURSE ---
Day shift: Pt off unit for left hip surgery at approx 1300. Report given to surgery RN. Pt's 2 each silver rings placed in specimen cup with Pt sticker. Pt awake at time of pick-up and was able to interact with surgery RN's.
[2021-09-10] MEDS: LACTATED RINGERS 1,000 ML 42 ML IV ×2 (13:42→15:17)
--- NOTE | 2021-09-10 14:01 | PM.PREOP ---
Pre-operative Note COVID-19 COVID-19 status: Negative Interval Note History & Physical reviewed/Exam performed by Physician: Yes Changes to H&P: No
--- NOTE | 2021-09-10 14:03 | DIET.CONS ---
Dietary Consultation Note Admission Date: 09/08/2021 17:03 Assessment: 71 y/o F admitted after a mechanical GLF in the lobby prior to checking into the emergency department. NPO today in prep for procedure to tx left displaced femoral neck fx. PMH of CKD and significnat bilateral LE non healing wounds, sees wound OP. h/o iron deficiency reported by pt and supported by labs. States she has been taking iron and vit c daily. Nutrition focused physical exam indicates severe PCM with visible muscle wasting and fat losses. Denies any recent changes to diet, but per EMR (supported by pt report) she has loss significant wt recently. This may be related to inadequate PO and increased nutrient needs due to non healing wounds. Wears dentures. Wt hx indicates -3.6kg over 2 or less months. 7.4% loss over <2 months (severe). Diet recall: B: eggs with cheese and half n half L: nothing or yogurt D: salad mostly, meat, starch Sn: boost ONS Cr 1.05 H, eGFR 58 L Ht: 160.02 cm Wt: 45.359 kg BMI: 17.6 UBW: 47-50kg since 2018 Last BM: () MNA: Oscar Score: 15 Diet: 09/10/21 00:01 NPO Diet Diet Modifications: NPO Type: NPO except for Meds Labs: RBC 3.90 X10^6/uL (4.0-5.2) L 09/08/21 18:30 Hgb 10.5 g/dL (12.0-16.0) L 09/08/21 18:30 Hct 31.7 % (36-46) L 09/08/21 18:30 Creatinine 1.05 mg/dL (0.52-1.04) H 09/08/21 18:30 Nutrition Diagnosis: Acute severe protein calorie malnutrition r/t increased nutrient needs for healing and inadequate energy intake aeb BMI <18, 7.3% loss in <2 months, physical signs of PCM of boxed shoulders/severe temporal scooping/severe depressed interosseous muscle/ protruding clavicle, and non healing wounds. Interventions: 1. After NPO status adv, coordinated with the kitchen to provide the following: - Freddie BID - high kcal ONS daily - fruit cup with meals to support healing and iron deficiency 2. MNT education for wound healing nutrition. Mamta is very receptive. EER: 68g PRO (1.5g/kg per wounds) 1590 kcals (35 kcal/kg per BMI and wound) Monitoring/Evaluations: will monitor kidney labs with increased protein intake, will monitor wt, ONS acceptance and PO after NPO status is adv Electronically Signed by: Kathie Guzman 09/10/21 14:03 Clinical Dietitian [address] [address]
[2021-09-10] MEDS: HYDROCORTISONE 100 MG/2 ML VIAL 50 MG IV (14:40)
[2021-09-10] MEDS: CEFAZOLIN 2 GM/20 ML SYRINGE IV ×2 (14:44→22:32)
[2021-09-10] MEDS: TRANEXAMIC ACID 1,000 MG VIAL 2000 MG INJ (14:58)
--- NOTE | 2021-09-10 15:03 | SUR.OPER ---
Bruising all over the body, open wounds bilateral lower legs, heels, see wound care notes. Skin very fragile, left lower leg/heel dressings taken off for the procedure due to surgical site, open wounds prepped with Betadine per Dr Moon's order.
--- NOTE | 2021-09-10 15:10 | SUR.OPER ---
Lateral on padded OR bed. Extra gel pads placed below patient. Gel axillary roll. Arms secured on gel padded armboard with 2 pillows supporting top arm. Padded hip positioner braces x4 - anterior and posterior chest and pelvis. Additional gel pad used anterior pelvis. Gel pad under bottom leg from knee to foot and secured with tape over sheet. Positioning directed and approved by Surgeon.
--- NOTE | 2021-09-10 16:23 | PC.NURSE ---
Day shift: Pt remains off of AC unit at this time (1430).
[2021-09-10] MEDS: EPINEPHrine 1 MG/ML TOP (16:30)
--- NOTE | 2021-09-10 17:01 | PM.OP.1 ---
Operative Date/Time/Diagnoses Date of procedure: 09/10/21 Time of procedure: 14:00 Pre-op diagnosis: Displaced left femoral neck hip fracture Rheumatoid arthritis Chronic steroid use BMI 17 Post-op diagnosis: same Procedure & Clinicians Procedure: Hemiarthroplasty left hip CPT code 02550 Same procedure as scheduled: Yes Indications: Patient is a 71-year-old female that that had a ground level fall in the hospital lobby when she was here for other reasons. Fell onto her left side and sustained a left femoral neck fracture. She was unable ambulate. She typically ambulates with a walker. She has rheumatoid arthritis or other comorbidities. She takes chronic steroids. She has a multiple lower extremity wound issues that she sees wound care for. She was admitted to the medicine team. She was optimized for surgery and indicated for a hemiarthroplasty for a displaced femoral neck fracture. The risks and benefits of the procedure have been discussed with the patient has been given the opportunity to ask questions. The risks of surgery include but are not limited to infection, leg-length discrepancy, persistence of pain, damage to nerves and blood vessels, posttraumatic arthritis, DVT, PE, cardiopulmonary complications, myocardial infarction, stroke and . The patient expressed a thorough understanding of the risks and benefits of surgery and has elected to proceed. Consent was signed. During the operation, the services of a physician assembler surgical garment were medically indicated and necessary to provide the exposure of the operative site for the surgical procedure and to maintain the limb in a proper position to carry out the operation safely and efficiently. Without a qualified administrative support assistant being present this would extended the operative procedure and made the procedure technically more difficult to perform. Surgeon: Tanna Moon Miscellaneous Machine Operator: Nba Ruano Anesthesia Type: General Operative Notes Findings: Displaced femoral neck fracture, left Closure Type: primary Specimen(s): none sent Estimated Blood Loss (mL): 150 Blood products transfused: none Tourniquet time (min): 0 Procedure in detail: Hemiarthroplasty for femoral neck fracture CPT code 89485. Patient was seen in the preoperative area the site of surgery was marked and informed consent confirmed. The patient was brought back to the operating room by the anesthesia team. Patient was positioned supine on the operative table. General anesthetic was administered. Patient was then moved into the lateral position. The hip christian counselor positioner pads were then placed. A well-padded axillary roll was placed and the arms were appropriately positioned. The affected lower extremity, left, was prepped and draped from the ankle to the iliac crest with ChloraPrep in the standard fashion sterile drapes were placed. Formal time-out procedure was performed confirming the patient's side and site of surgery, presence of informed consent, administration of appropriate preoperative antibiotics. Hip was approached through a standard posterior approach. Dissection was carried down through the skin and subcutaneous tissues sharply through the skin and then with the Bovie through the subcutaneous tissues. The fascia lion was exposed and opened. Fascia was opened using the Bovie and the gluteus mauro was spread with finger retraction. The Charnley retractor was placed. The inflamed bursa was resected. The piriformis was then identified. A Cobra retractor was placed under the gluteus medius to help expose the external rotators. The piriformis and short external rotators were tagged with a 2 FiberWire and divided of the trochanter. These were then retracted posteriorly to protect sciatic nerve. The femur was then flexed and internally rotated to present the femoral neck and the fracture. A corkscrew and a Krueger were used to remove the femoral head from the acetabulum. This was measured to fit a 41 head. Next the femur was presented. A clean-up neck cut was made in a minimal fashion. The trial head size was trialed in the acetabulum. Attention was then turned to the femur. The canal was opened with a box cutting osteotome. This followed by the canal finer and a lateralizing Reamer. The tapered reamers were then used up to a size 12. Then broaching was sequentially done up to a size 11. Trial components were placed. The patient was stable in the position of sleep, squatting and could be put through a range of motion with 70? of internal rotation without dislocation. This was felt to be appropriate. An intraop a AP pelvis x-ray was obtained to assess component position. Final components were then selected. The final stem was a size 11. Femoral canal was prepared . The distal small restrictor was placed approximately 1 cm distal to the end of the planned implant. The bone was meticulously cleaned with pulse lavage. Canal was then packed with gauze. Two packages of antibiotic cement were mixed and carefully pressurized into the femoral canal. The femoral component was then placed without difficulty. This was held in place until the cement hardened. The repeat trial reduction showed good range of motion and stability. Repeat intraoperative x-ray demonstrated the same. Final head and neck were then carefully placed. The wound was irrigated. The capsule and muscular flap was repaired with the 2. FiberWire. Next the short external rotators were repaired to the greater trochanter through drill holes in the greater trochanter using the 2.5 drill and a Merchantryon suture Passer. These were tied with the leg in abduction. The wound was then irrigated again. The fascia lion was closed with 0 Vicryl and the subcutaneous layer was closed with 2-0 Vicryl and the skin with taurus. A sharlene dressing was placed. An abduction pillow was placed for protection. The drapes removed and the patient was taken to the recovery room in good condition. There no immediate complications from this procedure. All counts were correct. Postoperative AP pelvis x-ray was obtained in the PACU showed appropriate alignment of the cemented hip hemiarthroplasty with no evidence of fracture. Complications: none Post-operative Condition: stable Disposition: PACU Plan for aftercare: Weightbear as tolerated left lower extremity, abduction pillow when in bed. Will have sharlene dressing in place. Battery on this should last for 7 days. Once that runs out the hose can just be cut and a Band-Aid or dressing placed over the area where the hose was cut. [place] will stay in place. Will follow-up in 10-14 days for wound check. With 2 doses of postoperative antibiotics. Vitamin-D will be checked while in the hospital. Outpatient endocrine metabolic bone workup advised
--- NOTE | 2021-09-10 18:09 | PC.NURSE ---
Day shift: Pt back on unit from PACU at approx 1810. BP elevated 185/93. RA 100%. HR 104. SCD's will not be placed on Pt at this time as she will not tolerated them. Spouse in room for support at this time. Will continue with post-op plan of care. Call light in reach. Pt is alert to self and birthday. Knows she is in [place] and that she broke her hip. Bed alarm is on.
--- NOTE | 2021-09-10 18:30 | P.PN_ITS ---
Subjective Subjective Interval history: Daily hospitalist visit. Patient currently is postoperative. May complaints are nausea and significant pain. Patient resting quietly in room with family members attending. No complaints of diaphoresis chest pain or shortness of breath. No abdominal pain. Exam Vital Signs (past 8 hours): - 09/10/21 13:13 09/10/21 17:06 09/10/21 17:11 Temperature 98.2 F 97.3 F L Pulse Rate 105 H 93 H 93 H Respiratory Rate 16 19 19 Blood Pressure 142/82 H 142/81 H 144/85 H Pulse Oximetry 98 99 99 09/10/21 17:16 09/10/21 17:21 09/10/21 17:29 Temperature Pulse Rate 93 H 89 99 H Respiratory Rate 18 19 22 Blood Pressure 162/89 H 169/88 H 174/95 H Pulse Oximetry 99 99 98 09/10/21 17:46 09/10/21 17:59 09/10/21 18:10 Temperature 96.9 F L 96.6 F L Pulse Rate 99 H 99 H 101 H Respiratory Rate 21 19 16 Blood Pressure 168/100 H 174/92 H 184/98 H Pulse Oximetry 99 99 100 Oxygen Delivery Method Room Air Oxygen Flow Rate 0 Narrative Exam Narrative: Patient alert and responsive. Oriented to person and place. HEENT: Pupils equal reactive to light extraocular movements normal. Cardiovascular: Heart sounds normal. Respiratory: Adequate air entry. Gastrointestinal: Abdomen soft nontender. Musculoskeletal: Tenderness left hip. Objective Labs Result Diagrams: 09/08/21 18:30 09/08/21 18:30 [facility] Medical History Chronic steroid use Hyperlipidemia Hypertension Lumbosacral spondylosis with radiculopathy Rheumatoid arthritis Family History (Updated 09/08/21 @ 20:04 by Vivek Jo MD) Other Coronary artery disease Hypertension Social History details: lives at home with household members: spouse Smoking Status: Current every day smoker Tobacco: How many years used: 53 quit status: not considering quitting (declines smoking cessation) second hand exposure: No alcohol intake: never substance use type: does not use Assessment & Plan Assessment & Plan narrative: 1. Postoperative left hip hemiarthroplasty completed earlier today. Needing pain control. 2. Postoperative nausea. Needing antiemetic control. 3. Underlying rheumatoid arthritis on prednisone. On higher dose corticosteroid at this time and can continue for 1 more day postoperative. 4. Very friable skin with multiple wounds on the extremities. Wound Care is following. 5. Other comorbidities include chronic steroid use, hyperlipidemia, hypertension, lumbar sacral spondylosis radiculopathy. Continue patient's regular medication. 6. Physiotherapy to mobilize. Time Spent With Patient Critical Care time: I spent a total of [] minutes of critical care time on this patient's care today; this time is exclusive of procedural time.
[2021-09-10] MEDS: ONDANSETRON 4 MG/2 ML INJ IV ×2 (18:31→22:01)
--- NOTE | 2021-09-10 18:37 | P.PN_ITS ---
Exam Vital Signs (past 8 hours): - 09/10/21 13:13 09/10/21 17:06 09/10/21 17:11 Temperature 98.2 F 97.3 F L Pulse Rate 105 H 93 H 93 H Respiratory Rate 16 19 19 Blood Pressure 142/82 H 142/81 H 144/85 H Pulse Oximetry 98 99 99 09/10/21 17:16 09/10/21 17:21 09/10/21 17:29 Temperature Pulse Rate 93 H 89 99 H Respiratory Rate 18 19 22 Blood Pressure 162/89 H 169/88 H 174/95 H Pulse Oximetry 99 99 98 09/10/21 17:46 09/10/21 17:59 09/10/21 18:10 Temperature 96.9 F L 96.6 F L Pulse Rate 99 H 99 H 101 H Respiratory Rate 21 19 16 Blood Pressure 168/100 H 174/92 H 184/98 H Pulse Oximetry 99 99 100 Oxygen Delivery Method Room Air Oxygen Flow Rate 0 Objective Labs Result Diagrams: 09/08/21 18:30 09/08/21 18:30 [facility] Medical History Chronic steroid use Hyperlipidemia Hypertension Lumbosacral spondylosis with radiculopathy Rheumatoid arthritis Family History (Updated 09/08/21 @ 20:04 by Vivek Jo MD) Other Coronary artery disease Hypertension Social History details: lives at home with household members: spouse Smoking Status: Current every day smoker Tobacco: How many years used: 53 quit status: not considering quitting (declines smoking cessation) second hand exposure: No alcohol intake: never substance use type: does not use Assessment & Plan Assessment & Plan narrative: Of note, it was dictated that the patient would continue on a higher dose of corticosteroid. However patient will return to her regular dose of prednisone 5 mg daily. In the perioperative. Patient was giving a loading dose of hydrocortisone by the coremaker floor. That should be sufficient for the patient. Time Spent With Patient Critical Care time: I spent a total of [] minutes of critical care time on this patient's care today; this time is exclusive of procedural time.
[2021-09-10] MEDS: ONDANSETRON 4 MG ODT PO (20:02)
[2021-09-10] MEDS: METOCLOPRAMIDE 10 MG/2 ML INJ 5 MG IV (21:02)
[2021-09-10] MEDS: HYDROMORPHONE 1 MG INJ 0.5 MG IV (21:21)
[2021-09-10] MEDS: OXYCODONE IR 5 MG TABLET PO (22:32)
[2021-09-11] MEDS: ONDANSETRON 4 MG ODT PO ×2 (00:01→05:15)
[2021-09-11] MEDS: TRAMADOL 50 MG TABLET PO ×2 (00:34→20:03)
[2021-09-11] MEDS: HYDROMORPHONE 0.5 MG INJ IV ×3 (01:11→05:08)
[2021-09-11] MEDS: ONDANSETRON 4 MG/2 ML INJ IV (02:02)
[2021-09-11] MEDS: METOCLOPRAMIDE 10 MG/2 ML INJ 5 MG IV (04:21)
--- NOTE | 2021-09-11 05:53 | PC.NURSE ---
Patient had frequent bouts of confusion throughout the night. Able to reorient relatively quickly. Spoke with her son Ze who stated she has a degenerative cognitive condition which is being managed through [facility], does not appear to be noted in her medical record. He expresses concerns of patient's care after discharge as she and her just sold their house to buy a motor home.
[2021-09-11 06:03] LABS: Hemoglobin 9.4 g/dL (12.0-16.0); Mean Corpuscular HGB Conc 32.5 % (30-36); Mean Corpuscular Hemoglobin 26.5 PG (26-34); Mean Corpuscular Volume 81.4 fL (80-100); Platelet Count 306 X10^3/uL (150-400); Red Blood Cell Count 3.56 X10^6/uL (4.0-5.2); Red Cell Distribution Width 18.3 % (11.6-14.8); White Blood Cell Count 12.5 X10^3/uL (4.5-11.0)
[2021-09-11] MEDS: PANTOPRAZOLE DR 40 MG TABLET PO (06:07)
[2021-09-11] MEDS: CEFAZOLIN 2 GM/20 ML SYRINGE IV (06:07)
[2021-09-11 07:00] VITALS: BP 140/78; PULSE 93; RESP 17; TEMP 36.1; O2SAT 99
[2021-09-11] MEDS: GABAPENTIN 300 MG CAPSULE PO ×4 (08:20→21:41)
[2021-09-11] MEDS: SODIUM CHLORIDE 0.9% 1,000 ML 84 ML IV ×2 (08:20→18:55)
[2021-09-11] MEDS: NICOTINE 21 MG PATCH TOP (08:21)
[2021-09-11] MEDS: predniSONE 5 MG TABLET PO (08:21)
[2021-09-11] MEDS: LIDOCAINE PATCH 1 EACH ADH..PATCH TOP (08:22)
--- NOTE | 2021-09-11 09:33 | PM.PNPO.1 ---
Subjective Subjective Date Patient Seen: 09/11/21 Time Patient Seen: 09:33 Interval history: The patient reports that she has left hip pain at the site of the operation. Exam Vital Signs (past 8 hours): - 09/11/21 07:00 Temperature 97.0 F L Pulse Rate 93 H Respiratory Rate 17 Blood Pressure 140/78 Pulse Oximetry 99 Oxygen Delivery Method Room Air Oxygen Flow Rate 0 Narrative Exam Narrative: Left hip wound is dressed with minimal drainage on the bandage. Calf is soft. Light touch and motion are intact in the left lower extremity. Length and rotation of the left lower extremity appear appropriate. Objective Labs Result Diagrams: 09/11/21 05:45 09/08/21 18:30 Labs: Laboratory Results - last 24 hr 09/11/21 05:45 WBC 12.5 H RBC 3.56 L Hgb 9.4 L Hct 29.0 L MCV 81.4 MCH 26.5 MCHC 32.5 RDW 18.3 H Plt Count 306 PFSH Medical History Chronic steroid use Hyperlipidemia Hypertension Lumbosacral spondylosis with radiculopathy Rheumatoid arthritis Family History (Updated 09/08/21 @ 20:04 by Vivek Jo MD) Other Coronary artery disease Hypertension Social History details: lives at home with household members: spouse Smoking Status: Current every day smoker Tobacco: How many years used: 53 quit status: not considering quitting (declines smoking cessation) second hand exposure: No alcohol intake: never substance use type: does not use Assessment & Plan Post-op Postoperative Procedures: Procedures Operation Date: 09/10/21 12:45 Actual Procedure Side Surgeon p Cemented Hemiarthroplasty Left Tanna Moon MD Postoperative day: 1 Postoperative status: doing well and anemia Postoperative status narrative: Patient is stable postoperative day 1 status post left hip hemiarthroplasty by Dr. Moon. She has anemia but it is not at the level that would require transfusion. She is a very debilitated patient and was ambulating with a walker prior to her fall. Postoperative plan: routine post-op care and ambulate Postoperative plan narrative: Mobilize with physical therapy, weight-bearing as tolerated on the left lower extremity. Posterior hip precautions. She likely will require nursing home facility placement and I discussed this with discharge planning today.
--- NOTE | 2021-09-11 10:00 | PT.IIE ---
Current Diagnoses Anemia in chronic kidney disease (09/08/21) Essential (primary) hypertension (09/08/21) Non-pressure chronic ulcer of skin of other sites with unspecified severity (09/08/21) Rheumatoid arthritis, unspecified (09/08/21) Other spondylosis with radiculopathy, lumbosacral region (09/08/21) Age-related osteoporosis with current pathological fracture, unspecified femur, initial encounter for fracture (09/08/21) Chronic kidney disease, stage 3a (09/08/21) Chronic kidney disease, unspecified (09/08/21) Fracture of unspecified part of neck of left femur, initial encounter for closed fracture (09/08/21) Surgery Performed Operation Date: 09/10/21 12:45 Actual Procedures p Cemented Hemiarthroplasty(Left) - Tanna Moon MD Medical History (Last Reviewed 09/09/21 @ 07:18 by Tanna Moon MD) Chronic steroid use Hyperlipidemia Hypertension Lumbosacral spondylosis with radiculopathy Rheumatoid arthritis Physical Therapy Inpatient Evaluation/Re-Eval M1 PT/OT-IP Prior Functional Status Start: 09/11/21 12:55 Freq: NEEDED Status: Active Protocol: Document 09/11/21 10:00 AB (Rec: 09/11/21 13:11 AB [id number]) Medical Review Prior Functional Status Medical History Reviewed Yes Communication able to answer question but with slight confusion Mobility and Gait pt stated that she is modified indepednet with all mobilities and ambulation using a 4WW but has h/o falls; stated that she has a stroke ~ 1 month ago and has been falling at home and has had 14 falls since then Social History Household Members spouse Living Arrangements House Number of Floors (Floors) One Floor Number of Stairs To Enter/Railing? 4 steps wide 2 rails to enter; pt stated that she usually uses the L rail Home Environment High Toilet,Tub/Shower Home Equipment Four Wheel Walker,Shower Seat with Backrest,Hand Held Shower ,Grab Bars Near Toilet,Grab Bars In Shower Additional Social History Comment pt has a toilet safety frame M2 PT-IP Current Condition Start: 09/11/21 12:55 Freq: NEEDED Status: Active Protocol: Document 09/11/21 10:00 AB (Rec: 09/11/21 13:11 [id number]) Physical Therapy Current Condition Current Condition Evaluation Date 09/11/21 Treatment Diagnosis s/p; L fem. neck fx s/p hemiarthroplasty; difficulty in walking Onset Date 09/08/21 M3 PT-IP Subjective Start: 09/11/21 12:55 Freq: NEEDED Status: Active Protocol: Document 09/11/21 10:00 AB (Rec: 09/11/21 13:11 [id number]) Subjective Physical Therapy Visit Type Type Initial Evaluation Visit Start Time 10:00 Visit Stop Time 11:00 Total Visit Minutes 60 Number of THREAD MILLING MACHINE SET UP OPERATOR Visits 0 Physical Therapy Visit Comments Patient Comments agreeable to do PT Therapy Pain Assessment Pain When Pain Assessed At Rest Pain Present Pain Present Pain Reported Location left hip Intensity 8 Scale Used increases with mobility Pain Behaviors Guarding,Wincing Pain Management Techniques Apply Cold,Distraction, Modification of Treatment,Re- positioning,Timing of Activity with Medications M4 PT-IP Mobility and Gait Start: 09/11/21 12:55 Freq: NEEDED Status: Active Protocol: Document 09/11/21 10:00 AB (Rec: 09/11/21 13:11 [id number]) PT-Bed Mobility Assessment Supine to Sit Supine to Sit Maximum Assistance,2 Person Assistance,Head of Bed Elevated,Bedrails Scooting Scooting to Edge of Bed Maximum Assistance PT-Transfer Assessment Sit to and From Stand Sit to and from Stand Maximum Assistance,2 Person Assistance,Use of Upper Extremities Equipment Transfer Assistive Device Gait Belt,Front Wheeled Walker Orthotic/Prosthetic Devices or Brace: No Transfers Transfer Destination Chair Transfer Technique Stand Step Pivot Transfer Ability Level of Assist Maximum Assistance,2 Person Assistance,Use of Upper Extremities Comments Mobility Comments educated pt on posterior hip precautions. pt with confusion and requires max cues with all tasks. pt also has dx RA and stated that she had CVA a month ago. pt supine in bed with increase lateral head lean to the R. positioned head midline but pt unable to maintain. (+) tightness of cervical ms. pt completed supine to sit max A x 2 and max cues with HOB elevated. pt required max A for sitting balance on EOB. positioned pt on EOB and able to sit afterwards with CGA. continues to have increase lateral head lean to the R. conducted lateral stretching of neck but pt unable to maintain midline position. pt completed sit to stand max A x 2 and max cues and step transfer to the chair using FWW max A x 2 and max cues. increase posterior LOB requiring max A x 2. positioned pt on the chair. call light and table placed within reach. PT-Balance Assessment Sitting Balance and Reactions Static Sitting Balance Ability Poor Dynamic Sitting Balance Ability Poor Standing Balance and Reactions Static Standing Balance Ability Poor Dynamic Standing Balance Ability Poor Device Used FWW M5 PT-IP Objective Assessments Start: 09/11/21 12:55 Freq: NEEDED Status: Active Protocol: Document 09/11/21 10:00 AB (Rec: 09/11/21 13:11 AB [id number]) Orientation Orientation/Cognition Level of Alertness Confusional State Orientation Name,Situation Language Function Ability Hard of Hearing Safety Awareness Decreased Safety Awareness Memory Description Short Term Impaired,Motor Brakeman Impaired Gross Range of Motion Lower Extremity ROM Assessment Within Functional Limits Strength Lower Extremity Strength Assessment Bilaterally Impaired Comments Strength Comments RLE: 3+/5 LLE: 3-/5 M6 PT-IP Treatment Start: 09/11/21 12:55 Freq: NEEDED Status: Active Protocol: Document 09/11/21 10:00 AB (Rec: 09/11/21 13:11 AB [id number]) Physical Therapy Treatment Exercises Exercises Heel Slides Education Education Provided Precautions,Weight Bearing Status,Post-Op Packet,Safety M7 PT-IP Assessment and Plan Start: 09/11/21 12:55 Freq: NEEDED Status: Active Protocol: Document 09/11/21 10:00 AB (Rec: 09/11/21 13:11 AB [id number]) PT Summary Assessment and Plan Potential Rehabilitation Potential Fair Status of Condition at Evaluation Evolving Summary Impairments Pain,ROM,Strength,Balance, Coordination,Sensation,Tone, Cognition,Bed Mobility, Transfers,Gait,Activity Tolerance Assessment Summary pt requiring max A x 2 with all mobilities and max cues. pt has dx of RA and CVA contributing to current functional level. pt will require SNF rehab at this time to improve overall strength and mobility. Goals Bed Mobility Goal Minimal Assistance Transfer Goal Minimal Assistance,Front Wheeled Walker Gait Goal Minimal Assistance,Front Wheel Walker Gait Distance 25 Other Goals improve bed mobility, transfers using FWW CGA improve ambulation using FWW 100 ft CGA up/down 4 steps 1 rail min A Days to Meet Goals 10 Frequency of Treatment Frequency Of Treatment Twice a Day Treatment Plan Physical Therapy Treatment Plan Bed Mobility Training,Transfer Training,Gait Training, Therapeutic Exercise,Balance Retraining,Post Op Education, Discharge Planning,Hot or Cold Pack,Neuromuscular Re-ed, Coordination Retraining,Manual Therapy Precautions Posterior Hip Precautions No Hip Flexion > 90 degrees,No Hip Internal Rotation,No Hip Adduction Weight Bearing Status Weight Bearing Status Weight Bear as Tolerated Allowed Weight Bearing Amount (enter % LLE WBAT or #) (%) Recommendations To Nursing Amount of Assist Needed 2 Person Assist Discharge Recommendations PT Discharge Recommendations SNF Rehab Transportation Needs at Discharge Wheelchair/Cabulance
--- NOTE | 2021-09-11 13:05 | CM.DPC ---
DCP Cont: Per Dr. Ivan, pt needing SNF placement. [facility]. Pt is to work with PT. DCP awaiting those notes to send along to [facility] and [facility]. Pt son called this afternoon to ask questions regarding pt status and what the plan is for her following discharge. DCP verbalized that she is most likely going to need a SNF to get stronger. I stated that I have sent two referrals to the above facilities. Pt son also wanting to know details regarding pt surgery and what exactly was done. Pt states that his stepdad is unclear as well. P: DCP to continue working on referrals and placement for SNF. Once PT notes are available, DCP to send those to facilities. Coty Sellers RN/DCP
--- NOTE | 2021-09-11 14:01 | CM.DPC ---
DCP Cont. PT notes sent to [facility]. Spoke with Bobbi at [facility] and she is aware and looking into pt case. P: DCP to await placement for SNF. Coty Sellers RN/DCP
--- NOTE | 2021-09-11 14:10 | P.PN_ITS ---
Subjective Subjective Date Patient Seen: 09/11/21 Interval history: 71-year-old female with RA, on chronic steroid, current smoker, chronic extremity wounds, Postop day 1 left hip hemiarthroplasty secondary to osteoporotic fracture after GLF. She states pain is adequately controlled. Exam Vital Signs (past 8 hours): - 09/11/21 07:00 Temperature 97.0 F L Pulse Rate 93 H Respiratory Rate 17 Blood Pressure 140/78 Pulse Oximetry 99 Oxygen Delivery Method Room Air Oxygen Flow Rate 0 Narrative Exam Narrative: General: Frail-appearing elderly female no acute distress Lungs: Clear Heart: Regular Extremities: Extensive chronic bruising of all 4 extremities, chronic wound right distal forearm, chronic wounds on bilateral shins, left hip postop dressing intact. Neuro: Normal affect and speech Objective Labs Result Diagrams: 09/11/21 05:45 09/08/21 18:30 Labs: Laboratory Results - last 24 hr 09/11/21 05:45 WBC 12.5 H RBC 3.56 L Hgb 9.4 L Hct 29.0 L MCV 81.4 MCH 26.5 MCHC 32.5 RDW 18.3 H Plt Count 306 PFSH Medical History Chronic steroid use Hyperlipidemia Hypertension Lumbosacral spondylosis with radiculopathy Rheumatoid arthritis Family History (Updated 09/08/21 @ 20:04 by Vivek Jo MD) Other Coronary artery disease Hypertension Social History details: lives at home with household members: spouse Smoking Status: Current every day smoker Tobacco: How many years used: 53 quit status: not considering quitting (declines smoking cessation) second hand exposure: No alcohol intake: never substance use type: does not use Assessment & Plan Assessment & Plan narrative: 1. Left hip fracture due to osteoporosis with GLF -status post left hip julius on 09/10 -continue routine postop care, PT and OT -calcium and vitamin D on discharge -likely SNF 2. RA, on chronic prednisone -patient's prednisone dose has been tapered down gradually and states she is currently on 1 mg daily -continue prednisone 1 mg daily -also continue chronic minocycline 100 mg b.i.d. prescribed by her skirt panel assembler Dr. Corona 3. Chronic bruising and skin wounds present on admission -followed at [facility] -continue local wound care 4. Hypertension -resume HCTZ and potassium per home routine 5. Hormone replacement therapy -resume oral estrogen and progesterone per home routine DVT prophylaxis: Lovenox Time Spent With Patient Critical Care time: I spent a total of [] minutes of critical care time on this patient's care today; this time is exclusive of procedural time.
[2021-09-11 14:46] VITALS: BP 139/70; PULSE 96; RESP 16; TEMP 36.7; O2SAT 98
--- NOTE | 2021-09-11 14:50 | PC.NURSE ---
Pt resting at intervals Sat in chair half hour NS infusing @ 84cc/hr into LFA w/o incidence. IVELISSE dsg w/left hip w/small shadow spots Sellers cath patent clear yellow urine. Stable postop course. Call light w/in reach, bed alarm on for pt safety.
--- NOTE | 2021-09-11 14:50 | CM.DPC ---
DCP Cont.: Bobbi from [facility] called and informed DCP that she needs to have her team assess this case. September states she cant have anyone do it until tomorrow and earliest she could accept pt would be Monday. September to follow up with DCP tomorrow for more information. P: DCP to continue to follow placement for SNF. Coty Sellers RN/DCP
--- NOTE | 2021-09-11 15:25 | PT-IP ANOTE ---
checked on pt twice this afternoon and both times, pt is asleep and attempted to wake up but pt is unable to arouse to be able to participate with PT.
[2021-09-11] MEDS: OXYCODONE IR 10 MG TABLET PO (18:11)
[2021-09-11 19:41] VITALS: BP 135/71; PULSE 76; RESP 16; TEMP 36.8; O2SAT 94
[2021-09-11] MEDS: DOCUSATE 100 MG CAPSULE PO (21:41)
--- NOTE | 2021-09-11 23:34 | PC.NURSE ---
Pt states I had a stroke one month ago. Observed pt leaning to the right side.
[2021-09-12] MEDS: OXYCODONE IR 10 MG TABLET PO ×4 (01:37→12:29)
[2021-09-12] MEDS: HYDROMORPHONE 0.5 MG INJ IV ×2 (03:25→06:56)
[2021-09-12 03:37] VITALS: BP 115/56; PULSE 78; RESP 16; TEMP 36; O2SAT 95
--- NOTE | 2021-09-12 03:48 | PC.NURSE ---
Pt is now taking 25 mg of metoprolol bid and according to ICU nurse pt is skipping heart beats and HR has been dropping down to the low 50's. Pt HR was in the 1110's-140's earlier. will continue to monitor.
--- NOTE | 2021-09-12 03:57 | PC.NURSE ---
Addendum entered by Grace James R.N. 09/12/21 06:52: Pt having difficulty with pain control tonight, screaming while being repositioned this am (pt needed to be reposition due to spilling water on her gown/bed). Pt appears to be anxious and not able to sleep after midnight. At time yelling out for help. will continue to monitor. Addendum entered by Grace James R.N. 09/12/21 04:26: Pt refusing to move/repositioned in bed despite multiple attempts and educating pt in the importance of moving in bed and recovery. Original Note: Pt is alert and oriented at the beginning of the shift. Able con conversed with this nurse tonight. Pt confused at times too. Now pt is saying that she isn't sure if she had a stroke and doesn't know which hospital she went too when she had it.
[2021-09-12 08:00] VITALS: BP 109/53; PULSE 45; RESP 16; TEMP 36.9; O2SAT 94
--- NOTE | 2021-09-12 08:21 | CM.DPC ---
Addendum entered by Chloé Mcnair R.N. 09/12/21 13:50: Faxed referral to [facility] (they have beds), and sent referral over to [facility] in [place], as well. Addendum entered by Chloé Mcnair R.N. 09/12/21 11:02: Discussed patient during team rounds. It was mentioned, patient is medically ready for discharge. Asked Mariaelena, physical therapist, if she felt that patient could go home versus skilled. Mariaelena indicated that patient did not do well, will need detention. At this point, [facility] has declined, and [facility] is reviewing. Met with patient in her room. Let her know it's not certain if [facility] will take her, may need to look in [place] [place], [facility], and [facility], to start out. Patient indicated, why does [facility] not want to accept me. Let her know, wound care is part of it, as hospitalist did mention, wound care needs are not complicated, and let her know that facility was concerned about her discharge plan, and living in her RV. Patient indicated, she does not live in an RV, she lives in her own home with her [address] Let her know that this [place] systems requirements planner will work on [facility], but will still need to send referrals to other agencies. She is aware Called Bobbi back at [facility]. Asked her if one of her team members can come and see patient. Bobbi indicated, she will look into it. Did update her and let her know that patient resides in a home, not an RV. She will revisit this with administration, should know by this pm or in the am. She also stated, she should not have any problems getting insurance auth through her [employer]. Will still go ahead and fax out referrals to [facility] and [facility]. Original Note: DCP Cont: Joie from [facility] left a message indicating, she can't accept patient, due to wound care needs. Called Bobbi at [facility] to inquire upon her asking team about possible acceptance. She indicated, the challenge is that she does not have the best home plan, living in an RV with spouse, and being a smoker. She indicated she should know by tomorrow if she can be accepted. At this point, may need to see if home can be possible plan, or if referrals need to be sent to other facilities. Will discuss during team rounds, and with P.T. They were not able to work with her yesterday. P: DCP to continue to follow. May need to fax referral to alternate facilities, such as [facility]. Will see if home plan is possible. Chloé Mcnair RN/Medical Laboratory Assistant
[2021-09-12] MEDS: NICOTINE 21 MG PATCH TOP (08:52)
[2021-09-12] MEDS: LIDOCAINE PATCH 1 EACH ADH..PATCH TOP (08:53)
[2021-09-12] MEDS: MEDROXYPROGESTERONE ACETATE 2.5 MG TABLET PO (08:54)
[2021-09-12] MEDS: estradioL 1 MG TABLET 0.5 MG PO (08:54)
[2021-09-12] MEDS: ENOXAPARIN 30 MG/0.3 ML SYRINGE SUBCUT (08:55)
[2021-09-12] MEDS: GABAPENTIN 300 MG CAPSULE PO ×3 (08:55→17:01)
[2021-09-12] MEDS: DOCUSATE 100 MG CAPSULE PO (08:56)
[2021-09-12] MEDS: POTASSIUM CHLORIDE 20 MEQ TAB PO (08:56)
--- NOTE | 2021-09-12 09:17 | PM.PNPO.1 ---
Subjective Subjective Date Patient Seen: 09/12/21 Time Patient Seen: 09:17 Interval history: The patient reports she has significant left hip pain. Exam Vital Signs (past 8 hours): - 09/12/21 03:37 09/12/21 08:12 Temperature 96.8 F L 98.4 F Pulse Rate 78 45 L Respiratory Rate 16 16 Blood Pressure 115/56 L 109/53 L Pulse Oximetry 95 94 Oxygen Delivery Method Room Air Oxygen Flow Rate 0 Narrative Exam Narrative: The patient is resting comfortably in bed. She has multiple ecchymoses and bruises widespread around her body. She is in a abduction immobilizer splint. Legs appear to be appropriate in length and rotation. Dressing on the right hip is intact with no significant drainage. Calf is soft. Light touch and motion are intact in the left lower extremity. Objective Labs Result Diagrams: 09/11/21 05:45 09/08/21 18:30 [facility] Medical History Chronic steroid use Hyperlipidemia Hypertension Lumbosacral spondylosis with radiculopathy Rheumatoid arthritis Family History (Updated 09/08/21 @ 20:04 by Vivek Jo MD) Other Coronary artery disease Hypertension Social History (Reviewed 08/20/21 @ 15:06 by Pearl Diaz [facility]) details: lives at home with household members: spouse Smoking Status: Current every day smoker Tobacco: How many years used: 53 quit status: not considering quitting (declines smoking cessation) second hand exposure: No alcohol intake: never substance use type: does not use Assessment & Plan Post-op Postoperative Procedures: Procedures Operation Date: 09/10/21 12:45 Actual Procedure Side Surgeon p Cemented Hemiarthroplasty Left Tanna Moon MD Postoperative day: 2 Postoperative status: doing well, marginal pain control and anemia Postoperative status narrative: The patient is postoperative day 2 status post left hip hemiarthroplasty by Dr. Tanna Moon. She was a marginal ambulator prior to her fall. She was only able to have 1 physical therapy visit yesterday because she was sleeping during the afternoon visit. We will continue physical therapy. She eventually be [facility] to [facility] to [facility] her [facility].
[2021-09-12] MEDS: SODIUM CHLORIDE 0.9% FLUSH 10 ML IV (09:18)
[2021-09-12] MEDS: predniSONE 1 MG TABLET PO (09:18)
--- NOTE | 2021-09-12 09:53 | PT.IPTN ---
Current Diagnoses Anemia in chronic kidney disease (09/08/21) Essential (primary) hypertension (09/08/21) Non-pressure chronic ulcer of skin of other sites with unspecified severity (09/08/21) Rheumatoid arthritis, unspecified (09/08/21) Other spondylosis with radiculopathy, lumbosacral region (09/08/21) Age-related osteoporosis with current pathological fracture, unspecified femur, initial encounter for fracture (09/08/21) Chronic kidney disease, stage 3a (09/08/21) Chronic kidney disease, unspecified (09/08/21) Fracture of unspecified part of neck of left femur, initial encounter for closed fracture (09/08/21) Surgery Performed Operation Date: 09/10/21 12:45 Actual Procedures p Cemented Hemiarthroplasty(Left) - Tanna Moon MD Physical Therapy Treatment Note M2 PT-IP Current Condition Start: 09/11/21 12:55 Freq: NEEDED Status: Active Protocol: Document 09/11/21 10:00 AB (Rec: 09/11/21 13:11 AB [id number]) Physical Therapy Current Condition Current Condition Evaluation Date 09/11/21 Treatment Diagnosis s/p; L fem. neck fx s/p hemiarthroplasty; difficulty in walking Onset Date 09/08/21 M3 PT-IP Subjective Start: 09/11/21 12:55 Freq: NEEDED Status: Active Protocol: Document 09/12/21 09:53 AW (Rec: 09/12/21 11:32 AW [id number]) Subjective Physical Therapy Visit Type Type Treatment Note Visit Start Time 09:27 Visit Stop Time 09:53 Total Visit Minutes 26 Number of MAINTENANCE AND REPAIR WORKER Visits 0 Physical Therapy Visit Comments Patient Comments This is my worst day for pain . Therapy Pain Assessment Pain When Pain Assessed At Rest Pain Present Pain Present Pain Reported Location left hip Intensity 10 M4 PT-IP Mobility and Gait Start: 09/11/21 12:55 Freq: NEEDED Status: Active Protocol: Document 09/12/21 09:53 AW (Rec: 09/12/21 11:32 AW [id number]) PT-Bed Mobility Assessment Supine to Sit Supine to Sit Maximum Assistance,1 Person Assistance,Head of Bed Elevated,Bedrails Sit to Supine Sit to Supine Maximum Assistance,2 Person Assistance Scooting Scooting to Edge of Bed Maximum Assistance PT-Transfer Assessment Sit to and From Stand Sit to and from Stand Maximum Assistance,2 Person Assistance,Use of Upper Extremities Equipment Transfer Assistive Device Gait Belt,Front Wheeled Walker Orthotic/Prosthetic Devices or Brace: No Transfers Transfer Destination Bed,Bedside Commode Transfer Technique Stand Step Pivot Transfer Ability Level of Assist Maximum Assistance,2 Person Assistance,Use of Upper Extremities Comments Mobility Comments Reinforced education on posterior hip precautions. Pt presents with uncontrolled lateral flexion of the neck and trunk to the right side. During transition from supine to sit, pt required max A and constant support of her head in midline position. She sat EOB and was unable to correct her rightward lean without support. Sit to stand and step pivot transfer to BS required max A x 2 and hand over hand guidance from FWW handles to BS. Pt sat on the commode but was unable to have a bowel movement. PT provided neck stretch for hypertonic right upper trap as pt sat. Pt refused transfer to the chair , stating preference to return to bed. She needed max A x 2 to stand and pivot transfer back to bed. Max A x 2 for return to supine. Gait Assessment Comments Gait Comments Steps taken during transfers only. Pt is able to bear some weight through her left leg today but requires cues for hip precautions during transitions. PT-Balance Assessment Sitting Balance and Reactions Static Sitting Balance Ability Poor Dynamic Sitting Balance Ability Poor Standing Balance and Reactions Static Standing Balance Ability Poor Dynamic Standing Balance Ability Poor Device Used FWW M5 PT-IP Objective Assessments Start: 09/11/21 12:55 Freq: NEEDED Status: Active Protocol: Document 09/11/21 10:00 AB (Rec: 09/11/21 13:11 AB [id number]) Orientation Orientation/Cognition Level of Alertness Confusional State Orientation Name,Situation Language Function Ability Hard of Hearing Safety Awareness Decreased Safety Awareness Memory Description Short Term Impaired,Media Analytics Manager Impaired Gross Range of Motion Lower Extremity ROM Assessment Within Functional Limits Strength Lower Extremity Strength Assessment Bilaterally Impaired Comments Strength Comments RLE: 3+/5 LLE: 3-/5 M6 PT-IP Treatment Start: 09/11/21 12:55 Freq: NEEDED Status: Active Protocol: Document 09/12/21 09:53 AW (Rec: 09/12/21 11:32 AW [id number]) Physical Therapy Treatment Exercises Exercises Ankle Pumps,Gluteal Sets,Heel Slides Education Education Provided Precautions,Weight Bearing Status,Safety M7 PT-IP Assessment and Plan Start: 09/11/21 12:55 Freq: NEEDED Status: Active Protocol: Document 09/12/21 09:53 AW (Rec: 09/12/21 11:32 AW [id number]) PT Summary Assessment and Plan Potential Rehabilitation Potential Fair Summary Impairments Pain,ROM,Strength,Balance, Coordination,Sensation,Tone, Cognition,Bed Mobility, Transfers,Gait,Activity Tolerance Assessment Summary Pt continues to require max A x 2 for bed mobility and transfers using FWW. She has uncontrolled lateral flexion of the neck and trunk which complicate her mobility. Pt will require SNF rehab to improve her strength and mobility independence. Goals Bed Mobility Goal Minimal Assistance Transfer Goal Minimal Assistance,Front Wheeled Walker Gait Goal Minimal Assistance,Front Wheel Walker Gait Distance 25 Other Goals improve bed mobility, transfers using FWW CGA improve ambulation using FWW 100 ft CGA up/down 4 steps 1 rail min A Days to Meet Goals 10 Frequency of Treatment Frequency Of Treatment Twice a Day Treatment Plan Physical Therapy Treatment Plan Bed Mobility Training,Transfer Training,Gait Training, Therapeutic Exercise,Balance Retraining,Post Op Education, Discharge Planning,Hot or Cold Pack,Neuromuscular Re-ed, Coordination Retraining,Manual Therapy Precautions Posterior Hip Precautions No Hip Flexion > 90 degrees,No Hip Internal Rotation,No Hip Adduction Weight Bearing Status Weight Bearing Status Weight Bear as Tolerated Allowed Weight Bearing Amount (enter % LLE WBAT or #) (%) Recommendations To Nursing Amount of Assist Needed 2 Person Assist Discharge Recommendations PT Discharge Recommendations SNF Rehab Transportation Needs at Discharge Wheelchair/Cabulance
--- NOTE | 2021-09-12 14:34 | PM.PN.1 ---
Subjective Subjective Date Patient Seen: 09/12/21 Interval history: 71-year-old female with RA, on chronic steroid, current smoker, chronic extremity wounds, Postop day 2 left hip hemiarthroplasty secondary to osteoporotic fracture after GLF. Patient awaiting SNF authorization. Complains of itching with Dilaudid. Complains of feeling anxious. Exam Vital Signs (past 8 hours): - 09/12/21 08:00 Temperature 98.4 F Pulse Rate 45 L Respiratory Rate 16 Blood Pressure 109/53 L Pulse Oximetry 94 Oxygen Delivery Method Room Air Oxygen Flow Rate 0 Narrative Exam Narrative: General:? Frail-appearing elderly female no acute distress Lungs:? Clear Heart:? Regular Extremities:? Extensive chronic bruising of all 4 extremities, chronic wound right distal forearm, chronic wounds on bilateral shins, left hip postop dressing intact. Neuro:? Normal affect and speech Objective Labs Result Diagrams: 09/11/21 05:45 09/08/21 18:30 [facility] Medical History Chronic steroid use Hyperlipidemia Hypertension Lumbosacral spondylosis with radiculopathy Rheumatoid arthritis Family History (Updated 09/08/21 @ 20:04 by Vivek Jo MD) Other Coronary artery disease Hypertension Social History details: lives at home with household members: spouse Smoking Status: Current every day smoker Tobacco: How many years used: 53 quit status: not considering quitting (declines smoking cessation) second hand exposure: No alcohol intake: never substance use type: does not use Assessment & Plan Assessment & Plan narrative: 1. Left hip fracture due to osteoporosis with GLF -status post left hip julius on 09/10 -continue routine postop care, PT and OT -calcium and vitamin D on discharge -oxycodone as needed, Atarax as needed -likely SNF 2. RA, on chronic prednisone -patient's prednisone dose has been tapered down gradually and states she is currently on 1 mg daily -continue prednisone 1 mg daily -also continue chronic minocycline 100 mg b.i.d. prescribed by her software solutions architect Dr. Corona 3. Chronic bruising and skin wounds present on admission -followed at Wound Care -continue local wound care with keeping wrapped with gauze 4. Hypertension -resume HCTZ and potassium per home routine 5. Hormone replacement therapy -resume oral estrogen and progesterone per home routine 6. Severe protein calorie malnutrition due to chronic disease -noted BMI below 18 and patient looking quite cachectic -nutrition consult appreciated DVT prophylaxis: Lovenox Time Spent With Patient Critical Care time: I spent a total of [] minutes of critical care time on this patient's care today; this time is exclusive of procedural time.
--- NOTE | 2021-09-12 14:54 | PT.IPTN ---
Current Diagnoses Anemia in chronic kidney disease (09/08/21) Essential (primary) hypertension (09/08/21) Non-pressure chronic ulcer of skin of other sites with unspecified severity (09/08/21) Rheumatoid arthritis, unspecified (09/08/21) Other spondylosis with radiculopathy, lumbosacral region (09/08/21) Age-related osteoporosis with current pathological fracture, unspecified femur, initial encounter for fracture (09/08/21) Chronic kidney disease, stage 3a (09/08/21) Chronic kidney disease, unspecified (09/08/21) Fracture of unspecified part of neck of left femur, initial encounter for closed fracture (09/08/21) Surgery Performed Operation Date: 09/10/21 12:45 Actual Procedures p Cemented Hemiarthroplasty(Left) - Tanna Moon MD Physical Therapy Treatment Note M2 PT-IP Current Condition Start: 09/11/21 12:55 Freq: NEEDED Status: Active Protocol: Document 09/11/21 10:00 AB (Rec: 09/11/21 13:11 AB [id number]) Physical Therapy Current Condition Current Condition Evaluation Date 09/11/21 Treatment Diagnosis s/p; L fem. neck fx s/p hemiarthroplasty; difficulty in walking Onset Date 09/08/21 M3 PT-IP Subjective Start: 09/11/21 12:55 Freq: NEEDED Status: Active Protocol: Document 09/12/21 14:54 AW (Rec: 09/12/21 15:13 AW [id number]) Subjective Physical Therapy Visit Type Type Treatment Note Visit Start Time 14:28 Visit Stop Time 14:54 Total Visit Minutes 26 Notes Pt's spouse was present throughout Number of GOVERNMENT GUARD Visits 0 Physical Therapy Visit Comments Patient Comments Pt is willing to participate with PT Therapy Pain Assessment Pain When Pain Assessed At Rest Pain Present Pain Present Pain Reported Location left hip Scale Used not quantified Pain Behaviors Guarding,Wincing Pain Management Techniques Distraction,Modification of Treatment,Re-positioning, Timing of Activity with Medications M4 PT-IP Mobility and Gait Start: 09/11/21 12:55 Freq: NEEDED Status: Active Protocol: Document 09/12/21 14:54 AW (Rec: 09/12/21 15:13 AW [id number]) PT-Bed Mobility Assessment Supine to Sit Supine to Sit Maximum Assistance,1 Person Assistance,Head of Bed Elevated,Bedrails Scooting Scooting to Edge of Bed Maximum Assistance PT-Transfer Assessment Sit to and From Stand Sit to and from Stand Maximum Assistance,1 Person Assistance,Use of Upper Extremities Equipment Transfer Assistive Device Gait Belt,Front Wheeled Walker Orthotic/Prosthetic Devices or Brace: No Transfers Transfer Destination Chair Transfer Ability Level of Assist Maximum Assistance,1 Person Assistance,Use of Upper Extremities Comments Mobility Comments With HOB elevated, pt required max A x 1 for supine to sit. Pt needed constant assist for sitting balance to correct rightward lean. With cues for left foot placement, pt was able to stand max A and step pivot transfer to the chair. Pt was encouraged to sit up on the chair at least 30 minutes if able to tolerate. She was left with call light and table within reach. Gait Assessment Comments Gait Comments Slightly improved weightbearing LLE during transfers. PT-Balance Assessment Sitting Balance and Reactions Static Sitting Balance Ability Poor Dynamic Sitting Balance Ability Poor Standing Balance and Reactions Static Standing Balance Ability Poor Dynamic Standing Balance Ability Poor Device Used FWW M5 PT-IP Objective Assessments Start: 09/11/21 12:55 Freq: NEEDED Status: Active Protocol: Document 09/11/21 10:00 AB (Rec: 09/11/21 13:11 AB [id number]) Orientation Orientation/Cognition Level of Alertness Confusional State Orientation Name,Situation Language Function Ability Hard of Hearing Safety Awareness Decreased Safety Awareness Memory Description Short Term Impaired,Intermediate Impaired Gross Range of Motion Lower Extremity ROM Assessment Within Functional Limits Strength Lower Extremity Strength Assessment Bilaterally Impaired Comments Strength Comments RLE: 3+/5 LLE: 3-/5 M6 PT-IP Treatment Start: 09/11/21 12:55 Freq: NEEDED Status: Active Protocol: Document 09/12/21 14:54 AW (Rec: 09/12/21 15:13 AW [id number]) Physical Therapy Treatment Exercises Exercises Ankle Pumps,Gluteal Sets,Heel Slides,Supine Hip Abduction Education Education Provided Precautions,Weight Bearing Status,Safety Equipment Issued Equipment Type and Company PROM/AAROM for heel slides and hip abduction. M7 PT-IP Assessment and Plan Start: 09/11/21 12:55 Freq: NEEDED Status: Active Protocol: Document 09/12/21 14:54 AW (Rec: 09/12/21 15:13 AW [id number]) PT Summary Assessment and Plan Summary Impairments Pain,ROM,Strength,Balance, Coordination,Sensation,Tone, Cognition,Bed Mobility, Transfers,Gait,Activity Tolerance Progress Towards Goals Slow Progress due to Pain,Slow Progress due to Medical Issues,Slow Progress due to Activity Tolerance Assessment Summary Pt was able to complete bed mobility and transfer with max A x 1 but PT continues to recommend 2-person assist for nursing. Right-sided weakness from reported CVA continues to affect balance and mobility. Pt clarifies that she [place] [facility] - not [place]. Pt will require SNF rehab to improve strength and mobility independence. Goals Bed Mobility Goal Minimal Assistance Transfer Goal Minimal Assistance,Front Wheeled Walker Gait Goal Minimal Assistance,Front Wheel Walker Gait Distance 25 Other Goals improve bed mobility, transfers using FWW CGA improve ambulation using FWW 100 ft CGA up/down 4 steps 1 rail min A Days to Meet Goals 10 Frequency of Treatment Frequency Of Treatment Twice a Day Treatment Plan Physical Therapy Treatment Plan Bed Mobility Training,Transfer Training,Gait Training, Therapeutic Exercise,Balance Retraining,Post Op Education, Discharge Planning,Hot or Cold Pack,Neuromuscular Re-ed, Coordination Retraining,Manual Therapy Precautions Posterior Hip Precautions No Hip Flexion > 90 degrees,No Hip Internal Rotation,No Hip Adduction Weight Bearing Status Weight Bearing Status Weight Bear as Tolerated Allowed Weight Bearing Amount (enter % LLE WBAT or #) (%) Recommendations To Nursing Amount of Assist Needed 2 Person Assist Discharge Recommendations PT Discharge Recommendations SNF Rehab Transportation Needs at Discharge Wheelchair/Cabulance
[2021-09-12] MEDS: hydrOXYzine pamoate 25 MG CAPSULE PO (15:25)
[2021-09-12 16:00] VITALS: BP 134/74; PULSE 103; RESP 17; TEMP 36.7; O2SAT 99
--- NOTE | 2021-09-12 17:20 | PC.NURSE ---
Pt sharlene dressing CDI. The abrasions on both lower extremities were redressed with Allevyn dressings. Lotion applied to both feet to help with dryness and discomfort. Pt received oxycodone 10mg for pain and decided to try vistaril at 3pm instead. Her pain was brought down to a 2 from a 7. PT worked with patient and had her sit in chair, however, patient said she was uncomfortable and wanted to go back to bed. Pt ate a decent amount of her lunch but had no appetite for breakfast or dinner. , Gus, visited today and had dinner with her. VS stable, call light within reach. Bed alarm on.
--- NOTE | 2021-09-12 20:43 | PC.NURSE ---
No medications given now, pt sleepy, answering simple questions but not opening her eyes.
[2021-09-12 20:50] VITALS: BP 143/59; PULSE 98; RESP 20; TEMP 37.3; O2SAT 99
--- NOTE | 2021-09-12 20:56 | PC.NURSE ---
Addendum entered by Pearl Brian R.N. 09/13/21 00:35: Spoke to ISAIAH Alberto in person notified that pt continues to be lethargic, PERRLA, BG 91, vital signs BP 151/66, HR 100, temp. 99.7, RR 30, O2 98%, and held po medications. No new orders per ISAIAH Alberto. Will continue to monitor pt. Addendum entered by Pearl Brian R.N. 09/12/21 23:44: Reassessed pt due to increased sedation, BP 151/66, HR 100, temp. 99.7, RR 30, O2 98%, pt is sleepy, confused, lethargic, follows simple commands. Repositioned pt and she verbalized pain (pt screamed and pointed to left hip). Held all po meds due to increased sedation. Pt has not had any pain medication on this shift. Pt was started on Vistaril 25 mg po 09/12/21 taken at 15:25, oxycodone 10 mg taken at 12:29. Will continue to monitor pt. Original Note: Vital signs checked temp. 99.1, HR 98, RR 20, BP 143/59, and O2 99%. Notified Lavern Alberto Nurse Practitioner no medications given due to pt being sleepy, not opening eyes but responding to questions.
[2021-09-12 23:41] VITALS: BP 151/66; PULSE 100; RESP 30; TEMP 37.6; O2SAT 98
[2021-09-13] MEDS: SODIUM CHLORIDE 0.9% FLUSH 10 ML IV ×2 (00:47→08:28)
[2021-09-13 02:00] VITALS: BP 151/72; TEMP 37.4
--- NOTE | 2021-09-13 02:09 | PC.NURSE ---
Addendum entered by Grace James R.N. 09/13/21 05:58: Pt awake now, alert and oriented. talking and smiling with staff. Pt states I think I left a tampon in, requesting staff to check. According to pt she's still having her monthly period. Unable to find a tampon on pt, however it was difficult to see due to pt unable to move legs apart. Visualized yeast in Vagina. Original Note: Pt awake, talking with staff states I feel confuse and I am hurting Pt stated she needed to have a bowel movement. Pt was assisted to BSC, pt needy cueing, c/o pain and screaming at time. Pt needed 3 people to put her back in bed and required full assistance, making safe transfer difficult for patient and staff. Pt should be transfer using the mechanical lift. Pt didn't had a BM.
[2021-09-13] MEDS: OXYCODONE IR 10 MG TABLET PO ×3 (02:10→14:08)
[2021-09-13 02:12] VITALS: TEMP 37.6
[2021-09-13] MEDS: ACETAMINOPHEN 325 MG TABLET 650 MG PO ×2 (02:12→13:56)
[2021-09-13 02:50] VITALS: TEMP 37.4
[2021-09-13] MEDS: hydrOXYzine pamoate 25 MG CAPSULE PO ×2 (03:58→10:31)
[2021-09-13 04:45] VITALS: BP 118/75; PULSE 98; RESP 24; TEMP 37.5; O2SAT 97
[2021-09-13] MEDS: GABAPENTIN 300 MG CAPSULE PO ×2 (08:02→13:55)
[2021-09-13] MEDS: hydroCHLOROthiazide 25 MG TABLET PO (08:02)
[2021-09-13] MEDS: POTASSIUM CHLORIDE 20 MEQ TAB PO (08:02)
[2021-09-13] MEDS: NICOTINE 21 MG PATCH TOP (08:02)
[2021-09-13] MEDS: ENOXAPARIN 30 MG/0.3 ML SYRINGE SUBCUT (08:03)
[2021-09-13] MEDS: DOCUSATE 100 MG CAPSULE PO (08:03)
[2021-09-13] MEDS: estradioL 1 MG TABLET 0.5 MG PO (08:04)
[2021-09-13] MEDS: MEDROXYPROGESTERONE ACETATE 2.5 MG TABLET PO (08:04)
--- NOTE | 2021-09-13 08:05 | PC.RNWOUND ---
Patient's wound dressings are clean, dry, intact. Left hip surgical dressing has a small amount shadow drainage noted. Patient turns to side with assist for skin inspection of backside. No skin breakdown noted to sacrogluteal area. Patient is repositioned for comfort, tilted to left side, heels floated off bed surface with pillows. Patient reports comfort, not really having any pain at this time.
[2021-09-13 08:32] VITALS: BP 154/82; PULSE 113; RESP 22; TEMP 36.9
--- NOTE | 2021-09-13 09:37 | PT.IPTN ---
Current Diagnoses Anemia in chronic kidney disease (09/08/21) Essential (primary) hypertension (09/08/21) Non-pressure chronic ulcer of skin of other sites with unspecified severity (09/08/21) Rheumatoid arthritis, unspecified (09/08/21) Other spondylosis with radiculopathy, lumbosacral region (09/08/21) Age-related osteoporosis with current pathological fracture, unspecified femur, initial encounter for fracture (09/08/21) Chronic kidney disease, stage 3a (09/08/21) Chronic kidney disease, unspecified (09/08/21) Fracture of unspecified part of neck of left femur, initial encounter for closed fracture (09/08/21) Surgery Performed Operation Date: 09/10/21 12:45 Actual Procedures p Cemented Hemiarthroplasty(Left) - Tanna Moon MD Physical Therapy Treatment Note M2 PT-IP Current Condition Start: 09/11/21 12:55 Freq: NEEDED Status: Active Protocol: Document 09/13/21 08:56 SP (Rec: 09/13/21 10:32 SP [id number]) Physical Therapy Current Condition Current Condition Evaluation Date 09/11/21 Treatment Diagnosis s/p; L fem. neck fx s/p hemiarthroplasty; difficulty in walking Onset Date 09/08/21 M3 PT-IP Subjective Start: 09/11/21 12:55 Freq: NEEDED Status: Active Protocol: Document 09/13/21 08:56 SP (Rec: 09/13/21 10:32 SP [id number]) Subjective Physical Therapy Visit Type Type Treatment Note Visit Start Time 08:56 Visit Stop Time 09:37 Total Visit Minutes 41 Number of [facility] Visits 1 Physical Therapy Visit Comments Patient Comments Pt willing to work with therapy. Therapy Pain Assessment Pain When Pain Assessed During Mobility Pain Present Pain Present Pain Reported Location left hip Intensity 20 Scale Used Numeric (0 - 10) Description Sharp,Spasm,Tender,With Movement Pain Behaviors Facial Grimacing,Guarding, Wincing Pain Management Techniques Distraction,Modification of Treatment,Re-positioning, Timing of Activity with Medications M4 PT-IP Mobility and Gait Start: 09/11/21 12:55 Freq: NEEDED Status: Active Protocol: Document 09/13/21 08:56 SP (Rec: 09/13/21 10:32 SP [id number]) PT-Bed Mobility Assessment Rolling Level of Assist Maximal Assistance,1 Person Assistance Supine to Sit Supine to Sit Maximum Assistance,1 Person Assistance,Head of Bed Elevated,Bedrails Sit to Supine Sit to Supine Maximum Assistance,2 Person Assistance Scooting Scooting to Edge of Bed Maximum Assistance PT-Transfer Assessment Sit to and From Stand Sit to and from Stand Maximum Assistance,1 Person Assistance,Use of Upper Extremities Equipment Transfer Assistive Device Gait Belt,Front Wheeled Walker Orthotic/Prosthetic Devices or Brace: No Transfers Transfer Destination Bed Comments Mobility Comments [facility] reviewed post op precautions recalled 2/3, missed no IR. [facility] instructed LE exercises: Mod A for LLE heel slide x 5 reps each. Elevated supine>sit heavier Max x1 for LLE assist and trunk righting using transfer pad. Sit at EOB Min A> close SBA use of BUEs trunk support bed handle and bed, pt tends to lean R, STS from EOB Max A x1 w/ FWW Max A x1, stood 10 secbefore need sit. Pt requested return to lay down in bed, in to much pain 20/10 to continue, premedicated 30 min prior to [facility] arrival. Max A x1 BLE and trunk support to supine. Max A x2 scoot up in bed then Max A LR R and L to position new waffle cushion under buttocks due to report discomfort under. Pt had call light and all needs in reach, bed alarmed. Pt in 30deg incline. Pt will need SNF to progress functional strength and independence for mobility. Will continue to assess progress this afternoon. Gait Assessment Comments Gait Comments Unable to progress transfer today, only tolerated STS at EOB Max A x1 w/ FWW R lateral lean. PT-Balance Assessment Sitting Balance and Reactions Static Sitting Balance Ability Fair Dynamic Sitting Balance Ability Poor Standing Balance and Reactions Static Standing Balance Ability Poor Dynamic Standing Balance Ability Poor Device Used FWW M5 PT-IP Objective Assessments Start: 09/11/21 12:55 Freq: NEEDED Status: Active Protocol: Document 09/11/21 10:00 AB (Rec: 09/11/21 13:11 AB [id number]) Orientation Orientation/Cognition Level of Alertness Confusional State Orientation Name,Situation Language Function Ability Hard of Hearing Safety Awareness Decreased Safety Awareness Memory Description Short Term Impaired,Type Caster Impaired Gross Range of Motion Lower Extremity ROM Assessment Within Functional Limits Strength Lower Extremity Strength Assessment Bilaterally Impaired Comments Strength Comments RLE: 3+/5 LLE: 3-/5 M6 PT-IP Treatment Start: 09/11/21 12:55 Freq: NEEDED Status: Active Protocol: Document 09/13/21 08:56 SP (Rec: 09/13/21 10:32 SP [id number]) Physical Therapy Treatment Exercises Exercises Ankle Pumps,Gluteal Sets,Heel Slides Knee ROM Measurement RLE 90 deg, LLE AAROM 30 deg Education Education Provided Precautions,Weight Bearing Status,Safety Equipment Issued Equipment Type and Company PROM/AAROM for heel slides and hip abduction. Other Treatments Other Treatment Performed ED for importance use of wedge between BLE to maintain hip precautions, wasn't initiated before [facility] arrival, found new on room bench. M7 PT-IP Assessment and Plan Start: 09/11/21 12:55 Freq: NEEDED Status: Active Protocol: Document 09/13/21 08:56 SP (Rec: 09/13/21 10:32 SP [id number]) PT Summary Assessment and Plan Potential Rehabilitation Potential Fair Status of Condition at Evaluation Evolving Summary Impairments Pain,ROM,Strength,Balance, Coordination,Sensation,Tone, Cognition,Bed Mobility, Transfers,Gait,Activity Tolerance Progress Towards Goals Slow Progress due to Pain,Slow Progress due to Activity Tolerance Assessment Summary Pt was able to complete bed mobility Max A x1 sup>sit, Min - close SBA sit EOB, Sit>sup Heavy Max A x1, Max A x2 to scoot up in bed and STS at EOB w/ FWW heavy Max A x1 w/ R lateral lean decreased WB on LLE but PT continues to recommend 2-person assist for nursing. Right-sided weakness from reported CVA and pain in L hip and decrease tolerance WB and pain continues to affect balance and mobility. Pt will require SNF rehab to improve strength and mobility independence. Goals Bed Mobility Goal Minimal Assistance Transfer Goal Minimal Assistance,Front Wheeled Walker Gait Goal Minimal Assistance,Front Wheel Walker Gait Distance 25 Other Goals improve bed mobility, transfers using FWW CGA improve ambulation using FWW 100 ft CGA up/down 4 steps 1 rail min A Days to Meet Goals 10 Frequency of Treatment Frequency Of Treatment Twice a Day Treatment Plan Physical Therapy Treatment Plan Bed Mobility Training,Transfer Training,Gait Training, Therapeutic Exercise,Balance Retraining,Post Op Education, Discharge Planning,Hot or Cold Pack,Neuromuscular Re-ed, Coordination Retraining,Manual Therapy Other Recommendations and Next Treatment bed mob, transfers, gait if Focus able to tolerate w/ chair follow. Review precautions. Precautions Other Precautions B recalled 1/3 precautions. Ed use wedge between BLE Weight Bearing Status Weight Bearing Status Weight Bear as Tolerated Allowed Weight Bearing Amount (enter % LLE WBAT or #) (%) Recommendations To Nursing Amount of Assist Needed 2 Person Assist Discharge Recommendations PT Discharge Recommendations SNF Rehab Transportation Needs at Discharge Wheelchair/Cabulance
[2021-09-13] MEDS: predniSONE 1 MG TABLET PO (10:31)
--- NOTE | 2021-09-13 11:09 | P.DS_ITS ---
History of Present Illness History of Present Illness Chief complaint: Fall Narrative: ?71-year-old female with a significant Hx of? rheumatoid arthritis on chronic steroids? low dose, cachectic, chronic smoker, with significant bilateral lower extremity wounds, nonhealing,who presents to the emergency department after a mechanical ground level fall in the lobby just prior to checking into the emergency department.? Patient has a history of balance issues, weakness, and frequent falls.? She has three large wounds that she is seeing Wound Care for on her left anterior leg, right heel, and right anterior forearm.? These are all large skin tears that has been healing over time.? Patient states that she shou ld have not been walking alone, she was using a walker, she slipped and fell down landing on her left side and felt immediate pain in her left hip.? She has good sensation and movement in her toes on her left side, is not able to flex her hip or move her hip at all right now, states her pain is 3/10.? her pain is appropriately controlled after the pain medication given in the ER.? Her Bill is at bedside, able to confirm most of the history.? Patient also stated that? she had rheumatic fever and received multiple doses of insulin when she was a child.? She denies any other heart problems.? Her overall activity level seems to be reasonable but difficulty in walking because of the rheumatoid arthritis and chronic lower extremity ulcers.? At this time patient denies any chest pain, breathing difficulties.? patient mentioned that? during her fall she might have hit the head, unwitnessed fall, her thinks that she probably looked confused at some point after the fall.? Initially patient was not sure what the fall details, during the conversation she did seem to be appropriate, able to make a reasonable conversation. Discharge Providers Provider Date of admission: 09/08/21 17:03 Discharge Date: 09/13/21 Primary care physician: Power Hughes MD Consults: 09/08/21 16:41 Consult to Orthopedic Surgery Stat Comment: Consulting Provider: Tnana Moon Reason for consultation: left hip fracture Has provider been notified: Yes 09/08/21 17:31 Consult to Dietitian, Adult Stat Comment: Reason For Exam: chronic wounds Consult to Wound Care Routine Comment: Consulting Provider: Dg [facility] 09/09/21 08:29 Consult to Inpatient Wound Care Nurse Routine Comment: Reason for consultation: wounds to BLE Has provider been notified: Yes 09/10/21 18:03 Consult to Discharge Planning Routine Comment: Consult to Physical Therapy Evaluate & Treat Comment: Physician Instructions: Evaluate and Treat Consult to Respiratory Therapy Evaluate & Treat Comment: Physician Instructions: Evaluate and treat Discharge provider: Leonard Elaine MD Summary Hospital Course Discharge Diagnosis: 1. Left hip osteoporotic fracture of femoral neck 2. Rheumatoid arthritis 3. Chronic steroid use for RA 4. Chronic bruising and skin wounds 5. Hypertension 6. Nicotine dependency 7. Severe chronic protein calorie malnutrition Procedure: Hemiarthroplasty with Dr Tanna Moon [facility] Course: Patient had left hip hemiarthroplasty on September 10. There have been no major issues postop. She does have extensive bruising and chronic skin wounds on extremities for which she was going to wound care as an outpatient. We have been keeping a wounds protected with occlusive dressing. She is extremely under weight and nutrition is an ongoing concern being addressed with protein supplementation. Patient being discharged to SNF for postop rehab. She does see Dr. Corona as outpatient for RA management. Status at Discharge Cognitive/behavioral status at discharge: oriented Functional status at discharge: bed bound Overall status at discharge: patient is not back to baseline Time Spent with Patient Time spent: Less than 30 minutes Exam Vital Signs (past 8 hours): - 09/13/21 04:45 09/13/21 08:32 Temperature 99.5 F 98.5 F Pulse Rate 98 H 113 H Respiratory Rate 24 22 Blood Pressure 118/75 154/82 H Pulse Oximetry 97 Oxygen Delivery Method Room Air Oxygen Flow Rate 0 Narrative Exam Narrative: General: Alert cooperative and not in severe distress Lungs: Clear Heart: Regular rhythm slightly tachycardic Abdomen soft Extremities extensive bruising and chronic wounds, no edema Neurological well oriented, normal speech and affect Objective Labs Result Diagrams: 09/11/21 05:45 09/08/21 18:30 [facility] Medical History Chronic steroid use Hyperlipidemia Hypertension Lumbosacral spondylosis with radiculopathy Rheumatoid arthritis Family History (Updated 09/08/21 @ 20:04 by Vivek Jo MD) Other Coronary artery disease Hypertension Social History details: lives at home with household members: spouse Smoking Status: Current every day smoker Tobacco: How many years used: 53 quit status: not considering quitting (declines smoking cessation) second hand exposure: No alcohol intake: never substance use type: does not use Discharge Plan Discharge Plan Patient Disposition: SNF Transfer to: [facility] Consult as needed: Dental, Hearing, Mental health, Podiatry and Vision Provider Discharge Comment: 71-year-old female with RA, on chronic steroid, current smoker, chronic extremity wounds, Postop day 3 left hip hemiarthroplasty secondary to osteoporotic fracture after GLF. Discharge orders & Medications Prescriptions: New acetaminophen 325 mg Tablet 650 mg PO Q6HR PRN (Reason: Fever/Mild Pain (1-3)) Qty: 1 0RF lidocaine 5 % Adhesive Patch,Medicated 1 ea topical DAILY@2100 Qty: 1 0RF docusate sodium 100 mg Capsule 100 mg PO BID Qty: 1 0RF hydroxyzine pamoate 25 mg Capsule 25 mg PO Q6HR PRN (Reason: pain/anxiety) Qty: 1 0RF enoxaparin [Lovenox] 30 mg/0.3 mL Syringe 30 mg SUBCUT DAILY 10 Days Qty: 10 0RF nicotine 21 mg/24 hr Patch 24 Hour 21 mg topical DAILY Qty: 1 0RF oxycodone 5 mg tablet 5 - 10 mg PO Q4H PRN (Reason: postop pain) Qty: 30 0RF Continued gabapentin 300 mg capsule 300 mg PO QID Qty: 360 3RF estradiol 0.5 mg tablet 0.5 mg PO DAILY Qty: 90 3RF hydrochlorothiazide 25 mg tablet 25 mg PO DAILY Qty: 90 2RF medroxyprogesterone 2.5 mg tablet 2.5 mg PO DAILY Qty: 90 3RF minocycline 100 mg capsule 100 mg PO BID 0RF prednisone 1 mg 1 mg PO DAILY 0RF tramadol 50 mg tablet 50 mg PO BID PRN (Reason: pain) Qty: 30 0RF potassium chloride 20 mEq Tablet Extended Release 20 meq PO DAILY 0RF Follow up/Referrals: Power Hughes MD [Primary Care Provider] - Discharge Health Status Multidrug resistant organism: No MDRO Precautions: [place] Diet/Activity/Treatments Diet: Regular Liquid consistency: Normal/Thin Food texture: Regular [facility] Reason for rehabilitation: Post-operative therapy Rehab type: Physical therapy and Occupational therapy Discharge Data Primary Care Provider: Power Hughes
--- NOTE | 2021-09-13 11:27 | CM.DPC ---
DCP Discharge SNF Per MD, pt medically stable to d/c to SNF today and no identified barriers to discharge. SW called [facility] and they initiated pt's AARP auth and obtained in a timely manner this morning and are able to accept pt today with transport around 1500. SW met bedside with pt and updated and initially pt was thrilled her insurance approved SNF but did not feel she was ready for d/c from hospital today but SW discussed medical stability and not needing hospital level of care but now healing and strength and pt agreeable with d/c to [facility] (very glad to be staying in [place]) today and requests SW update her spouse. SW confirmed that pt is aware and agreeable with not smoking at SNF and not starting her new RA medication until after SNF and still awaiting for insurance approval for that medication. SW called spouse and updated him on above and he is very agreeable and appreciative and will visit pt at [facility]. SW provided copy of pt's Medicare Rights. LEONARD updated RNMD, INDUSTRIAL ENGINEERING ANALYST, mica builder and faxed d/c summ, signed med rec, MD toño orders, PASRR to [facility] to review and RN kindly obtaining updated COVID swab now and SW provided RN report number to call. Plan: Patient to d/c to [facility] rehab via facility van at 1500 prior to return home with spouse. GÓMEZ Luis
[2021-09-13 12:39] LABS: COVID19 -Nasal RAPID Negative (Negative)
--- NOTE | 2021-09-13 14:18 | PM.PNPO.1 ---
Subjective Subjective Date Patient Seen: 09/13/21 Time Patient Seen: 07:40 Interval history: Patient is complaining of moderate left hip pain this morning. She denies any new numbness or tingling. She is working with physical therapy. Exam Vital Signs (past 8 hours): - 09/13/21 08:32 Temperature 98.5 F Pulse Rate 113 H Respiratory Rate 22 Blood Pressure 154/82 H Oxygen Delivery Method Room Air Oxygen Flow Rate 0 Narrative Exam Narrative: Pleasant but frail 71-year-old female, resting comfortably in bed, no acute distress. Dressing demonstrates some scant serosanguineous drainage. Bilateral lower extremity: Motor functions are grossly intact although she is rather stiff from her RA, bilateral lower extremity sensation is grossly intact to light touch, calves are soft and nontender to palpation. She has diffuse ecchymosis noted throughout her body. Objective Labs Result Diagrams: 09/11/21 05:45 09/08/21 18:30 Labs: Laboratory Results - last 24 hr 09/13/21 12:19 SARS-CoV-2 (PCR) Negative [facility] Medical History Chronic steroid use Hyperlipidemia Hypertension Lumbosacral spondylosis with radiculopathy Rheumatoid arthritis Family History Other Coronary artery disease Hypertension Social History details: lives at home with household members: spouse Smoking Status: Current every day smoker Tobacco: How many years used: 53 quit status: not considering quitting (declines smoking cessation) second hand exposure: No alcohol intake: never substance use type: does not use Assessment & Plan Post-op Postoperative Procedures: Procedures Operation Date: 09/10/21 12:45 Actual Procedure Side Surgeon p Cemented Hemiarthroplasty Left Tanna Moon MD Postoperative day: 3 Postoperative plan narrative: The patient is postoperative day 3 status post left hip hemiarthroplasty by Dr. Tanna Moon. She was a marginal ambulator prior to her fall. -Mobilize with physical therapy. -Weightbear as tolerated left lower extremity, abduction pillow when in bed. -Marlys dressing in place. Battery on this should last for 7 days. Once that runs out the hose can just be cut and a Band-Aid or dressing placed over the area where the hose was cut. [place] will stay in place. -Will follow-up in 10-14 days for wound check. -Outpatient endocrine metabolic bone workup advised -She eventually be transferred to intermediate to complete her postoperative course.
--- NOTE | 2021-09-13 15:32 | PC.NURSE ---
late note: pain controlled. ok to leave buchanan in. pt refused miralax.
== END 2021-09-13 15:26 | DRG 521 ==
LOC: ED 17:03 → AC 17:04
PROVIDERS: Internal Medicine; Orthopaedic Surgery Foot and Ankle Surgery; Admitting Provider Neuromusculoskeletal Medicine, Sports Medicine; Emergency Provider Nurse Practitioner Critical Care Medicine; Family Provider Student in an Organized Health Care Education/Training Program; PCP Student in an Organized Health Care Education/Training Program; Referring Provider Nurse Practitioner Critical Care Medicine; Visit Provider Neuromusculoskeletal Medicine, Sports Medicine
PROC: 0SRS0JZ Replacement of Left Hip Joint, Femoral Surface with Synthetic Substitute, Open Approach (ICD-10-PCS; CPT 27125; principal; 2021-09-10 12:45)
DX: M80.052A Age-related osteoporosis with current pathological fracture, left femur, initial encounter for fracture (principal); E43 Unspecified severe protein-calorie malnutrition; L97.929 Non-pressure chronic ulcer of unspecified part of left lower leg with unspecified severity; R64 Cachexia; Z68.1 Body mass index [BMI] 19.9 or less, adult; M06.9 Rheumatoid arthritis, unspecified; N18.31 Chronic kidney disease, stage 3a; R11.0 Nausea; I12.9 Hypertensive chronic kidney disease with stage 1 through stage 4 chronic kidney disease, or unspecified chronic kidney disease; M47.27 Other spondylosis with radiculopathy, lumbosacral region; F17.200 Nicotine dependence, unspecified, uncomplicated; W18.30XA Fall on same level, unspecified, initial encounter; Z91.81 History of falling; Z20.822 Contact with and (suspected) exposure to COVID-19; Z79.52 Long term (current) use of systemic steroids; L97.522 Non-pressure chronic ulcer of other part of left foot with fat layer exposed
CPT/HCPCS: 36415; 70450; 71045; 72170; 73502; 73630; 80053; 81001; 81003; 82962; 85025; 85027; 87635; 93005; 93306; 97110; 97162; 97530; 99283; 99284; 99406; C1776; C9803; C1713; J0171; J0690; J1170; J1650; J1720; J2405; J2704; J2765

== ENCOUNTER → 2021-09-24 13:33 | Outpatient (CLI) | payer MEDICARE, SELFPAY ==
[2021-09-08 17:31] VITALS: BMI 17.6
--- NOTE | 2021-09-24 | DI.RAD.S_ITS ---
PROCEDURE: XR HIP W PEL IF DONE LT 2V INDICATIONS: Other osteoporosis with current pathological fracture, left TECHNIQUE: 2 view(s) of the hip acquired. COMPARISON: [facility], CR, XR HIP W PEL IF DONE LT 2V, 09/08/2021, 16:12. FINDINGS: Bones: Patient is status post left hip arthroplasty, with hardware components in expected positions. The hip joint appears congruent. The visualized bony structures appear intact. Soft tissues: Overlying postoperative changes are noted. No suspicious soft tissue densities. There is a large stool burden within the left hemicolon with inspissated appearing stool. IMPRESSION: 1. Status post left hip arthroplasty. 2. Large stool burden with inspissated appearing stool throughout the left hemicolon. Dictated by: Kristal Vanegas M.D. on 09/24/2021 at 14:34 Approved by: Kristal Vanegas M.D. on 09/24/2021 at 14:35
== END ==
PROVIDERS: Family Provider Student in an Organized Health Care Education/Training Program; PCP Student in an Organized Health Care Education/Training Program; Referring Provider Orthopaedic Surgery Foot and Ankle Surgery; Visit Provider Orthopaedic Surgery Foot and Ankle Surgery
DX: M80.852D Other osteoporosis with current pathological fracture, left femur, subsequent encounter for fracture with routine healing (principal); Z96.642 Presence of left artificial hip joint
CPT/HCPCS: 73502

== ENCOUNTER → 2021-10-26 10:44 | Outpatient (CLI) | payer MEDICARE, SELFPAY ==
[2021-10-26 12:05] LABS: Add Manual Diff / Slide Review NO; Basophils Absolute Auto 100 /uL (0-100); Basophils Percent Auto 0.4 % (0-2); Eosinophils Absolute Auto 100 /uL (0-450); Eosinophils Percent Auto 0.4 % (2-4); Hemoglobin 8.6 g/dL (12.0-16.0); Lymphocytes Absolute Auto 900 /uL (1100-4500); Lymphocytes Percent Auto 4.9 % (25-40); Mean Corpuscular HGB Conc 31.7 % (30-36); Mean Corpuscular Hemoglobin 25.6 PG (26-34); Mean Corpuscular Volume 80.8 fL (80-100); Monocytes Absolute Auto 700 /uL (0-900); Monocytes Percent Auto 3.8 % (3-14); Neutrophils Absolute Auto 16000 /uL (1500-7000); Neutrophils Percent Auto 90.5 % (50-75); Platelet Count 617 X10^3/uL (150-400); Red Blood Cell Count 3.35 X10^6/uL (4.0-5.2); Red Cell Distribution Width 17.8 % (11.6-14.8); White Blood Cell Count 17.6 X10^3/uL (4.5-11.0)
[2021-10-26 12:20] LABS: Reticulocyte Count, Percent 1.3 % (1.1-2.6)
[2021-10-26 12:45] LABS: Erythrocyte Sedimentation Rate 100 MM/HR (0-20)
[2021-10-26 12:55] LABS: HEMOLYSIS < 15 (0-50); Iron 15 ug/dL (37-170)
[2021-10-26 13:08] LABS: Percent Iron Saturation 5 % (15-50); Total Iron Binding Capacity 319 ug/dL (265-497); Transferrin 251 mg/dL (206-381)
[2021-10-26 13:10] LABS: Alanine Aminotransferase 15 IU/L (<35); Albumin 3.3 g/dL (3.5-5.0); Albumin Globulin Ratio 1.2 (1.0-2.8); Alkaline Phosphatase 94 U/L (38-126); Aspartate Aminotransferase 36 IU/L (14-36); BUN Creatinine Ratio 19.7 (6-22); Bilirubin Total 0.5 mg/dL (0.2-1.3); Blood Urea Nitrogen 37 mg/dL (7-17); C-Reactive Protein Quant 5.4 mg/dL (<1.0); Calcium 9.2 mg/dL (8.4-10.2); Carbon Dioxide 26 mmol/L (22-32); Chloride 105 mmol/L (98-107); Estimated Glomerular Filt Rate 29 mL/min (>60); Globulin 2.8 g/dL (1.7-4.1); Glucose 104 mg/dL (80-110); HEMOLYSIS < 15 (0-50); Lactate Dehydrogenase 464 U/L (313-618); Lipase 68 U/L (23-300); Sodium 139 mmol/L (137-145); Total Protein 6.1 g/dL (6.3-8.2)
[2021-10-26 13:11] LABS: Potassium 5.7 mmol/L (3.4-5.1)
[2021-10-26 13:29] LABS: Ferritin 35 ng/mL (11-264)
[2021-10-26 14:00] LABS: Folate 10.2 ng/mL (2.76-20.0); Vitamin B12 822 pg/mL (239-931)
--- NOTE | 2021-10-26 14:32 | DI.CT.S_ITS ---
PROCEDURE: CT ANGIO ABDOMEN PELVIS INDICATIONS: Concern for intestinal ischemia; melena TECHNIQUE: After the administration of intravenous contrast, 2.5 mm thick sections acquired from the diaphragm to the symphysis. 10 mm maximum-intensity projection (MIP) reformats were then acquired. For radiation dose reduction, the following was used: automated exposure control. COMPARISON: [facility], CT, CT ANGIO ABD AORTA RUNOFF, 09/10/2020, 16:53. FINDINGS: Image quality: Portions of the lower pelvis are suboptimally evaluated secondary to metallic streak artifact from hip arthroplasty. Aorta: Atherosclerotic changes are present throughout the aorta without areas of hemodynamically significant stenosis, dissection or occlusion. No aneurysmal dilation. Mesenteric arteries: Celiac trunk, superior and inferior mesenteric arteries appear patent. Right pelvic arteries: No areas of hemodynamically significant stenosis, vascular occlusion or aneurysmal dilation. No dissection. Left pelvic arteries: No areas of hemodynamically significant stenosis, vascular occlusion or aneurysmal dilation. No dissection. Extravascular soft tissues: Lung bases are clear. Heart size is normal. Liver is normal in size and enhancement. Gallbladder is unremarkable . Biliary system is non dilated. Pancreas enhances normally. Spleen is normal in size and enhancement. No adrenal nodules. Kidneys are normal in size and enhancement, without hydronephrosis. Multiple bilateral predominantly punctate nonobstructing renal calculi are present. Largest stone on the left measures 6 mm. Simple bilateral renal cysts are present. Non opacified bowel loops are normal in wall thickness and caliber. Colonic diverticula are present. No free fluid or air. No retroperitoneal or mesenteric adenopathy. No ventral hernias. No suspicious bony lesions. No vertebral body compression fractures. IMPRESSION: Aorta as well as mesenteric vessels are patent. Prominent atherosclerotic changes present within the aorta. Multiple nonobstructing renal calculi. Dictated by: Luisa Braxton M.D. on 10/26/2021 at 14:56 Approved by: Luisa Braxton M.D. on 10/26/2021 at 15:03
== END ==
PROVIDERS: Family Provider Student in an Organized Health Care Education/Training Program; PCP Student in an Organized Health Care Education/Training Program; Referring Provider Student in an Organized Health Care Education/Training Program; Visit Provider Student in an Organized Health Care Education/Training Program
DX: K55.9 Vascular disorder of intestine, unspecified (principal); K92.1 Melena; E16.4 Increased secretion of gastrin; N20.0 Calculus of kidney
CPT/HCPCS: 36415; 74174; 80053; 82607; 82728; 82746; 83540; 83550; 83615; 83690; 85025; 85045; 85651; 86140